=== PATIENT | female | born 1975 | race Caucasian/White ===

== ENCOUNTER 2020-10-10 07:33 | Outpatient (REF) | payer MEDICARE, MEDICAID, SELFPAY ==
[2020-10-10 08:27] LABS: MANUAL DIFF FLAG NO
[2020-10-10 08:40] LABS: Basophils Percent Auto 0.6 % (0-2); Eosinophils Absolute Auto 0.2 X10*3/uL (0.0-0.4); Eosinophils Percent Auto 2.3 % (0-4); Hematocrit 28.5 % (37-47); Hemoglobin 8.5 g/dl (12.0-16.0); Imm Gran Abs Auto 0.01 X10*3/uL (0.00-0.03); Imm Gran Pct Auto 0.2 % (0.0-0.4); Lymphocytes Absolute Auto 2.7 X10*3/uL (1.2-4.9); Lymphocytes Percent Auto 41.8 % (20-40); Mean Corpuscular HGB Conc 29.8 g/dl (31.0-35.0); Mean Corpuscular Volume 70.4 fL (80-98); Mean Platelet Volume 9.9 fL (9.4-12.3); Monocytes Absolute Auto 0.5 X10*3/uL (0.1-1.2); Monocytes Percent Auto 8.1 % (2-11); Neutrophils Absolute Auto 3.1 X10*3/uL (2.0-8.3); Platelet Count 294 X10*3/uL (160-400); Red Blood Count 4.05 X10*6/uL (4.20-5.50); Red Cell Distribution Width 14.8 % (11.0-16.0); White Blood Count 6.5 X10*3/uL (4.8-10.8)
[2020-10-10 08:46] LABS: Estimated Average Glucose 123 mg/dL; Hemoglobin A1c % 5.9 %
[2020-10-10 08:58] LABS: Carbon Dioxide 25 mmol/L (22-29)
[2020-10-10 08:59] LABS: Alanine Aminotransferase 13 U/L (0-31); Albumin Level 4.2 g/dL (3.5-5.0); Alkaline Phosphatase 156 U/L (39-117); Anion Gap 13 (12-20); Aspartate Amino Transferase 21 U/L (5-31); Bilirubin Total 0.2 mg/dL (0.0-1.0); Blood Urea Nitrogen 13 mg/dL (9-16); Chloride 103 mmol/L (96-108); Cholesterol 178 mg/dL; Estimated Glomerular Filt Rate > 60; Glucose Random 100 mg/dL (60-115); HDL Cholesterol 45 mg/dL; LDL Cholesterol Calculated 106 mg/dl; Sodium 137 mmol/L (135-145); Total Protein 8.3 g/dL (6.5-8.0); Triglycerides 139 mg/dL
[2020-10-10 09:10] LABS: Ferritin 24 ng/mL (10-250); TSH reflex Free T4 1.18 uIU/mL (0.32-4.0); Vitamin D 25-OH Total 12.4 ng/mL (>30)
[2020-10-11 07:54] LABS: ~HepC Num1 14.35 S/CO (0.00-0.79); ~Hepatitis C Antibody Reactive (Nonreactive)
[2020-10-11 07:58] LABS: HBS Num1 > 1000.00 mIU/mL (0-7.99); HBsAGNum1 0.29 S/CO (0.00-0.99); Hepatitis B Surface Antigen Negative (Negative); ~Hepatitis B Surface Antibody REACTIVE (Nonreactive)
[2020-10-16 15:31] LABS: HCV Log PCR <1.18 NOT DETECTED Log IU/mL (NOT DETECTED); HepC Viral Load <15 NOT DETECTED IU/mL (NOT DETECTED)
== END 2020-10-10 07:34 | disposition home or self-care (01) ==
LOC: HO.LAB 07:33
PROVIDERS: PCP Internal Medicine; Visit Provider Internal Medicine
DX: D50.9 Iron deficiency anemia, unspecified (principal); E55.9 Vitamin D deficiency, unspecified; F41.8 Other specified anxiety disorders
CPT/HCPCS: 36415; 80053; 80061; 82306; 82728; 83036; 84443; 85025; 86706; 86803; 87340; 87522

== ENCOUNTER 2020-10-18 11:51 | Outpatient (REF) | payer MEDICARE, MEDICAID, SELFPAY ==
--- NOTE | ~2020-10-18 | US_ITS ---
EXAMINATION: US ABDOMEN COMPLETE CLINICAL INFORMATION: Right upper quadrant pain. Question gallstones.. COMPARISON: Previous abdominal ultrasound January [address] of the abdomen and pelvis most recent September 2011 TECHNIQUE: Real-time imaging of the abdominal viscera. FINDINGS: PANCREAS: Normal. ABDOMINAL AORTA: The proximal, mid, and distal segments are normal in caliber. INFERIOR VENA CAVA: Visualized portions are normal. LIVER: Liver echotexture is increased suggestive of fatty infiltration. The liver is normal in size. The liver contour is normal. No focal hepatic lesion. There is no intrahepatic biliary duct dilatation seen. GALLBLADDER: Normal. The gallbladder is physiologically distended without evidence of stones, sludge, polyps, wall thickening or pericholecystic fluid. COMMON BILE DUCT: Normal in caliber measuring 0.3 cm in diameter. RIGHT KIDNEY: Normal. No hydronephrosis. No renal calculi or focal parenchymal lesions. The kidney measures 10.1 cm in maximum dimension. LEFT KIDNEY: Normal. No hydronephrosis. No renal calculi or focal parenchymal lesions. The kidney measures 11.5 cm in maximum dimension. SPLEEN: Normal. The spleen measures 12.2 cm in maximum dimension. FREE FLUID: None. US/US abdomen complete IMPRESSION: Echogenic liver suggestive of fatty infiltration. Otherwise unremarkable exam.
== END 2020-10-18 11:52 | disposition home or self-care (01) ==
LOC: HO.HMGCX 11:51
PROVIDERS: Visit Provider Advanced Practice Midwife
DX: R10.11 Right upper quadrant pain (principal); R74.8 Abnormal levels of other serum enzymes
CPT/HCPCS: 76700

== ENCOUNTER 2020-10-26 15:49 | Emergency (ER) | payer MEDICARE, MEDICAID, SELFPAY ==
--- NOTE | 2020-10-26 | ECG_ITS ---
Test Reason : CHEST PAIN Blood Pressure : / mmHG Vent. Rate : 075 BPM Atrial Rate : 075 BPM P-R Int : 124 ms QRS Dur : 078 ms QT Int : 372 ms P-R-T Axes : 033 015 014 degrees QTc Int : 415 ms Normal sinus rhythm Nonspecific T wave abnormality Abnormal ECG When compared with ECG of 03-MAR-2019 03:29, Nonspecific T wave abnormality now evident in Lateral leads Referred By: Al Humphrey Electronically Signed By:MORIAH CRUZ
[2020-10-26 15:52] VITALS: BP 144/75; PULSE 83; RESP 22; TEMP 36.7; O2SAT 99; BMI 31.8
== END 2020-10-26 20:25 | disposition left against medical advice (07) ==
LOC: HO.ED 20:21
PROVIDERS: Emergency Provider Emergency Medicine; PCP Internal Medicine
DX: R10.9 Unspecified abdominal pain (principal)
CPT/HCPCS: 93005; 99282

== ENCOUNTER 2020-10-31 16:04 | Outpatient (REF) | payer MEDICARE, MEDICAID, SELFPAY ==
--- NOTE | ~2020-10-31 | US_ITS ---
EXAMINATION: ULTRASOUND PELVIS AND TRANSVAGINAL CLINICAL INFORMATION: Abnormal vaginal bleeding COMPARISON: Ultrasound pelvis 07/02/2018 TECHNIQUE: Transabdominal and transvaginal imaging of pelvis was performed. FINDINGS: There is anteverted and anteflexed uterus measuring 9.8 x 5.9 x 6.4 cm. The myometrium is slightly heterogenous with echogenic calcifications in the anterior fundal region. Endometrial thickness is 0.45 cm. A hypoechoic lesion in the anterior body of uterus measuring 2.3 x 1.9 x 2.5 cm. Previously it measured 1.2 x 1.1 x 1.19 cm. No additional lesions seen. There are small nabothian cysts seen in the cervix. Right ovary measures 2.3 x 1.5 x 2.7 cm and volume 5.0 mL. It appears unremarkable. Previously it measured 2.7 x 2.6 x 3.0 cm and volume 11.1 mL. The left ovary measures 3.0 x 1.7 x 1.8 cm and volume 5.0 mL. There is anechoic cyst measuring 1.4 x 0.7 x 1.0 cm. Previously left ovary measures 1.8 x 2.5 x 1.9 cm and 4.5 mL in volume. There is no free fluid in the cul-de-sac. US/US pelvic and transvaginal IMPRESSION: Slightly heterogenous uterus with a solitary fibroid in the anterior upper body of uterus. Small anechoic cyst left ovary measuring 1.4 cm. Right ovary measures 2.7 cm. There are small nabothian cysts in the cervix. There is no free fluid in the cul-de-sac.
== END 2020-10-31 16:05 | disposition home or self-care (01) ==
LOC: HO.US 16:04
PROVIDERS: Visit Provider Advanced Practice Midwife
DX: D25.9 Leiomyoma of uterus, unspecified (principal); N93.9 Abnormal uterine and vaginal bleeding, unspecified
CPT/HCPCS: 76830; 76856

== ENCOUNTER 2020-12-18 15:39 | Outpatient (REF) | payer MEDICARE, MEDICAID, SELFPAY ==
[2020-12-18 18:18] LABS: Hematocrit 24.4 % (37-47); Mean Corpuscular HGB Conc 28.3 g/dl (31.0-35.0); Mean Corpuscular Hemoglobin 19.1 pg (27.0-33.0); Mean Corpuscular Volume 67.4 fL (80-98); Mean Platelet Volume 9.8 fL (9.4-12.3); Platelet Count 256 X10*3/uL (160-400); Red Blood Count 3.62 X10*6/uL (4.20-5.50); Red Cell Distribution Width 17.2 % (11.0-16.0); White Blood Count 8.4 X10*3/uL (4.8-10.8)
[2020-12-18 18:30] LABS: Hemoglobin 6.9 g/dl (12.0-16.0)
[2020-12-18 18:53] LABS: HCG Quantitative < 2 mIU/mL; TSH reflex Free T4 2.25 uIU/mL (0.32-4.0)
[2020-12-19 03:23] LABS: CT PCR NOT DETECTED (Not Detect.); NG PCR NOT DETECTED (Not Detect.)
[2020-12-20 21:17] LABS: HPV mRNA E6/E7 rflx Not Detected (Not Detected)
== END 2020-12-18 15:40 | disposition home or self-care (01) ==
LOC: HO.LAB 15:39
PROVIDERS: PCP Internal Medicine; Visit Provider Obstetrics & Gynecology
DX: Z01.411 Encounter for gynecological examination (general) (routine) with abnormal findings (principal); Z11.3 Encounter for screening for infections with a predominantly sexual mode of transmission; Z11.51 Encounter for screening for human papillomavirus (HPV); N92.1 Excessive and frequent menstruation with irregular cycle; N93.9 Abnormal uterine and vaginal bleeding, unspecified; D50.0 Iron deficiency anemia secondary to blood loss (chronic)
CPT/HCPCS: 36415; 58100; 84443; 84702; 85027; 87491; 87591; 87624; 88142; 88305

== ENCOUNTER 2020-12-19 18:52 | Emergency (ER) | payer MEDICARE, MEDICAID, SELFPAY ==
--- NOTE | ~2020-12-19 | XR_ITS ---
EXAMINATION: XR CHEST CLINICAL INFORMATION: Shortness of breath COMPARISON: None TECHNIQUE: Frontal portable view of the chest was obtained. 9:09 PM FINDINGS: No significant abnormality is noted involving the heart, lungs, mediastinum, bony thorax or soft tissues. XR/XR chest 1V IMPRESSION: Unremarkable examination.
[2020-12-19 19:56] VITALS: BP 121/62; PULSE 75; RESP 18; TEMP 36.7; BMI 33.6
--- NOTE | 2020-12-19 20:39 | ED_ITS ---
HPI - Recheck/Abnormal Lab/Rx General Chief Complaint: Recheck/Abnormal Lab/Rx Stated Complaint: blood transfusion Time Seen by Provider: 12/19/20 20:38 Source: patient Mode of arrival: ambulatory Limitations: no limitations History of Present Illness HPI narrative: 45 y/o female with history of menorrhagia who was sent to the ER for blood transfusion by her [employer] Dr. Grimes. Her outpatient blood work showed a hemoglobin of 6.8. She is planned for a uterine ablation on Friday with Dr. Grimes. She admits to feeling fatigued and weak. She is very SOB with exertion. She is not currently bleeding and her LMP was November 30 and lasted 9 days. She was bleeding heavily for a full 9 days, passing clot as large as her fist. She has been suffering from heavy menstrual periods for as long as she can remember. She has never required blood transfusion before. Her mother who is with her today reports history of the same and she required multiple blood transfusions and a partial hysterectomy. No known bleeding disorders. MD complaint: abnormal lab Initial visit (ago): day(s) Returns today for: called because of abnormal lab/test Description of abnormal result: hemoglobin of 6.8 Context: called for abnormal lab result Associated symptoms: chest pain, shortness of breath and malaise Related Data Home Medications Medication Instructions Recorded Confirmed atorvastatin 1 tab PO DAILY 12/13/20 12/13/20 buspirone 1 tab PO DAILY 12/13/20 12/13/20 cetirizine 1 tab PO DAILY 12/13/20 12/13/20 clonidine HCl 1 tab PO DAILY 12/13/20 12/13/20 cyclobenzaprine 1 tab PO TID PRN 12/13/20 12/13/20 gabapentin 1 cap PO TID 12/13/20 12/13/20 omeprazole 1 cap PO DAILY 12/13/20 12/13/20 prazosin 1 cap PO BEDTIME 12/13/20 12/13/20 sertraline 1 tab PO DAILY 12/13/20 12/13/20 Allergies Allergy/AdvReac Type Severity Reaction Status Date / Time latex [LATEX] Allergy Unknown rash Verified 12/19/20 19:56 Review of Systems Review of Systems: Constitutional: No Fever, No Chills Cardiovascular: No Chest Pain, + SOB, No Orthopnea, No Edema Respiratory: No Cough, No Sputum, No Wheezing, + dyspnea Gastrointestinal: No Nausea, No Vomiting, No Diarrhea, No abdominal Pain, No Hematochezia, No Melena Genitourinary: No Dysuria, No Urinary Frequency, No Hematuria, No current vaginal bleeding Musculoskeletal: No joint pain, No Myalgias Skin: No Skin Lesions, No rash Neuro: + Weakness, No Numbness, No Dizziness, No Headache Psych: No Anxiety/Panic, No Depression Heme/Lymph: No Bruising, No Lymphadenopathy Endocrine: No Polyuria, No Polydipsia [facility] Past Medical History Attestation statement: The following information was validated with the patient. Medical History Arthritis Asthma GERD (gastroesophageal reflux disease) HLD (hyperlipidemia) HTN (hypertension) Migraines Surgical History Tubal ligation status Date of Last Menstrual Period: 11/30/20 Family History Family History Mother Colon cancer Family/Other Uterine cancer Maternal Aunt Breast cancer Spinal cord cancer Maternal Grandmother Dementia Social History Social History Alcohol intake: never Patient Tobacco Use Status: Current everyday Tobacco user Cigarette Packs Per Day: 1 Use of substances other than those prescribed or required for medical reasons: Yes Substance Use Type: Crack/Cocaine and Heroin Advance Directives: No Physical Exam Vital Signs: Vital Signs: Last Vital Signs Temp 98.2 F 12/20/20 00:40 Pulse 88 12/20/20 00:40 Resp 18 12/20/20 00:40 BP 119/75 12/20/20 00:40 Pulse Ox 98 12/19/20 22:49 Body Mass Index 33.6 Appearance: Alert. Oriented X3. Moderate pallor Eyes: Pupils equal, round and reactive to light. Conjunctival pallor ENT: Pharynx normal. Neck: Normal inspection. Neck supple. CVS: Normal heart rate and rhythm. Pulses normal. Respiratory: No respiratory distress. Breath sounds normal. Abdomen: Soft and nontender. +BS x4. Pelvic exam deferred Skin: Skin warm and dry. Normal skin color. Normal skin turgor. No rashes. Extremities: No lower extremity edema. Neuro: Oriented X 3. No motor deficit. No sensory deficit. Course Course Course Narrative: 45 y/o female presenting to the ER with symptomatic anemia, hemoglobin of 6.8 in the setting of chronic menorrhagia. Sent in by Dr. Grimes with plan for intervention on Friday. Not currently bleeding. Not on a nticoagulation or aspirin. Her symptoms of VERNON/SOB, chest pain and fatigue are all from her anemia. Will plan to transfuse 2 units of PRBC per Dr. Grimes's request. Will check retic count and iron studies as well. Patient consented for blood. Anticipate d/c home after blood transfused given she is not actively bleeding. Reevaluation(s) Reevaluation #1: Hemoglobin slightly improved, however given her symptoms will proceed with original plan to give 2 units. Delay in transfusion due to difficult stick and need for additional antibody testing from the lab. Dr. Key obtained needed sample. Awaiting transfusion. Reevaluation #2: Made aware of soft BP with MAP 64. Doubt this is from sepsis, most likely from hypovolemia and anemia. She is AAOx3. Afebrile without leukocyt osis. Will give 1L IVF while awaiting blood. Reevaluation #3: Patient blood transfusion started. She is tolerating it well. Physician observation started at 12:54am. Patient placed in physician observation because patient is getting 2 units of blood. Will take several hours. Plan for discharge home after transfusion with outpatient repeat H/H and outpatient f/u with Dr. Grimes.. At the time observation was started patient's vital signs were stable. Patient is alert and oriented. Neuro exam is non-focal. CV: RRR and lungs are clear. Will continue to monitor. MDM - Recheck/Abnormal Lab/Rx Lab Data Result diagrams: 12/19/20 20:56 12/19/20 20:56 Labs: Lab Results 12/19/20 12/19/20 12/19/20 Range/Units 20:56 20:56 20:56 WBC 7.9 (4.8-10.8) X10*3/uL RBC 3.81 L (4.20-5.50) X10*6/uL Hgb 7.3 L (12.0-16.0) g/dl Hct 25.4 L (37-47) % MCV 66.7 L (80-98) fL MCH 19.2 L (27.0-33.0) pg MCHC 28.7 L (31.0-35.0) g/dl RDW 17.4 H (11.0-16.0) % Plt Count 241 (160-400) X10*3/uL MPV 9.4 (9.4-12.3) fL Immature Gran % (Auto) 0.1 (0.0-0.4) % Neut % (Auto) 56.6 (45-73) % Lymph % (Auto) 33.3 (20-40) % [place] % (Auto) 7.9 (2-11) % Eos % (Auto) 1.7 (0-4) % Baso % (Auto) 0.4 (0-2) % Lymph # (Auto) 2.6 (1.2-4.9) X10*3/uL [place] # (Auto) 0.6 (0.1-1.2) X10*3/uL Eos # (Auto) 0.1 (0.0-0.4) X10*3/uL Baso # (Auto) 0.0 (0.0-0.2) X10*3/uL Abs Immat Gran (auto) 0.01 (0.00-0.03) X10*3/uL Absolute Neuts (auto) 4.5 (2.0-8.3) X10*3/uL Absolute Nucleated RBC 0.000 (0.0-0.012) X10*3/uL Nucleated RBC % (auto) 0.0 (0.0-0.2) /100WBC Absolute Retic 0.066 (0.026-0.095) X10*6/uL Percent Retic 1.7 (0.5-1.8) % Immature Retic Fraction 23.9 H (3.0-15.9) % Retic Hgb Equivalent 18.2 L (30.0-35.0) pg PT (9.9-13.0) SEC INR (0.9-1.1) APTT (24.1-38.0) SEC Sodium 139 (135-145) mmol/L Potassium 4.0 (3.3-5.1) mmol/L Chloride 106 (96-108) mmol/L Carbon Dioxide 26 (22-29) mmol/L Anion Gap 11 L (12-20) BUN 10 (9-16) mg/dL Creatinine 0.93 (0.5-1.4) mg/dL Estim Creat Clear Calc 81.1 Estimated GFR > 60 Random Glucose 108 (60-115) mg/dL Calcium 8.8 (8.4-10.2) mg/dL Magnesium 2.3 (1.6-2.6) mg/dL Iron 20 L (30-160) mcg/dL TIBC 463 H (228-428) mcg/dL % Saturation 4 L (15-50) % Unsat Iron Binding 443 ug/dL Total Bilirubin 0.2 (0.0-1.0) mg/dL Direct Bilirubin < 0.2 (0.0-0.5) mg/dL AST 21 (5-31) U/L ALT 12 (0-31) U/L Alkaline Phosphatase 154 H (39-117) U/L Troponin I High Sens (<3.5-17.0) ng/L Total Protein 8.2 H (6.5-8.0) g/dL Albumin 4.1 (3.5-5.0) g/dL Blood Type A Positive Antibody Screen NEGATIVE Crossmatch See Detail 12/19/20 12/19/20 Range/Units 20:56 20:56 WBC (4.8-10.8) X10*3/uL RBC (4.20-5.50) X10*6/uL Hgb (12.0-16.0) g/dl Hct (37-47) % MCV (80-98) fL MCH (27.0-33.0) pg MCHC (31.0-35.0) g/dl RDW (11.0-16.0) % Plt Count (160-400) X10*3/uL MPV (9.4-12.3) fL Immature Gran % (Auto) (0.0-0.4) % Neut % (Auto) (45-73) % Lymph % (Auto) (20-40) % [place] % (Auto) (2-11) % Eos % (Auto) (0-4) % Baso % (Auto) (0-2) % Lymph # (Auto) (1.2-4.9) X10*3/uL [place] # (Auto) (0.1-1.2) X10*3/uL Eos # (Auto) (0.0-0.4) X10*3/uL Baso # (Auto) (0.0-0.2) X10*3/uL Abs Immat Gran (auto) (0.00-0.03) X10*3/uL Absolute Neuts (auto) (2.0-8.3) X10*3/uL Absolute Nucleated RBC (0.0-0.012) X10*3/uL Nucleated RBC % (auto) (0.0-0.2) /100WBC Absolute Retic (0.026-0.095) X10*6/uL Percent Retic (0.5-1.8) % Immature Retic Fraction (3.0-15.9) % Retic Hgb Equivalent (30.0-35.0) pg PT 10.9 (9.9-13.0) SEC INR 1.0 (0.9-1.1) APTT 35.2 (24.1-38.0) SEC Sodium (135-145) mmol/L Potassium (3.3-5.1) mmol/L Chloride (96-108) mmol/L Carbon Dioxide (22-29) mmol/L Anion Gap (12-20) BUN (9-16) mg/dL Creatinine (0.5-1.4) mg/dL Estim Creat Clear Calc Estimated GFR Random Glucose (60-115) mg/dL Calcium (8.4-10.2) mg/dL Magnesium (1.6-2.6) mg/dL Iron (30-160) mcg/dL TIBC (228-428) mcg/dL % Saturation (15-50) % Unsat Iron Binding ug/dL Total Bilirubin (0.0-1.0) mg/dL Direct Bilirubin (0.0-0.5) mg/dL AST (5-31) U/L ALT (0-31) U/L Alkaline Phosphatase (39-117) U/L Troponin I High Sens < 3.5 (<3.5-17.0) ng/L Total Protein (6.5-8.0) g/dL Albumin (3.5-5.0) g/dL Blood Type Antibody Screen Crossmatch Critical Care Time Critical Care Time Critical Care Time: Yes Total Critical Care Time: 38 Attestation: I have personally provided critical care time exclusive of time spent on separately billable procedures. Time includes review of lab data, radiology results, discussion with consultants, and monitoring for potential decompensation. Intervention performed as documented. Discharge Plan Discharge Clinical Impression: Symptomatic anemia Menorrhagia Qualifiers: Menorrhagia type: with regular cycle Qualified Code(s): N92.0 - Excessive and frequent menstruation with regular cycle Patient Disposition: Home, Self-Care Instructions: Menorrhagia (ED), Anemia (ED), Hydrothermal Endometrial Ablation (DC) Additional Instructions: You were given 2 units of red blood cells today in the ER. Your blood workup showed significant iron deficiency. Recommend starting iron supplementation & following up with a [employer] for evaluation of possible IV iron. Follow up with Dr. Grimes on Friday for your planned procedure. If you develop significant bleeding associated with dizziness, chest pain, shortnes of breath or any other concerning symptoms come back to the ER for further evaluation. Prescriptions: No Action clonidine HCl 0.1 mg tablet 1 tab PO DAILY RF: 0 atorvastatin 20 mg tablet 1 tab PO DAILY RF: 0 cetirizine 10 mg tablet 1 tab PO DAILY RF: 0 sertraline 100 mg tablet 1 tab PO DAILY RF: 0 omeprazole 40 mg capsule,delayed release(DR/EC) 1 cap PO DAILY RF: 0 gabapentin 300 mg capsule 1 cap PO TID RF: 0 buspirone 7.5 mg tablet 1 tab PO DAILY RF: 0 prazosin 2 mg capsule 1 cap PO BEDTIME RF: 0 cyclobenzaprine 5 mg tablet 1 tab PO TID PRN (Reason: Pain) RF: 0 Referrals: Michelle Anne MD [Physician] - 2 days (severe iron deficiency anemia) Adalid Grimes MD [Physician] - 2 days (menorrhagia s/p 2 units PRBC)
[2020-12-19 21:04] LABS: Basophils Percent Auto 0.4 % (0-2); Eosinophils Absolute Auto 0.1 X10*3/uL (0.0-0.4); Eosinophils Percent Auto 1.7 % (0-4); Hematocrit 25.4 % (37-47); Hemoglobin 7.3 g/dl (12.0-16.0); Imm Gran Abs Auto 0.01 X10*3/uL (0.00-0.03); Imm Gran Pct Auto 0.1 % (0.0-0.4); Lymphocytes Absolute Auto 2.6 X10*3/uL (1.2-4.9); Lymphocytes Percent Auto 33.3 % (20-40); MANUAL DIFF FLAG NO; Mean Corpuscular HGB Conc 28.7 g/dl (31.0-35.0); Mean Corpuscular Hemoglobin 19.2 pg (27.0-33.0); Mean Corpuscular Volume 66.7 fL (80-98); Mean Platelet Volume 9.4 fL (9.4-12.3); Monocytes Absolute Auto 0.6 X10*3/uL (0.1-1.2); Monocytes Percent Auto 7.9 % (2-11); Neutrophils Absolute Auto 4.5 X10*3/uL (2.0-8.3); Neutrophils Percent Auto 56.6 % (45-73); Platelet Count 241 X10*3/uL (160-400); Red Blood Count 3.81 X10*6/uL (4.20-5.50); Red Cell Distribution Width 17.4 % (11.0-16.0); White Blood Count 7.9 X10*3/uL (4.8-10.8)
[2020-12-19 21:10] LABS: Prothrombin Time 10.9 SEC (9.9-13.0)
[2020-12-19 21:13] LABS: Partial Thromboplastin Time 35.2 SEC (24.1-38.0)
[2020-12-19 21:26] LABS: Immature Retic Fraction 23.9 % (3.0-15.9); Retic HGB Equivalent 18.2 pg (30.0-35.0); Reticulocyte Percent 1.7 % (0.5-1.8); Reticulocytes Absolute 0.066 X10*6/uL (0.026-0.095); SCAN SMEAR FLAG 1
[2020-12-19 21:33] LABS: Alanine Aminotransferase 12 U/L (0-31); Albumin Level 4.1 g/dL (3.5-5.0); Alkaline Phosphatase 154 U/L (39-117); Anion Gap 11 (12-20); Aspartate Amino Transferase 21 U/L (5-31); Bilirubin Direct < 0.2 mg/dL (0.0-0.5); Bilirubin Total 0.2 mg/dL (0.0-1.0); Blood Urea Nitrogen 10 mg/dL (9-16); Calcium 8.8 mg/dL (8.4-10.2); Carbon Dioxide 26 mmol/L (22-29); Chloride 106 mmol/L (96-108); Creatinine Clr Calc Pharmacy 81.1; Estimated Glomerular Filt Rate > 60; Glucose Random 108 mg/dL (60-115); Iron 20 mcg/dL (30-160); Magnesium 2.3 mg/dL (1.6-2.6); Percent Iron Saturation 4 % (15-50); Sodium 139 mmol/L (135-145); Total Iron Binding Capacity 463 mcg/dL (228-428); Total Protein 8.2 g/dL (6.5-8.0); Unsaturated Iron Binding 443 ug/dL
[2020-12-19 21:36] VITALS: BP 94/49; PULSE 65; RESP 18; O2SAT 97
--- NOTE | 2020-12-19 21:37 | PC.NURSE ---
Pt has been a very difficult stick d/t scarring. palor lower conjunctiva. reports no vag bleeding at this time but has heavy menstruations. is axox3. plan for ablasion on friday. this rn to approach provider for EJ.
[2020-12-19] MEDS: 0.9 % Sodium Chloride 1,000 ML 999 ML IVCONT (22:00)
[2020-12-19 22:04] LABS: Troponin-I High Sensitivity < 3.5 ng/L (<3.5-17.0)
[2020-12-19 22:49] VITALS: BP 103/61; PULSE 69; RESP 18; TEMP 36.9; O2SAT 98
[2020-12-20 00:40] VITALS: BP 119/75; PULSE 88; RESP 18; TEMP 36.8
[2020-12-20 00:55] VITALS: BP 125/76; PULSE 85; RESP 18; TEMP 36.9
[2020-12-20 03:00] VITALS: BP 135/57; PULSE 72; RESP 18; TEMP 36.8
[2020-12-20 03:13] VITALS: BP 135/57; PULSE 75; RESP 18; TEMP 36.8
[2020-12-20 03:29] VITALS: BP 128/72; PULSE 83; RESP 18; TEMP 36.8
[2020-12-20 05:42] VITALS: BP 136/87; PULSE 80; RESP 18; TEMP 36.8
== END 2020-12-20 05:52 | disposition home or self-care (01) ==
PROVIDERS: Physician Assistant; Emergency Provider Internal Medicine
DX: D64.9 Anemia, unspecified (principal); N92.0 Excessive and frequent menstruation with regular cycle; I10 Essential (primary) hypertension; Z79.899 Other long term (current) drug therapy
CPT/HCPCS: 36415; 36430; 71045; 80048; 80076; 83540; 83735; 84484; 85025; 85045; 85610; 85730; 86850; 86900; 86901; 86923; 96360; 99284; 99291; P9016

== ENCOUNTER → 2020-12-21 13:28 | Outpatient (BNVA) | payer MEDICARE, MEDICAID, SELFPAY | PROVIDERS: PCP Internal Medicine; Visit Provider Obstetrics & Gynecology | DX: N76.0 Acute vaginitis (principal); N92.1 Excessive and frequent menstruation with irregular cycle; D64.9 Anemia, unspecified; B96.89 Other specified bacterial agents as the cause of diseases classified elsewhere | CPT/HCPCS: 99212 ==

== ENCOUNTER 2020-12-25 15:42 | Outpatient (REF) | payer MEDICARE, MEDICAID, SELFPAY ==
[2020-12-25 16:22] LABS: Hemoglobin 9.4 g/dl (12.0-16.0); Mean Corpuscular HGB Conc 30.3 g/dl (31.0-35.0); Mean Corpuscular Hemoglobin 21.5 pg (27.0-33.0); Mean Corpuscular Volume 70.8 fL (80-98); Mean Platelet Volume 10.1 fL (9.4-12.3); Platelet Count 236 X10*3/uL (160-400); Red Blood Count 4.38 X10*6/uL (4.20-5.50); Red Cell Distribution Width 21.5 % (11.0-16.0); White Blood Count 6.9 X10*3/uL (4.8-10.8)
== END 2020-12-25 15:43 | disposition home or self-care (01) ==
LOC: HO.LAB 15:42
PROVIDERS: PCP Internal Medicine; Visit Provider Obstetrics & Gynecology
DX: N92.1 Excessive and frequent menstruation with irregular cycle (principal); D64.9 Anemia, unspecified
CPT/HCPCS: 36415; 85027

== ENCOUNTER 2020-12-29 09:07 | Day surgery (SDC) | payer MEDICARE, MEDICAID, SELFPAY ==
--- NOTE | 2020-12-21 08:40 | HO.ANESPROP2 ---
Documented by User: Alexandra Oneill 12/21/20 08:42 HPI - Anesthesia Eval Consult details Narrative: 45yo F for Uterine Ablation w/Novasure Social hx lists polysub abuse, ? current. Tox screen DOS PMFSH Active Problems Active Problems: All Active Problems (Updated 12/21/20 @ 00:00 by Background Daemon) Well woman exam (Acute) Menometrorrhagia (Acute) Iron deficiency anemia (Acute) Past Medical History Medical History Arthritis Asthma GERD (gastroesophageal reflux disease) HLD (hyperlipidemia) HTN (hypertension) Migraines Family History Family History Mother Colon cancer Family/Other Uterine cancer Maternal Aunt Breast cancer Spinal cord cancer Maternal Grandmother Dementia Surgical History Surgical History Tubal ligation status Social History Social History Alcohol intake: never Patient Tobacco Use Status: Current everyday Tobacco user Cigarette Packs Per Day: 1 Cigarettes Per Day: 20.0 Second Hand Smoke Exposure: No Use of substances other than those prescribed or required for medical reasons: Yes Substance Use Type: Crack/Cocaine and Heroin Substance Use Frequency: Daily Are you DNR?: No Advance Directives: No Advance Directives Information Provided: Yes Advance Directives on File: No Meds Allergies Allergy/AdvReac Type Severity Reaction Status Date / Time latex [LATEX] Allergy Unknown rash Verified 12/19/20 19:56 Home Medications Medication Instructions Recorded Confirmed Last Taken Type atorvastatin 20 mg tablet 1 tab PO DAILY 12/13/20 12/13/20 Unknown History buspirone 7.5 mg tablet 1 tab PO DAILY 12/13/20 12/13/20 Unknown History cetirizine 10 mg tablet 1 tab PO DAILY 12/13/20 12/13/20 Unknown History clonidine HCl 0.1 mg tablet 1 tab PO DAILY 12/13/20 12/13/20 Unknown History cyclobenzaprine 5 mg tablet 1 tab PO TID PRN 12/13/20 12/13/20 Unknown History gabapentin 300 mg capsule 1 cap PO TID 12/13/20 12/13/20 Unknown History omeprazole 40 mg capsule,delayed 1 cap PO DAILY 12/13/20 12/13/20 Unknown History release prazosin 2 mg capsule 1 cap PO BEDTIME 12/13/20 12/13/20 Unknown History sertraline 100 mg tablet 1 tab PO DAILY 12/13/20 12/13/20 Unknown History Exam Exam Date and Time: December 21, 2020 0840 Pertinent Lab Results Pertinent Lab Results: Laboratory Tests 12/19/20 12/19/20 20:56 20:56 WBC 7.9 Hgb 7.3 L Hct 25.4 L Plt Count 241 Sodium 139 Potassium 4.0 Chloride 106 Carbon Dioxide 26 BUN 10 Creatinine 0.93 Narrative Narrative: EKG 09/2020 Vent. Rate : 075 BPM Atrial Rate : 075 BPM P-R Int : 124 ms QRS Dur : 078 ms QT Int : 372 ms P-R-T Axes : 033 015 014 degrees QTc Int : 415 ms Normal sinus rhythm Nonspecific T wave abnormality Abnormal ECG When compared with ECG of 03-MAR-2019 03:29, Nonspecific T wave abnormality now evident in Lateral leads Assessment and Plan Assessment Anesthesia Assessment: Chart Reviewed Documented by User: Suha Beckwith 12/29/20 14:12 PMFSH Past Medical History Medical History Arthritis Asthma GERD (gastroesophageal reflux disease) HLD (hyperlipidemia) HTN (hypertension) Migraines Family History Family History Mother Colon cancer Family/Other Uterine cancer Maternal Aunt Breast cancer Spinal cord cancer Maternal Grandmother Dementia Surgical History Surgical History Tubal ligation status Social History Social History Alcohol intake: never Patient Tobacco Use Status: Current everyday Tobacco user Cigarette Packs Per Day: 1 Cigarettes Per Day: 20.0 Second Hand Smoke Exposure: No Use of substances other than those prescribed or required for medical reasons: Yes Substance Use Type: Crack/Cocaine and Heroin Substance Use Frequency: Daily Are you DNR?: No Advance Directives: No Advance Directives Information Provided: Yes Advance Directives on File: No Meds Allergies Allergy/AdvReac Type Severity Reaction Status Date / Time latex [LATEX] Allergy Unknown rash Verified 12/19/20 19:56 Home Medications Medication Instructions Recorded Confirmed Last Taken Type atorvastatin 20 mg tablet 1 tab PO DAILY 12/13/20 12/13/20 Unknown History buspirone 7.5 mg tablet 1 tab PO DAILY 12/13/20 12/13/20 Unknown History cetirizine 10 mg tablet 1 tab PO DAILY 12/13/20 12/13/20 Unknown History clonidine HCl 0.1 mg tablet 1 tab PO DAILY 12/13/20 12/13/20 Unknown History cyclobenzaprine 5 mg tablet 1 tab PO TID PRN 12/13/20 12/13/20 Unknown History gabapentin 300 mg capsule 1 cap PO TID 12/13/20 12/13/20 Unknown History omeprazole 40 mg capsule,delayed 1 cap PO DAILY 12/13/20 12/13/20 Unknown History release prazosin 2 mg capsule 1 cap PO BEDTIME 12/13/20 12/13/20 Unknown History sertraline 100 mg tablet 1 tab PO DAILY 12/13/20 12/13/20 Unknown History Exam Airway Mallampati Class: II TM Dist: >3cm Neck ROM: Full Partial: Upper Heart: rrr Lungs: cta Assessment and Plan Assessment Anesthesia Assessment: Anesthesia Plan Discussed and Chart Reviewed Final Anesthetic Review NPO: Yes ASA Class: III and Emergency Final Preanesthetic Review: No Changes in Pt Med Stat, Meds/Allgs Chart Reviewed and Consent Obtained/Reviewed Patient Risk: Intermediate Procedure Risk: Intermediate Anesthetic Plan Anesthetic Plan: GA Disposition: Standard PACU
[2020-12-29] VITALS (9 sets, daily range): BP systolic 112–156; BP diastolic 67–85; PULSE 59–77; RESP 14–20; TEMP 36.1–36.3; O2SAT 94–100; BMI 33.8
[2020-12-29 09:34] LABS: UPreg QC Valid YES; Urine Pregnancy NEGATIVE (NEGATIVE)
[2020-12-29 09:54] LABS: Amphetamine Screen Urine Not Detected (Not Detect); Barbiturates, Urine Not Detected (Not Detect); Benzodiazepines Screen Urine Not Detected (Not Detect); Cannabinoid Screen Urine Not Detected (Not Detect); Cocaine Screen Urine POSITIVE (Not Detect); Opiate Screen Urine POSITIVE (Not Detect); Phencyclidine Screen Urine Not Detected (Not Detect)
[2020-12-29 10:01] LABS: Hematocrit 30.3 % (37-47)
--- NOTE | 2020-12-29 10:23 | MHC.SHP ---
Pre-Procedural Eval Section A Date of Service: 12/29/20 Section B Chief Complaint: excessive menstruation Allergies: Allergies Allergy/AdvReac Type Severity Reaction Status Date / Time latex [LATEX] Allergy Unknown rash Verified 12/19/20 19:56 Plan I have reviewed the history and physical and performed a pertinent physical examination on my patient. No changes have occurred unless specified.
[2020-12-29] MEDS: Lactated Ringers 1,000 ML 999 ML IV (10:25)
--- NOTE | 2020-12-29 10:54 | PC.NURSE ---
Upon patient arrival she c/o dizziness, lightheaded and feeling of faint. Pt VSS. PT admitted to using IV heroin/cocaine at 0200. PT Alert and oriented but very sleepy/drowsy. Dr. Sandoval, Dr. Matthews and Dr. Grimes aware. Orders were obtained for stat H&H, T&S and 1000ml LR bolus from Dr. Matthews. H&H drawn, recalled for T&S. Pt hard IV started. 7 attempts made and 22g obtained to left hand. IVF running. Dr aSndoval at bedside to assess patient. Pt stated eating a sleeve of crackers and coffee at 0600. Surgery delayed until 1400 per anesthesia.
--- NOTE | 2020-12-29 14:46 | PM.OP ---
Brief Operative Note Date of Service: 12/29/20 Pre-op diagnosis: Menometrorrhagia with anemia Post-op diagnosis: same Procedure: NovaSure endometrial ablation Under MAC, in a dorsal lithotomy position, the patient was prepped and draped in the usual sterile manner. Bimanual exam prior to prepping revealed a mobile, anteverted uterus. A speculum was placed in the vagina and the anterior lip of the cervix was grasped with a single toothed tenaculum and brought forward. Taking care not to enter deep into the uterus, a sound was passed inside to measure the length of the uterus and cervix. This length was found to be 8 cm. Next, Hegar dilator was inserted into the cervical os to measure the cervical length which was 3 cm. This yielded an endometrial cavity length of 5 cm. A series of Hegar dilators were then inserted sequentially into the cervical os up to a size of 5 mm. The Novasure device was then opened and tested; the fan deployed easily. The instrument was set to the correct cavity length and introduced into the uterine cavity. The fan was slowly deployed with gentle movements to ensure a snug fit within the cavity. The cavity width read 4.5 cm. The measurements were imported and a cavity check was done. The trumpet was then slid down to the cervix and the device was activated. The total burn time was 90 seconds. The fan was retracted and device removed. The fan was examined and revealed charred tissue. The tenaculum was removed and the cervix examined for hemostasis which was achieved using pressure. Finally the speculum was removed. The patient tolerated the procedure well and was brought to the recovery room in a stable condition. At the end of the procedure all sponges and instruments were counted and correct. The blood loss was minimal and there were no complications. Surgeon: Adalid Grimes MD Anesthesia: MAC Was an Engineering Aide used for this Procedure?: No Estimated blood loss (mL): 0 Pathology: none sent Condition: stable Disposition: PACU
[2020-12-29] MEDS: Morphine Sulfate 2 MG/ML CARTRIDGE IVPUSH (15:55)
== END 2020-12-29 16:30 | disposition home or self-care (01) ==
PROVIDERS: Anesthesiology; Nurse Practitioner; Visit Provider Obstetrics & Gynecology
PROC: (CPT 58353; principal; 2020-12-29 10:30)
DX: N92.1 Excessive and frequent menstruation with irregular cycle (principal); D50.0 Iron deficiency anemia secondary to blood loss (chronic); N76.0 Acute vaginitis; B96.89 Other specified bacterial agents as the cause of diseases classified elsewhere; I10 Essential (primary) hypertension; J45.909 Unspecified asthma, uncomplicated; Z98.51 Tubal ligation status; F17.210 Nicotine dependence, cigarettes, uncomplicated; F14.90 Cocaine use, unspecified, uncomplicated; F11.90 Opioid use, unspecified, uncomplicated; Z91.040 Latex allergy status
CPT/HCPCS: 58353; 36415; 80307; 81025; 85014; 85018; 86850; 86900; 86901; J1100; J2250; J2270; J2405; J3010

== ENCOUNTER → 2021-02-14 14:51 | Outpatient (BNVA) | payer MEDICARE, MEDICAID, SELFPAY | PROVIDERS: Visit Provider Orthopaedic Surgery | DX: M65.331 Trigger finger, right middle finger (principal); G56.01 Carpal tunnel syndrome, right upper limb; I10 Essential (primary) hypertension; E78.5 Hyperlipidemia, unspecified; F17.200 Nicotine dependence, unspecified, uncomplicated; F14.10 Cocaine abuse, uncomplicated; F11.10 Opioid abuse, uncomplicated; Z91.040 Latex allergy status | CPT/HCPCS: 99202 ==

== ENCOUNTER 2021-03-28 12:22 | Outpatient (REF) | payer MEDICARE, MEDICAID, SELFPAY ==
--- NOTE | ~2021-03-28 | MM_ITS ---
EXAMINATION: MM SCREENING DIGITAL BREAST TOMOSYNTHESIS, BILATERAL CLINICAL INFORMATION: Screening. Asymptomatic. No prior breast imaging. Age 45. Family history breast cancer, maternal aunt. The lifetime risk of breast cancer based on the Tyrer-Cuzick Model is 13%. COMPARISON: None (current study represents initial baseline exam). TECHNIQUE: Digital breast tomosynthesis is performed in both the craniocaudal and mediolateral oblique views along with computer-aided detection (CAD). Synthesized 2D images are generated from the tomosynthesis. FINDINGS: There are scattered areas of fibroglandular density (ACR BI-RADS breast composition Category b). There are no significant masses, abnormal calcifications, or other abnormalities. There is no architectural abnormality. The skin contours are smooth. MM/MM tomosynthesis screening BI IMPRESSION: No mammographic evidence of malignancy. ASSESSMENT: BI-RADS 1: Negative RECOMMENDATION: Routine annual mammography screening. This patient's information was entered into a reminder system with a target due date for their next mammogram.
== END 2021-03-28 12:23 | disposition home or self-care (01) ==
LOC: HO.MAMMO 12:22
PROVIDERS: PCP Internal Medicine; Visit Provider Internal Medicine
DX: Z12.31 Encounter for screening mammogram for malignant neoplasm of breast (principal)
CPT/HCPCS: 77063; 77067

== ENCOUNTER 2023-01-03 11:32 | Outpatient (REF) | payer MEDICARE, MEDICAID, SELFPAY ==
[2023-01-03 13:11] LABS: MANUAL DIFF FLAG NO
[2023-01-03 13:32] LABS: Basophils Percent Auto 0.6 % (0-2); Eosinophils Absolute Auto 0.1 X10*3/uL (0.0-0.4); Eosinophils Percent Auto 1.3 % (0-4); Hematocrit 35.8 % (37.0-47.0); Hemoglobin 11.5 g/dl (12.0-16.0); Imm Gran Abs Auto 0.01 X10*3/uL (0.00-0.03); Imm Gran Pct Auto 0.2 % (0.0-0.4); Lymphocytes Absolute Auto 2.1 X10*3/uL (1.2-4.9); Lymphocytes Percent Auto 37.9 % (20-40); Mean Corpuscular HGB Conc 32.1 g/dl (31.0-35.0); Mean Corpuscular Hemoglobin 27.1 pg (27.0-33.0); Mean Corpuscular Volume 84.2 fL (80.0-98.0); Monocytes Absolute Auto 0.4 X10*3/uL (0.1-1.2); Monocytes Percent Auto 7.4 % (2-11); Neutrophils Absolute Auto 2.9 x10*3/uL (2.0-8.3); Neutrophils Percent Auto 52.6 % (45-73); Platelet Count 204 X10*3/uL (160-400); Red Blood Count 4.25 X10*6/uL (4.20-5.50); Red Cell Distribution Width 13.5 % (11.0-16.0); White Blood Count 5.4 X10*3/uL (4.8-10.8)
[2023-01-03 15:08] LABS: Alanine Aminotransferase 14 U/L (0-31); Albumin Level 4.2 g/dL (3.5-5.0); Alkaline Phosphatase 98 U/L (39-117); Anion Gap 16 (12-20); Aspartate Amino Transferase 16 U/L (5-31); Bilirubin Total 0.3 mg/dL (0.0-1.0); Blood Urea Nitrogen 16 mg/dL (9-16); Calcium 9.6 mg/dL (8.4-10.2); Carbon Dioxide 22 mmol/L (22-29); Chloride 104 mmol/L (96-108); Cholesterol 209 mg/dL; Estimated Glomerular Filt Rate > 60; Glucose Random 118 mg/dL (60-115); HDL Cholesterol 44 mg/dL; LDL Cholesterol Calculated 132 mg/dl; Sodium 138 mmol/L (135-145); Total Protein 8.3 g/dL (6.5-8.0); Triglycerides 168 mg/dL
[2023-01-03 15:30] LABS: TSH reflex Free T4 0.92 uIU/mL (0.32-4.0)
[2023-01-04 04:31] LABS: HBc Num1 0.17 S/CO (0.00-0.79); Hepatitis B Core Antibody Nonreactive (Nonreactive)
[2023-01-07 15:52] LABS: HIV RNA PCR Qn Copies Not Detected Copies/mL; HIV RNA PCR Qn Log Copies Not Detected Log cps/mL
== END 2023-01-03 11:33 | disposition home or self-care (01) ==
LOC: HO.HHCL 11:32
PROVIDERS: Visit Provider Nurse Practitioner Family
DX: Z00.00 Encounter for general adult medical examination without abnormal findings (principal); E66.9 Obesity, unspecified; I10 Essential (primary) hypertension; D64.9 Anemia, unspecified
CPT/HCPCS: 36415; 80053; 80061; 84443; 85025; 86704; 87536; 87900

== ENCOUNTER 2023-03-17 18:52 | Outpatient (REF) | payer MEDICARE, MEDICAID, SELFPAY ==
[2023-03-18 12:40] LABS: BV Int Neg Control Negative (Negative); BV Int Pos Control Positive (Positive)
== END 2023-03-17 18:53 | disposition home or self-care (01) ==
LOC: HO.HHCLNP 18:52
PROVIDERS: Visit Provider Nurse Practitioner Family
DX: N89.8 Other specified noninflammatory disorders of vagina (principal)
CPT/HCPCS: 87480; 87510; 87660

== ENCOUNTER 2023-06-04 00:48 | Emergency (ER) | payer MEDICARE, MEDICAID, SELFPAY ==
--- NOTE | ~2023-06-04 | XR_ITS ---
EXAMINATION: XR CHEST CLINICAL INFORMATION: Shortness of breath. COMPARISON: 06/21/2020. TECHNIQUE: 2 views of the chest were obtained. FINDINGS: The cardiomediastinal silhouette is stable. There is diffuse increased markings. There is patchy bilateral mid to lower lung field reticular nodular densities. There the lungs are otherwise clear. There are no significant pleural effusions. XR/XR chest 2V IMPRESSION: Diffuse increased lung markings and patchy bilateral mid to lower lung field reticular nodular densities. Differential diagnosis includes viral or atypical pneumonia.
[2023-06-04 01:25] VITALS: BP 118/69; BP 122/71; PULSE 108; RESP 22; TEMP 37.7; O2SAT 95; BMI 31.0
== END 2023-06-04 02:27 | disposition left against medical advice (07) ==
PROVIDERS: Emergency Provider Emergency Medicine
DX: R06.02 Shortness of breath (principal)
CPT/HCPCS: 71046; 99281; 99283

== ENCOUNTER 2023-06-06 19:08 | Outpatient (REF) | payer MEDICARE, MEDICAID, SELFPAY | END 2023-06-06 19:09 | disposition home or self-care (01) | LOC: HO.HHCLNP 19:08 | PROVIDERS: Visit Provider Emergency Medicine | DX: J06.9 Acute upper respiratory infection, unspecified (principal); Z11.52 Encounter for screening for COVID-19; Z20.828 Contact with and (suspected) exposure to other viral communicable diseases | CPT/HCPCS: 0241U ==

== ENCOUNTER 2023-08-26 14:49 | Outpatient (AMB) | payer MEDICARE, MEDICAID, SELFPAY ==
--- NOTE | 2023-08-26 14:53 | A.OFFVIS_ITS ---
Intake Vital Signs 08/26/23 15:15 Height 5 ft 3 in BP 114/73 Blood Pressure Location Lt brachial Position Sitting Pulse 87 Intake Visit Reasons: [place] screening Allergies latex [LATEX] Allergy (Unknown, Verified 08/26/23 15:12) rash Medication List - Last Reviewed 08/26/23 by CLARENCE Brady bisacodyl (Dulcolax (bisacodyl)) 20 mg (4 x 5 mg) PO ONCE PRN 1 day buspirone 1 tab PO DAILY cetirizine 1 tab PO DAILY citalopram 10 mg PO DAILY clonidine HCl 1 tab PO DAILY cyclobenzaprine 1 tab PO TID PRN docusate sodium (Colace) 200 mg (2 x 100 mg) PO BEDTIME 30 days gabapentin 1 cap PO TID lisinopril 2.5 mg PO DAILY methadone 78 mg PO QDAY omeprazole 1 cap PO DAILY polyethylene glycol 3350 (Miralax) 238 grams PO ONCE PRN 1 day polyethylene glycol 3350 (Miralax) 17 grams PO DAILY 30 days sennosides (senna) 8.6 mg PO DAILY PRN 30 days sertraline 1 tab PO DAILY HPI HPI Comments History of Present Illness Details Arrived 19 minutes A 46 y/o mother colon cancer- in her 40s She has constipation-she used otc - nothing works-has a BM every few days Appetite ok- MJ- for pain Not working Methadone maintenance at 78 mg current Being followed for anemia/ menorhhagia- pcp/ BIOCHEMICAL ENGINEER- appt f/u No nausea, vomiting hematemesis, hematochezia fever or PFSH Medical History (Updated 08/28/23 @ 10:38 by Chela Walter PA-C) Arthritis Migraines GERD (gastroesophageal reflux disease) HTN (hypertension) HLD (hyperlipidemia) Asthma Surgical History Tubal ligation status Family History Mother Colon cancer Family/Other Uterine cancer Maternal Aunt Breast cancer Spinal cord cancer Maternal Grandmother Dementia Social History (Updated 08/28/23 @ 10:35 by Chela Walter PA-C) Alcohol intake: never Patient Tobacco Use Status: Current everyday Tobacco user Cigarette Packs Per Day: 1 Cigarettes Per Day: 20.0 Second Hand Smoke Exposure: No Substance Use Type: Crack/Cocaine and Heroin Female Reproductive History Menstrual Age of Menarche: 14 Review of Systems Const All systems reviewed & are unremarkable except as noted in HPI and below GI Reports constipation and Reports heartburn Musc Reports back pain and Reports arthralgias Psych Reports anxiety, Reports depression, Denies homicidal ideation and Denies suicidal ideation Physical Exam Vital Signs: Last Vital Signs Pulse 87 08/26/23 15:15 BP 114/73 08/26/23 15:15 Const General: cooperative, comfortable and no acute distress Orientation/consciousness: patient oriented x3 Limitations: no limitations Eyes Sclerae: sclerae normal Resp Effort & Inspection: normal respiratory effort and able to speak in complete sentences Auscultation: clear to auscultation bilaterally Cardio Rate: regular rate Rhythm: regular rhythm Heart sounds: S1 normal heart sound present and S2 normal heart sound present GI Inspection: Yes obesity Palpation (GI): Soft to palpation and nontender Auscultation: normal bowel sounds Neuro General: patient oriented x3 Psych Speech and movement: Pressured speech present Affect: Animated affect present Attitude: cooperative Thought process: Normal thought process present Thought content: Normal thought content present Assessment & Plan Assessment & Plan (1) Family history of colon cancer in mother: Comment: mother in her 40s- alive Code(s): Z80.0 - Family history of malignant neoplasm of digestive organs (2) Chronic constipation: Comment: methadone 78 mg QD Code(s): K59.09 - Other constipation Plan: Consistent bowel regimen (3) Menometrorrhagia: Comment: Continue follow-up with heme and shelter director Code(s): N92.1 - Excessive and frequent menstruation with irregular cycle Plan: see BIOCHEMICAL ENGINEER (4) GERD (gastroesophageal reflux disease): Code(s): K21.9 - Gastro-esophageal reflux disease without esophagitis Plan: reflux precautions ppi EGD Plan EGD/ colon MG Miralax bid 7 days prior to prep day- Orders: Orders Colonoscopy - GI Use Only 08/26/23 K59.09 - Other constipation, Z80.0 - Family history of malignant neoplasm of digestive organs EGD/[place] Combo - GI Use Only 08/26/23 K21.9 - Gastro-esophageal reflux disease without esophagitis, K59.09 - Other constipation, Z80.0 - Family history of malignant neoplasm of digestive organs Medications: New bisacodyl (Dulcolax (bisacodyl)) Day before procedure @ 12 noon Take 4 tablets by mouth followed by large glass of water 20 mg (4 x 5 mg) PO ONCE 1 day PRN 4 tabs 0RF colonoscopy prep Z12.11 - Encounter for screening for malignant neoplasm of colon polyethylene glycol 3350 (Miralax) Take as directed by mouth the day before your procedure. 238 grams PO ONCE 1 day PRN 238 grams 0RF laxative effect sennosides (senna) 8.6 mg PO DAILY 30 days PRN 30 caps 1RF constipation docusate sodium (Colace) 200 mg (2 x 100 mg) PO BEDTIME 30 days 60 caps 5RF polyethylene glycol 3350 (Miralax) 17 grams PO DAILY 30 days 510 grams 6RF Patient Instructions: 48-year-old female family history of colon cancer, chronic constipation likely medication induced methadone daily Encouraged consistent bowel regimen-reviewed with patient High-fiber diet Literature give Reflux precautions Continue PPI Omit known culprits EGD and colonoscopy Discussed procedures, rare risks need for escort MiraLax Gatorade prep reviewed instructions She is also instructed to use MiraLax 1-2 times daily for 1 week prior to procedure to ensure a good prep Encouraged to call with any questions or concerns Coding Level of Care Code New Pt Level 3 (48291) Diagnoses Family history of colon cancer in mother Z80.0 Chronic constipation K59.09 Menometrorrhagia N92.1 GERD (gastroesophageal reflux disease) K21.9 Time Spent (min) 30
[2023-08-26 15:15] VITALS: BP 114/73; PULSE 87
== END 2023-08-26 15:17 | disposition home or self-care (01) ==
PROVIDERS: PCP Nurse Practitioner Family; Visit Provider Physician Assistant
DX: Z80.0 Family history of malignant neoplasm of digestive organs (principal); K59.09 Other constipation; N92.1 Excessive and frequent menstruation with irregular cycle; K21.9 Gastro-esophageal reflux disease without esophagitis
CPT/HCPCS: 99203

== ENCOUNTER → 2023-08-26 14:49 | Outpatient (BNVA) | payer MEDICARE, MEDICAID, SELFPAY | PROVIDERS: PCP Nurse Practitioner Family; Visit Provider Physician Assistant | DX: K59.09 Other constipation (principal); K21.9 Gastro-esophageal reflux disease without esophagitis; N92.1 Excessive and frequent menstruation with irregular cycle; Z80.0 Family history of malignant neoplasm of digestive organs | CPT/HCPCS: 99202 ==

== ENCOUNTER → 2023-09-10 13:00 | Outpatient (BNV) | payer MEDICARE, MEDICAID, SELFPAY | PROVIDERS: PCP Nurse Practitioner Family; Visit Provider Radiology Diagnostic Radiology | DX: Z12.31 Encounter for screening mammogram for malignant neoplasm of breast (principal) | CPT/HCPCS: 77063; 77067 ==

== ENCOUNTER 2023-09-10 13:02 | Outpatient (REF) | payer MEDICARE, MEDICAID, SELFPAY ==
--- NOTE | ~2023-09-10 | MM_ITS ---
EXAMINATION: MM SCREENING DIGITAL BREAST TOMOSYNTHESIS, BILATERAL CLINICAL INFORMATION: Screening. Asymptomatic. Please note the patient indicates she has had approximately 2 years of nipple discharge. The side and type of discharge is not otherwise specified by the patient. It is also not known if this is spontaneous or induced. COMPARISON: Mammography: This study is compared with prior exams dating back to 2020. TECHNIQUE: Digital breast tomosynthesis is performed in both the craniocaudal and mediolateral oblique views along with computer-aided detection (CAD). Synthesized 2D images are generated from the tomosynthesis. FINDINGS: The breasts are heterogeneously dense, which may obscure small masses (ACR BI-RADS breast composition Category c). There is an asymmetry in the upper outer quadrant of the right breast. Additional mammographic and targeted sonographic imaging of this finding is advised. In the left breast, no are no significant masses, abnormal calcifications, or other abnormalities. MM/MM tomosynthesis screening BI IMPRESSION: Asymmetry of the right breast warrants additional mammographic and targeted sonographic evaluation. No mammographic signs of malignancy left breast. At the time of the diagnostic mammogram recommended for the right breast, the patient should have diagnostic mammography and sonography on the side both sides of the discharge. Information should also be obtained regarding the discharge is bloody or nonbloody and if it is spontaneous or induced. ASSESSMENT: BI-RADS BI-RADS 0 - Incomplete: Needs additional Imaging. RECOMMENDATION: 1. Additional views of the right breast. Please see information above in the last region of the impression section of this report. 2. Targeted ultrasound if warranted after review of the additional views. 3. Radiology department staff will contact the patient for additional imaging. Additional Imaging required This examination should not preclude the clinical evaluation of a suspicious palpable abnormality. This patient's information was entered into a reminder system with a target due date for their next mammogram.
== END 2023-09-10 13:03 | disposition home or self-care (01) ==
LOC: HO.MAMMO 13:02
PROVIDERS: PCP Nurse Practitioner Family; Visit Provider Nurse Practitioner Family
DX: Z12.31 Encounter for screening mammogram for malignant neoplasm of breast (principal)
CPT/HCPCS: 77063; 77067

== ENCOUNTER → 2023-09-29 08:30 | Outpatient (BNV) | payer MEDICARE, MEDICAID, SELFPAY | PROVIDERS: PCP Nurse Practitioner Family; Visit Provider Radiology Diagnostic Radiology | DX: R92.321 Mammographic fibroglandular density, right breast (principal); R92.2 Inconclusive mammogram | CPT/HCPCS: 76642; 77065; G0279 ==

== ENCOUNTER 2023-09-29 09:04 | Outpatient (REF) | payer MEDICARE, MEDICAID, SELFPAY ==
--- NOTE | ~2023-09-29 | MM_ITS ---
EXAMINATION: MM DIAGNOSTIC DIGITAL BREAST TOMOSYNTHESIS, RIGHT US BREAST LIMITED, RIGHT MAMMOGRAPHY: CLINICAL INFORMATION: The patient is seen for further evaluation asymmetry in the upper outer quadrant of the right breast is noted on screening mammography from 09/10/2023. COMPARISON: Mammography: This study is compared with prior mammograms dating back to 2020. TECHNIQUE: Digital breast tomosynthesis is performed in both the craniocaudal and mediolateral oblique views along with computer-aided detection (CAD). Synthesized 2D images are generated from the tomosynthesis. MLO spot compression in the lateral view of the right breast is performed. FINDINGS: There are scattered areas of fibroglandular density (ACR BI-RADS breast composition Category b). There are no significant masses, abnormal calcifications, or other abnormalities. Additional mammographic imaging reveals no underlying abnormality. ULTRASOUND: CLINICAL INFORMATION: In the upper outer quadrant of the right breast on recent screening mammography. COMPARISON: None TECHNIQUE: Targeted sonographic evaluation was performed using a high frequency linear transducer. Selected archived documentation. FINDINGS: RIGHT BREAST: The upper-outer quadrant of the right breast reveals no discrete abnormality. Dense glandular tissue is present in this location MM/MM tomosynthesis added views R IMPRESSION: No mammographic signs of malignancy. Annual screening mammography advised. OVERALL ASSESSMENT: Mammography: BI-RADS 1 - Negative Ultrasound: BI-RADS 1 - Negative RECOMMENDATION: 1 year F/U Results were provided to the patient at time of visit by the technologist. This patient's information was entered into a reminder system with a target due date for their next mammogram.
== END 2023-09-29 09:05 | disposition home or self-care (01) ==
LOC: HO.MAMMO 09:04
PROVIDERS: PCP Nurse Practitioner Family; Visit Provider Nurse Practitioner Family
DX: N64.89 Other specified disorders of breast (principal)
CPT/HCPCS: 76642; 77061; 77065

== ENCOUNTER → 2023-12-24 07:59 | Day surgery (SDC) | payer MEDICARE, MEDICAID, SELFPAY ==
--- NOTE | 2023-12-22 14:18 | HO.ANESPROP2 ---
HPI - Anesthesia Eval Consult details Narrative: 48yo F for Upper Endoscopy and Colonoscopy [facility] Active Problems Active Problems: All Active Problems GERD (gastroesophageal reflux disease) (Acute) Chronic constipation (Acute) Family history of colon cancer in mother (Acute) Carpal tunnel syndrome on right (Acute) Trigger finger, right middle finger (Acute) Anemia (Acute) Bacterial vaginosis (Acute) Well woman exam (Acute) Menometrorrhagia (Acute) Iron deficiency anemia (Acute) Past Medical History Medical History (Updated 08/28/23 @ 10:38 by Chela Walter PA-C) Arthritis Migraines GERD (gastroesophageal reflux disease) HTN (hypertension) HLD (hyperlipidemia) Asthma Family History Family History Mother Colon cancer Family/Other Uterine cancer Maternal Aunt Breast cancer Spinal cord cancer Maternal Grandmother Dementia Surgical History Surgical History Tubal ligation status Social History Social History (Updated 08/28/23 @ 10:35 by Chela Walter PA-C) Alcohol intake: never Patient Tobacco Use Status: Current everyday Tobacco user Cigarette Packs Per Day: 1 Cigarettes Per Day: 20.0 Second Hand Smoke Exposure: No Substance Use Type: Crack/Cocaine and Heroin Meds Allergies Allergy/AdvReac Type Severity Reaction Status Date / Time latex [LATEX] Allergy Unknown rash Verified 08/26/23 15:12 Home Medications ?Medication ?Instructions ?Recorded ?Confirmed ?Last Taken ?Type buspirone 7.5 mg tablet 1 tab PO DAILY 12/13/20 12/13/20 Unknown History cetirizine 10 mg tablet 1 tab PO DAILY 12/13/20 12/13/20 Unknown History clonidine HCl 0.1 mg tablet 1 tab PO DAILY 12/13/20 12/13/20 Unknown History cyclobenzaprine 5 mg tablet 1 tab PO TID PRN Pain 12/13/20 12/13/20 Unknown History gabapentin 300 mg capsule 1 cap PO TID 12/13/20 12/13/20 Unknown History omeprazole 40 mg capsule,delayed 1 cap PO DAILY 12/13/20 12/13/20 Unknown History release sertraline 100 mg tablet 1 tab PO DAILY 12/13/20 12/13/20 Unknown History citalopram 10 mg tablet 10 mg PO DAILY 08/26/23 Unknown History lisinopril 2.5 mg tablet 2.5 mg PO DAILY 08/26/23 Unknown History methadone 10 mg/mL oral concentrate 78 mg PO QDAY 08/26/23 Unknown History Assessment and Plan Assessment Anesthesia Assessment: Chart Reviewed
--- NOTE | 2023-12-24 08:49 | PC.NURSE ---
No BM x 4 days, ate small amt potatoes yesterday, no results from prep, returns are formed stool. Procedure cancelled by Dr Morgan. Pt to reschedule with office ( 2 day prep)
== END ==
LOC: HO.SSS 08:00
PROVIDERS: PCP Nurse Practitioner Family; Visit Provider Internal Medicine Gastroenterology
DX: K59.09 Other constipation (principal); Z53.9 Procedure and treatment not carried out, unspecified reason; Z80.0 Family history of malignant neoplasm of digestive organs; K21.9 Gastro-esophageal reflux disease without esophagitis

== ENCOUNTER 2024-01-07 | Outpatient (REF) | payer MEDICARE, MEDICAID, SELFPAY ==
[2024-01-09 02:28] LABS: CT PCR NOT DETECTED (Not Detect.); NG PCR NOT DETECTED (Not Detect.)
[2024-01-09 11:04] LABS: Bacterial Vaginosis PCR POSITIVE (Negative); Candida Group PCR NOT DETECTED (Not Detect); Candida glab krusei PCR NOT DETECTED (Not Detect); Trichomonas vaginalis PCR NOT DETECTED (Not Detect)
== END 2024-01-07 00:01 | disposition home or self-care (01) ==
LOC: HO.HHCLNP
PROVIDERS: Visit Provider Internal Medicine
DX: N76.0 Acute vaginitis (principal); L66.2 Folliculitis decalvans; Z20.2 Contact with and (suspected) exposure to infections with a predominantly sexual mode of transmission
CPT/HCPCS: 0352U; 87070; 87205; 87491; 87591

== ENCOUNTER → 2024-02-05 15:00 | Outpatient (RCR) | payer MEDICARE, MEDICAID, SELFPAY ==
[2020-12-13 14:02] VITALS: BP 105/55; PULSE 85; RESP 14; TEMP 36.3; O2SAT 99; BMI 34.0
--- NOTE | 2020-12-13 14:35 | P.CNHO_ITS ---
Subjective - Subjective Chief complaint: Weakness Patient: new to practice Consult date: 12/13/20 Primary Care Provider: Lawanda Ramirez MD Medical Summary: Diagnosis: Iron deficiency anemia Hemoglobin 8.5 gram/dL, MCV 70.4, transferrin saturation 5%, folate 15.2, vitamin B12 665 in September 2020. Normal WBC and platelet counts. HPI - Consult Narrative Reason for consult: Iron deficiency anemia Narrative: Nelsy Singh is a 45 year old female referred for management of iron deficiency anemia. She has heavy menstrual blood losses because of fibroid uterus. She is intolerant of oral iron as it constipates her. She has never received a blood transfusion or iron infusion. She is interested in receiving parenteral iron therapy. She reports being extremely tired, experiences exertional dizziness and palpitations. She has no fever or chills. No complaints of hematochezia or melena. She has 2 children and she was told of iron deficiency during her . Her mother has also iron deficiency anemia. Review of Systems - Constitutional Reports as per HPI, Reports no additional constitutional complaints - Cardiovascular Reports no additional cardiovascular complaints - Respiratory Reports no additional respiratory complaints - Gastrointestinal Reports no additional gastrointestinal complaints Oncology Screenings - ECOG Performance Status ECOG Performance Status: 1 [facility] Medical History: Medical History (Last Updated 10/26/20 @ 15:56 by Simi Hinson) Arthritis Asthma GERD (gastroesophageal reflux disease) HLD (hyperlipidemia) HTN (hypertension) Migraines Family History: Family History (Last Updated 12/13/20 @ 14:09 by Suha Haas) Mother Colon cancer Family/Other Uterine cancer Maternal Aunt Breast cancer Spinal cord cancer Maternal Grandmother Dementia Surgical History: Surgical History (Last Updated 10/26/20 @ 15:56 by Simi Hinson) Tubal ligation status Social History: Social History (Last Updated 12/13/20 @ 14:09 by Suha Haas) Alcohol History: Alcohol intake: former Alcohol History Details: Alcohol intake frequency: does not drink Tobacco History: Patient Tobacco Use Status: Current everyday Tobacco Cigarette Packs Per Day: 1 Cigarettes Per Day: 20.0 Substance Use History: Use of substances other than those prescribed or required for medical reasons : Yes Substance Use Type: Crack/Cocaine Substance Use Type: Heroin Home Medications and Allergies Home Medications Medication Instructions Recorded Confirmed Type atorvastatin 1 tab PO DAILY 12/13/20 12/13/20 History buspirone 1 tab PO DAILY 12/13/20 12/13/20 History cetirizine 1 tab PO DAILY 12/13/20 12/13/20 History clonidine HCl 1 tab PO DAILY 12/13/20 12/13/20 History cyclobenzaprine 1 tab PO TID PRN 12/13/20 12/13/20 History gabapentin 1 cap PO TID 12/13/20 12/13/20 History omeprazole 1 cap PO DAILY 12/13/20 12/13/20 History prazosin 1 cap PO BEDTIME 12/13/20 12/13/20 History sertraline 1 tab PO DAILY 12/13/20 12/13/20 History Allergies Allergy/AdvReac Type Severity Reaction Status Date / Time latex [LATEX] Allergy Unknown rash Verified 10/26/20 15:57 Physical Exam Vital signs: Vital Signs Temp 97.3 F 12/13/20 14:02 Pulse 85 12/13/20 14:02 Resp 14 12/13/20 14:02 BP 105/55 L 12/13/20 14:02 Pulse Ox 99 12/13/20 14:02 Intake & Output 12/12/20 12/13/20 12/13/20 18:59 06:59 18:59 Other: Weight 87.3 kg [place] Weight in Grams [id number] Weight 87.3 kg - Constitutional Present: no acute distress - Routine HEENT Exam Head: Present: normal inspection Eye: Present: EOMI - Routine Neck Exam Present: supple. Absent: lymphadenopathy - Routine Respiratory Exam Present: CTAB - Routine Cardiovascular Exam Cardiovascular: Present: RRR, S1, S2 - Routine Skin Exam Present: intact. Absent: cyanosis, erythema Hem/Onc Consult Result - Labs Labs: Laboratory Tests 06/24/18 10/10/20 10/10/20 17:00 08:00 08:00 WBC 6.5 RBC 4.05 L Hgb 8.5 L Hct 28.5 L MCV 70.4 L MCH 21.0 L MCHC 29.8 L Plt Count 294 Haptoglobin 109 BUN 13 Creatinine 0.88 Assessment and Plan (1) Iron deficiency anemia Status: Acute Qualifiers: Iron deficiency anemia type: chronic blood loss Qualified Code(s): D50.0 - Iron deficiency anemia secondary to blood loss (chronic) 1. This is a 45-year-old woman with iron deficiency anemia related to menorrhagia, chronic blood loss. She has a history of fibroid uterus and longstanding history of iron deficiency. She has been unable to tolerate oral iron because of nausea as well as constipation. She has never received parenteral iron therapy and is interested in this. She denies any hematochezia, melena or history of gastrointestinal blood losses. She states that her menstrual cycles are now slowing down and not as heavy as before. Today we discussed parenteral iron therapy and possible adverse effects such as infusion and allergic reactions. She is willing to proceed with this. Patient deferred blood work today her labs from September show iron deficiency anemia. I thank you for this consultation. Follow-up in 2 months.
--- NOTE | 2020-12-13 15:20 | MHC.HEMONCMA ---
Patient came in for a consult for anemia, states she is does have a history of drug abuse- heroin. States that she relapsed 5 months ago but has been clean since and plans on going to rehab soon. Clinical summary was reviewed and updated, patient did not have labs and will return in 3 months for a follow up. IV Dextran was ordered, order was faxed to [facility] for date/time.
--- NOTE | 2020-12-13 16:11 | MHC.HEMONCMA ---
IV Dextran order faxed to [facility] for date/time. I will call the patient with the information once I get it.
--- NOTE | 2020-12-18 15:21 | MHC.HEMONCMA ---
Patient scheduled for her Dextran infusion for 12/27/2020 at 8am, she is aware and all questions were answered.
== END | disposition home or self-care (01) ==
LOC: HO.ONC 12-13 13:39
PROVIDERS: PCP Internal Medicine; Referring Provider Internal Medicine; Visit Provider Internal Medicine
DX: D50.0 Iron deficiency anemia secondary to blood loss (chronic) (principal); N92.0 Excessive and frequent menstruation with regular cycle
CPT/HCPCS: 99202

== ENCOUNTER 2024-02-13 20:53 | Inpatient (IN) | payer MEDICARE, MEDICAID, SELFPAY ==
--- NOTE | 2024-02-13 | ECG_ITS ---
Test Reason : CHEST PAIN Blood Pressure : / mmHG Vent. Rate : 097 BPM Atrial Rate : 097 BPM P-R Int : 120 ms QRS Dur : 070 ms QT Int : 314 ms P-R-T Axes : 052 008 041 degrees QTc Int : 398 ms Normal sinus rhythm Normal ECG When compared with ECG of 26-OCT-2020 16:12, Non-specific change in ST segment in Lateral leads Nonspecific T wave abnormality no longer evident in Lateral leads Referred By: Generic ED Physician Electronically Signed By:BENITA DUARTE
--- NOTE | ~2024-02-13 | XR_ITS ---
EXAMINATION: XR CHEST CLINICAL INFORMATION: Status post right thoracentesis. COMPARISON: None available. TECHNIQUE: Frontal view of the chest was obtained. FINDINGS: The lungs are fairly well-expanded with right basilar atelectasis. There is a left chest tube catheter with haziness in left lung base from effusion. Heart size and pulmonary vascularity is normal. No gross bony abnormality seen. XR/XR chest 1V IMPRESSION: Left pleural catheter with the residual left pleural effusion and underlying atelectasis. There is right bibasilar atelectasis. Electronically signed by: Sean Morin MD 02/19/2024 09:18 PM EDT
--- NOTE | ~2024-02-13 | US_ITS ---
EXAMINATION: US TRIPLEX LOWER EXTREMITY, BILATERAL CLINICAL INFORMATION: Bilateral lower extremity swelling COMPARISON: None available. TECHNIQUE: Color-flow triplex imaging with spectral analysis and compression Doppler were performed on the bilateral lower extremities. FINDINGS: Respiratory variation, normal compression and augmented flow are noted throughout the bilateral lower extremities. The visualized common femoral vein, superficial femoral vein, profunda femoral vein, popliteal vein and midcalf peroneal and posterior tibial venous segments show no evidence of deep venous thrombosis bilaterally. There is no Cochran's cyst. US/US venous duplex LE BI IMPRESSION: No evidence of deep venous thrombosis involving the bilateral lower extremities. Electronically signed by: Arnoldo Hsieh MD 02/14/2024 03:11 AM EDT RP
--- NOTE | ~2024-02-13 | CT_ITS ---
EXAMINATION: CT ANGIOGRAM CHEST CLINICAL INFORMATION: Reading chest pain, rule out PE COMPARISON: None available. TECHNIQUE: Multiple axial images were obtained through the chest after the administration of 65 mL of Omnipaque 350 intravenous contrast. Extensive vascular post-processing including two-dimensional and three-dimensional reformatted images were created and reviewed on an independent workstation. This CT examination was performed using dose optimization techniques as appropriate, variously including the following: *Automated exposure control *Adjustment of mA and/or kV according to patient size (this includes techniques or standardized protocols for targeted exams where dose is matched to indication/reason for exam; i.e. extremities or head) *Use of iterative reconstruction technique DLP: 304 mGy-cm FINDINGS: No filling defects are seen in the main, lobar, or segmental pulmonary arteries to suggest the presence of pulmonary emboli. The aorta is unremarkable. There is a focal region of mixed consolidation and groundglass opacity in the left upper lobe laterally. Relatively nodular 1 cm focus of consolidation is present at the right apex. Small focal peripheral consolidation anteriorly in the right upper lobe. There is a larger region of dense consolidation in the lateral right upper lobe near the confluence of the major and minor fissures. Appearance is suspicious for multifocal infectious/inflammatory etiology. Regions of posterior subpleural opacity in the bilateral lower lobes, right greater than left are overall suggestive of atelectasis. No pneumothorax or pleural effusion. The visualized thyroid gland is unremarkable. No significant lymphadenopathy is seen. Cardiac size appears within normal limits. Trace pericardial effusion. No axillary lymphadenopathy is present. Visualized portions of the upper abdomen are within normal limits. No acute osseous findings are seen. Mild endplate osteophytes in the spine. CT/CT angio chest PE protocol IMPRESSION: 1. No pulmonary embolus identified. 2. Scattered regions of consolidation bilaterally as detailed above, greatest in the right upper lobe, suspicious for an infectious or other inflammatory etiology. Follow-up CT in 3 months is recommended to assess for resolution. 3. Trace pericardial effusion. VTE: negative Electronically signed by: Arnoldo Hsieh MD 02/14/2024 01:26 AM EDT
--- NOTE | ~2024-02-13 | US_ITS ---
EXAMINATION: US TRIPLEX UPPER EXTREMITY, RIGHT CLINICAL INFORMATION: Right upper extremity swelling and pain COMPARISON: None available. TECHNIQUE: Color-flow triplex imaging with spectral analysis and compression Doppler was performed on the right upper extremity. FINDINGS: The right internal jugular, subclavian, and axillary veins are patent and free of thrombus. The imaged segment of the right brachial and basilic vein, radial and ulnar veins are patent. Spectral doppler waveforms are normal. There is noncompressibility within the right cephalic vein with underlying intravenous catheter. There is a complex fluid collection within the region of the right triceps measuring approximately 2.2 x 0.6 cm. US/US venous duplex UE RT IMPRESSION: 1. No evidence of deep venous thrombosis involving the right upper extremity. 2. Noncompressibility within the right cephalic vein with underlying intravenous catheter. 3. Complex fluid collection within the region of the right triceps. Electronically signed by: Rafael Camarena MD 02/19/2024 10:09 AM EDT
--- NOTE | ~2024-02-13 | CT_ITS ---
EXAMINATION: CT CHEST WITHOUT CONTRAST CLINICAL INFORMATION: Evaluate for pericardial effusion COMPARISON: CT angiogram February 13, 2024 TECHNIQUE: Multidetector volumetric CT imaging of the chest was done. Axial MIP volume rendering provided. Sagittal and coronal reformatted images were obtained. This CT examination was performed using dose optimization techniques as appropriate, variously including the following: *Automated exposure control *Adjustment of mA and/or kV according to patient size (this includes techniques or standardized protocols for targeted exams where dose is matched to indication/reason for exam; i.e. extremities or head) *Use of iterative reconstruction technique DLP: 307 mGy-cm FINDINGS: HEAVY TRUCK TECHNICIAN: There is bilateral pleural effusion. LUNGS: There is stable mediastinal mass in the left upper lobe subpleural with central lucency and irregular margins, measuring up to approximately 2.5 x 2.2 cm. The lesion surrounded by groundglass opacity. There is a triangular-shaped subpleural opacity seen in the right upper lobe adjacent to confluence of minor and major fissures with some bulging, measured approximately 3.7 x 2.3 x 2.2 cm.. Centimeters the multiple lung nodules redemonstrated. There are no new nodules. Bibasilar compressive atelectasis present. MEDIASTINUM: There is mediastinal lymphadenopathy and pericardial effusion. Pericardial effusion is growing since prior study. There is no hilar lymphadenopathy. CORONARY ARTERY CALCIFICATION: None visualized on this study. PLEURA: There is large to moderate, new since previous study bilateral pleural effusion. AXILLA: There is small bilateral axillary lymphadenopathy. UPPER ABDOMEN: Visualized left adrenal gland is prominent. OSSEOUS STRUCTURES: Unremarkable. CT/CT chest wo IV con IMPRESSION: 1. Large pericardial effusion, new since previous study. 2. New large to moderate bilateral pleural effusion and compressive atelectasis. 3. Stable lung nodules. 4. Mediastinal lymphadenopathy. 5. Prominent left adrenal gland. Fleischner guidelines were followed. Electronically signed by: Jaiden Navas MD 02/18/2024 09:53 AM EDT
--- NOTE | ~2024-02-13 | US_ITS ---
PROCEDURE: Ultrasound-guided right thoracentesis History: Right pleural effusion Specimen: A sample of pleural fluid was sent for analysis Access: 5 Slovak Yueh catheter Medications: 10 mL 1% lidocaine TECHNIQUE/FINDINGS Appropriate preprocedural clinical history and imaging studies were reviewed. The patient was brought to the department and placed in the seated position. Ultrasound images of the right thorax were obtained to localize a large pleural effusion. Permanent ultrasound images were saved. Risks and benefits and possible complications were discussed with the patient and consent form was signed. An area of the patient's right back was prepped and draped in usual sterile fashion. 10 mL of 1% lidocaine was used to obtain local anesthesia of the skin and deeper tissues. A standard small bore needle was introduced to sample pleural fluid and demonstrate a safe access route. A 5 Slovak Yueh catheter was then used to access the pleural cavity. 1200 ml of yellow fluid was removed passively. The catheter was then removed. A dressing was applied. A postprocedure chest x-ray will be performed and will be dictated separately. There were no immediate complications. The procedure was performed by Martin Salinas PA-C and supervised by Dr. Tovar US/US thoracentesis Impression: Ultrasound-guided right thoracentesis Electronically signed by: Micah Tovar MD 02/26/2024 03:19 PM EDT
--- NOTE | ~2024-02-13 | CT_ITS ---
History: 48-year-old female with pericardial effusion. Procedure performed: 1. CT-guided placement of a pericardial drain. Physician: Yolanda Calloway MD Anesthesia: Local anesthesia with 8 mL lidocaine was administered; General anesthesia provided sedation. See anesthesia note for further detail. Specimen: 200 mL of serous fluid Drain: 8 Luxembourgish locking pigtail catheter Estimated blood loss: Minimal Consultations: None Procedure in detail: Informed and written consent was obtained. Patient was positioned supine on the CT examination table. Preliminary CT scan showed a small to moderate pericardial effusion. A parasternal site for access was identified and marked on the skin. This area was prepped and draped. 1% lidocaine was injected subcutaneously at the planned drain site. A small incision was made in the skin with a #11 blade. Through the incision and under ultrasound guidance with permanent recordings and direct visualization of needle entry into the pericardium, a Yueh needle catheter was used to catheterize the pericardium. A Sanchez wire was threaded through the Yueh catheter over which an 8 Luxembourgish locking pigtail drain was placed. We removed 200 mL of serous fluid. The catheter was secured to the skin with a suture and overlying sterile dressing. It was connected to SONIA suction. Summary: Successful CT-guided placement of a pericardial drain as described. Electronically signed by: Melecio Calloway MD 02/25/2024 02:44 PM EDT
[2024-02-13 20:59] VITALS: BP 111/58; BP 118/92; PULSE 100; RESP 18; TEMP 37.2; O2SAT 95; BMI 31.2
--- NOTE | 2024-02-13 21:20 | PC.NURSE ---
pt biba from home, a&ox4, respirations even and unlabored. pt reports onset of chest pain starting prior to arrival. pt reports redness to the right ankle and right arm swelling. pt reports she is an IV drug user and last used crack yesterday. pt also reports recently tried to administer IV drugs into her neck and she missed. pt noted to be meeting some sepsis criteria. aware. this RN attempted IV access and did not obtain, Irem RN at bedside to attempt access. pt normal sinus on tele 99-100bpm.
[2024-02-13 21:36] LABS: MANUAL DIFF FLAG NO
[2024-02-13 21:40] LABS: Basophils Percent Auto 0.3 % (0-2); Eosinophils Percent Auto 0.2 % (0-4); Hematocrit 31.2 % (37.0-47.0); Hemoglobin 10.6 g/dl (12.0-16.0); Imm Gran Abs Auto 0.07 X10*3/uL (0.00-0.03); Imm Gran Pct Auto 0.5 % (0.0-0.4); Lymphocytes Absolute Auto 0.8 X10*3/uL (1.2-4.9); Lymphocytes Percent Auto 6.4 % (20-40); Mean Corpuscular Volume 79.6 fL (80.0-98.0); Mean Platelet Volume 10.3 fL (9.4-12.3); Monocytes Percent Auto 7.9 % (2-11); Neutrophils Percent Auto 84.7 % (45-73); Platelet Count 160 X10*3/uL (160-400); Red Blood Count 3.92 X10*6/uL (4.20-5.50); Red Cell Distribution Width 13.8 % (11.0-16.0)
--- NOTE | 2024-02-13 21:41 | PC.NURSE ---
20G obtained and placed in right forearm, labs sent.
[2024-02-13 21:43] VITALS: BP 114/70; PULSE 100; RESP 16; TEMP 36.6; O2SAT 97
--- NOTE | 2024-02-13 21:45 | MHC.EDTECH ---
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
[2024-02-13 21:54] LABS: Alanine Aminotransferase 18 U/L (0-31); Albumin Level 3.5 g/dL (3.5-5.0); Alkaline Phosphatase 126 U/L (39-117); Anion Gap 13 (12-20); Aspartate Amino Transferase 26 U/L (5-31); Bilirubin Total 0.5 mg/dL (0.0-1.0); Blood Urea Nitrogen 18 mg/dL (9-16); Calcium 9.2 mg/dL (8.4-10.2); Carbon Dioxide 23 mmol/L (22-29); Chloride 104 mmol/L (96-108); Creatinine Clr Calc Pharmacy 90.2; Estimated Glomerular Filt Rate > 60; Glucose Random 168 mg/dL (60-115); Potassium 3.8 mmol/L (3.3-5.1); Sodium 136 mmol/L (135-145); Total Protein 7.2 g/dL (6.5-8.0)
[2024-02-13 22:13] LABS: Troponin-I High Sensitivity 842.1 ng/L (<3.5-17.0)
--- NOTE | 2024-02-13 22:14 | ED.CHESTPAIN ---
HPI - Chest Pain General Chief Complaint: Chest Pain Stated Complaint: Chest pains Time Seen by Provider: 02/13/24 22:13 Source: patient Mode of arrival: ambulatory Limitations: no limitations History of Present Illness ED Provider: Dr. Sunny Orlando HPI narrative: [id number] female with a history of hypertension, GERD, asthma, anemia, injection cocaine and heroin use disorder who presents emergency department for evaluation of chest pain, right ankle redness, swelling of lower extremities. Patient states that she has been injecting heroin 2-4 bags of heroin and 2 nickel bags of cocaine daily. She states that 2 days prior she noted swelling in both lower extremities and pain and swelling in her right foot. She states that her lower extremities are swollen the left being greater than the right and she was having left thigh pain. She states that yesterday she had sudden onset of left-sided crushing chest pain which is worse with breathing and with movement. The pain does radiate to her back, neck and arms left greater than right. The pain is been constant. She states she has had fever, chills, nonproductive cough, nausea and vomiting with no diarrhea. She denied frequency, urgency or dysuria. She states she has had a swollen area in the back of her head and in her right groin area. She states that she recently shot up into the right side of her neck and believes that she missed the vein. Related Data Home Medications ?Medication ?Instructions ?Recorded ?Confirmed buspirone 7.5 mg tablet 1 tab PO DAILY 12/13/20 12/13/20 cetirizine 10 mg tablet 1 tab PO DAILY 12/13/20 12/13/20 clonidine HCl 0.1 mg tablet 1 tab PO DAILY 12/13/20 12/13/20 cyclobenzaprine 5 mg tablet 1 tab PO TID PRN Pain 12/13/20 12/13/20 gabapentin 300 mg capsule 1 cap PO TID 12/13/20 12/13/20 omeprazole 40 mg capsule,delayed 1 cap PO DAILY 12/13/20 12/13/20 release sertraline 100 mg tablet 1 tab PO DAILY 12/13/20 12/13/20 citalopram 10 mg tablet 10 mg PO DAILY 08/26/23 lisinopril 2.5 mg tablet 2.5 mg PO DAILY 08/26/23 methadone 10 mg/mL oral concentrate 78 mg PO QDAY 08/26/23 Previous Rx's ?Medication ?Instructions ?Recorded bisacodyl 5 mg tablet,delayed 20 mg (4 x 5 mg) PO ONCE PRN 08/26/23 release (Dulcolax (bisacodyl)) colonoscopy prep 1 day #4 tabs docusate sodium 100 mg capsule 200 mg (2 x 100 mg) PO BEDTIME 30 08/26/23 (Colace) days #60 caps polyethylene glycol 3350 17 238 g PO ONCE PRN laxative effect 08/26/23 gram/dose oral powder (Miralax) 1 day #238 grams sennosides 8.6 mg tablet (senna) 8.6 mg PO DAILY PRN for 10/20/23 constipation #30 tabs bisacodyl 5 mg tablet,delayed 20 mg (4 x 5 mg) PO ONCE 1 day #4 12/19/23 release (Dulcolax (bisacodyl)) tabs polyethylene glycol 3350 17 17 g PO DAILY 30 days #510 grams 12/19/23 gram/dose oral powder (Miralax) polyethylene glycol 3350 17 238 g PO ONCE 1 day #238 grams 12/19/23 gram/dose oral powder (Miralax) Allergies Allergy/AdvReac Type Severity Reaction Status Date / Time latex [LATEX] Allergy Unknown rash Verified 02/13/24 21:02 Review of Systems Review of Systems: Yes all other systems are reviewed and are negative FOR[facility]LY [facility], [facility] Past Medical History FOR[facility], [facility] Narrative: Social history: She does smoke cigarettes. She denies alcohol use. She states she was on methadone but then stopped several months ago and going to the program and started using heroin and cocaine Medical History (Updated 02/14/24 @ 02:44 by Sunny Orlando MD) Arthritis Migraines GERD (gastroesophageal reflux disease) HTN (hypertension) HLD (hyperlipidemia) Asthma Surgical History Tubal ligation status Family History Family History Mother Colon cancer Family/Other Uterine cancer Maternal Aunt Breast cancer Spinal cord cancer Maternal Grandmother Dementia Social History Social History (Updated 08/28/23 @ 10:35 by Chela Walter PA-C) Alcohol intake: never Patient Tobacco Use Status: Current everyday Tobacco user Cigarette Packs Per Day: 1 Cigarettes Per Day: 20.0 Second Hand Smoke Exposure: No Substance Use Type: Crack/Cocaine and Heroin Advance Directives: No Advance Directives Information Provided: No Do you have a plan to hurt others: No Plan Physical Exam Vital Signs: Vital Signs: Last Vital Signs Temp 101.1 F H 02/14/24 03:00 Pulse 100 02/14/24 03:00 Resp 20 02/14/24 03:00 BP 100/63 02/14/24 03:00 Pulse Ox 97 02/14/24 03:00 O2 Del Method Room Air 02/14/24 03:00 BMI result Body Mass Index 31.2 Exam: General: Awake, appears to be in distress secondary to chest pain Head: Normocephalic, atraumatic EENT: PERRL, Lids normal, sclera normal, conjunctiva normal, nose normal , ears normal, throat without erythema or exudates Neck: Supple, no adenopathy Lung: breath sounds symmetric, no wheezing, rales or rhonchi Chest: symmetric movement, moderate to severe left chest wall tenderness Heart: regular rate and rhythm, normal S1, S2 no murmurs or rubs Abdomen: soft, non-tender, nondistended, normal bowel sounds Back: no vertebral tenderness, no CVAT Extremities: Patient has erythema and increased warmth to her right foot, both lower extremities appear to be swollen. Neuro: Awake, alert, oriented, normal speech, cranial nerves intact, moves all extremities symmetrically Psych: Pleasant, cooperative Medications Administered Generic Name Dose Route Start Last Admin Trade Name Freq PRN Reason Stop Dose Admin Vancomycin HCl 2,000 mg in 500 mls @ 250 mls/hr 02/14/24 01:40 02/14/24 03:02 Vancomycin/Ns IV 02/14/24 03:39 250 mls/hr ONCE ONE Administration Lactated Ringer's 1,000 mls @ 999 mls/hr 02/14/24 02:46 02/14/24 03:01 Lr IV 02/14/24 03:46 999 mls/hr .[id number] STA Administration Discontinued Medications Generic Name Dose Route Start Last Admin Trade Name Freq PRN Reason Stop Dose Admin Acetaminophen 975 mg 02/14/24 01:40 02/14/24 01:49 Acetaminophen 325 Mg Tablet PO 02/14/24 01:41 975 mg ONCE STA Administration Diphenhydramine HCl 25 mg 02/13/24 22:24 02/13/24 22:38 Diphenhydramine Hcl 50 Mg/Ml Vial IVPUSH 02/13/24 22:25 25 mg ONCE ONE Administration Hydromorphone HCl 2 mg 02/13/24 22:24 02/13/24 22:38 Hydromorphone Hcl 2 Mg/Ml Vial IVPUSH 02/13/24 22:25 2 mg ONCE ONE Administration Protocol Hydromorphone HCl 2 mg 02/14/24 01:40 02/14/24 01:49 Hydromorphone Hcl 2 Mg/Ml Vial IVPUSH 02/14/24 01:41 2 mg ONCE ONE Administration Protocol Piperacillin Sod/Tazobactam 100 mls @ 200 mls/hr 02/14/24 01:40 02/14/24 02:40 Sod 4.5 gm/ Sodium Chloride IV 02/14/24 02:09 Infused ONCE ONE Infusion Iohexol 65 ml 02/13/24 23:46 02/13/24 23:47 Iohexol 350 Mg/Ml 100 Ml Infus..Btl IV 02/13/24 23:47 65 ml ONCE ONE Administration Procedures Procedure Narrative Procedure Narrative: February 13, 2024, 11:20 p.m. Ultrasound-guided peripheral IV placement Indication: Difficult IV access, RN unable to obtain, labs, CTA Site confirmation performed. 18. Gauge 1-3/4 inch catheter placed in the left basilic. Flushed without difficulty, secured. Medical Decision Making Medical Decision Making MDM Narrative: 48-year-old female with a history of hypertension, GERD, asthma, anemia, injection cocaine and heroin use disorder who presents emergency department for evaluation of chest pain, right ankle redness, swelling of lower extremities. Patient states that she has been injecting heroin 2-4 bags of heroin and 2 nickel bags of cocaine daily. She states that 2 days prior she noted swelling in both lower extremities and pain and swelling in her right foot. She states that her lower extremities are swollen the left being greater than the right and she was having left thigh pain. She states that yesterday she had sudden onset of left-sided crushing chest pain which is worse with breathing and with movement. The pain does radiate to her back, neck and arms left greater than right. The pain is been constant. She states she has had fever, chills, nonproductive cough, nausea and vomiting with no diarrhea. She denied frequency, urgency or dysuria. 01:46 Differential diagnosis: ?Includes but is not limited to right foot cellulitis, pulmonary embolism, myocardial infarction, myocardial ischemia pericarditis, endocarditis, anemia, electrolyte abnormalities, lower extremity DVT Following evaluation was ordered: CBC, CMP, D-dimer, PT/INR, PTT, lactic acid, blood cultures x2 CT pulmonary angiogram PE protocol, bilateral lower extremity duplex ultrasound, EKG Course: 01:53 My interpretation patient's laboratory evaluation is as follows: Elevated white blood count 97010 with 84 neutrophils and no bands.. Microcytic anemia with an H&H of 10 and 31.2 with an MCV of 79.6. Elevated glucose of 268. First troponin was elevated at 842, 3 hour troponin was unchanged at 845. INR normal 1.1. PTT normal 29.6. D-dimer elevated 680. Lactic acid was normal at 1.6 The patient also developed a low-grade fever of 100.5 degrees F. I ordered blood cultures x2, lactic acid, vancomycin 2 g IV and Zosyn 4.5 g IV. I also ordered bilateral lower extremity duplex ultrasounds to rule out DVT. I ordered blood cultures x2, lactic acid, vancomycin 2 g IV and Zosyn 4.5 g IV. I also ordered bilateral lower extremity duplex ultrasounds to rule out DVT. Given her elevated troponins I did discuss the patient's presentation over tiger text with the covering oyster unloader, Zia 03:05 I did discuss over tiger text the patient's elevated troponins with the covering oyster unloader, Dr. Hitchcock. He felt that the patient's elevated troponin was most likely secondary to the patient's cocaine use. The the patient's CT pulmonary angiogram PE protocol did not reveal any PEs but the patient does have bilateral infiltrates which could be caused by pneumonia/atypical or another infectious process such as septic emboli. The patient did have a small pericardial effusion as well. Patient did require 3 doses of Dilaudid 2 mg IV to control her pain. She continues to have fever therefore I did order Toradol 15 mg IV for her pain and feet I also discuss the patient's presentation over tiger text with the covering hospitalist, Dr. Osman Giang and the patient will be admitted for further treatment. Admission/Observation Consideration of admission/observation: Escalation of care including admission/observation considered (yes) Consult Healthcare Provider Management of the patient was discussed with: Hospitalist and Case Management Coordinator (Cardiology) Lab Data 02/13/24 21:33 02/13/24 21:33 Labs: Lab Results 02/13/24 02/13/24 02/13/24 Range/Units 21:33 22:37 23:18 WBC 13.0 H (4.8-10.8) X10*3/uL RBC 3.92 L (4.20-5.50) X10*6/uL Hgb 10.6 L (12.0-16.0) g/dl Hct 31.2 L (37.0-47.0) % MCV 79.6 L (80.0-98.0) fL MCH 27.0 (27.0-33.0) pg MCHC 34.0 (31.0-35.0) g/dl RDW 13.8 (11.0-16.0) % Plt Count 160 (160-400) X10*3/uL MPV 10.3 (9.4-12.3) fL Immature Gran % (Auto) 0.5 H (0.0-0.4) % Neut % (Auto) 84.7 H (45-73) % Lymph % (Auto) 6.4 L (20-40) % [place] % (Auto) 7.9 (2-11) % Eos % (Auto) 0.2 (0-4) % Baso % (Auto) 0.3 (0-2) % Lymph # (Auto) 0.8 L (1.2-4.9) X10*3/uL [place] # (Auto) 1.0 (0.1-1.2) X10*3/uL Eos # (Auto) 0.0 (0.0-0.4) X10*3/uL Baso # (Auto) 0.0 (0.0-0.2) X10*3/uL Abs Immat Gran (auto) 0.07 H (0.00-0.03) X10*3/uL Absolute Neuts (auto) 11.0 H (2.0-8.3) x10*3/uL Absolute Nucleated RBC 0.000 (0.0-0.012) X10*3/uL Nucleated RBC % (auto) 0.0 (0.0-0.2) /100WBC PT 13.9 H (11.1-13.3) SEC INR 1.1 (0.9-1.1) APTT 29.6 (26.0-36.8) SEC D-Dimer High Sensitivty 680 NG/ML Sodium 136 (135-145) mmol/L Potassium 3.8 (3.3-5.1) mmol/L Chloride 104 (96-108) mmol/L Carbon Dioxide 23 (22-29) mmol/L Anion Gap 13 (12-20) BUN 18 H (9-16) mg/dL Creatinine 0.78 (0.5-1.4) mg/dL Estim Creat Clear Calc 90.2 Estimated GFR > 60 Random Glucose 168 H (60-115) mg/dL Lactic Acid (0.5-2.0) mmol/L Calcium 9.2 (8.4-10.2) mg/dL Total Bilirubin 0.5 (0.0-1.0) mg/dL AST 26 (5-31) U/L ALT 18 (0-31) U/L Alkaline Phosphatase 126 H (39-117) U/L Total Creatine Kinase 402 H (26-140) U/L Troponin I High Sens 842.1 H* 845.3 H* (<3.5-17.0) ng/L Total Protein 7.2 (6.5-8.0) g/dL Albumin 3.5 (3.5-5.0) g/dL Urine Color Urine Appearance Urine pH (5.0-9.0) Ur Specific Mouthcard (1.005-1.025) Urine Protein (Neg-Trace) mg/dL Urine Glucose (UA) (Negative) mg/dL Urine Ketones (Negative) mg/dL Urine Blood (Negative) Urine Nitrite (Negative) Ur Leukocyte Esterase (Negative) Urine RBC (0-2) /HPF Urine WBC (0-5) /HPF Ur Squamous Epith Cells (0-2) /HPF Urine Bacteria (None Seen) Hyaline Casts (0-2) /LPF Urine Opiates Screen (Not Detect) Ur Buprenorphine Scrn (Not Detect) ng/mL Ur Oxycodone Screen (Not Detect) ng/mL Urine Methadone Screen (Not Detect) ng/mL Urine Fentanyl Screen (Not Detect) Ur Barbiturates Screen (Not Detect) Ur Phencyclidine Scrn (Not Detect) Ur Amphetamines Screen (Not Detect) U Benzodiazepines Scrn (Not Detect) Urine Cocaine Screen (Not Detect) U Marijuana (THC) Screen (Not Detect) Influenza Type A (PCR) (Negative) Influenza Type B (PCR) (Negative) RSV RNA Qual (PCR) (Negative) SARS-CoV-2 RNA (RT-PCR) (Negative) 02/14/24 02/14/24 Range/Units 02:00 02:05 WBC (4.8-10.8) X10*3/uL RBC (4.20-5.50) X10*6/uL Hgb (12.0-16.0) g/dl Hct (37.0-47.0) % MCV (80.0-98.0) fL MCH (27.0-33.0) pg MCHC (31.0-35.0) g/dl RDW (11.0-16.0) % Plt Count (160-400) X10*3/uL MPV (9.4-12.3) fL Immature Gran % (Auto) (0.0-0.4) % Neut % (Auto) (45-73) % Lymph % (Auto) (20-40) % [place] % (Auto) (2-11) % Eos % (Auto) (0-4) % Baso % (Auto) (0-2) % Lymph # (Auto) (1.2-4.9) X10*3/uL [place] # (Auto) (0.1-1.2) X10*3/uL Eos # (Auto) (0.0-0.4) X10*3/uL Baso # (Auto) (0.0-0.2) X10*3/uL Abs Immat Gran (auto) (0.00-0.03) X10*3/uL Absolute Neuts (auto) (2.0-8.3) x10*3/uL Absolute Nucleated RBC (0.0-0.012) X10*3/uL Nucleated RBC % (auto) (0.0-0.2) /100WBC PT (11.1-13.3) SEC INR (0.9-1.1) APTT (26.0-36.8) SEC D-Dimer High Sensitivty NG/ML Sodium (135-145) mmol/L Potassium (3.3-5.1) mmol/L Chloride (96-108) mmol/L Carbon Dioxide (22-29) mmol/L Anion Gap (12-20) BUN (9-16) mg/dL Creatinine (0.5-1.4) mg/dL Estim Creat Clear Calc Estimated GFR Random Glucose (60-115) mg/dL Lactic Acid 1.6 (0.5-2.0) mmol/L Calcium (8.4-10.2) mg/dL Total Bilirubin (0.0-1.0) mg/dL AST (5-31) U/L ALT (0-31) U/L Alkaline Phosphatase (39-117) U/L Total Creatine Kinase (26-140) U/L Troponin I High Sens (<3.5-17.0) ng/L Total Protein (6.5-8.0) g/dL Albumin (3.5-5.0) g/dL Urine Color Yellow Urine Appearance Clear Urine pH 6.0 (5.0-9.0) Ur Specific Mouthcard >= 1.030 H (1.005-1.025) Urine Protein 100 (2+) H (Neg-Trace) mg/dL Urine Glucose (UA) Negative (Negative) mg/dL Urine Ketones Negative (Negative) mg/dL Urine Blood Trace H (Negative) Urine Nitrite Negative (Negative) Ur Leukocyte Esterase Negative (Negative) Urine RBC 6-10 H (0-2) /HPF Urine WBC 0-5 (0-5) /HPF Ur Squamous Epith Cells 11-20 (0-2) /HPF Urine Bacteria 3+ (None Seen) Hyaline Casts 0-2 (0-2) /LPF Urine Opiates Screen POSITIVE H (Not Detect) Ur Buprenorphine Scrn Not Detected (Not Detect) ng/mL Ur Oxycodone Screen Positive H (Not Detect) ng/mL Urine Methadone Screen Not Detected (Not Detect) ng/mL Urine Fentanyl Screen POSITIVE H (Not Detect) Ur Barbiturates Screen Not Detected (Not Detect) Ur Phencyclidine Scrn Not Detected (Not Detect) Ur Amphetamines Screen Not Detected (Not Detect) U Benzodiazepines Scrn Not Detected (Not Detect) Urine Cocaine Screen POSITIVE H (Not Detect) U Marijuana (THC) Screen Not Detected (Not Detect) Influenza Type A (PCR) NEGATIVE (Negative) Influenza Type B (PCR) NEGATIVE (Negative) RSV RNA Qual (PCR) NEGATIVE (Negative) SARS-CoV-2 RNA (RT-PCR) NEGATIVE (Negative) Independent Interpretation I performed an independent interpretation of an: EKG Interpretation: My independent interpretation of the patient's 12 EKG done at 20:56 hours is as follows: Normal sinus rhythm rate of 97, normal NM interval, QRS duration QTC interval, no ST segment elevation, no ST segment depression, no significant T-wave abnormalities, no PACs, no PVCs. My independent interpretation of the patient's 12 EKG done at 02:06 hours is as follows: Sinus tachycardia with a rate of 107, normal NM interval, QRS duration QTC interval, no ST segment elevation, no ST segment depression, no significant T-wave abnormalities, no PACs, no PVCs-unchanged from the patient's 1st EKG. Radiology Impression Discussion of test interpretation with radiology: I have reviewed the radiologist's reading. Radiologist Impression: CT angio chest PE protocol FINDINGS: No filling defects are seen in the main, lobar, or segmental pulmonary arteries to suggest the presence of pulmonary emboli. The aorta is unremarkable. There is a focal region of mixed consolidation and groundglass opacity in the left upper lobe laterally. Relatively nodular 1 cm focus of consolidation is present at the right apex. Small focal peripheral consolidation anteriorly in the right upper lobe. There is a larger region of dense consolidation in the lateral right upper lobe near the confluence of the major and minor fissures. Appearance is suspicious for multifocal infectious/inflammatory etiology. Regions of posterior subpleural opacity in the bilateral lower lobes, right greater than left are overall suggestive of atelectasis. No pneumothorax or pleural effusion. The visualized thyroid gland is unremarkable. No significant lymphadenopathy is seen. Cardiac size appears within normal limits. Trace pericardial effusion. No axillary lymphadenopathy is present. Visualized portions of the upper abdomen are within normal limits. No acute osseous findings are seen. Mild endplate osteophytes in the spine. IMPRESSION: 1. No pulmonary embolus identified. 2. Scattered regions of consolidation bilaterally as detailed above, greatest in the right upper lobe, suspicious for an infectious or other inflammatory etiology. Follow-up CT in 3 months is recommended to assess for resolution. 3. Trace pericardial effusion. VTE: negative Electronically signed by: Arnoldo Hsieh MD 02/14/2024 01:26 AM EDT RP Dictated By: Arnoldo Hsieh MD Critical Care Time Critical Care Time Critical Care Time: Yes Total Critical Care Time: 90 Attestation: Critical Care: The patient was critically ill with a high probability of imminent or life threatening deterioration. I spent greater than 30 minutes of discontinuous time evaluating the patient,delivering critical care at the bedside, discussing and evaluating pertinent data with consultants. Critical care time does not include time spent performing separately billable procedures or teaching. Total time spent performing critical care was 90 minutes. Discharge Plan Discharge Clinical Impression: Multilobar lung infiltrate, Chest pain, Cellulitis of foot, right, Elevated troponin I level, Cocaine use, Heroin use Patient Disposition: Admitted As Inpatient Print Language: Macedonian
--- NOTE | 2024-02-13 22:15 | PC.NURSE ---
critical lab received at this time, tropoinin of 842.1. aware at this time.
[2024-02-13 22:33] VITALS: BP 91/54; PULSE 95; RESP 19; TEMP 37.2; O2SAT 97
[2024-02-13 22:38] VITALS: RESP 18
[2024-02-13] MEDS: diphenhydrAMINE HCL 50 MG/ML VIAL 25 MG IVPUSH (22:38)
[2024-02-13] MEDS: HYDROmorphone HCl 2 MG/ML VIAL IVPUSH (22:38)
--- NOTE | 2024-02-13 22:40 | PC.NURSE ---
pt medicated per jul for 10/10 chest pain. and this rn at bedside doing groin exam.
[2024-02-13 22:47] LABS: INTERNATIONAL NORM RATIO 1.1 (0.9-1.1); Prothrombin Time 13.9 SEC (11.1-13.3)
[2024-02-13 22:49] LABS: D Dimer High Sensitivity 680 NG/ML
[2024-02-13 22:50] LABS: Partial Thromboplastin Time 29.6 SEC (26.0-36.8)
--- NOTE | 2024-02-13 23:37 | PC.NURSE ---
Juan Francisco OSUNA at bedside, 18G ultrasound guided IV laced in left ac.
[2024-02-13 23:46] LABS: Troponin-I High Sensitivity 845.3 ng/L (<3.5-17.0)
[2024-02-13] MEDS: iohexoL 350 MG/ML 100 ML INFUS..BTL 65 ML IV (23:47)
[2024-02-14] VITALS (13 sets, daily range): BP systolic 93–133; BP diastolic 58–94; PULSE 100–113; RESP 18–29; TEMP 36.4–38.4; O2SAT 95–98
--- NOTE | 2024-02-14 01:36 | MHC.EDTECH ---
0000 rounding done ,vitals taken ,Patient awake had a few ice chips ,call colón within Pt reach .
--- NOTE | 2024-02-14 01:40 | PC.NURSE ---
provider aware of pt temperature, plan for cultures and antibiotics.
[2024-02-14] MEDS: Acetaminophen 325 MG TABLET 975 MG PO ×2 (01:49→17:44)
[2024-02-14] MEDS: HYDROmorphone HCl 2 MG/ML VIAL IVPUSH ×2 (01:49→03:12)
--- NOTE | 2024-02-14 02:01 | ECG_ITS ---
Test Reason : ELEVATED TROP Blood Pressure : / mmHG Vent. Rate : 107 BPM Atrial Rate : 107 BPM P-R Int : 120 ms QRS Dur : 068 ms QT Int : 316 ms P-R-T Axes : 059 011 032 degrees QTc Int : 421 ms Sinus tachycardia Low voltage QRS Borderline ECG When compared with ECG of 13-FEB-2024 20:56, Heart rate has increased Referred By: Sunny Orlando Electronically Signed By:BENITA DUARTE
[2024-02-14] MEDS: Piperacillin Sodium/Tazobactam 4.5 GM in 0.9 % Sodium Chloride 100 ML IV (02:03)
--- NOTE | 2024-02-14 02:03 | PC.NURSE ---
pt medicated per mar, tolerated well with water.
[2024-02-14 02:09] LABS: Appearance Urine Clear; Color Urine Yellow; Glucose Urine UA Negative (Negative); Leukocyte Esterase Urine Negative (Negative); Nitrite Urine Negative (Negative); Specific Gravity - Urine >= 1.030 (1.005-1.025); UMIC TRIGGER UACC YES; Urine Blood Trace (Negative); Urine Ketones Negative (Negative); Urine Protein 100 (2+) mg/dL (Neg-Trace)
--- NOTE | 2024-02-14 02:16 | MHC.EDTECH ---
lactic acid ,and blood culture drawn ,rsv.covid swab collected ,all sent to lab ,Repeated ekg taken and was read by Provider ,Patient continue to be hooked up to environmental monitoring technician ,Patient was assisted unto bed mello ,void ,urine sample collected and sent to lab .
[2024-02-14 02:20] LABS: Lactic Acid 1.6 mmol/L (0.5-2.0)
[2024-02-14 02:21] LABS: Amphetamine Screen Urine Not Detected (Not Detect); Barbiturates, Urine Not Detected (Not Detect); Benzodiazepines Screen Urine Not Detected (Not Detect); Buprenorphine Scr Not Detected (Not Detect); Cannabinoid Screen Urine Not Detected (Not Detect); Cocaine Screen Urine POSITIVE (Not Detect); Fentanyl, urine POSITIVE (Not Detect); Methadone Screen, Urine Not Detected (Not Detect); Opiate Screen Urine POSITIVE (Not Detect); Oxycodone Screen Urine Positive (Not Detect); Phencyclidine Screen Urine Not Detected (Not Detect)
[2024-02-14 02:22] LABS: Bacteria Urine 3+ (None Seen); Hyaline Casts Urine 0-2 /LPF (0-2); WBC Urine 0-5 /HPF (0-5)
[2024-02-14 02:45] LABS: Influenza A PCR NEGATIVE (Negative); Influenza B PCR NEGATIVE (Negative); Resp Syncy Virus RNA Qual PCR NEGATIVE (Negative); SARS COV2 PCR INHOUSE NEGATIVE (Negative)
[2024-02-14] MEDS: Lactated Ringers 1,000 ML 999 ML IV ×2 (03:01→04:29)
[2024-02-14] MEDS: vancomycin/NS 2,000 MG/500 ML PLAST..BAG 250 MG IV (03:02)
[2024-02-14] MEDS: Ketorolac Tromethamine 15 MG/ML VIAL IVPUSH (03:12)
--- NOTE | 2024-02-14 04:20 | PM.IMHP ---
History of Present Illness Date of Service: 02/14/24 Attending physician on admission: Hamilton Giang Chief Complaint: Chest pain Nelsy Singh is a 48 years old woman with past medical history significant for IVDU (cocaine and heroin) presents to the emergency department complaining of severe (10/10) retrosternal chest pain that started yesterday associated with shortness on breath and fever. Denied cough, palpitations, headaches or sore throat. She also reports nausea but denied vomiting, abdominal pain or diarrhea. She was complaining of feeling very anxious. She also has been taking methadone. Denies marijuana use or alcohol abuse. Denies history of coronary artery disease. Takes lisinopril for hypertension and omeprazole for GERD. She was brought to the emergency department by EMS which gives her aspirin 325 mg p.o.. In the ED, she was found to have fever of 101.1 and tachycardia. Blood pressure has been in the low side, lowest 91/54. Last BP is 93/60. Blood workup was remarkable for leukocytosis of 13.0. Hemoglobin is 10.6 and platelets are normal. There is no lactic acidosis. There are no significant electrolyte imbalances. Initial troponin was 842.1 --> 145.3. Total CK is 402 and alk phos is 126. Bilirubin and transaminases are normal. Chest CTA showed no acute pulmonary embolism, however, showed scattered region of consolidation bilaterally (> right upper lobe) and trace pericardial effusion. Bilateral venous ultrasound showed no DVT. ECG shows sinus tachycardia, heart rate 107 beats per minutes without ischemic changes. ED tx: Ringer lactate 1 L bolus, Toradol 50 mg IV, Dilaudid 2 mg IV Review of Systems Review of Systems: All 12 systems were reviewed and normal except as noted in HPI. [facility] Medical History (Updated 02/14/24 @ 05:02 by Hamilton Giang MD) Arthritis Migraines GERD (gastroesophageal reflux disease) HTN (hypertension) HLD (hyperlipidemia) Asthma Family History Mother Colon cancer Family/Other Uterine cancer Maternal Aunt Breast cancer Spinal cord cancer Maternal Grandmother Dementia Surgical History Tubal ligation status Social History (Updated 08/28/23 @ 10:35 by Chela Walter PA-C) Alcohol intake: never Patient Tobacco Use Status: Current everyday Tobacco user Cigarette Packs Per Day: 1 Cigarettes Per Day: 20.0 Smoked in Last 30 Days: No Second Hand Smoke Exposure: No Use of substances other than those prescribed or required for medical reasons: Yes Substance Use Type: Crack/Cocaine Advance Directives: No Advance Directives Information Provided: No Do you have a plan to hurt others: No Plan Patient : No Meds Allergies Allergy/AdvReac Type Severity Reaction Status Date / Time latex [LATEX] Allergy Unknown rash Verified 02/13/24 21:02 Active Medications: Current Medications Acetaminophen (Acetaminophen 325 Mg Tablet) 975 mg PO Q6H PRN PRN Reason: Pain, Mild (Pain Scale 1-3), fever or headache Aspirin (Aspirin Enteric Coated 81 Mg Tablet.Dr) 81 mg PO BEDTIME [facility] Heparin Sodium (Porcine) (Heparin Sodium,Porcine 5,000 Unit/Ml Vial) 5,000 unit SUBCUT Q8H [facility] Hydromorphone HCl (Hydromorphone Hcl 1 Mg/Ml Syringe) 1 mg IVPUSH Q4H PRN; Protocol PRN Reason: Pain, Moderate(Pain Scale 4-6) Lactated Ringer's (Lr) 1,000 mls @ 999 mls/hr IV .Q1H1M STA Stop: 02/14/24 04:57 Piperacillin Sod/Tazobactam (Sod 3.375 gm/ Sodium Chloride) 50 mls @ 100 mls/hr IV 0000,0600,1200,1800 [facility] Pharmacy Consult (Consult Rx Vancomycin Dosing) 1 each MISCELLANE DAILY PRN PRN Reason: Consult order Sodium Chloride (0.9 % Sodium Chloride Flush 3 Ml Syringe) 3 ml IVFLUSH QSHIFT [facility] Home Medications ?Medication ?Instructions ?Recorded ?Confirmed ?Last Taken ?Type buspirone 7.5 mg tablet 1 tab PO DAILY 12/13/20 12/13/20 Unknown History cetirizine 10 mg tablet 1 tab PO DAILY 12/13/20 12/13/20 Unknown History clonidine HCl 0.1 mg tablet 1 tab PO DAILY 12/13/20 12/13/20 Unknown History cyclobenzaprine 5 mg tablet 1 tab PO TID PRN Pain 12/13/20 12/13/20 Unknown History gabapentin 300 mg capsule 1 cap PO TID 12/13/20 12/13/20 Unknown History omeprazole 40 mg capsule,delayed 1 cap PO DAILY 12/13/20 12/13/20 Unknown History release sertraline 100 mg tablet 1 tab PO DAILY 12/13/20 12/13/20 Unknown History citalopram 10 mg tablet 10 mg PO DAILY 08/26/23 Unknown History lisinopril 2.5 mg tablet 2.5 mg PO DAILY 08/26/23 Unknown History methadone 10 mg/mL oral concentrate 78 mg PO QDAY 08/26/23 Unknown History Physical Exam Vital Signs and Narrative: Vital Signs: Last Vital Signs Temp 99.1 F 02/14/24 04:04 Pulse 100 02/14/24 04:04 Resp 20 02/14/24 04:04 BP 93/60 02/14/24 04:04 Pulse Ox 98 02/14/24 04:04 O2 Del Method Room Air 02/14/24 03:00 BMI result Body Mass Index 31.2 Constitutional - Awake and Alert. Looking in mild distress due to pain. Febrile. Cooperative. HEENT - PERRL, EOMI. Dry oral mucosa. Heart - Tachycardic. Faint murmur. Lungs - Normal lung expansion, Normal respiratory effort, No respiratory distress, CTA bilaterally Abdomen - NT / ND; +BS; No rebound or guarding Extremities - no calf tenderness bilaterally, no swelling. Right ankle: Anterior aspect: Minimal erythema, non tenderness. Musculoskeletal - Normal inspection, normal ROM Skin - Warm/Dry Neurological - Alert & oriented x3. No focal weakness grossly noted. Normal speech. Psychological - Depressed affect Results Labs 02/13/24 21:33 02/13/24 21:33 Labs: Laboratory Results - last 24 hr 02/13/24 02/13/24 02/13/24 21:33 22:37 23:18 MCV 79.6 L MCH 27.0 MCHC 34.0 RDW 13.8 Plt Count 160 MPV 10.3 Immature Gran % (Auto) 0.5 H Neut % (Auto) 84.7 H Lymph % (Auto) 6.4 L Nash % (Auto) 7.9 Eos % (Auto) 0.2 Baso % (Auto) 0.3 Lymph # (Auto) 0.8 L Nash # (Auto) 1.0 Eos # (Auto) 0.0 Baso # (Auto) 0.0 Abs Immat Gran (auto) 0.07 H Absolute Neuts (auto) 11.0 H Absolute Nucleated RBC 0.000 Nucleated RBC % (auto) 0.0 PT 13.9 H INR 1.1 APTT 29.6 D-Dimer High Sensitivty 680 Anion Gap 13 Estim Creat Clear Calc 90.2 Estimated GFR > 60 Random Glucose 168 H Lactic Acid Calcium 9.2 Total Bilirubin 0.5 AST 26 ALT 18 Alkaline Phosphatase 126 H Total Creatine Kinase 402 H Troponin I High Sens 842.1 H* 845.3 H* Total Protein 7.2 Albumin 3.5 Urine Color Urine Appearance Urine pH Ur Specific [place] Urine Protein Urine Glucose (UA) Urine Ketones Urine Blood Urine Nitrite Ur Leukocyte Esterase Urine RBC Urine WBC Ur Squamous Epith Cells Urine Bacteria Hyaline Casts Urine Opiates Screen Ur Buprenorphine Scrn Ur Oxycodone Screen Urine Methadone Screen Urine Fentanyl Screen Ur Barbiturates Screen Ur Phencyclidine Scrn Ur Amphetamines Screen U Benzodiazepines Scrn Urine Cocaine Screen U Marijuana (THC) Screen Influenza Type A (PCR) Influenza Type B (PCR) RSV RNA Qual (PCR) SARS-CoV-2 RNA (RT-PCR) 02/14/24 02/14/24 02:00 02:05 MCV MCH MCHC RDW Plt Count MPV Immature Gran % (Auto) Neut % (Auto) Lymph % (Auto) Nash % (Auto) Eos % (Auto) Baso % (Auto) Lymph # (Auto) Nash # (Auto) Eos # (Auto) Baso # (Auto) Abs Immat Gran (auto) Absolute Neuts (auto) Absolute Nucleated RBC Nucleated RBC % (auto) PT INR APTT D-Dimer High Sensitivty Anion Gap Estim Creat Clear Calc Estimated GFR Random Glucose Lactic Acid 1.6 Calcium Total Bilirubin AST ALT Alkaline Phosphatase Total Creatine Kinase Troponin I High Sens Total Protein Albumin Urine Color Yellow Urine Appearance Clear Urine pH 6.0 Ur Specific [place] >= 1.030 H Urine Protein 100 (2+) H Urine Glucose (UA) Negative Urine Ketones Negative Urine Blood Trace H Urine Nitrite Negative Ur Leukocyte Esterase Negative Urine RBC 6-10 H Urine WBC 0-5 Ur Squamous Epith Cells 11-20 Urine Bacteria 3+ Hyaline Casts 0-2 Urine Opiates Screen POSITIVE H Ur Buprenorphine Scrn Not Detected Ur Oxycodone Screen Positive H Urine Methadone Screen Not Detected Urine Fentanyl Screen POSITIVE H Ur Barbiturates Screen Not Detected Ur Phencyclidine Scrn Not Detected Ur Amphetamines Screen Not Detected U Benzodiazepines Scrn Not Detected Urine Cocaine Screen POSITIVE H U Marijuana (THC) Screen Not Detected Influenza Type A (PCR) NEGATIVE Influenza Type B (PCR) NEGATIVE RSV RNA Qual (PCR) NEGATIVE SARS-CoV-2 RNA (RT-PCR) NEGATIVE Imaging Radiologist's Impressions: Impressions Chest CTA 02/13/24 23:47 IMPRESSION: 1. No pulmonary embolus identified. 2. Scattered regions of consolidation bilaterally as detailed above, greatest in the right upper lobe, suspicious for an infectious or other inflammatory etiology. Follow-up CT in 3 months is recommended to assess for resolution. 3. Trace pericardial effusion. VTE: negative Electronically signed by: Arnoldo Hsieh MD 02/14/2024 01:26 AM EDT RP Venous Duplex 02/14/24 02:30 IMPRESSION: No evidence of deep venous thrombosis involving the bilateral lower extremities. Electronically signed by: Arnoldo Hsieh MD 02/14/2024 03:11 AM EDT RP Assessment and Plan (1) Chest pain: Qualifiers: Chest pain type: unspecified Qualified Code(s): R07.9 - Chest pain, unspecified Status: Acute (2) NSTEMI (non-ST elevated myocardial infarction): Status: Acute (3) Heroin use: Status: Acute (4) Cocaine use: Status: Acute (5) Suspected endocarditis: Status: Acute Plan Nelsy Singh is a 48 y/o woman admitted with: Chest pain, markedly elevated troponin in the setting of cocaine abuse; suspected myocardial infarction and/or coronary vasospasm. Admit to hospitalist service. Telemetry. Start treatment with Lovenox SQ (full anticoagulation), Ativan and low-dose amlodipine and/or nitroglycerin SL as needed chest pain q5 min X3 if BP allows. Continue treatment with aspirin 81 mg p.o. daily (received aspirin by EMS). Avoid beta blockers for now. Cardiology consult. Trend troponin. Check echocardiogram. Leukocytosis, tachycardia, fever + right upper lobe consolidations possibly due to endocarditis with septic emboli. Normal lactic acid. Check TTE. Continue empiric IV antibiotic therapy with vancomycin and Zosyn. Continue to monitor vital signs and WBC count. IVDU: Cocaine and heroin. Urine drug screen positive for opiates, oxycodone, fentanyl, cocaine. Continue methadone if recommended by addiction medicine. Addiction medicine consult. Right ankle cellulitis. Continue empiric IV antibiotic therapy with vancomycin and Zosyn. DVT prophylaxis: Lovenox Code status: Full Patient will need hospitalization for at least 2 midnights for suspected CAD due to cocaine abuse treatment with Lovenox, aspirin and calcium channel tyrone. Patient will also need evaluation by subspecialty and IV antibiotic therapy for suspected endocarditis. Quality Stroke Does the patient have a stroke diagnosis?: No VTE Prior VTE?: No VTE Risk Level:: Medical - moderate - high VTE Device Contraindication: Treatment Not Indicated VTE Drug Contraindication: N/A - Med Ordered
[2024-02-14] MEDS: LORazepam 2 MG/ML VIAL 1 MG IVPUSH (04:26)
[2024-02-14] MEDS: Enoxaparin Sodium 80 MG/0.8 ML SYRINGE SUBCUT (05:14)
[2024-02-14 05:19] LABS: Basophils Percent Auto 0.3 % (0-2); Eosinophils Percent Auto 0.2 % (0-4); Hematocrit 28.9 % (37.0-47.0); Hemoglobin 9.7 g/dl (12.0-16.0); Imm Gran Pct Auto 0.7 % (0.0-0.4); Lymphocytes Absolute Auto 1.3 X10*3/uL (1.2-4.9); Lymphocytes Percent Auto 8.3 % (20-40); MANUAL DIFF FLAG SCAN; Mean Corpuscular HGB Conc 33.6 g/dl (31.0-35.0); Mean Corpuscular Hemoglobin 26.9 pg (27.0-33.0); Mean Corpuscular Volume 80.3 fL (80.0-98.0); Monocytes Absolute Auto 1.6 X10*3/uL (0.1-1.2); Monocytes Percent Auto 10.2 % (2-11); Neutrophils Absolute Auto 12.4 x10*3/uL (2.0-8.3); Neutrophils Percent Auto 80.3 % (45-73); Platelet Count 135 X10*3/uL (160-400); Red Cell Distribution Width 13.8 % (11.0-16.0); SCAN SMEAR FLAG 1; White Blood Count 15.4 X10*3/uL (4.8-10.8)
[2024-02-14 05:29] LABS: Alanine Aminotransferase 19 U/L (0-31); Alkaline Phosphatase 138 U/L (39-117); Anion Gap 13 (12-20); Aspartate Amino Transferase 33 U/L (5-31); Bilirubin Total 0.7 mg/dL (0.0-1.0); Blood Urea Nitrogen 17 mg/dL (9-16); Calcium 8.5 mg/dL (8.4-10.2); Carbon Dioxide 21 mmol/L (22-29); Chloride 104 mmol/L (96-108); Creatinine Clr Calc Pharmacy 90.2; Estimated Glomerular Filt Rate > 60; Glucose Random 153 mg/dL (60-115); Potassium 4.4 mmol/L (3.3-5.1); Sodium 134 mmol/L (135-145); Total Protein 6.7 g/dL (6.5-8.0)
[2024-02-14 05:37] LABS: Troponin-I High Sensitivity 463.3 ng/L (<3.5-17.0)
[2024-02-14 06:25] LABS: SLIDE REVIEW VERIFIED
--- NOTE | 2024-02-14 07:00 | CA_ITS ---
Transthoracic Echocardiogram Patient (Last, First, Middle): Nelsy Singh, Gender: Female Date of : 1975 Age: 48 Procedure Date: 02/14/2024 Procedure Type: Transthoracic Echocardiogram Location: [facility] Height: 160.02 cm Weight: 79.83 kg BSA: 1.83 m2 Heart Rate: bpm BP: 99 / 63 mmHg Housing Inspectors: Referring MD: Hamilton Giang MD Symptoms: IV drug use, fever, tachycardia, endocarditis? Study Quality: Adequate ECG Rhythm: Sinus Conclusions: - Normal left ventricular size and systolic function. There is mildly increased left ventricular wall thickness. The visually estimated ejection fraction is between 60-65%. - Normal right ventricular cavity size and systolic function. - At least moderate pericardial effusion with some features suggestive of early tamponade. Findings Left Ventricle Normal left ventricular size and systolic function. There is mildly increased left ventricular wall thickness. The visually estimated ejection fraction is between 60-65%. There is no evidence of regional wall motion abnormalities. Diastolic function is normal for age. Right Ventricle Normal right ventricular cavity size and systolic function. Atria The left atrium is normal in size. Aortic Valve The aortic valve structure and function is likely normal. There is no aortic valve stenosis. There is no aortic valve regurgitation. Mitral Valve The mitral valve appears normal. There is no mitral valve regurgitation. There is no mitral valve stenosis. Pulmonic Valve The pulmonic valve was not well visualized. Tricuspid Valve Likely normal tricuspid valve structure and function. Normal right atrial pressure. There is no evidence of pulmonary hypertension. Great Vessels All visible segments of the aorta are normal in size. Venous The inferior vena cava is dilated and collapses less than 50% with inspiration. Pericardium/Pleural There is a moderate pericardial effusion. Prior Study Comparison No prior study available for comparison. Measurements 2D Linear Measurements IVSd: 1.12 0.6-0.9/0.6-1.0 cm LVIDd: 3.70 3.9-5.3/4.2-5.9 cm LVIDd Index: 2.02 2.4-3.2/2.2-3.1 cm/m2 LVIDs: 2.95 2.0-3.6 cm LVPWd: 1.14 0.7-1.1 cm Ao Root: 2.80 2.1-3.5 cm LA Diam: 2.80 2.7-3.8/3.0-4.0 cm LAIDs Index: 1.53 1.5-2.3 cm/m2 LV Mass: 167.50 67-162/88-224 g LV Mass Index: 91.53 43-95/49-115 g/m2 LVOT Diam: 1.90 3.0+(-)1.3 cm Mitral Valve MV Pk E: 0.53 MV PK A: 0.62 MV Decel Time: 113.00 E/A: 0.90 E'Lateral: 5.87 E'Medial: 7.94 E/E' Med: 6.70 E/E' Lat: 9.00 PHT: 33.00 MVA PHT: 6.67 Decel Knott: 4.71 Aortic Valve AoV Pk Nick: 1.04 AoV Mn Nick: 0.70 AoV VTI: 0.16 AoV Pk Grad: 4.00 Aov Mn Grad: 2.00 SINGH Cont.VTI: 2.35 LVOT LVOT Pk Nick: 0.89 LVOT Mn Nick: 0.58 LVOT VTI: 0.14 LVOT Pk Grad: 3.00 LVOT Mn Grad: 2.00 LVOT Diam: 1.90 LVOT Area: 2.84 Diastolic Function MV Pk E: 0.53 MV Pk A: 0.62 E/A: 0.90 E'Medial: 7.94 E/E' Med: 6.70 E' Laterial: 5.87 E/E' Lat: 9.00 Tricuspid Valve TR Pk Nick: 2.00 TR Pk Grad: 16.00 RA Press: 3.00 RVSP: 19.00 Great Vessels Aorta Ao Root-2D: 2.80 2.0-3.7 cm Ao Asc: 2.80 2.1-3.4 cm Pulmonary Valve PV Pk Nick: 1.11 Peak PV Grad: 5.00 Updated in Other Vendor System with Status of Final Chino Hitchcock MD electronically signed on 02/14/2024 9:25:02 PM with status of Final
[2024-02-14] MEDS: 0.9 % Sodium Chloride Flush 3 ML SYRINGE IVFLUSH (08:26)
[2024-02-14] MEDS: Piperacillin Sodium/Tazobactam 3.375 GM in 0.9 % Sodium Chloride 50 ML IV ×3 (08:26→17:45)
--- NOTE | 2024-02-14 08:29 | PHA.PROG ---
Admission Date/Time: February 14, 2024 04:00 Indication: Endocarditis Weight in k kg Adjusted body weight in K kg Serum Creatinine - Last 168 Hours 02/13/24 02/14/24 21:33 04:36 Creatinine 0.78 0.78 Estimated CrCl and GFR - Last 168 Hours 02/13/24 02/14/24 21:33 04:36 Estim Creat Clear Calc 90.2 90.2 Estimated GFR > 60 > 60 Vancomycin Loading Dose: 2,000 MG Current Vancomycin Dosing Regimen: 750 mg q8h Vancomycin Monitoring using AUC goal of 400 - 600 range with trough as surrogate marker: 519, predicted trough 17.6 Date and Time for next Vancomycin Level to be drawn: 02/14 @ 0900 Pharmacist Comments on Vancomycin Plan: Vancomycin dosing will take advantage of [employer] as a clinical decision support tool that uses Bayesian modeling to calculate individual patient's pharmacokinetic parameters and forecast the patient's drug concentration time course with the target goal AUC 24 range of 400 - 600 mg/L/hr.
[2024-02-14] MEDS: HYDROmorphone HCl 1 MG/ML SYRINGE IVPUSH ×2 (08:33→16:52)
--- NOTE | 2024-02-14 08:37 | PC.NURSE ---
continues to endorse chest pain, patient also reporting she feels she is going into withdrawal from heroin. has previously been on methadone. medicated per the MAR w/ prn pain medications, moaning in room. responding to questions appropriately.
--- NOTE | 2024-02-14 08:55 | P.PNIM_ITS ---
Subjective Subjective Date of Service: 02/14/24 Interval History: ongiong chest discomfort, opiate withdrawal symptoms Physical Exam 2 Vital Signs: Vital Signs: Last Vital Signs Temp 98.8 F 02/14/24 06:18 Pulse 108 H 02/14/24 06:18 Resp 22 H 02/14/24 06:18 BP 95/66 02/14/24 06:18 Pulse Ox 96 02/14/24 06:18 O2 Del Method Room Air 02/14/24 06:18 BMI result Body Mass Index 31.2 General: lethargic, oriented times 3, ill appearing Resp: CTA bilateral, no accessory muscles used CVS: S1,S2,RRR GI: soft, non tender, non distended Neuro: motor grossly intact Psych: appropriate affect, appropriate insight Objective Data Active Medications Acetaminophen (Acetaminophen 325 Mg Tablet) 975 mg PO Q6H PRN PRN Reason: Pain, Mild (Pain Scale 1-3), fever or headache Aspirin (Aspirin Enteric Coated 81 Mg Tablet.Dr) 81 mg PO DAILY [facility] Last Admin: 02/14/24 08:35 Dose: Not Given Documented By: MEGAN Non-Admin Reason: Patient Refused Enoxaparin Sodium (Enoxaparin Sodium 40 Mg/0.4 Ml Syringe) 40 mg SUBCUT Q24H JOHN Hydromorphone HCl (Hydromorphone Hcl 1 Mg/Ml Syringe) 1 mg IVPUSH Q4H PRN; Protocol PRN Reason: Pain, Moderate(Pain Scale 4-6) Last Admin: 02/14/24 08:33 Dose: 1 mg Documented By: MEGAN Piperacillin Sod/Tazobactam (Sod 3.375 gm/ Sodium Chloride) 50 mls @ 100 mls/hr IV 0000,0600,1200,1800 [facility] Last Admin: 02/14/24 08:26 Dose: 100 mls/hr Documented By: MEGAN Vancomycin HCl 750 mg/ Sodium (Chloride) 265 mls @ 265 mls/hr IV Q8H [facility] Nitroglycerin (Nitroglycerin 0.4 Mg Tab.Subl) 0.4 mg SUBLINGUAL Q5MX3 PRN PRN Reason: Chest Pain Pharmacy Consult (Consult Rx Vancomycin Dosing) 1 each MISCELLANE DAILY PRN PRN Reason: Consult order Sodium Chloride (0.9 % Sodium Chloride Flush 3 Ml Syringe) 3 ml IVFLUSH QSHIFT [facility] Last Admin: 02/14/24 08:26 Dose: 3 ml Documented By: MEGAN Labs 02/14/24 04:36 02/14/24 04:36 Labs: Laboratory Results - last 24 hr 02/13/24 02/13/24 02/13/24 21:33 22:37 23:18 MCV 79.6 L MCH 27.0 MCHC 34.0 RDW 13.8 Plt Count 160 MPV 10.3 Immature Gran % (Auto) 0.5 H Neut % (Auto) 84.7 H Lymph % (Auto) 6.4 L [place] % (Auto) 7.9 Eos % (Auto) 0.2 Baso % (Auto) 0.3 Lymph # (Auto) 0.8 L [place] # (Auto) 1.0 Eos # (Auto) 0.0 Baso # (Auto) 0.0 Abs Immat Gran (auto) 0.07 H Absolute Neuts (auto) 11.0 H Absolute Nucleated RBC 0.000 Nucleated RBC % (auto) 0.0 Smear Tech's Comments PT 13.9 H INR 1.1 APTT 29.6 D-Dimer High Sensitivty 680 Anion Gap 13 Estim Creat Clear Calc 90.2 Estimated GFR > 60 Random Glucose 168 H Lactic Acid Calcium 9.2 Total Bilirubin 0.5 AST 26 ALT 18 Alkaline Phosphatase 126 H Total Creatine Kinase 402 H Troponin I High Sens 842.1 H* 845.3 H* Total Protein 7.2 Albumin 3.5 Urine Color Urine Appearance Urine pH Ur Specific [place] Urine Protein Urine Glucose (UA) Urine Ketones Urine Blood Urine Nitrite Ur Leukocyte Esterase Urine RBC Urine WBC Ur Squamous Epith Cells Urine Bacteria Hyaline Casts Urine Opiates Screen Ur Buprenorphine Scrn Ur Oxycodone Screen Urine Methadone Screen Urine Fentanyl Screen Ur Barbiturates Screen Ur Phencyclidine Scrn Ur Amphetamines Screen U Benzodiazepines Scrn Urine Cocaine Screen U Marijuana (THC) Screen Influenza Type A (PCR) Influenza Type B (PCR) RSV RNA Qual (PCR) SARS-CoV-2 RNA (RT-PCR) 02/14/24 02/14/24 02/14/24 02:00 02:05 04:36 MCV 80.3 MCH 26.9 L MCHC 33.6 RDW 13.8 Plt Count 135 L MPV 11.0 Immature Gran % (Auto) 0.7 H Neut % (Auto) 80.3 H Lymph % (Auto) 8.3 L [place] % (Auto) 10.2 Eos % (Auto) 0.2 Baso % (Auto) 0.3 Lymph # (Auto) 1.3 [place] # (Auto) 1.6 H Eos # (Auto) 0.0 Baso # (Auto) 0.0 Abs Immat Gran (auto) 0.10 H Absolute Neuts (auto) 12.4 H Absolute Nucleated RBC 0.000 Nucleated RBC % (auto) 0.0 Smear Tech's Comments VERIFIED PT INR APTT D-Dimer High Sensitivty Anion Gap 13 Estim Creat Clear Calc 90.2 Estimated GFR > 60 Random Glucose 153 H Lactic Acid 1.6 Calcium 8.5 D Total Bilirubin 0.7 AST 33 H ALT 19 Alkaline Phosphatase 138 H Total Creatine Kinase Troponin I High Sens 463.3 H* Total Protein 6.7 Albumin 3.0 L Urine Color Yellow Urine Appearance Clear Urine pH 6.0 Ur Specific [place] >= 1.030 H Urine Protein 100 (2+) H Urine Glucose (UA) Negative Urine Ketones Negative Urine Blood Trace H Urine Nitrite Negative Ur Leukocyte Esterase Negative Urine RBC 6-10 H Urine WBC 0-5 Ur Squamous Epith Cells 11-20 Urine Bacteria 3+ Hyaline Casts 0-2 Urine Opiates Screen POSITIVE H Ur Buprenorphine Scrn Not Detected Ur Oxycodone Screen Positive H Urine Methadone Screen Not Detected Urine Fentanyl Screen POSITIVE H Ur Barbiturates Screen Not Detected Ur Phencyclidine Scrn Not Detected Ur Amphetamines Screen Not Detected U Benzodiazepines Scrn Not Detected Urine Cocaine Screen POSITIVE H U Marijuana (THC) Screen Not Detected Influenza Type A (PCR) NEGATIVE Influenza Type B (PCR) NEGATIVE RSV RNA Qual (PCR) NEGATIVE SARS-CoV-2 RNA (RT-PCR) NEGATIVE Assessment and Plan (1) Suspected endocarditis: Status: Acute Plan 48F PMH polysubstance dependence including IV opiates and cocaine, mood disorder, presented with chest pain, fevers sepsis due to pneumonia, uti, concern for bacteremia in IVDA vanc, zosyn, echo, follow up cultures chest pain with elevated troponins ?cocaine induced [place] follow up echo, cardiology, continue asa polysubstance dependence with withdrawal addiction eval dvt prophylaxis - lovenox full code reason for continued hospitalization:still with fevers, chest pain Quality Stroke Does the patient have a stroke diagnosis?: No VTE Prior VTE?: No VTE Risk Level:: Medical - moderate - high VTE Device Contraindication: Treatment Not Indicated VTE Drug Contraindication: N/A - Med Ordered
--- NOTE | 2024-02-14 09:48 | PC.NURSE ---
states that she has previously been to [facility] for methadone however states that it has been a few months since she has been. clinic unable to verify patient information d/t this.
[2024-02-14] MEDS: methADONE HCl 20 MG/2 ML ORAL.CONC 30 MG PO (10:22)
--- NOTE | 2024-02-14 10:28 | PC.NURSE ---
medicated w/ 30mg methadone. states that she is unsure of when her last dose was however states that she was at 98mg.
--- NOTE | 2024-02-14 11:06 | PM.CNCAR ---
History of Present Illness History of Present Illness Date of Service: 02/14/24 Requesting physician: Fredrick Rosario Chief complaint: Chest pain, SIRS Narrative: 48 female with IV cocaine and heroin abuse presenting with chest pain. She has used cocaine Wes night. Yesterday she had chest pain and came to the emergency department. She was thought to have systemic inflammatory response syndrome and was admitted for further workup and rule out endocarditis. She has blood cultures drawn. She is complaining of pleuritic chest pain. She is quite agitated and probably withdrawing from drugs currently 2. We did echocardiography on her which shows at least moderate pericardial effusion. Clinically she has not acted like tamponade so far but there is some concern about that. EKG reviewed which is showing heart rate 97 beats per minute, MI depressions in lead 2 and elevation in AVR-concerning for pericarditis. [facility] Past Medical History Medical History (Updated 02/14/24 @ 12:38 by Chino Hitchcock MD) Arthritis Migraines GERD (gastroesophageal reflux disease) HTN (hypertension) HLD (hyperlipidemia) Asthma Family History Family History Mother Colon cancer Family/Other Uterine cancer Maternal Aunt Breast cancer Spinal cord cancer Maternal Grandmother Dementia Surgical History Surgical History Tubal ligation status Social History Social History (Updated 08/28/23 @ 10:35 by Chela Walter PA-C) Alcohol intake: never Patient Tobacco Use Status: Never used Tobacco Cigarette Packs Per Day: 1 Cigarettes Per Day: 20.0 Smoked in Last 30 Days: No Second Hand Smoke Exposure: No Use of substances other than those prescribed or required for medical reasons: Yes Substance Use Type: Crack/Cocaine Advance Directives: No Advance Directives Information Provided: No Do you have a plan to hurt others: No Plan Nutrition Risks: No Nutritional Risk Patient : No Meds Allergies Allergy/AdvReac Type Severity Reaction Status Date / Time latex [LATEX] Allergy Unknown rash Verified 02/13/24 21:02 Active Medications: Current Medications Acetaminophen (Acetaminophen 325 Mg Tablet) 975 mg PO Q6H PRN PRN Reason: Pain, Mild (Pain Scale 1-3), fever or headache Aspirin (Aspirin Enteric Coated 81 Mg Tablet.) 81 mg PO DAILY [facility] Last Admin: 02/14/24 08:35 Dose: Not Given Enoxaparin Sodium (Enoxaparin Sodium 40 Mg/0.4 Ml Syringe) 40 mg SUBCUT Q24H JOHN Hydromorphone HCl (Hydromorphone Hcl 1 Mg/Ml Syringe) 1 mg IVPUSH Q4H PRN; Protocol PRN Reason: Pain, Moderate(Pain Scale 4-6) Last Admin: 02/14/24 08:33 Dose: 1 mg Piperacillin Sod/Tazobactam (Sod 3.375 gm/ Sodium Chloride) 50 mls @ 100 mls/hr IV 0000,0600,1200,1800 JOHN Last Infusion: 02/14/24 09:22 Dose: Infused Vancomycin HCl 750 mg/ Sodium (Chloride) 265 mls @ 265 mls/hr IV Q8H [facility] Nitroglycerin (Nitroglycerin 0.4 Mg Tab.Subl) 0.4 mg SUBLINGUAL Q5MX3 PRN PRN Reason: Chest Pain Pharmacy Consult (Consult Rx Vancomycin Dosing) 1 each MISCELLANE DAILY PRN PRN Reason: Consult order Sodium Chloride (0.9 % Sodium Chloride Flush 3 Ml Syringe) 3 ml IVFLUSH QSHIFT [facility] Last Admin: 02/14/24 08:26 Dose: 3 ml Home Medications ?Medication ?Instructions ?Recorded ?Confirmed ?Last Taken ?Type buspirone 7.5 mg tablet 1 tab PO DAILY 12/13/20 12/13/20 Unknown History cetirizine 10 mg tablet 1 tab PO DAILY 12/13/20 12/13/20 Unknown History clonidine HCl 0.1 mg tablet 1 tab PO DAILY 12/13/20 12/13/20 Unknown History cyclobenzaprine 5 mg tablet 1 tab PO TID PRN Pain 12/13/20 12/13/20 Unknown History gabapentin 300 mg capsule 1 cap PO TID 12/13/20 12/13/20 Unknown History omeprazole 40 mg capsule,delayed 1 cap PO DAILY 12/13/20 12/13/20 Unknown History release sertraline 100 mg tablet 1 tab PO DAILY 12/13/20 12/13/20 Unknown History citalopram 10 mg tablet 10 mg PO DAILY 08/26/23 Unknown History lisinopril 2.5 mg tablet 2.5 mg PO DAILY 08/26/23 Unknown History methadone 10 mg/mL oral concentrate 78 mg PO QDAY 08/26/23 Unknown History Physical Exam Vital Signs: Vital Signs: Last Vital Signs Temp 97.5 F 02/14/24 10:26 Pulse 107 H 02/14/24 10:26 Resp 29 H 02/14/24 10:26 BP 99/63 02/14/24 10:26 Pulse Ox 96 02/14/24 10:26 O2 Del Method Room Air 02/14/24 10:26 BMI result Body Mass Index 31.2 GENERAL APPEARANCE: Agitated and distressed. Complaining of chest pain-pleuritic in nature. NECK: no carotid bruit, no jugular venous distention. SKIN: no suspicious lesions, warm and dry. HEART: no murmurs, regular rate and rhythm. No friction rub. LUNGS: clear to auscultation anteriorly. ABDOMEN: soft, nontender. EXTREMITIES: no edema. PERIPHERAL PULSES: equal. Objective Labs and Meds 02/14/24 04:36 02/14/24 04:36 Lab results: Laboratory Results - last 24 hr 02/13/24 02/13/24 02/13/24 21:33 22:37 23:18 WBC 13.0 H RBC 3.92 L Hgb 10.6 L Hct 31.2 L MCV 79.6 L MCH 27.0 MCHC 34.0 RDW 13.8 Plt Count 160 MPV 10.3 Immature Gran % (Auto) 0.5 H Neut % (Auto) 84.7 H Lymph % (Auto) 6.4 L [place] % (Auto) 7.9 Eos % (Auto) 0.2 Baso % (Auto) 0.3 Lymph # (Auto) 0.8 L [place] # (Auto) 1.0 Eos # (Auto) 0.0 Baso # (Auto) 0.0 Abs Immat Gran (auto) 0.07 H Absolute Neuts (auto) 11.0 H Absolute Nucleated RBC 0.000 Nucleated RBC % (auto) 0.0 Smear Tech's Comments PT 13.9 H INR 1.1 APTT 29.6 D-Dimer High Sensitivty 680 Sodium 136 Potassium 3.8 Chloride 104 Carbon Dioxide 23 Anion Gap 13 BUN 18 H Creatinine 0.78 Estim Creat Clear Calc 90.2 Estimated GFR > 60 Random Glucose 168 H Lactic Acid Calcium 9.2 Total Bilirubin 0.5 AST 26 ALT 18 Alkaline Phosphatase 126 H Total Creatine Kinase 402 H Troponin I High Sens 842.1 H* 845.3 H* Total Protein 7.2 Albumin 3.5 Urine Color Urine Appearance Urine pH Ur Specific [place] Urine Protein Urine Glucose (UA) Urine Ketones Urine Blood Urine Nitrite Ur Leukocyte Esterase Urine RBC Urine WBC Ur Squamous Epith Cells Urine Bacteria Hyaline Casts Urine Opiates Screen Ur Buprenorphine Scrn Ur Oxycodone Screen Urine Methadone Screen Urine Fentanyl Screen Ur Barbiturates Screen Ur Phencyclidine Scrn Ur Amphetamines Screen U Benzodiazepines Scrn Urine Cocaine Screen U Marijuana (THC) Screen Influenza Type A (PCR) Influenza Type B (PCR) RSV RNA Qual (PCR) SARS-CoV-2 RNA (RT-PCR) 02/14/24 02/14/24 02/14/24 02:00 02:05 04:36 WBC 15.4 H RBC 3.60 L Hgb 9.7 L Hct 28.9 L MCV 80.3 MCH 26.9 L MCHC 33.6 RDW 13.8 Plt Count 135 L MPV 11.0 Immature Gran % (Auto) 0.7 H Neut % (Auto) 80.3 H Lymph % (Auto) 8.3 L [place] % (Auto) 10.2 Eos % (Auto) 0.2 Baso % (Auto) 0.3 Lymph # (Auto) 1.3 [place] # (Auto) 1.6 H Eos # (Auto) 0.0 Baso # (Auto) 0.0 Abs Immat Gran (auto) 0.10 H Absolute Neuts (auto) 12.4 H Absolute Nucleated RBC 0.000 Nucleated RBC % (auto) 0.0 Smear Tech's Comments VERIFIED PT INR APTT D-Dimer High Sensitivty Sodium 134 L Potassium 4.4 Chloride 104 Carbon Dioxide 21 L Anion Gap 13 BUN 17 H Creatinine 0.78 Estim Creat Clear Calc 90.2 Estimated GFR > 60 Random Glucose 153 H Lactic Acid 1.6 Calcium 8.5 D Total Bilirubin 0.7 AST 33 H ALT 19 Alkaline Phosphatase 138 H Total Creatine Kinase Troponin I High Sens 463.3 H* Total Protein 6.7 Albumin 3.0 L Urine Color Yellow Urine Appearance Clear Urine pH 6.0 Ur Specific [place] >= 1.030 H Urine Protein 100 (2+) H Urine Glucose (UA) Negative Urine Ketones Negative Urine Blood Trace H Urine Nitrite Negative Ur Leukocyte Esterase Negative Urine RBC 6-10 H Urine WBC 0-5 Ur Squamous Epith Cells 11-20 Urine Bacteria 3+ Hyaline Casts 0-2 Urine Opiates Screen POSITIVE H Ur Buprenorphine Scrn Not Detected Ur Oxycodone Screen Positive H Urine Methadone Screen Not Detected Urine Fentanyl Screen POSITIVE H Ur Barbiturates Screen Not Detected Ur Phencyclidine Scrn Not Detected Ur Amphetamines Screen Not Detected U Benzodiazepines Scrn Not Detected Urine Cocaine Screen POSITIVE H U Marijuana (THC) Screen Not Detected Influenza Type A (PCR) NEGATIVE Influenza Type B (PCR) NEGATIVE RSV RNA Qual (PCR) NEGATIVE SARS-CoV-2 RNA (RT-PCR) NEGATIVE Imaging Radiologist's impression: Impressions Chest CTA 02/13/24 23:47 IMPRESSION: 1. No pulmonary embolus identified. 2. Scattered regions of consolidation bilaterally as detailed above, greatest in the right upper lobe, suspicious for an infectious or other inflammatory etiology. Follow-up CT in 3 months is recommended to assess for resolution. 3. Trace pericardial effusion. VTE: negative Electronically signed by: Arnoldo Hsieh MD 02/14/2024 01:26 AM EDT RP Venous Duplex 02/14/24 02:30 IMPRESSION: No evidence of deep venous thrombosis involving the bilateral lower extremities. Electronically signed by: Arnoldo Hsieh MD 02/14/2024 03:11 AM EDT RP Assessment and Plan (1) Cocaine use: Status: Acute (2) Heroin use: Status: Acute (3) Pleuritic chest pain: Status: Acute Plan 48 year female with active heroin and cocaine abuse. She has been injecting in her arms and neck. She is presenting with chest pain and elevated troponin level. EKGs showing subtle ST elevations with MI depressions concerning for pericarditis. ECHO is showing at least moderate pericardial effusion. She is quite agitated and is in withdrawal right now. CT scan also has raise concern for scattered regions of consolidation bilaterally and is possible that she may have aspirated. Other possibility was that does she have endocarditis with embolic phenomenon from tricuspid valve. Her 2D echocardiography currently does not show any obvious evidence of that. I think blood cultures and antibiotics should be pursued regardless. She was given some amlodipine overnight. I think we should avoid any antihypertensive medications currently. If she has any hypotension or clinical concern for tamponade then we may need to discuss drainage either through IR or surgery. I think it is difficult to say currently that she is truly symptomatic from pericardial effusion because there are other reasons for her symptoms present 2. Add colchicine for pericarditis. We will closely follow her and make decisions according to her clinical status. Thank you for allowing me to participate in the care of your patient. Please feel free to contact me if you have any questions. Procedures Date of Service Date of Service: 02/14/24
[2024-02-14] MEDS: vancomycin HCL 750 MG in 0.9 % Sodium Chloride 250 ML 265 MG IV ×2 (11:13→19:21)
--- NOTE | 2024-02-14 13:11 | PC.NURSE ---
Waiting for med from pharmacy.
[2024-02-14] MEDS: Colchicine 0.6 MG TABLET PO (13:28)
[2024-02-14] MEDS: Lactated Ringers 1,000 ML 80 ML IVCONT (13:52)
--- NOTE | 2024-02-14 17:51 | PC.NURSE ---
Pt noted to have fever, medicated per MAR with PRN Tylenol.
--- NOTE | 2024-02-14 17:59 | PHA.MEDREC ---
Addendum entered by Chelo Bolden RPh 02/14/24 18:09: MED REC REVIEWED BY TRSITON Original Note: Pharmacy Consult ? Medication Reconciliation Pharmacy has completed the medication reconciliation. Unable to speak with patient. Used claim history to confirm medications.
[2024-02-14] MEDS: Enoxaparin Sodium 40 MG/0.4 ML SYRINGE SUBCUT (19:27)
[2024-02-15] VITALS (9 sets, daily range): BP systolic 103–142; BP diastolic 68–100; PULSE 67–114; RESP 16–37; TEMP 36.4–38.3; O2SAT 92–97
[2024-02-15] MEDS: Piperacillin Sodium/Tazobactam 3.375 GM in 0.9 % Sodium Chloride 50 ML IV ×3 (00:59→12:34)
[2024-02-15] MEDS: HYDROmorphone HCl 1 MG/ML SYRINGE IVPUSH ×5 (01:28→18:14)
[2024-02-15] MEDS: Lactated Ringers 1,000 ML 80 ML IVCONT ×2 (02:38→14:41)
[2024-02-15] MEDS: vancomycin HCL 750 MG in 0.9 % Sodium Chloride 250 ML 265 MG IV (03:44)
[2024-02-15 05:16] LABS: Hematocrit 29.6 % (37.0-47.0); Hemoglobin 9.8 g/dl (12.0-16.0); Mean Corpuscular HGB Conc 33.1 g/dl (31.0-35.0); Mean Corpuscular Hemoglobin 26.7 pg (27.0-33.0); Mean Corpuscular Volume 80.7 fL (80.0-98.0); Mean Platelet Volume 11.3 fL (9.4-12.3); Platelet Count 186 X10*3/uL (160-400); Red Blood Count 3.67 X10*6/uL (4.20-5.50); Red Cell Distribution Width 14.2 % (11.0-16.0); White Blood Count 18.4 X10*3/uL (4.8-10.8)
[2024-02-15 05:34] LABS: Anion Gap 15 (12-20); Blood Urea Nitrogen 16 mg/dL (9-16); Calcium 8.7 mg/dL (8.4-10.2); Carbon Dioxide 22 mmol/L (22-29); Chloride 103 mmol/L (96-108); Creatinine Clr Calc Pharmacy 90.2; Estimated Glomerular Filt Rate > 60; Glucose Fasting 130 mg/dL (60-99); Potassium 3.6 mmol/L (3.3-5.1); Sodium 136 mmol/L (135-145)
--- NOTE | 2024-02-15 06:10 | PC.NURSE ---
pt c/o intermittent chest pain during the night, medicated per JUL. pt would rest comfortably after pain medication then wake up yelling she was in pain.
--- NOTE | 2024-02-15 08:30 | MHC.EDTECH ---
Vitals taken, Pt has a Temp of 100.9, HR was 114 and BP was high RN (Holly) was notified
--- NOTE | 2024-02-15 08:49 | MHC.EDTECH ---
Patient got help to the bath room ( bed mello was used). Pt got bed bath and resting comfortably now and call colón within Pt reach.
[2024-02-15] MEDS: Acetaminophen 325 MG TABLET 975 MG PO ×2 (08:54→17:44)
[2024-02-15] MEDS: methADONE HCl 20 MG/2 ML ORAL.CONC 40 MG PO (09:26)
[2024-02-15] MEDS: Escitalopram Oxalate 10 MG TABLET PO (09:27)
[2024-02-15] MEDS: Aspirin Enteric Coated 81 MG TABLET.DR PO (09:27)
--- NOTE | 2024-02-15 09:35 | P.PNIM_ITS ---
Subjective Subjective Date of Service: 02/15/24 Interval History: fever, aching Physical Exam 2 Vital Signs: Vital Signs: Last Vital Signs Temp 100.9 F H 02/15/24 08:15 Pulse 114 H 02/15/24 08:15 Resp 37 H 02/15/24 08:15 BP 142/96 H 02/15/24 08:15 Pulse Ox 96 02/15/24 08:15 O2 Del Method Room Air 02/15/24 08:15 BMI result Body Mass Index 31.2 GENERAL APPEARANCE: Agitated and distressed. Complaining of chest pain- pleuritic in nature. NECK: no carotid bruit, no jugular venous distention. SKIN: no suspicious lesions, warm and dry. HEART: no murmurs, regular rate and rhythm. No friction rub. LUNGS: clear to auscultation anteriorly. ABDOMEN: soft, nontender. EXTREMITIES: no edema. PERIPHERAL PULSES: equal. Objective Data Active Medications Acetaminophen (Acetaminophen 325 Mg Tablet) 975 mg PO Q6H PRN PRN Reason: Pain, Mild (Pain Scale 1-3), fever or headache Last Admin: 02/15/24 08:54 Dose: 975 mg Documented By: AUSTIN Aspirin (Aspirin Enteric Coated 81 Mg Tablet.Dr) 81 mg PO DAILY [facility] Last Admin: 02/15/24 09:27 Dose: 81 mg Documented By: HIRA Budesonide (Budesonide 180 Mcg Aer.Pow.Ba) 1 puff INHALE RBID [facility] Colchicine (Colchicine 0.6 Mg Tablet) 0.6 mg PO DAILY [facility] Last Admin: 02/14/24 13:28 Dose: 0.6 mg Documented By: AHMET Enoxaparin Sodium (Enoxaparin Sodium 40 Mg/0.4 Ml Syringe) 40 mg SUBCUT Q24H [facility] Last Admin: 02/14/24 19:27 Dose: 40 mg Documented By: DAKOTAH Escitalopram Oxalate (Escitalopram Oxalate 10 Mg Tablet) 10 mg PO DAILY [facility] Last Admin: 02/15/24 09:27 Dose: 10 mg Documented By: HIRA Hydromorphone HCl (Hydromorphone Hcl 1 Mg/Ml Syringe) 1 mg IVPUSH Q4H PRN; Protocol PRN Reason: Pain, Moderate(Pain Scale 4-6) Last Admin: 02/15/24 06:02 Dose: 1 mg Documented By: TULIO Piperacillin Sod/Tazobactam (Sod 3.375 gm/ Sodium Chloride) 50 mls @ 100 mls/hr IV 0000,0600,1200,1800 [facility] Last Infusion: 02/15/24 07:32 Dose: Infused Documented By: HIRA Vancomycin HCl 750 mg/ Sodium (Chloride) 265 mls @ 265 mls/hr IV Q8H [facility] Last Infusion: 02/15/24 05:01 Dose: Infused Documented By: TULIO Lactated Ringer's (Lr) 1,000 mls @ 80 mls/hr IVCONT .[id number] [facility] Last Admin: 02/15/24 02:38 Dose: 80 mls/hr Documented By: TULIO Methadone HCl (Methadone Hcl 20 Mg/2 Ml Oral.Conc) 10 mg PO DAILY PRN PRN Reason: Opiate Withdrawal Methadone HCl (Methadone Hcl 20 Mg/2 Ml Oral.Conc) 40 mg PO DAILY [facility] Last Admin: 02/15/24 09:26 Dose: 40 mg Documented By: HIRA Co-signed By: LEONORA Nitroglycerin (Nitroglycerin 0.4 Mg Tab.Subl) 0.4 mg SUBLINGUAL Q5MX3 PRN PRN Reason: Chest Pain Omeprazole (Omeprazole 40 Mg Capsule.Dr) 40 mg PO DAILY@0630 [facility] Pharmacy Consult (Consult Rx Vancomycin Dosing) 1 each MISCELLANE DAILY PRN PRN Reason: Consult order Sodium Chloride (0.9 % Sodium Chloride Flush 3 Ml Syringe) 3 ml IVFLUSH QSHIFT [facility] Last Admin: 02/15/24 07:32 Dose: Not Given Documented By: HIRA Non-Admin Reason: IV Running Labs 02/15/24 04:10 02/15/24 04:11 Labs: Laboratory Results - last 24 hr 02/15/24 02/15/24 04:10 04:11 MCV 80.7 MCH 26.7 L MCHC 33.1 RDW 14.2 Plt Count 186 D MPV 11.3 Absolute Nucleated RBC 0.000 Nucleated RBC % (auto) 0.0 Anion Gap 15 Estim Creat Clear Calc 90.2 Estimated GFR > 60 Fasting Glucose 130 H Calcium 8.7 Microbiology Microbiology Results: Microbiology 02/14/24 02:02 Blood Culture - Preliminary Blood - Venous Prelim: GPC Gram Stain only 02/14/24 02:00 Blood Culture - Preliminary Blood - Venous Staphylococcus aureus Assessment and Plan (1) Suspected endocarditis: Status: Acute Plan 48F PMH polysubstance dependence including IV opiates and cocaine, mood disorder, presented with chest pain, fevers sepsis due to gpc bacteremia in IVDA complicated by pneumonia, uti, and pericardial effusion with early tamponade vanc, zosyn follow up cultures thoracic to do pericardiocentesis chest pain with elevated troponins ?cocaine vs type II MA vs perimyocarditis continue asa, colchicine polysubstance dependence with withdrawal addiction following continue methaodne dvt prophylaxis - lovenox full code reason for continued hospitalization:still with fevers, chest pain Quality Stroke Does the patient have a stroke diagnosis?: No VTE Prior VTE?: No VTE Risk Level:: Medical - moderate - high VTE Device Contraindication: Treatment Not Indicated VTE Drug Contraindication: N/A - Med Ordered
[2024-02-15] MEDS: Colchicine 0.6 MG TABLET PO (10:03)
--- NOTE | 2024-02-15 11:25 | PC.NURSE ---
lab draw not initally completed by phlebotomy this AM, placed a call to phlebotomy to draw blood including vanco trough without answer. requested that [facility] collect the labs at this time
--- NOTE | 2024-02-15 11:38 | HO.ADDICT_ITS ---
History of Present Illness Date of Service: 02/15/2024 Chief Complaint: Chest pain, SIRS Reason for Consult: OUD Sources of Information: patient interviewed and chart reviewed HPI Narrative: Patient medically admitted with percardial effusion Reporting opiate use at time of admission Methadone 30mg administered 02/13 with positive effect Today (02/13) methadone 40mg adminsitered Patient seen in ED room 2 Awake, sitting up. Appearing weak and uncomfortable Reporting pain all over, but mainly in her chest and back Does not feel they are withdrawal She reports using approx 2 bundles of fentanyl IV daily as well as cocaine She is not currently engaged in treatment, however she reported previously being on methadone remainder of substance use history deferred Review of Systems Constitutional: Reports as per HPI Diagnostics Vital Signs (24Hr): Vital Signs - 24 hr 02/14/24 12:32 02/14/24 13:50 02/14/24 16:00 Temperature 98.9 F Pulse Rate 105 H 108 H 113 H Respiratory Rate 28 H 27 H 26 H Blood Pressure 98/66 113/80 133/94 H Pulse Oximetry 95 95 Oxygen Delivery Method Room Air Room Air 02/14/24 16:52 02/14/24 17:43 02/14/24 19:14 Temperature 100.2 F 98.9 F Pulse Rate 104 H Respiratory Rate 28 H 29 H Blood Pressure 106/84 Pulse Oximetry 96 Oxygen Delivery Method Room Air 02/15/24 00:30 02/15/24 04:27 02/15/24 06:35 Temperature 98.4 F 98.4 F 98.7 F Pulse Rate 107 H 114 H 110 H Respiratory Rate 22 H 36 H 34 H Blood Pressure 138/91 H 136/100 H 132/87 Pulse Oximetry 97 97 97 Oxygen Delivery Method Room Air Room Air Room Air 02/15/24 08:15 02/15/24 10:03 Temperature 100.9 F H 99.9 F Pulse Rate 114 H Respiratory Rate 37 H Blood Pressure 142/96 H Pulse Oximetry 96 Oxygen Delivery Method Room Air BMI result Body Mass Index 31.2 Labs 02/15/24 04:10 02/15/24 04:11 Labs: Laboratory Results - last 48 hr 02/13/24 02/13/24 02/13/24 21:33 22:37 23:18 WBC 13.0 H RBC 3.92 L Hgb 10.6 L Hct 31.2 L MCV 79.6 L MCH 27.0 MCHC 34.0 RDW 13.8 Plt Count 160 MPV 10.3 Immature Gran % (Auto) 0.5 H Neut % (Auto) 84.7 H Lymph % (Auto) 6.4 L [place] % (Auto) 7.9 Eos % (Auto) 0.2 Baso % (Auto) 0.3 Lymph # (Auto) 0.8 L [place] # (Auto) 1.0 Eos # (Auto) 0.0 Baso # (Auto) 0.0 Abs Immat Gran (auto) 0.07 H Absolute Neuts (auto) 11.0 H Absolute Nucleated RBC 0.000 Nucleated RBC % (auto) 0.0 Smear Tech's Comments PT 13.9 H INR 1.1 APTT 29.6 D-Dimer High Sensitivty 680 Sodium 136 Potassium 3.8 Chloride 104 Carbon Dioxide 23 Anion Gap 13 BUN 18 H Creatinine 0.78 Estim Creat Clear Calc 90.2 Estimated GFR > 60 Random Glucose 168 H Fasting Glucose Lactic Acid Calcium 9.2 Total Bilirubin 0.5 AST 26 ALT 18 Alkaline Phosphatase 126 H Total Creatine Kinase 402 H Troponin I High Sens 842.1 H* 845.3 H* Total Protein 7.2 Albumin 3.5 Urine Color Urine Appearance Urine pH Ur Specific [place] Urine Protein Urine Glucose (UA) Urine Ketones Urine Blood Urine Nitrite Ur Leukocyte Esterase Urine RBC Urine WBC Ur Squamous Epith Cells Urine Bacteria Hyaline Casts Urine Opiates Screen Ur Buprenorphine Scrn Ur Oxycodone Screen Urine Methadone Screen Urine Fentanyl Screen Ur Barbiturates Screen Ur Phencyclidine Scrn Ur Amphetamines Screen U Benzodiazepines Scrn Urine Cocaine Screen U Marijuana (THC) Screen Influenza Type A (PCR) Influenza Type B (PCR) RSV RNA Qual (PCR) SARS-CoV-2 RNA (RT-PCR) 02/14/24 02/14/24 02/14/24 02:00 02:05 04:36 WBC 15.4 H RBC 3.60 L Hgb 9.7 L Hct 28.9 L MCV 80.3 MCH 26.9 L MCHC 33.6 RDW 13.8 Plt Count 135 L MPV 11.0 Immature Gran % (Auto) 0.7 H Neut % (Auto) 80.3 H Lymph % (Auto) 8.3 L [place] % (Auto) 10.2 Eos % (Auto) 0.2 Baso % (Auto) 0.3 Lymph # (Auto) 1.3 [place] # (Auto) 1.6 H Eos # (Auto) 0.0 Baso # (Auto) 0.0 Abs Immat Gran (auto) 0.10 H Absolute Neuts (auto) 12.4 H Absolute Nucleated RBC 0.000 Nucleated RBC % (auto) 0.0 Smear Tech's Comments VERIFIED PT INR APTT D-Dimer High Sensitivty Sodium 134 L Potassium 4.4 Chloride 104 Carbon Dioxide 21 L Anion Gap 13 BUN 17 H Creatinine 0.78 Estim Creat Clear Calc 90.2 Estimated GFR > 60 Random Glucose 153 H Fasting Glucose Lactic Acid 1.6 Calcium 8.5 D Total Bilirubin 0.7 AST 33 H ALT 19 Alkaline Phosphatase 138 H Total Creatine Kinase Troponin I High Sens 463.3 H* Total Protein 6.7 Albumin 3.0 L Urine Color Yellow Urine Appearance Clear Urine pH 6.0 Ur Specific [place] >= 1.030 H Urine Protein 100 (2+) H Urine Glucose (UA) Negative Urine Ketones Negative Urine Blood Trace H Urine Nitrite Negative Ur Leukocyte Esterase Negative Urine RBC 6-10 H Urine WBC 0-5 Ur Squamous Epith Cells 11-20 Urine Bacteria 3+ Hyaline Casts 0-2 Urine Opiates Screen POSITIVE H Ur Buprenorphine Scrn Not Detected Ur Oxycodone Screen Positive H Urine Methadone Screen Not Detected Urine Fentanyl Screen POSITIVE H Ur Barbiturates Screen Not Detected Ur Phencyclidine Scrn Not Detected Ur Amphetamines Screen Not Detected U Benzodiazepines Scrn Not Detected Urine Cocaine Screen POSITIVE H U Marijuana (THC) Screen Not Detected Influenza Type A (PCR) NEGATIVE Influenza Type B (PCR) NEGATIVE RSV RNA Qual (PCR) NEGATIVE SARS-CoV-2 RNA (RT-PCR) NEGATIVE 02/15/24 02/15/24 04:10 04:11 WBC 18.4 H RBC 3.67 L Hgb 9.8 L Hct 29.6 L MCV 80.7 MCH 26.7 L MCHC 33.1 RDW 14.2 Plt Count 186 D MPV 11.3 Immature Gran % (Auto) Neut % (Auto) Lymph % (Auto) [place] % (Auto) Eos % (Auto) Baso % (Auto) Lymph # (Auto) [place] # (Auto) Eos # (Auto) Baso # (Auto) Abs Immat Gran (auto) Absolute Neuts (auto) Absolute Nucleated RBC 0.000 Nucleated RBC % (auto) 0.0 Smear Tech's Comments PT INR APTT D-Dimer High Sensitivty Sodium 136 Potassium 3.6 Chloride 103 Carbon Dioxide 22 Anion Gap 15 BUN 16 Creatinine 0.78 Estim Creat Clear Calc 90.2 Estimated GFR > 60 Random Glucose Fasting Glucose 130 H Lactic Acid Calcium 8.7 Total Bilirubin AST ALT Alkaline Phosphatase Total Creatine Kinase Troponin I High Sens Total Protein Albumin Urine Color Urine Appearance Urine pH Ur Specific [place] Urine Protein Urine Glucose (UA) Urine Ketones Urine Blood Urine Nitrite Ur Leukocyte Esterase Urine RBC Urine WBC Ur Squamous Epith Cells Urine Bacteria Hyaline Casts Urine Opiates Screen Ur Buprenorphine Scrn Ur Oxycodone Screen Urine Methadone Screen Urine Fentanyl Screen Ur Barbiturates Screen Ur Phencyclidine Scrn Ur Amphetamines Screen U Benzodiazepines Scrn Urine Cocaine Screen U Marijuana (THC) Screen Influenza Type A (PCR) Influenza Type B (PCR) RSV RNA Qual (PCR) SARS-CoV-2 RNA (RT-PCR) Imaging Radiology Impressions: ITS Impressions Chest CTA 02/13/24 23:47 IMPRESSION: 1. No pulmonary embolus identified. 2. Scattered regions of consolidation bilaterally as detailed above, greatest in the right upper lobe, suspicious for an infectious or other inflammatory etiology. Follow-up CT in 3 months is recommended to assess for resolution. 3. Trace pericardial effusion. VTE: negative Electronically signed by: Arnoldo Hsieh MD 02/14/2024 01:26 AM EDT Venous Duplex 02/14/24 02:30 IMPRESSION: No evidence of deep venous thrombosis involving the bilateral lower extremities. Electronically signed by: Arnoldo Hsieh MD 02/14/2024 03:11 AM EDT Mental Status Exam Mental Status Exam Level of Consciousness: Lethargic Medications Medications Current Medications Acetaminophen (Acetaminophen 325 Mg Tablet) 975 mg PO Q6H PRN PRN Reason: Pain, Mild (Pain Scale 1-3), fever or headache Last Admin: 02/15/24 08:54 Dose: 975 mg Aspirin (Aspirin Enteric Coated 81 Mg Tablet.) 81 mg PO DAILY [facility] Last Admin: 02/15/24 09:27 Dose: 81 mg Budesonide (Budesonide 180 Mcg Aer.Pow.Ba) 1 puff INHALE RBID [facility] Last Admin: 02/15/24 11:14 Dose: Not Given Colchicine (Colchicine 0.6 Mg Tablet) 0.6 mg PO DAILY [facility] Last Admin: 02/15/24 10:03 Dose: 0.6 mg Enoxaparin Sodium (Enoxaparin Sodium 40 Mg/0.4 Ml Syringe) 40 mg SUBCUT Q24H [facility] Last Admin: 02/14/24 19:27 Dose: 40 mg Escitalopram Oxalate (Escitalopram Oxalate 10 Mg Tablet) 10 mg PO DAILY [facility] Last Admin: 02/15/24 09:27 Dose: 10 mg Hydromorphone HCl (Hydromorphone Hcl 1 Mg/Ml Syringe) 1 mg IVPUSH Q4H PRN; Protocol PRN Reason: Pain, Moderate(Pain Scale 4-6) Last Admin: 02/15/24 10:02 Dose: 1 mg Piperacillin Sod/Tazobactam (Sod 3.375 gm/ Sodium Chloride) 50 mls @ 100 mls/hr IV 0000,0600,1200,1800 [facility] Last Infusion: 02/15/24 07:32 Dose: Infused Vancomycin HCl 750 mg/ Sodium (Chloride) 265 mls @ 265 mls/hr IV Q8H [facility] Last Infusion: 02/15/24 05:01 Dose: Infused Lactated Ringer's (Lr) 1,000 mls @ 80 mls/hr IVCONT .[id number] [facility] Last Admin: 02/15/24 02:38 Dose: 80 mls/hr Methadone HCl (Methadone Hcl 20 Mg/2 Ml Oral.Conc) 10 mg PO DAILY PRN PRN Reason: Opiate Withdrawal Methadone HCl (Methadone Hcl 20 Mg/2 Ml Oral.Conc) 40 mg PO DAILY [facility] Last Admin: 02/15/24 09:26 Dose: 40 mg Nitroglycerin (Nitroglycerin 0.4 Mg Tab.Subl) 0.4 mg SUBLINGUAL Q5MX3 PRN PRN Reason: Chest Pain Omeprazole (Omeprazole 40 Mg Capsule.Dr) 40 mg PO DAILY@0630 [facility] Pharmacy Consult (Consult Rx Vancomycin Dosing) 1 each MISCELLANE DAILY PRN PRN Reason: Consult order Sodium Chloride (0.9 % Sodium Chloride Flush 3 Ml Syringe) 3 ml IVFLUSH QSHIFT [facility] Last Admin: 02/15/24 07:32 Dose: Not Given Allergies Allergies Allergy/AdvReac Type Severity Reaction Status Date / Time latex [LATEX] Allergy Unknown rash Verified 02/13/24 21:02 Assessment & Plan Assessment & Plan (1) Opioid use disorder: Status: Acute Code(s): F11.90 - Opioid use, unspecified, uncomplicated Assessment and Plan: * methadone 40mg QD * continue PRN pain meds as needed Total time managing care of this patient today ____ minutes. PMFSH Past Medical History Medical History (Updated 02/15/24 @ 13:03 by Chino Hitchcock MD) Arthritis Migraines GERD (gastroesophageal reflux disease) HTN (hypertension) HLD (hyperlipidemia) Asthma Family History Family History Mother Colon cancer Family/Other Uterine cancer Maternal Aunt Breast cancer Spinal cord cancer Maternal Grandmother Dementia Surgical History Surgical History Tubal ligation status Social History Social History (Updated 08/28/23 @ 10:35 by Chela Walter PA-C) Household Members: None Housing: Apartment Do you presently have visiting nurse or other home services: No Alcohol intake: never Patient Tobacco Use Status: Current everyday Tobacco user Cigarette Packs Per Day: 1 Cigarettes Per Day: 20.0 Second Hand Smoke Exposure: No Substance Use Type: Crack/Cocaine service: No
[2024-02-15 12:21] LABS: Vancomycin Random 10.1 mcg/mL (15-20)
--- NOTE | 2024-02-15 12:32 | HE.PHANOTE ---
Re: Vanco Renal is stable, trough returned at 10.1. Current dose of 750mg q8h is predicted to be subtherapeutic (AUC 386, trough 11.4). Dose increased to 1000mg q8h with predicted AUC 513, and predicted trough 15.1. Next trough 02/15 @ 1000.
[2024-02-15] MEDS: vancomycin HCL 1,000 MG in 0.9 % Sodium Chloride 250 ML 270 MG IV ×2 (12:55→20:16)
--- NOTE | 2024-02-15 13:00 | PM.PNCARD ---
Subjective Subjective Date of Service: 02/15/24 Interval history: Seen examined at bedside. She is complaining of pain and aching all over the body. Her blood cultures are positive for staph aureus. Physical Exam Vital Signs: Last Vital Signs Temp 98.5 F 02/15/24 12:00 Pulse 92 02/15/24 12:00 Resp 16 02/15/24 12:00 BP 116/78 02/15/24 12:00 Pulse Ox 93 02/15/24 12:00 O2 Del Method Room Air 02/15/24 12:00 BMI result Body Mass Index 31.2 GENERAL APPEARANCE: More awake today. She is complaining of pleuritic chest discomfort worse with laying down. NECK: no carotid bruit, no jugular venous distention. SKIN: no suspicious lesions, warm and dry. HEART: no murmurs, regular rate and rhythm. No friction rub. LUNGS: clear to auscultation anteriorly. ABDOMEN: soft, nontender. EXTREMITIES: no edema. PERIPHERAL PULSES: equal. Objective Labs and Meds 02/15/24 04:10 02/15/24 04:11 Lab results: Laboratory Results - last 24 hr 02/15/24 02/15/24 02/15/24 04:10 04:11 12:01 WBC 18.4 H RBC 3.67 L Hgb 9.8 L Hct 29.6 L MCV 80.7 MCH 26.7 L MCHC 33.1 RDW 14.2 Plt Count 186 D MPV 11.3 Absolute Nucleated RBC 0.000 Nucleated RBC % (auto) 0.0 Sodium 136 Potassium 3.6 Chloride 103 Carbon Dioxide 22 Anion Gap 15 BUN 16 Creatinine 0.78 Estim Creat Clear Calc 90.2 Estimated GFR > 60 Fasting Glucose 130 H Calcium 8.7 Random Vancomycin 10.1 L Progress Note: A&P Assessment and plan (1) Bacteremia: Status: Acute (2) Pericarditis: Status: Acute (3) Pericardial effusion: Status: Acute Plan 48 year female presenting with chest pain and mildly elevated troponin levels. EKG raised concern for pericarditis. ECHO has shown at least moderate pericardial effusion with some features consistent with early tamponade. She also has positive blood cultures currently with staph aureus. Transthoracic echo did not show any obvious vegetation. If she has persistent bacteremia then maybe GARCIA should be pursued. She has back pain and aches and pains all over the body. I think we should look for diskitis as a potential source for her bacteremia. Thoracic surgery was consulted and will be following along. Currently a lot going on with her and she is clinically is not acting like tamponade. As she improves she should have drainage because this is a fairly sizable pericardial effusion and if it worsens further it can cause tamponade in the future. Continue colchicine for pericarditis. On antibiotics for bacteremia. Thank you for allowing me to participate in the care of your patient. Please feel free to contact me if you have any questions. Time Spent With Patient Time: Total time managing care of this patient today ____ minutes. Progress Note: Quality Stroke Does the patient have a stroke diagnosis?: No Procedures Date of Service Date of Service: 02/15/24
--- NOTE | 2024-02-15 14:11 | MHC.CM.PN ---
CM met with pt, she was very lethargic, able to answer a few questions. She lives alone, does not have home health services or DME. She does not have HCP, will discuss completing one when she is more alert. PCP is at [facility], changing, she does not know name of new to her provider. CM will follow to assist for DC needs.
--- NOTE | 2024-02-15 15:46 | P.CONGS_ITS ---
History of Present Illness Consult details Consult date: 02/15/24 Requesting physician: Fredrick Rosario Narrative: Thoracic surgery consulted for 48-year-old female with pericarditis hemodynamically stable being treated monitored in the emergency room. CT scan showing small amount of pericardial fluid. Nelsy Singh is a 48 years old woman with past medical history significant for IVDU (cocaine and heroin) presents to the emergency department complaining of severe (10/10) retrosternal chest pain that started yesterday associated with shortness on breath and fever. Denied cough, palpitations, headaches or sore throat. She also reports nausea but denied vomiting, abdominal pain or diarrhea. She was complaining of feeling very anxious. She also has been taking methadone. Denies marijuana use or alcohol abuse. Denies history of coronary artery disease. Takes lisinopril for hypertension and omeprazole for GERD. She was brought to the emergency department by EMS which gives her aspirin 325 mg p.o.. In the ED, she was found to have fever of 101.1 and tachycardia. Blood pressure has been in the low side, lowest 91/54. Last BP is 93/60. Blood workup was remarkable for leukocytosis of 13.0. Hemoglobin is 10.6 and platelets are normal. There is no lactic acidosis. There are no significant electrolyte imbalances. Initial troponin was 842.1 --> 145.3. Total CK is 402 and alk phos is 126. Bilirubin and transaminases are normal. Chest CTA showed no acute pulmonary embolism, however, showed scattered region of consolidation bilaterally (> right upper lobe) and trace pericardial effusion. Bilateral venous ultrasound showed no DVT. ECG shows sinus tachycardia, heart rate 107 beats per minutes without ischemic changes. She complains of chest pain especially with moving and pain radiating to her back. It is a little bit better but still bothersome. Heart rate is in the 100 and blood pressure has been stable in the systolics of 100 [facility] Past Medical History Medical History (Updated 02/15/24 @ 13:03 by Chino Hitchcock MD) Arthritis Migraines GERD (gastroesophageal reflux disease) HTN (hypertension) HLD (hyperlipidemia) Asthma Family History Family History Mother Colon cancer Family/Other Uterine cancer Maternal Aunt Breast cancer Spinal cord cancer Maternal Grandmother Dementia Surgical History Surgical History Tubal ligation status Social History Social History (Updated 08/28/23 @ 10:35 by Chela Walter PA-C) Alcohol intake: never Patient Tobacco Use Status: Never used Tobacco Cigarette Packs Per Day: 1 Cigarettes Per Day: 20.0 Smoked in Last 30 Days: No Second Hand Smoke Exposure: No Use of substances other than those prescribed or required for medical reasons: Yes Substance Use Type: Crack/Cocaine Advance Directives: No Advance Directives Information Provided: No Do you have a plan to hurt others: No Plan Nutrition Risks: No Nutritional Risk Patient : No service: No Meds Allergies Allergy/AdvReac Type Severity Reaction Status Date / Time latex [LATEX] Allergy Unknown rash Verified 02/13/24 21:02 Active Medications: Current Medications Acetaminophen (Acetaminophen 325 Mg Tablet) 975 mg PO Q6H PRN PRN Reason: Pain, Mild (Pain Scale 1-3), fever or headache Last Admin: 02/15/24 08:54 Dose: 975 mg Aspirin (Aspirin Enteric Coated 81 Mg Tablet.Dr) 81 mg PO DAILY [facility] Last Admin: 02/15/24 09:27 Dose: 81 mg Budesonide (Budesonide 180 Mcg Aer.Pow.Ba) 1 puff INHALE RBID [facility] Last Admin: 02/15/24 11:14 Dose: Not Given Colchicine (Colchicine 0.6 Mg Tablet) 0.6 mg PO DAILY [facility] Last Admin: 02/15/24 10:03 Dose: 0.6 mg Enoxaparin Sodium (Enoxaparin Sodium 40 Mg/0.4 Ml Syringe) 40 mg SUBCUT Q24H [facility] Last Admin: 02/14/24 19:27 Dose: 40 mg Escitalopram Oxalate (Escitalopram Oxalate 10 Mg Tablet) 10 mg PO DAILY [facility] Last Admin: 02/15/24 09:27 Dose: 10 mg Hydromorphone HCl (Hydromorphone Hcl 1 Mg/Ml Syringe) 1 mg IVPUSH Q4H PRN; Protocol PRN Reason: Pain, Moderate(Pain Scale 4-6) Last Admin: 02/15/24 10:02 Dose: 1 mg Lactated Ringer's (Lr) 1,000 mls @ 80 mls/hr IVCONT .[id number] [facility] Last Admin: 02/15/24 14:41 Dose: 80 mls/hr Vancomycin HCl 1,000 mg/ (Sodium Chloride) 270 mls @ 270 mls/hr IV Q8H [facility] Last Infusion: 02/15/24 14:47 Dose: Infused Piperacillin Sod/Tazobactam (Sod 4.5 gm/ Sodium Chloride) 100 mls @ 200 mls/hr IV Q6H [facility] Methadone HCl (Methadone Hcl 20 Mg/2 Ml Oral.Conc) 10 mg PO DAILY PRN PRN Reason: Opiate Withdrawal Methadone HCl (Methadone Hcl 20 Mg/2 Ml Oral.Conc) 40 mg PO DAILY [facility] Last Admin: 02/15/24 09:26 Dose: 40 mg Nitroglycerin (Nitroglycerin 0.4 Mg Tab.Subl) 0.4 mg SUBLINGUAL Q5MX3 PRN PRN Reason: Chest Pain Omeprazole (Omeprazole 40 Mg Capsule.Dr) 40 mg PO DAILY@0630 [facility] Pharmacy Consult (Consult Rx Vancomycin Dosing) 1 each MISCELLANE DAILY PRN PRN Reason: Consult order Sodium Chloride (0.9 % Sodium Chloride Flush 3 Ml Syringe) 3 ml IVFLUSH QSHIFT [facility] Last Admin: 02/15/24 07:32 Dose: Not Given Home Medications ?Medication ?Instructions ?Recorded ?Confirmed ?Last Taken ?Type clonidine HCl 0.1 mg tablet 1 tab PO TID PRN Anxiety 12/13/20 02/14/24 Unknown History omeprazole 40 mg capsule,delayed 1 cap PO DAILY 12/13/20 02/14/24 Unknown History release albuterol sulfate 90 mcg/actuation 2 puff inhalation Q4-6H PRN 02/14/24 02/14/24 Unknown History aerosol inhaler (Ventolin HFA) Shortness Of Breath Or Wheezing budesonide 180 mcg/actuation 1 inh inhalation BID 02/14/24 02/14/24 Unknown History breath activated powder inhaler (Pulmicort Flexhaler) escitalopram oxalate 10 mg tablet 10 mg PO QAM 02/14/24 02/14/24 Unknown History lisinopril 10 mg tablet 10 mg PO QAM 02/14/24 02/14/24 Unknown History Physical Exam 2 Vital Signs: Vital Signs: Last Vital Signs Temp 98.5 F 02/15/24 12:00 Pulse 92 02/15/24 12:00 Resp 16 02/15/24 12:00 BP 116/78 02/15/24 12:00 Pulse Ox 93 02/15/24 12:00 O2 Del Method Room Air 02/15/24 12:00 BMI result Body Mass Index 31.2 Const: General: cooperative and acute distress mild O rientation/consciousness: oriented to person, oriented to place and oriented to time Resp: Effort & Inspection: normal respiratory effort and able to speak in complete sentences Auscultation: clear to auscultation bilaterally Cardio: Rate: tachycardic Rhythm: regular rhythm GI: Other: Abdomen is benign Neuro: General: oriented to person, oriented to place and oriented to time Results Labs 02/15/24 04:10 02/15/24 04:11 Labs: Abnormal lab results 02/15/24 02/15/24 02/15/24 Range/Units 04:10 04:11 12:01 WBC 18.4 H (4.8-10.8) X10*3/uL RBC 3.67 L (4.20-5.50) X10*6/uL Hgb 9.8 L (12.0-16.0) g/dl Hct 29.6 L (37.0-47.0) % MCH 26.7 L (27.0-33.0) pg Fasting Glucose 130 H (60-99) mg/dL Random Vancomycin 10.1 L (15-20) mcg/mL Short CBC 02/15/24 Range/Units 04:10 WBC 18.4 H (4.8-10.8) X10*3/uL Hgb 9.8 L (12.0-16.0) g/dl Hct 29.6 L (37.0-47.0) % Plt Count 186 D (160-400) X10*3/uL BMP 02/15/24 04:11 Sodium 136 Potassium 3.6 Chloride 103 Carbon Dioxide 22 BUN 16 Creatinine 0.78 Calcium 8.7 Urine 02/14/24 Range/Units 02:00 Urine Color Yellow Urine Appearance Clear Urine pH 6.0 (5.0-9.0) Ur Specific [place] >= 1.030 H (1.005-1.025) Urine Protein 100 (2+) H (Neg-Trace) mg/dL Urine Glucose (UA) Negative (Negative) mg/dL All other labs normal. Imaging Additional studies: [facility] [address] [place] [address] CT Scan Report Signed Patient: Nelsy Singh MR#: [id number] : 1975 Acct:[id number] Age/Sex: 48 / F ADM Date: 02/13/24 Loc: HO.ED Attending Dr: Ordering Physician: Sunny Orlando MD Date of Service: 02/13/24 Procedure(s): CT angio chest PE protocol Accession Number(s): [id number] cc: [facility]; Sunny Orlando MD~ EXAMINATION: CT ANGIOGRAM CHEST CLINICAL INFORMATION: Reading chest pain, rule out PE COMPARISON: None available. TECHNIQUE: Multiple axial images were obtained through the chest after the administration of 65 mL of Omnipaque 350 intravenous contrast. Extensive vascular post-processing including two-dimensional and three-dimensional reformatted images were created and reviewed on an independent workstation. This CT examination was performed using dose optimization techniques as appropriate, variously including the following: *Automated exposure control *Adjustment of mA and/or kV according to patient size (this includes techniques or standardized protocols for targeted exams where dose is matched to indication/reason for exam; i.e. extremities or head) *Use of iterative reconstruction technique DLP: 304 mGy-cm FINDINGS: No filling defects are seen in the main, lobar, or segmental pulmonary arteries to suggest the presence of pulmonary emboli. The aorta is unremarkable. There is a focal region of mixed consolidation and groundglass opacity in the left upper lobe laterally. Relatively nodular 1 cm focus of consolidation is present at the right apex. Small focal peripheral consolidation anteriorly in the right upper lobe. There is a larger region of dense consolidation in the lateral right upper lobe near the confluence of the major and minor fissures. Appearance is suspicious for multifocal infectious/inflammatory etiology. Regions of posterior subpleural opacity in the bilateral lower lobes, right greater than left are overall suggestive of atelectasis. No pneumothorax or pleural effusion. The visualized thyroid gland is unremarkable. No significant lymphadenopathy is seen. Cardiac size appears within normal limits. Trace pericardial effusion. No axillary lymphadenopathy is present. Visualized portions of the upper abdomen are within normal limits. No acute osseous findings are seen. Mild endplate osteophytes in the spine. CT/CT angio chest PE protocol IMPRESSION: 1. No pulmonary embolus identified. 2. Scattered regions of consolidation bilaterally as detailed above, greatest in the right upper lobe, suspicious for an infectious or other inflammatory etiology. Follow-up CT in 3 months is recommended to assess for resolution. 3. Trace pericardial effusion. VTE: negative Electronically signed by: Arnoldo Hsieh MD 02/14/2024 01:26 AM EDT RP Dictated By: Arnoldo Hsieh MD Signed By: <Electronically signed by Arnoldo Hsieh MD in OV> 02/14/24 0126 DD/ 46 TD/TT: 02/13/242346 Modern Languages Professor: RENATA Assessment and Plan (1) Pericarditis: Status: Acute Plan 48-year-old female with pericarditis from IV drug abuse etc.. Plan to continue with medical management as per medical team and monitor on telemetry. Her vitals have been stable. CT shows just small amount of pericardial effusion. Dr. Moreno we will re-evaluate tomorrow and decide if a pericardial window needs to be carried out for pericardiocentesis. Right now she is relatively stable and continuing monitoring pain medication anti-inflammatory medication as per the medical team is being carried out. Procedures Date of Service Date of Service: 02/15/24
[2024-02-15] MEDS: 0.9 % Sodium Chloride Flush 3 ML SYRINGE IVFLUSH ×2 (16:17→20:18)
[2024-02-15] MEDS: Piperacillin Sodium/Tazobactam 4.5 GM in 0.9 % Sodium Chloride 100 ML IV (17:47)
[2024-02-15] MEDS: Enoxaparin Sodium 40 MG/0.4 ML SYRINGE SUBCUT (20:17)
[2024-02-15] MEDS: Ketorolac Tromethamine 30 MG/ML VIAL IVPUSH (21:09)
[2024-02-15] MEDS: HYDROmorphone HCl 0.5 MG/0.5 ML SYRINGE IVPUSH (21:10)
[2024-02-16] VITALS (8 sets, daily range): BP systolic 110–143; BP diastolic 79–96; PULSE 81–106; RESP 16–18; TEMP 36.2–36.8; O2SAT 92–98
[2024-02-16] MEDS: Piperacillin Sodium/Tazobactam 4.5 GM in 0.9 % Sodium Chloride 100 ML IV ×2 (00:21→05:57)
[2024-02-16] MEDS: HYDROmorphone HCl 1 MG/ML SYRINGE IVPUSH ×2 (02:09→06:00)
[2024-02-16] MEDS: Lactated Ringers 1,000 ML 80 ML IVCONT (03:30)
[2024-02-16] MEDS: vancomycin HCL 1,000 MG in 0.9 % Sodium Chloride 250 ML 270 MG IV ×3 (03:30→20:23)
[2024-02-16] MEDS: Ketorolac Tromethamine 30 MG/ML VIAL IVPUSH ×3 (05:56→17:14)
--- NOTE | 2024-02-16 06:48 | PM.PNTS ---
Subjective Subjective Date of Service: 02/16/24 Interval history: Patient has multiple complaints of pain all over including chest, abdomen, and extremities. Hemodynamically stable. No acute respiratory issues. Physical Exam Vital Signs: Vital Signs: Last Vital Signs Temp 97.1 F 02/16/24 03:50 Pulse 98 02/16/24 03:50 Resp 16 02/16/24 03:50 BP 120/79 02/16/24 03:50 Pulse Ox 98 02/16/24 03:50 O2 Del Method Room Air 02/16/24 03:50 BMI result Body Mass Index 31.2 Chest: Other: Chest breath sounds bilaterally. GI: Other: Abdomen corpulent, soft. Mild Umbilical/epigastric tenderness but no evidence of any guarding, rebound, rigidity Procedures Date of Service Date of Service: 02/16/24 Progress Note: A&P Assessment and plan (1) Pericardial effusion: Status: Acute (2) Pericarditis: Status: Acute (3) Bacteremia: Status: Acute (4) Pleuritic chest pain: Status: Acute Plan Multiple medical problems. Currently clinically stable from a hemodynamic standpoint. No immediacy for pericardial fluid drainage at this time. Time Spent With Patient Time: Total time managing care of this patient today ____ minutes. Quality Stroke Does the patient have a stroke diagnosis?: No VTE Prior VTE?: No VTE Risk Level:: Medical - moderate - high VTE Device Contraindication: Treatment Not Indicated VTE Drug Contraindication: N/A - Med Ordered
[2024-02-16] MEDS: Budesonide 180 MCG AER.POW.BA 1 PUFF INHALE ×2 (07:30→20:07)
[2024-02-16] MEDS: Colchicine 0.6 MG TABLET PO (07:36)
[2024-02-16] MEDS: Omeprazole 40 MG CAPSULE.DR PO (07:37)
[2024-02-16] MEDS: Escitalopram Oxalate 10 MG TABLET PO (07:37)
[2024-02-16] MEDS: Aspirin Enteric Coated 81 MG TABLET.DR PO (07:37)
[2024-02-16] MEDS: Acetaminophen 325 MG TABLET 975 MG PO (07:37)
[2024-02-16] MEDS: methADONE HCl 20 MG/2 ML ORAL.CONC 40 MG PO (07:39)
[2024-02-16] MEDS: 0.9 % Sodium Chloride Flush 3 ML SYRINGE IVFLUSH ×2 (07:49→20:29)
[2024-02-16] MEDS: HYDROmorphone HCl 0.5 MG/0.5 ML SYRINGE IVPUSH (07:57)
[2024-02-16 08:34] LABS: Hematocrit 27.7 % (37.0-47.0); Mean Corpuscular HGB Conc 32.5 g/dl (31.0-35.0); Mean Corpuscular Hemoglobin 26.2 pg (27.0-33.0); Mean Corpuscular Volume 80.8 fL (80.0-98.0); Mean Platelet Volume 10.7 fL (9.4-12.3); Platelet Count 238 X10*3/uL (160-400); Red Blood Count 3.43 X10*6/uL (4.20-5.50); Red Cell Distribution Width 14.4 % (11.0-16.0); White Blood Count 13.2 X10*3/uL (4.8-10.8)
[2024-02-16 08:49] LABS: Alanine Aminotransferase 15 U/L (0-31); Albumin Level 2.8 g/dL (3.5-5.0); Alkaline Phosphatase 189 U/L (39-117); Anion Gap 14 (12-20); Aspartate Amino Transferase 22 U/L (5-31); Bilirubin Direct 0.4 mg/dL (0.0-0.5); Bilirubin Total 0.6 mg/dL (0.0-1.0); Blood Urea Nitrogen 15 mg/dL (9-16); Calcium 8.4 mg/dL (8.4-10.2); Carbon Dioxide 23 mmol/L (22-29); Chloride 104 mmol/L (96-108); Creatinine Clr Calc Pharmacy 90.2; Estimated Glomerular Filt Rate > 60; Glucose Fasting 125 mg/dL (60-99); Magnesium 2.1 mg/dL (1.6-2.6); Potassium 3.4 mmol/L (3.3-5.1); Sodium 138 mmol/L (135-145); Total Protein 6.5 g/dL (6.5-8.0)
[2024-02-16 09:13] LABS: HBS Num1 > 1000.00 mIU/mL (0-7.99); HBc Num1 0.35 S/CO (0.00-0.79); HBsAGNum1 0.22 S/CO (0.00-0.99); HIV AB/AG Nonreactive (Nonreactive); HIV Num 1 0.04 S/CO (0.00-0.99); Hepatitis B Core Antibody Nonreactive (Nonreactive); Hepatitis B Surface Antigen Negative (Negative); ~HepC Num1 13.79 S/CO (0.00-0.79); ~Hepatitis B Surface Antibody REACTIVE (Nonreactive); ~Hepatitis C Antibody Reactive (Nonreactive)
--- NOTE | 2024-02-16 10:27 | MHC.CM.PN ---
Per ROUNDS discussion, Patient is Bacteremic and not yet medically cleared for dc. Patient has a dug history,is on Methadone, and will need 4-6 weeks of IV ABT(home with IV ABT will not be an option r/t Methadone). Referrals have been made to SNFs that can accommodate the Methadone. CM will follow.
--- NOTE | 2024-02-16 10:51 | P.PNIM_ITS ---
Subjective Subjective Date of Service: 02/16/24 Interval History: pain Physical Exam 2 Vital Signs: Vital Signs: Last Vital Signs Temp 98 F 02/16/24 06:59 Pulse 94 02/16/24 07:32 Resp 18 02/16/24 07:32 BP 143/79 H 02/16/24 06:59 Pulse Ox 96 02/16/24 06:59 O2 Del Method Room Air 02/16/24 06:59 BMI result Body Mass Index 31.2 Chest: Other: Chest breath sounds bilaterally. GI: Other: Abdomen corpulent, soft. Mild Umbilical/epigastric tenderness but no evidence of any guarding, rebound, rigidity Objective Data Active Medications Acetaminophen (Acetaminophen 325 Mg Tablet) 975 mg PO Q6H PRN PRN Reason: Pain, Mild (Pain Scale 1-3), fever or headache Last Admin: 02/16/24 07:37 Dose: 975 mg Documented By: WENDI Aspirin (Aspirin Enteric Coated 81 Mg Tablet.) 81 mg PO DAILY [facility] Last Admin: 02/16/24 07:37 Dose: 81 mg Documented By: WENDI Budesonide (Budesonide 180 Mcg Aer.Pow.Ba) 1 puff INHALE RBID [facility] Last Admin: 02/16/24 07:30 Dose: 1 puff Documented By: PATIENCE Colchicine (Colchicine 0.6 Mg Tablet) 0.6 mg PO DAILY [facility] Last Admin: 02/16/24 07:36 Dose: 0.6 mg Documented By: WENDI Enoxaparin Sodium (Enoxaparin Sodium 40 Mg/0.4 Ml Syringe) 40 mg SUBCUT Q24H [facility] Last Admin: 02/15/24 20:17 Dose: 40 mg Documented By: CRISTIAN Escitalopram Oxalate (Escitalopram Oxalate 10 Mg Tablet) 10 mg PO DAILY [facility] Last Admin: 02/16/24 07:37 Dose: 10 mg Documented By: WENDI Hydromorphone HCl (Hydromorphone Hcl 1 Mg/Ml Syringe) 1 mg IVPUSH Q4H PRN; Protocol PRN Reason: Pain, Moderate(Pain Scale 4-6) Last Admin: 02/16/24 06:00 Dose: 1 mg Documented By: CRISTIAN Lactated Ringer's (Lr) 1,000 mls @ 80 mls/hr IVCONT .[id number] [facility] Last Admin: 02/16/24 03:30 Dose: 80 mls/hr Documented By: CRISTIAN Vancomycin HCl 1,000 mg/ (Sodium Chloride) 270 mls @ 270 mls/hr IV Q8H [facility] Last Infusion: 02/16/24 06:21 Dose: Infused Documented By: CRISTIAN Ketorolac Tromethamine (Ketorolac Tromethamine 30 Mg/Ml Vial) 30 mg IVPUSH Q6H [facility] Stop: 02/16/24 18:01 Last Admin: 02/16/24 05:56 Dose: 30 mg Documented By: CRISTIAN Methadone HCl (Methadone Hcl 20 Mg/2 Ml Oral.Conc) 10 mg PO DAILY PRN PRN Reason: Opiate Withdrawal Methadone HCl (Methadone Hcl 20 Mg/2 Ml Oral.Conc) 40 mg PO DAILY [facility] Last Admin: 02/16/24 07:39 Dose: 40 mg Documented By: WENDI Co-signed By: OWEN Nitroglycerin (Nitroglycerin 0.4 Mg Tab.Subl) 0.4 mg SUBLINGUAL Q5MX3 PRN PRN Reason: Chest Pain Omeprazole (Omeprazole 40 Mg Capsule.Dr) 40 mg PO DAILY@0630 [facility] Last Admin: 02/16/24 07:37 Dose: 40 mg Documented By: WENDI Pharmacy Consult (Consult Rx Vancomycin Dosing) 1 each MISCELLANE DAILY PRN PRN Reason: Consult order Sodium Chloride (0.9 % Sodium Chloride Flush 3 Ml Syringe) 3 ml IVFLUSH QSHIFT [facility] Last Admin: 02/16/24 07:49 Dose: 3 ml Documented By: WENDI Labs 02/16/24 07:57 02/16/24 07:57 Labs: Laboratory Results - last 24 hr 02/15/24 02/16/24 12:01 07:57 MCV 80.8 MCH 26.2 L MCHC 32.5 RDW 14.4 Plt Count 238 D MPV 10.7 Absolute Nucleated RBC 0.000 Nucleated RBC % (auto) 0.0 Anion Gap 14 Estim Creat Clear Calc 90.2 Estimated GFR > 60 Fasting Glucose 125 H Calcium 8.4 Magnesium 2.1 Total Bilirubin 0.6 Direct Bilirubin 0.4 AST 22 ALT 15 Alkaline Phosphatase 189 H Total Protein 6.5 Albumin 2.8 L Random Vancomycin 10.1 L Hep Bs Antigen Negative Hep Bs Antibody REACTIVE Hep B Core Total Ab Nonreactive Hepatitis C Ab (EIA) Reactive H HIV 1&2 Ab/P24 Ag 4thGn Nonreactive Microbiology Microbiology Results: Microbiology 02/14/24 02:02 Blood Culture - Final Blood - Venous Methicillin Res Staph Aureus 02/14/24 02:00 Blood Culture - Final Blood - Venous Methicillin Res Staph Aureus Assessment and Plan (1) Suspected endocarditis: Status: Acute Plan 48F PMH polysubstance dependence including IV opiates and cocaine, mood disorder, presented with chest pain, fevers sepsis due to MRSA bacteremia in IVDA complicated by pneumonia, uti, and pericardial effusion with early tamponade vanc dc zosyn follow up cultures ID thoracic following no indication right now for pericardiocentesis chest pain with elevated troponins ?cocaine vs type II [place] vs perimyocarditis continue asa, colchicine polysubstance dependence with withdrawal addiction following continue methadone dvt prophylaxis - lovenox full code reason for continued hospitalization: bacteremia Quality Stroke Does the patient have a stroke diagnosis?: No VTE Prior VTE?: No VTE Risk Level:: Medical - moderate - high VTE Device Contraindication: Treatment Not Indicated VTE Drug Contraindication: N/A - Med Ordered
--- NOTE | 2024-02-16 11:22 | PM.PNCARD ---
Subjective Subjective Date of Service: 02/16/24 Principal diagnosis: Pericardial effusion, pericarditis. Interval history: Patient still having discomfort when she takes a deep breath or coughs and appears in little distress. No shortness of breath. No lightheadedness, syncope. Blood pressures remained stable. Blood cultures are pending Review of Systems Constitutional: Denies fever(s) Eyes: Reports no additional eye complaints Cardiovascular: Reports dyspnea Respiratory: Reports cough, Reports pain on inspiration, Reports pain with cough and Reports dyspnea Musculoskeletal: Reports no additional musculoskeletal complaints Reports system reviewed and no additional complaints, except as documented Physical Exam Vital Signs: Last Vital Signs Temp 98 F 02/16/24 06:59 Pulse 94 02/16/24 07:32 Resp 18 02/16/24 07:32 BP 143/79 H 02/16/24 06:59 Pulse Ox 96 02/16/24 06:59 O2 Del Method Room Air 02/16/24 06:59 BMI result Body Mass Index 31.2 Const General: cooperative, in distress mild and other (Due to pain) and anxious Nutritional Appearance: overweight Orientation/consciousness: patient oriented x3 Neck Neck: Yes trachea midline, Yes supple and Yes no JVD (No Kussmaul sign) Resp Effort & Inspection: decreased respiratory effort Auscultation: no rales, no wheezes and diminished lung sounds Cardio Jugular venous distension: no JVD and other (No evidence of pulsus paradoxus) Rate: regular rate Rhythm: regular rhythm Heart sounds: S1 normal heart sound present, S2 normal heart sound present, no click, no gallops and no murmurs GI Auscultation: normal bowel sounds Skin General skin exam: no rashes or lesions noted Neuro General: patient oriented x3 Extrem General: Yes no clubbing, cyanosis or edema Objective Labs and Meds 02/16/24 07:57 02/16/24 07:57 Lab results: Laboratory Results - last 24 hr 02/15/24 02/16/24 12:01 07:57 WBC 13.2 H RBC 3.43 L Hgb 9.0 L Hct 27.7 L MCV 80.8 MCH 26.2 L MCHC 32.5 RDW 14.4 Plt Count 238 D MPV 10.7 Absolute Nucleated RBC 0.000 Nucleated RBC % (auto) 0.0 Sodium 138 Potassium 3.4 Chloride 104 Carbon Dioxide 23 Anion Gap 14 BUN 15 Creatinine 0.78 Estim Creat Clear Calc 90.2 Estimated GFR > 60 Fasting Glucose 125 H Calcium 8.4 Magnesium 2.1 Total Bilirubin 0.6 Direct Bilirubin 0.4 AST 22 ALT 15 Alkaline Phosphatase 189 H Total Protein 6.5 Albumin 2.8 L Random Vancomycin 10.1 L Hep Bs Antigen Negative Hep Bs Antibody REACTIVE Hep B Core Total Ab Nonreactive Hepatitis C Ab (EIA) Reactive H HIV 1&2 Ab/P24 Ag 4thGn Nonreactive Progress Note: A&P Assessment and plan (1) Pericardial effusion: Status: Acute Assessment and Plan: Acute pericardial effusion with early signs of tamponade without any clinical signs of tamponade. At this point time I would suggest a repeat limited echocardiogram tomorrow. If her repeat blood cultures are negative would consider pericardiocentesis to reduce the hemodynamic stress on the heart. Pericardial effusion most likely due to pericarditis. Agree with colchicine and anti-inflammatory therapy. GI protection prophylaxis with anti-inflammatory therapy to be pursued. Elevated troponin could be related to myopericarditis/cocaine related myocardial injury/coronary vaso spasm/underlying coronary artery disease. Continue supportive care. Advised to avoid cocaine at all cause. I would advise low-dose aspirin therapy as well as high-intensity statin therapy at this point time. Avoid any vaso dilator or metoprolol therapy at this point time to maintain blood pressure. If she develops any episodes of hypotension, will require more urgent pericardiocentesis. Will follow with you Time Spent With Patient Time: Total time managing care of this patient today ____ minutes. Progress Note: Quality Stroke Does the patient have a stroke diagnosis?: No Procedures Date of Service Date of Service: 02/16/24
[2024-02-16] MEDS: HYDROmorphone HCl 1 MG/ML SYRINGE 2 MG IVPUSH ×6 (12:19→23:40)
[2024-02-16 12:23] LABS: Vancomycin Random 15.5 mcg/mL (15-20)
--- NOTE | 2024-02-16 13:30 | P.PNADD_ITS ---
Subjective Subjective Date of Service: 02/16/24 Reason For Visit: Chest pain, SIRS Interim History: Patient seen in follow up in room 452 Awake, alert, tearful Reporting pain and anxiety about her current health issues She states pain in chest and back and constant and current pain medications are providing minimal relief She reports poor sleep She denies withdrawal sx, although she was observed to be moving her legs frequently during interview She would like to remain on methadone following discharge from [facility] and would like [facility] return to [facility] Reports 2 years in recovery where she abstained from all substances from 2019- 2021 She identifies her family as her support Review of Systems Constitutional: Reports as per HPI Mental Status Exam Mental Status Exam Patient Appearance: Appropriate Level of Consciousness: Awake and Alert Patient Behavior: Appropriate, Talkative and Anxious Diagnostics Vital Signs (24Hr): Vital Signs - 24 hr 02/15/24 16:13 02/15/24 19:39 02/15/24 23:17 Temperature 97.6 F 98.7 F Pulse Rate 99 72 67 Respiratory Rate 22 H 17 18 Blood Pressure 122/84 103/74 106/68 Pulse Oximetry 94 92 94 Oxygen Delivery Method Room Air Room Air 02/16/24 03:50 02/16/24 06:59 02/16/24 07:32 Temperature 97.1 F 98 F Pulse Rate 98 104 H 94 Respiratory Rate 16 17 18 Blood Pressure 120/79 143/79 H Pulse Oximetry 98 96 Oxygen Delivery Method Room Air Room Air 02/16/24 11:46 Temperature 97.8 F Pulse Rate 81 Respiratory Rate 16 Blood Pressure 129/79 Pulse Oximetry 96 Oxygen Delivery Method Room Air BMI result Body Mass Index 31.2 Labs 02/16/24 07:57 02/16/24 07:57 Labs: Laboratory Results - last 48 hr 02/15/24 02/15/24 02/15/24 04:10 04:11 12:01 WBC 18.4 H RBC 3.67 L Hgb 9.8 L Hct 29.6 L MCV 80.7 MCH 26.7 L MCHC 33.1 RDW 14.2 Plt Count 186 D MPV 11.3 Absolute Nucleated RBC 0.000 Nucleated RBC % (auto) 0.0 Sodium 136 Potassium 3.6 Chloride 103 Carbon Dioxide 22 Anion Gap 15 BUN 16 Creatinine 0.78 Estim Creat Clear Calc 90.2 Estimated GFR > 60 Fasting Glucose 130 H Calcium 8.7 Magnesium Total Bilirubin Direct Bilirubin AST ALT Alkaline Phosphatase Total Protein Albumin Random Vancomycin 10.1 L Hep Bs Antigen Hep Bs Antibody Hep B Core Total Ab Hepatitis C Ab (EIA) HIV 1&2 Ab/P24 Ag 4thGn 02/16/24 02/16/24 07:57 11:23 WBC 13.2 H RBC 3.43 L Hgb 9.0 L Hct 27.7 L MCV 80.8 MCH 26.2 L MCHC 32.5 RDW 14.4 Plt Count 238 D MPV 10.7 Absolute Nucleated RBC 0.000 Nucleated RBC % (auto) 0.0 Sodium 138 Potassium 3.4 Chloride 104 Carbon Dioxide 23 Anion Gap 14 BUN 15 Creatinine 0.78 Estim Creat Clear Calc 90.2 Estimated GFR > 60 Fasting Glucose 125 H Calcium 8.4 Magnesium 2.1 Total Bilirubin 0.6 Direct Bilirubin 0.4 AST 22 ALT 15 Alkaline Phosphatase 189 H Total Protein 6.5 Albumin 2.8 L Random Vancomycin 15.5 Hep Bs Antigen Negative Hep Bs Antibody REACTIVE Hep B Core Total Ab Nonreactive Hepatitis C Ab (EIA) Reactive H HIV 1&2 Ab/P24 Ag 4thGn Nonreactive Imaging Radiology Impressions: ITS Impressions Chest CTA 02/13/24 23:47 IMPRESSION: 1. No pulmonary embolus identified. 2. Scattered regions of consolidation bilaterally as detailed above, greatest in the right upper lobe, suspicious for an infectious or other inflammatory etiology. Follow-up CT in 3 months is recommended to assess for resolution. 3. Trace pericardial effusion. VTE: negative Electronically signed by: Arnoldo Hsieh MD 02/14/2024 01:26 AM EDT Venous Duplex 02/14/24 02:30 IMPRESSION: No evidence of deep venous thrombosis involving the bilateral lower extremities. Electronically signed by: Arnoldo Hsieh MD 02/14/2024 03:11 AM EDT Medications Medications Current Medications Acetaminophen (Acetaminophen 325 Mg Tablet) 975 mg PO Q6H PRN PRN Reason: Pain, Mild (Pain Scale 1-3), fever or headache Last Admin: 02/16/24 07:37 Dose: 975 mg Aspirin (Aspirin Enteric Coated 81 Mg Tablet.) 81 mg PO DAILY JOHN Last Admin: 02/16/24 07:37 Dose: 81 mg Budesonide (Budesonide 180 Mcg Aer.Pow.Ba) 1 puff INHALE RBID [facility] Last Admin: 02/16/24 07:30 Dose: 1 puff Colchicine (Colchicine 0.6 Mg Tablet) 0.6 mg PO DAILY [facility] Last Admin: 02/16/24 07:36 Dose: 0.6 mg Enoxaparin Sodium (Enoxaparin Sodium 40 Mg/0.4 Ml Syringe) 40 mg SUBCUT Q24H [facility] Last Admin: 02/15/24 20:17 Dose: 40 mg Escitalopram Oxalate (Escitalopram Oxalate 10 Mg Tablet) 10 mg PO DAILY [facility] Last Admin: 02/16/24 07:37 Dose: 10 mg Hydromorphone HCl (Hydromorphone Hcl 1 Mg/Ml Syringe) 2 mg IVPUSH Q2H PRN; Protocol PRN Reason: Pain, Moderate(Pain Scale 4-6) Last Admin: 02/16/24 12:19 Dose: 2 mg Lactated Ringer's (Lr) 1,000 mls @ 80 mls/hr IVCONT .[id number] [facility] Last Admin: 02/16/24 03:30 Dose: 80 mls/hr Vancomycin HCl 1,000 mg/ (Sodium Chloride) 270 mls @ 270 mls/hr IV Q8H [facility] Last Admin: 02/16/24 12:18 Dose: 270 mls/hr Ketorolac Tromethamine (Ketorolac Tromethamine 30 Mg/Ml Vial) 30 mg IVPUSH Q6H [facility] Stop: 02/16/24 18:01 Last Admin: 02/16/24 12:19 Dose: 30 mg Methadone HCl (Methadone Hcl 20 Mg/2 Ml Oral.Conc) 10 mg PO DAILY PRN PRN Reason: Opiate Withdrawal Methadone HCl (Methadone Hcl 20 Mg/2 Ml Oral.Conc) 40 mg PO DAILY [facility] Last Admin: 02/16/24 07:39 Dose: 40 mg Nitroglycerin (Nitroglycerin 0.4 Mg Tab.Subl) 0.4 mg SUBLINGUAL Q5MX3 PRN PRN Reason: Chest Pain Omeprazole (Omeprazole 40 Mg Capsule.Dr) 40 mg PO DAILY@0630 [facility] Last Admin: 02/16/24 07:37 Dose: 40 mg Pharmacy Consult (Consult Rx Vancomycin Dosing) 1 each MISCELLANE DAILY PRN PRN Reason: Consult order Sodium Chloride (0.9 % Sodium Chloride Flush 3 Ml Syringe) 3 ml IVFLUSH QSHIFT JOHN Last Admin: 02/16/24 07:49 Dose: 3 ml Allergies Allergies Allergy/AdvReac Type Severity Reaction Status Date / Time latex [LATEX] Allergy Unknown rash Verified 02/13/24 21:02 Assessment & Plan Assessment & Plan (1) Opioid use disorder: Status: Acute Code(s): F11.90 - Opioid use, unspecified, uncomplicated Assessment and Plan: * methadone 50mg in AM * discussed case with attending --dilaudid increased to 2mg q 2hrs PRN * will continue to follow Total time managing care of this patient today ___30_ minutes.
--- NOTE | 2024-02-16 15:58 | MHC.RECOVSUP ---
? Reason for consult Recovery Support o Current location: [facility] o Identified substance use concern: Heroin - Support ? Intervention: <del>o</del> <del>Community</del> <del>resources</del> <del>provided</del> <del>o</del> <del>Harm</del> <del>reduction</del> <del>discussion</del> ? Plan: <del>o</del> <del>Referral</del> <del>to</del> <del>[facility]</del> <del>o</del> <del>Bed</del> <del>search</del> <del>in</del> <del>progress</del> <del>to</del> <del>o</del> <del>Follow</del> <del>up</del> <del>tomorrow</del> <del>o</del> <del>Patient</del> <del>awaiting</del> <del>crisis</del> <del>evaluation</del> <del>o</del> <del>Patient</del> <del>to</del> <del>follow</del> <del>up</del> <del>with</del> <del>[facility]</del> <del>after</del> <del>discharg</del>e ? Additional information: Met with Patient but patient wasn't up to talking at the moment and ask if I could come back tomorrow.
--- NOTE | 2024-02-16 16:33 | W.PM.IDCN ---
History of Present Illness Data of Consult Service Date: 02/16/24 Requesting physician: Fredrick Rosario Primary Care Provider: [facility] HPI Reason for consult: MRSA bacteremia She presents with right foot discomfort now resolving after IV drug injection. She has echo neg IE and pericardial effusion. She has occasional LS spine 6/10 pain and shortness of breath. Review of Systems Review of Systems: Yes all other systems are reviewed and are negative [facility] Past Medical History Medical History Arthritis Migraines GERD (gastroesophageal reflux disease) HTN (hypertension) HLD (hyperlipidemia) Asthma Family History Family History Mother Colon cancer Family/Other Uterine cancer Maternal Aunt Breast cancer Spinal cord cancer Maternal Grandmother Dementia Family history: reviewed and not pertinent Surgical History Surgical History Tubal ligation status Social History Social History Household Members: None Housing: Apartment Do you presently have visiting nurse or other home services: No Alcohol intake: never Comment: pt refuses bed alarm. Patient Tobacco Use Status: Current everyday Tobacco user Cigarette Packs Per Day: 1 Cigarettes Per Day: 20.0 Second Hand Smoke Exposure: No Substance Use Type: Crack/Cocaine service: No Meds Allergies Allergy/AdvReac Type Severity Reaction Status Date / Time latex [LATEX] Allergy Unknown rash Verified 02/13/24 21:02 Active Medications: Current Medications Acetaminophen (Acetaminophen 325 Mg Tablet) 975 mg PO Q6H PRN PRN Reason: Pain, Mild (Pain Scale 1-3), fever or headache Last Admin: 02/16/24 07:37 Dose: 975 mg Aspirin (Aspirin Enteric Coated 81 Mg Tablet.) 81 mg PO DAILY [facility] Last Admin: 02/16/24 07:37 Dose: 81 mg Budesonide (Budesonide 180 Mcg Aer.Pow.Ba) 1 puff INHALE RBID [facility] Last Admin: 02/16/24 07:30 Dose: 1 puff Colchicine (Colchicine 0.6 Mg Tablet) 0.6 mg PO DAILY [facility] Last Admin: 02/16/24 07:36 Dose: 0.6 mg Enoxaparin Sodium (Enoxaparin Sodium 40 Mg/0.4 Ml Syringe) 40 mg SUBCUT Q24H [facility] Last Admin: 02/15/24 20:17 Dose: 40 mg Escitalopram Oxalate (Escitalopram Oxalate 10 Mg Tablet) 10 mg PO DAILY [facility] Last Admin: 02/16/24 07:37 Dose: 10 mg Hydromorphone HCl (Hydromorphone Hcl 1 Mg/Ml Syringe) 2 mg IVPUSH Q2H PRN; Protocol PRN Reason: Pain, Moderate(Pain Scale 4-6) Last Admin: 02/16/24 16:05 Dose: 2 mg Lactated Ringer's (Lr) 1,000 mls @ 80 mls/hr IVCONT .[id number] [facility] Last Infusion: 02/16/24 15:15 Dose: 80 mls/hr Vancomycin HCl 1,000 mg/ (Sodium Chloride) 270 mls @ 270 mls/hr IV Q8H [facility] Last Infusion: 02/16/24 14:13 Dose: Infused Ketorolac Tromethamine (Ketorolac Tromethamine 30 Mg/Ml Vial) 30 mg IVPUSH Q6H [facility] Stop: 02/16/24 18:01 Last Admin: 02/16/24 12:19 Dose: 30 mg Methadone HCl (Methadone Hcl 20 Mg/2 Ml Oral.Conc) 50 mg PO DAILY [facility] Nitroglycerin (Nitroglycerin 0.4 Mg Tab.Subl) 0.4 mg SUBLINGUAL Q5MX3 PRN PRN Reason: Chest Pain Omeprazole (Omeprazole 40 Mg Capsule.Dr) 40 mg PO DAILY@0630 [facility] Last Admin: 02/16/24 07:37 Dose: 40 mg Pharmacy Consult (Consult Rx Vancomycin Dosing) 1 each MISCELLANE DAILY PRN PRN Reason: Consult order Sodium Chloride (0.9 % Sodium Chloride Flush 3 Ml Syringe) 3 ml IVFLUSH QSHIFT [facility] Last Admin: 02/16/24 07:49 Dose: 3 ml Home Medications ?Medication ?Instructions ?Recorded ?Confirmed ?Last Taken ?Type clonidine HCl 0.1 mg tablet 1 tab PO TID PRN Anxiety 12/13/20 02/14/24 Unknown History omeprazole 40 mg capsule,delayed 1 cap PO DAILY 12/13/20 02/14/24 Unknown History release albuterol sulfate 90 mcg/actuation 2 puff inhalation Q4-6H PRN 02/14/24 02/14/24 Unknown History aerosol inhaler (Ventolin HFA) Shortness Of Breath Or Wheezing budesonide 180 mcg/actuation 1 inh inhalation BID 02/14/24 02/14/24 Unknown History breath activated powder inhaler (Pulmicort Flexhaler) escitalopram oxalate 10 mg tablet 10 mg PO QAM 02/14/24 02/14/24 Unknown History lisinopril 10 mg tablet 10 mg PO QAM 02/14/24 02/14/24 Unknown History Physical Exam Vital Signs: Vital Signs: Last Vital Signs Temp 97.5 F 02/16/24 15:19 Pulse 90 02/16/24 15:19 Resp 18 02/16/24 15:19 BP 110/80 02/16/24 15:19 Pulse Ox 96 02/16/24 15:19 O2 Del Method Room Air 02/16/24 15:19 BMI result Body Mass Index 31.2 Const: General: cooperative HEENT: Head: Yes normal to inspection Face and sinus: Yes normal facial exam Mouth: Normal oral and palatal mucosa present Teeth and gingiva: dentition normal Eyes: General: appearance normal, both eyes and all related structures Pupils: Equal, round and reactive pupils present Resp: Effort & Inspection: normal respiratory effort Cardio: Rate: regular rate Rhythm: regular rhythm GI: Palpation (GI): Soft to palpation and nontender : General: Yes no CVA tenderness Back/Spine/Pelvis: Back: no CVA tenderness Skin: General skin exam: no rashes or lesions noted Neuro: General: moves all extremities Cranial nerves: Yes Equal, round and reactive pupils present Extrem: Other: some scars feet ,track sethi General: Yes normal to inspection Psych: Appearance: grossly normal Results Labs 02/16/24 07:57 02/16/24 07:57 Labs: Short CBC 02/16/24 Range/Units 07:57 WBC 13.2 H (4.8-10.8) X10*3/uL Hgb 9.0 L (12.0-16.0) g/dl Hct 27.7 L (37.0-47.0) % Plt Count 238 D (160-400) X10*3/uL BMP 02/16/24 07:57 Sodium 138 Potassium 3.4 Chloride 104 Carbon Dioxide 23 BUN 15 Creatinine 0.78 Calcium 8.4 Liver Function 02/16/24 Range/Units 07:57 Total Bilirubin 0.6 (0.0-1.0) mg/dL Direct Bilirubin 0.4 (0.0-0.5) mg/dL AST 22 (5-31) U/L ALT 15 (0-31) U/L Alkaline Phosphatase 189 H (39-117) U/L Albumin 2.8 L (3.5-5.0) g/dL Microbiology Microbiology Results: Microbiology 02/14/24 02:02 Blood - Venous Blood Culture - Final Methicillin Res Staph Aureus 02/14/24 02:00 Blood - Venous Blood Culture - Final Methicillin Res Staph Aureus Assessment and Plan (1) Pericardial effusion: Status: Acute (2) Pericarditis: Status: Acute (3) Bacteremia: Status: Acute (4) Opioid use disorder: Status: Acute (5) Heroin use: Status: Acute (6) Cocaine use: Status: Acute Plan She has MRSA bacteremia and concern pericardial effusion. She has right foot likely source but now clearing. Effusion may be from bacteria,?drug Would have Cardiology check pericardial effusion. Vancomycin cover bacteremia Hepatitis C viral load Likely need 4 weeks IV antibiotics/Vancomycin
[2024-02-16] MEDS: Enoxaparin Sodium 40 MG/0.4 ML SYRINGE SUBCUT (20:23)
[2024-02-17] VITALS (10 sets, daily range): BP systolic 111–141; BP diastolic 81–92; PULSE 97–114; RESP 16–24; TEMP 36.4–37.2; O2SAT 93–100
[2024-02-17] MEDS: HYDROmorphone HCl 1 MG/ML SYRINGE 2 MG IVPUSH ×8 (01:47→22:50)
[2024-02-17] MEDS: Lactated Ringers 1,000 ML 80 ML IVCONT (01:50)
[2024-02-17] MEDS: vancomycin HCL 1,000 MG in 0.9 % Sodium Chloride 250 ML 270 MG IV (03:33)
[2024-02-17] MEDS: Omeprazole 40 MG CAPSULE.DR PO (05:23)
--- NOTE | 2024-02-17 07:00 | CA_ITS ---
Transthoracic Echocardiogram Patient (Last, First, Middle): Nelsy Singh, Gender: Female Date of : 1975 Age: 48 Procedure Date: 02/17/2024 Procedure Type: Transthoracic Echocardiogram Location: [facility] Height: 160. cm Weight: 79.83 kg BSA: 1.83 m2 Heart Rate: 92 bpm BP: 111 / 81 mmHg Personal Lines Insurance Agent: GEOFFREY Referring MD: Fredrick Rosario MD Airplane Navigator: Adam Elaine MD Symptoms: follow up pericardial effusion Study Quality: Adequate/limited echo ordered ECG Rhythm: Sinus Conclusions: - Moderately large pericardial effusion with suggestion of early cardiac tamponade Findings Left Ventricle Normal left ventricular size, thickness, and systolic function. Pericardium/Pleural There is a moderate circumferential pericardial effusion. The inferior vena cava is dilated with reduced respiratory variability. There is excessive respiratory variation of the mitral valve and tricuspid valve Doppler velocities. Measurements 2D Linear Measurements LVOT Diam: 1.80 3.0+(-)1.3 cm LVOT LVOT Pk Nick: 1.12 LVOT Mn Nick: 0.76 LVOT VTI: 0.17 LVOT Pk Grad: 5.00 LVOT Mn Grad: 3.00 LVOT Diam: 1.80 LVOT Area: 2.54 Tricuspid Valve RA Press: 15.00 Updated in Other Vendor System with Status of Final Adam Elaine MD electronically signed on 02/18/2024 2:53:55 PM with status of Final
[2024-02-17 07:16] LABS: Hematocrit 28.9 % (37.0-47.0); Hemoglobin 9.6 g/dl (12.0-16.0); Mean Corpuscular HGB Conc 33.2 g/dl (31.0-35.0); Mean Corpuscular Hemoglobin 26.6 pg (27.0-33.0); Mean Corpuscular Volume 80.1 fL (80.0-98.0); Mean Platelet Volume 10.9 fL (9.4-12.3); Platelet Count 268 X10*3/uL (160-400); Red Blood Count 3.61 X10*6/uL (4.20-5.50); Red Cell Distribution Width 14.6 % (11.0-16.0); White Blood Count 15.5 X10*3/uL (4.8-10.8)
[2024-02-17] MEDS: Budesonide 180 MCG AER.POW.BA 1 PUFF INHALE ×2 (07:36→19:38)
[2024-02-17] MEDS: 0.9 % Sodium Chloride Flush 3 ML SYRINGE IVFLUSH (07:44)
--- NOTE | 2024-02-17 08:00 | PM.PNTS ---
Subjective Subjective Date of Service: 02/17/24 Interval history: Patient states she feels a little bit better. Still having a collection of complaints and issues. Physical Exam Vital Signs: Vital Signs: Last Vital Signs Temp 98.5 F 02/17/24 07:29 Pulse 113 H 02/17/24 07:36 Resp 18 02/17/24 07:42 BP 129/92 H 02/17/24 07:29 Pulse Ox 94 02/17/24 07:29 O2 Del Method Room Air 02/17/24 07:29 BMI result Body Mass Index 31.2 Chest: Other: Chest breath sounds bilaterally. GI: Other: Abdomen corpulent, soft, benign Procedures Date of Service Date of Service: 02/17/24 Progress Note: A&P Assessment and plan (1) Pericardial effusion: Status: Acute (2) Pericarditis: Status: Acute (3) Bacteremia: Status: Acute (4) Pleuritic chest pain: Status: Acute Plan From a surgical/thoracic perspective, patient is stable. No immediate need for pericardial drainage. We will follow up p.r.n.. Time Spent With Patient Time: Total time managing care of this patient today ____ minutes. Quality Stroke Does the patient have a stroke diagnosis?: No VTE Prior VTE?: No VTE Risk Level:: Medical - moderate - high VTE Device Contraindication: Treatment Not Indicated VTE Drug Contraindication: N/A - Med Ordered
[2024-02-17 08:48] LABS: Anion Gap 14 (12-20); Blood Urea Nitrogen 12 mg/dL (9-16); Calcium 8.3 mg/dL (8.4-10.2); Carbon Dioxide 20 mmol/L (22-29); Chloride 106 mmol/L (96-108); Creatinine Clr Calc Pharmacy 96.4; Estimated Glomerular Filt Rate > 60; Glucose Fasting 122 mg/dL (60-99); Sodium 136 mmol/L (135-145)
[2024-02-17 08:50] LABS: Vancomycin Random 20.7 mcg/mL (15-20)
[2024-02-17] MEDS: methADONE HCl 20 MG/2 ML ORAL.CONC 50 MG PO (09:15)
[2024-02-17] MEDS: Escitalopram Oxalate 10 MG TABLET PO (09:16)
[2024-02-17] MEDS: Colchicine 0.6 MG TABLET PO (09:16)
[2024-02-17] MEDS: Aspirin Enteric Coated 81 MG TABLET.DR PO (09:16)
[2024-02-17] MEDS: Acetaminophen 325 MG TABLET 975 MG PO (09:21)
--- NOTE | 2024-02-17 09:24 | HE.PHANOTE ---
RE: VANCO DOSING Random came back as 20.7. Dose is changed to 1500 mg q12h starting @1600 on 02/17/24. Next random is scheduled for 02/18/24 @1400.
--- NOTE | 2024-02-17 09:51 | HO.PM.IMPN ---
Subjective Subjective Date of Service: 02/17/24 Interval History: pain Physical Exam Vital Signs: Vital Signs: Last Vital Signs Temp 98.5 F 02/17/24 07:29 Pulse 113 H 02/17/24 07:36 Resp 18 02/17/24 07:42 BP 129/92 H 02/17/24 07:29 Pulse Ox 94 02/17/24 07:29 O2 Del Method Room Air 02/17/24 07:29 BMI result Body Mass Index 31.2 Chest: Other: Chest breath sounds bilaterally. GI: Other: Abdomen corpulent, soft, benign Objective Data Active Medications Acetaminophen (Acetaminophen 325 Mg Tablet) 975 mg PO Q6H PRN PRN Reason: Pain, Mild (Pain Scale 1-3), fever or headache Last Admin: 02/17/24 09:21 Dose: 975 mg Documented By: EVELYN Albuterol Sulfate (Albuterol Sulfate 90 Mcg 8 Gm Inhaler) 2 puff INHALE RQ4H PRN PRN Reason: Wheezing Aspirin (Aspirin Enteric Coated 81 Mg Tablet.Dr) 81 mg PO DAILY [facility] Last Admin: 02/17/24 09:16 Dose: 81 mg Documented By: EVELYN Budesonide (Budesonide 180 Mcg Aer.Pow.Ba) 1 puff INHALE RBID [facility] Last Admin: 02/17/24 07:36 Dose: 1 puff Documented By: CHARLES Colchicine (Colchicine 0.6 Mg Tablet) 0.6 mg PO DAILY [facility] Last Admin: 02/17/24 09:16 Dose: 0.6 mg Documented By: EVELYN Enoxaparin Sodium (Enoxaparin Sodium 40 Mg/0.4 Ml Syringe) 40 mg SUBCUT Q24H [facility] Last Admin: 02/16/24 20:23 Dose: 40 mg Documented By: CRISTIAN Escitalopram Oxalate (Escitalopram Oxalate 10 Mg Tablet) 10 mg PO DAILY [facility] Last Admin: 02/17/24 09:16 Dose: 10 mg Documented By: EVELYN Hydromorphone HCl (Hydromorphone Hcl 1 Mg/Ml Syringe) 2 mg IVPUSH Q2H PRN; Protocol PRN Reason: Pain, Moderate(Pain Scale 4-6) Last Admin: 02/17/24 07:42 Dose: 2 mg Documented By: EVELYN Lactated Ringer's (Lr) 1,000 mls @ 80 mls/hr IVCONT .[id number] [facility] Last Admin: 02/17/24 01:50 Dose: 80 mls/hr Documented By: CRISTIAN Vancomycin HCl 1,500 mg/ (Sodium Chloride) 500 mls @ 333.333 mls/hr IV Q12H [facility] Methadone HCl (Methadone Hcl 20 Mg/2 Ml Oral.Conc) 50 mg PO DAILY [facility] Last Admin: 02/17/24 09:15 Dose: 50 mg Documented By: EVELYN Co-signed By: NBA Nitroglycerin (Nitroglycerin 0.4 Mg Tab.Subl) 0.4 mg SUBLINGUAL Q5MX3 PRN PRN Reason: Chest Pain Omeprazole (Omeprazole 40 Mg Capsule.Dr) 40 mg PO DAILY@0630 [facility] Last Admin: 02/17/24 05:23 Dose: 40 mg Documented By: CRISTIAN Pharmacy Consult (Consult Rx Vancomycin Dosing) 1 each MISCELLANE DAILY PRN PRN Reason: Consult order Sodium Chloride (0.9 % Sodium Chloride Flush 3 Ml Syringe) 3 ml IVFLUSH QSHIFT [facility] Last Admin: 02/17/24 07:44 Dose: 3 ml Documented By: EVELYN Labs 02/17/24 06:45 02/17/24 08:13 Labs: Laboratory Results - last 24 hr 02/16/24 02/17/24 02/17/24 11:23 06:45 08:13 MCV 80.1 MCH 26.6 L MCHC 33.2 RDW 14.6 Plt Count 268 MPV 10.9 Absolute Nucleated RBC 0.000 Nucleated RBC % (auto) 0.0 Anion Gap 14 Estim Creat Clear Calc 96.4 Estimated GFR > 60 Fasting Glucose 122 H Calcium 8.3 L Random Vancomycin 15.5 20.7 H Microbiology Microbiology Results: Microbiology 02/16/24 07:57 Blood Culture - Preliminary Blood - Venous Prelim: GPC Gram Stain only 02/16/24 07:57 Blood Culture - Preliminary Blood - Venous Prelim: GPC Gram Stain only 02/14/24 02:02 Blood Culture - Final Blood - Venous Methicillin Res Staph Aureus 02/14/24 02:00 Blood Culture - Final Blood - Venous Methicillin Res Staph Aureus Assessment and Plan (1) Suspected endocarditis: Status: Acute Plan 48F PMH polysubstance dependence including IV opiates and cocaine, mood disorder, presented with chest pain, fevers sepsis due to MRSA bacteremia in IVDA complicated by pneumonia, uti, and pericardial effusion with early tamponade vanc follow up cultures - 02/16/24 still positive, repeat 02/18/24 ID - likely 4 weeks iv abx once cleared thoracic following no indication right now for pericardiocentesis hcv outpatient follow up chest pain with elevated troponins ?cocaine vs type II [place] vs perimyocarditis continue asa, colchicine polysubstance dependence with withdrawal addiction following continue methadone dvt prophylaxis - lovenox full code reason for continued hospitalization: bacteremia Quality Stroke Does the patient have a stroke diagnosis?: No VTE Prior VTE?: No VTE Risk Level:: Medical - moderate - high VTE Device Contraindication: Treatment Not Indicated VTE Drug Contraindication: N/A - Med Ordered
[2024-02-17] MEDS: ondansetron HCL 4 MG/2 ML VIAL IVPUSH (13:11)
--- NOTE | 2024-02-17 14:43 | PM.PNCARD ---
Subjective Subjective Date of Service: 02/17/24 Principal diagnosis: Pericardial effusion, pericarditis. Interval history: Patient complains of pain all over including in her chest with deep breathing. No hemodynamic compromise. Remains with sinus tachycardia. Blood cultures as till showing Gram-positive cocci. No fevers. Appears diaphoretic. No lightheadedness, syncope. Review of Systems Constitutional: Reports body ache(s), Reports weakness and Reports other (Diaphoresis) Cardiovascular: Reports rapid heart rate, Denies leg edema, Denies lightheadedness, Denies Loss of Consciousness, Denies palpitations and Denies dyspnea Respiratory: Reports pain on inspiration, Reports pain with cough and Denies dyspnea Gastrointestinal: Reports no additional gastrointestinal complaints Reports weakness Endocrine: Denies palpitations Physical Exam Vital Signs: Last Vital Signs Temp 98.9 F 02/17/24 11:00 Pulse 102 H 02/17/24 11:00 Resp 20 02/17/24 11:00 BP 111/81 02/17/24 11:00 Pulse Ox 95 02/17/24 11:00 O2 Del Method Room Air 02/17/24 11:00 BMI result Body Mass Index 31.2 Const General: cooperative, in distress mild and other (Due to pain), ill appearing and other (Diaphoretic) Nutritional Appearance: overweight Orientation/consciousness: patient oriented x3 Neck Neck: Yes trachea midline, Yes supple and Yes JVD Resp Effort & Inspection: decreased respiratory effort Auscultation: diminished lung sounds Cardio Jugular venous distension: JVD Rate: tachycardic Rhythm: regular rhythm Heart sounds: S1 normal heart sound present, S2 normal heart sound present, no click, no gallops, no murmurs and no rubs GI Auscultation: normal bowel sounds Skin General skin exam: no rashes or lesions noted Neuro General: patient oriented x3 and no focal motor deficits Extrem General: Yes no clubbing, cyanosis or edema Objective Labs and Meds 02/17/24 06:45 02/17/24 08:13 Lab results: Laboratory Results - last 24 hr 02/17/24 02/17/24 06:45 08:13 WBC 15.5 H RBC 3.61 L Hgb 9.6 L Hct 28.9 L MCV 80.1 MCH 26.6 L MCHC 33.2 RDW 14.6 Plt Count 268 MPV 10.9 Absolute Nucleated RBC 0.000 Nucleated RBC % (auto) 0.0 Sodium 136 Potassium 4.0 Chloride 106 Carbon Dioxide 20 L Anion Gap 14 BUN 12 Creatinine 0.73 Estim Creat Clear Calc 96.4 Estimated GFR > 60 Fasting Glucose 122 H Calcium 8.3 L Random Vancomycin 20.7 H Progress Note: A&P Assessment and plan (1) Pericardial effusion: Status: Acute Assessment and Plan: Pericardial effusion with early signs of cardiac tamponade with tachycardia. Clinically stable at this point time. She will need a pericardial drain. Given her overall medical situation sepsis I think best approach would be percutaneous bradycardia centesis. Discussed with Dr. Calloway who can do it tomorrow. Please keep the patient NPO. Do the pericardial fluid studies including she was and Gram stain as well as cytology as well as chemistries and cell count. Continue treatment with colchicine as well as nonsteroidals. Pain control. Continue monitor closely on full disclosure cardiac telemetry. Hydrate with IV fluids normal saline at 75 cc an hour. (2) Bacteremia: Status: Acute Assessment and Plan: Bacteremia with staph aureus. High likelihood of underlying vascular source including endocarditis. Echocardiogram did not show any obvious vegetations. Once pericardial fluid is drained and hemodynamically more stable will pursue GARCIA to evaluate for valvular vegetations. Continue aggressive antibiotic therapy. Consider ID consultation. Continue supportive care. Overall prognosis is guarded. Will follow with you Time Spent With Patient Time: Total time managing care of this patient today ____ minutes. Progress Note: Quality Stroke Does the patient have a stroke diagnosis?: No Procedures Date of Service Date of Service: 02/17/24
[2024-02-17] MEDS: vancomycin HCL 1,500 MG in 0.9 % Sodium Chloride 500 ML 333.33 MG IV (15:38)
[2024-02-18] VITALS (10 sets, daily range): BP systolic 103–130; BP diastolic 73–86; PULSE 81–105; RESP 18–21; TEMP 36.1–38.1; O2SAT 91–100
[2024-02-18] MEDS: 0.9 % Sodium Chloride Flush 3 ML SYRINGE IVFLUSH ×2 (01:16→11:36)
[2024-02-18] MEDS: HYDROmorphone HCl 1 MG/ML SYRINGE 2 MG IVPUSH ×5 (04:33→20:29)
[2024-02-18] MEDS: vancomycin HCL 1,500 MG in 0.9 % Sodium Chloride 500 ML 333.33 MG IV (04:40)
[2024-02-18] MEDS: Omeprazole 40 MG CAPSULE.DR PO (05:52)
[2024-02-18] MEDS: Acetaminophen 325 MG TABLET 975 MG PO ×2 (06:45→18:25)
[2024-02-18 06:51] LABS: Hematocrit 24.8 % (37.0-47.0); Hemoglobin 8.3 g/dl (12.0-16.0); Mean Corpuscular HGB Conc 33.5 g/dl (31.0-35.0); Mean Corpuscular Hemoglobin 26.9 pg (27.0-33.0); Mean Corpuscular Volume 80.3 fL (80.0-98.0); Mean Platelet Volume 10.8 fL (9.4-12.3); NRBC Pct Auto 0.1 /100WBC (0.0-0.2); PLT CLUMP 1; Red Blood Count 3.09 X10*6/uL (4.20-5.50); Red Cell Distribution Width 14.9 % (11.0-16.0)
[2024-02-18] MEDS: Budesonide 180 MCG AER.POW.BA 1 PUFF INHALE (07:00)
[2024-02-18 07:22] LABS: Anion Gap 15 (12-20); Blood Urea Nitrogen 11 mg/dL (9-16); Calcium 8.2 mg/dL (8.4-10.2); Carbon Dioxide 20 mmol/L (22-29); Chloride 105 mmol/L (96-108); Estimated Glomerular Filt Rate > 60; Glucose Fasting 113 mg/dL (60-99); Potassium 4.1 mmol/L (3.3-5.1); Sodium 136 mmol/L (135-145)
[2024-02-18] MEDS: methADONE HCl 20 MG/2 ML ORAL.CONC 50 MG PO (08:22)
[2024-02-18] MEDS: Escitalopram Oxalate 10 MG TABLET PO (08:22)
[2024-02-18] MEDS: Colchicine 0.6 MG TABLET PO (08:22)
[2024-02-18 08:59] LABS: Platelet Count 285 X10*3/uL (160-400); White Blood Count 17.2 X10*3/uL (4.8-10.8)
--- NOTE | 2024-02-18 10:16 | PM.PNCARD ---
Subjective Subjective Date of Service: 02/18/24 Principal diagnosis: Pericardial effusion, pericarditis. Interval history: Patient having increasing respiratory trouble this morning requiring 4 L oxygen. No hemodynamic compromise. Still having slightly elevated heart rate. Denies any chest pain. No palpitations. Overall generally she is feeling better. Review of Systems Constitutional: Reports body ache(s) and Reports weakness Cardiovascular: Denies chest pain, Denies lightheadedness, Denies Loss of Consciousness, Denies palpitations and Reports dyspnea Respiratory: Reports dyspnea and Denies wheezing Gastrointestinal: Denies no additional gastrointestinal complaints Reports weakness Endocrine: Denies palpitations Allergic/Immunologic: Denies wheezing Physical Exam Vital Signs: Last Vital Signs Temp 97.7 F 02/18/24 07:53 Pulse 96 02/18/24 07:53 Resp 18 02/18/24 07:53 BP 116/79 02/18/24 07:53 Pulse Ox 94 02/18/24 07:53 O2 Del Method Room Air 02/18/24 07:53 O2 Flow Rate 4 02/17/24 15:19 BMI result Body Mass Index 31.2 Const General: cooperative, comfortable, alert and awake Nutritional Appearance: overweight Orientation/consciousness: patient oriented x3 Neck Neck: Yes trachea midline, Yes supple and Yes JVD Resp Effort & Inspection: decreased respiratory effort Auscultation: no rales, no wheezes and diminished lung sounds Cardio Jugular venous distension: no JVD Rate: regular rate Rhythm: regular rhythm Heart sounds: S1 normal heart sound present, S2 normal heart sound present, no click, no gallops and no murmurs GI Auscultation: normal bowel sounds Neuro General: patient oriented x3 and no focal motor deficits Objective Labs and Meds 02/18/24 06:32 02/18/24 06:32 Lab results: Laboratory Results - last 24 hr 02/18/24 06:32 WBC 17.2 H RBC 3.09 L Hgb 8.3 L Hct 24.8 L MCV 80.3 MCH 26.9 L MCHC 33.5 RDW 14.9 Plt Count 285 MPV 10.8 Absolute Nucleated RBC 0.020 H Nucleated RBC % (auto) 0.1 Sodium 136 Potassium 4.1 Chloride 105 Carbon Dioxide 20 L Anion Gap 15 BUN 11 Creatinine 0.69 Estim Creat Clear Calc 102.0 Estimated GFR > 60 Fasting Glucose 113 H Calcium 8.2 L Imaging Radiologist's impression: Impressions Chest CT 02/17/24 16:11 IMPRESSION: 1. Large pericardial effusion, new since previous study. 2. New large to moderate bilateral pleural effusion and compressive atelectasis. 3. Stable lung nodules. 4. Mediastinal lymphadenopathy. 5. Prominent left adrenal gland. Fleischner guidelines were followed. Electronically signed by: Jaiden Navas MD 02/18/2024 09:53 AM EDT RP Progress Note: A&P Assessment and plan (1) Pericardial effusion: Status: Acute Assessment and Plan: Pericardial effusion with early signs of tamponade inpatient with pericarditis. Continue anti-inflammatory therapy. Patient will need pericardiocentesis through Interventional Radiology and not surgical intervention. This is scheduled for today. Patient respiratory status might be related to pericardial effusion and/or atelectasis with reduced pulmonary capacity. Follow-up echocardiogram was pericardiocentesis is completed today. Continue colchicine and nonsteroidals. (2) Suspected endocarditis: Status: Acute Assessment and Plan: Patient with staph aureus bacteremia, with IV drug abuse. No obvious vegetations were seen on transthoracic. I think she will require transesophageal echocardiogram once her pericardial effusion has been drained and there is no recurrence. Continue aggressive antibiotic therapy. Id consultation. Will follow with you Time Spent With Patient Time: Total time managing care of this patient today ____ minutes. Progress Note: Quality Stroke Does the patient have a stroke diagnosis?: No Procedures Date of Service Date of Service: 02/18/24
--- NOTE | 2024-02-18 10:27 | MHC.CM.PN ---
Per ROUNDS discussion, Patient is not yet medically cleared for dc (4L O2, elevated HR); Patient will require LT IV ABT in a SNF R/T Methadone and drug history. CM will follow.
--- NOTE | 2024-02-18 12:04 | HO.ADDICTPRO ---
Subjective Subjective Date of Service: 02/18/24 Reason For Visit: Chest pain, SIRS Interim History: Patient seen in follow up methadone at 50mg daily would like to increase dose --waking up sweaty in the morning reporting pain is much improved with frequent dialudid dosing still appearing weak and SOB when talking reporting anxiety about procedure scheduled for today Mental Status Exam Mental Status Exam Level of Consciousness: Awake and Alert (weak) Patient Behavior: Appropriate Diagnostics Vital Signs (24Hr): Vital Signs - 24 hr 02/17/24 15:19 02/17/24 18:27 02/17/24 18:39 Temperature 97.9 F 98.0 F Pulse Rate 97 Respiratory Rate 24 H 16 Blood Pressure 141/81 H Pulse Oximetry 93 Oxygen Delivery Method Nasal Cannula Oxygen Flow Rate 4 02/17/24 20:00 02/18/24 00:00 02/18/24 03:57 Temperature 98.2 F 100.5 F H 99.5 F Pulse Rate 100 105 H 99 Respiratory Rate 20 20 20 Blood Pressure 133/81 119/74 130/84 Pulse Oximetry 100 93 91 L Oxygen Delivery Method Room Air Room Air Oxygen Flow Rate 02/18/24 07:02 02/18/24 07:53 02/18/24 11:34 Temperature 97.7 F 97.0 F Pulse Rate 99 96 81 Respiratory Rate 20 18 20 Blood Pressure 116/79 103/73 Pulse Oximetry 94 100 Oxygen Delivery Method Room Air Nasal Cannula Oxygen Flow Rate 4 BMI result Body Mass Index 31.2 Labs 02/18/24 06:32 02/18/24 06:32 Labs: Laboratory Results - last 48 hr 02/16/24 02/17/24 02/17/24 11:23 06:45 08:13 WBC 15.5 H RBC 3.61 L Hgb 9.6 L Hct 28.9 L MCV 80.1 MCH 26.6 L MCHC 33.2 RDW 14.6 Plt Count 268 MPV 10.9 Absolute Nucleated RBC 0.000 Nucleated RBC % (auto) 0.0 Sodium 136 Potassium 4.0 Chloride 106 Carbon Dioxide 20 L Anion Gap 14 BUN 12 Creatinine 0.73 Estim Creat Clear Calc 96.4 Estimated GFR > 60 Fasting Glucose 122 H Calcium 8.3 L Random Vancomycin 15.5 20.7 H 02/18/24 06:32 WBC 17.2 H RBC 3.09 L Hgb 8.3 L Hct 24.8 L MCV 80.3 MCH 26.9 L MCHC 33.5 RDW 14.9 Plt Count 285 MPV 10.8 Absolute Nucleated RBC 0.020 H Nucleated RBC % (auto) 0.1 Sodium 136 Potassium 4.1 Chloride 105 Carbon Dioxide 20 L Anion Gap 15 BUN 11 Creatinine 0.69 Estim Creat Clear Calc 102.0 Estimated GFR > 60 Fasting Glucose 113 H Calcium 8.2 L Random Vancomycin Imaging Radiology Impressions: ITS Impressions Chest CTA 02/13/24 23:47 IMPRESSION: 1. No pulmonary embolus identified. 2. Scattered regions of consolidation bilaterally as detailed above, greatest in the right upper lobe, suspicious for an infectious or other inflammatory etiology. Follow-up CT in 3 months is recommended to assess for resolution. 3. Trace pericardial effusion. VTE: negative Electronically signed by: Anroldo Hsieh MD 02/14/2024 01:26 AM EDT Venous Duplex 02/14/24 02:30 IMPRESSION: No evidence of deep venous thrombosis involving the bilateral lower extremities. Electronically signed by: Arnoldo Hsieh MD 02/14/2024 03:11 AM EDT RP Chest CT 02/17/24 16:11 IMPRESSION: 1. Large pericardial effusion, new since previous study. 2. New large to moderate bilateral pleural effusion and compressive atelectasis. 3. Stable lung nodules. 4. Mediastinal lymphadenopathy. 5. Prominent left adrenal gland. Fleischner guidelines were followed. Electronically signed by: Jaiden Navas MD 02/18/2024 09:53 AM EDT RP Medications Medications Current Medications Acetaminophen (Acetaminophen 325 Mg Tablet) 975 mg PO Q6H PRN PRN Reason: Pain, Mild (Pain Scale 1-3), fever or headache Last Admin: 02/18/24 06:45 Dose: 975 mg Albuterol Sulfate (Albuterol Sulfate 90 Mcg 8 Gm Inhaler) 2 puff INHALE RQ4H PRN PRN Reason: Wheezing Aspirin (Aspirin Enteric Coated 81 Mg Tablet.) 81 mg PO DAILY [facility] Last Admin: 02/17/24 09:16 Dose: 81 mg Budesonide (Budesonide 180 Mcg Aer.Pow.Ba) 1 puff INHALE RBID [facility] Last Admin: 02/18/24 07:00 Dose: 1 puff Colchicine (Colchicine 0.6 Mg Tablet) 0.6 mg PO DAILY [facility] Last Admin: 02/18/24 08:22 Dose: 0.6 mg Enoxaparin Sodium (Enoxaparin Sodium 40 Mg/0.4 Ml Syringe) 40 mg SUBCUT Q24H [facility] Last Admin: 02/16/24 20:23 Dose: 40 mg Escitalopram Oxalate (Escitalopram Oxalate 10 Mg Tablet) 10 mg PO DAILY [facility] Last Admin: 02/18/24 08:22 Dose: 10 mg Hydromorphone HCl (Hydromorphone Hcl 1 Mg/Ml Syringe) 2 mg IVPUSH Q2H PRN; Protocol PRN Reason: Pain, Moderate(Pain Scale 4-6) Last Admin: 02/18/24 11:35 Dose: 2 mg Vancomycin HCl 1,500 mg/ (Sodium Chloride) 500 mls @ 333.333 mls/hr IV Q12H [facility] Last Infusion: 02/18/24 07:27 Dose: Infused Methadone HCl (Methadone Hcl 20 Mg/2 Ml Oral.Conc) 60 mg PO DAILY [facility] Nitroglycerin (Nitroglycerin 0.4 Mg Tab.Subl) 0.4 mg SUBLINGUAL Q5MX3 PRN PRN Reason: Chest Pain Omeprazole (Omeprazole 40 Mg Capsule.Dr) 40 mg PO DAILY@0630 [facility] Last Admin: 02/18/24 05:52 Dose: 40 mg Ondansetron HCl (Ondansetron Hcl 4 Mg/2 Ml Vial) 4 mg IVPUSH Q6H PRN PRN Reason: Nausea Last Admin: 02/17/24 13:11 Dose: 4 mg Pharmacy Consult (Consult Rx Vancomycin Dosing) 1 each MISCELLANE DAILY PRN PRN Reason: Consult order Sodium Chloride (0.9 % Sodium Chloride Flush 3 Ml Syringe) 3 ml IVFLUSH QSHIFT [facility] Last Admin: 02/18/24 11:36 Dose: 3 ml Allergies Allergies Allergy/AdvReac Type Severity Reaction Status Date / Time latex [LATEX] Allergy Unknown rash Verified 02/13/24 21:02 Assessment & Plan Assessment & Plan (1) Opioid use disorder: Status: Acute Code(s): F11.90 - Opioid use, unspecified, uncomplicated Assessment and Plan: methadone dose increase to 60mg QD in AM continue 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
--- NOTE | 2024-02-18 12:59 | HO.PM.IMPN ---
Subjective Subjective Date of Service: 02/18/24 Interval History: seen and evaluated this morning looks weak and feels sick increase O2 requiriements to 4L plan for Pericardiocentesis by IT Review of Systems Review of Systems: Yes all other systems are reviewed and are negative Physical Exam Vital Signs: Vital Signs: Last Vital Signs Temp 97.0 F 02/18/24 11:34 Pulse 81 02/18/24 11:34 Resp 20 02/18/24 11:34 BP 103/73 02/18/24 11:34 Pulse Ox 100 02/18/24 11:34 O2 Del Method Nasal Cannula 02/18/24 11:34 O2 Flow Rate 4 02/18/24 11:34 BMI result Body Mass Index 31.2 Const: Other: Constitutional : Awake, interactive, not in distress Neck : Normal inspection, Supple Cardiovascular : RRR, mildly elevated JVP, trace lower extremity edema Respiratory : fair bilateral air entry, basal fine bilateral crackles, no wheezes Gastrointestinal: soft, lax, Normal bowel sounds, Non tender Skin : Warm, Dry Neurological : Alert & oriented x3, No focal deficit , CN 2-12 within normal Objective Data Active Medications Acetaminophen (Acetaminophen 325 Mg Tablet) 975 mg PO Q6H PRN PRN Reason: Pain, Mild (Pain Scale 1-3), fever or headache Last Admin: 02/18/24 06:45 Dose: 975 mg Documented By: ENRIQUE Albuterol Sulfate (Albuterol Sulfate 90 Mcg 8 Gm Inhaler) 2 puff INHALE RQ4H PRN PRN Reason: Wheezing Aspirin (Aspirin Enteric Coated 81 Mg Tablet.) 81 mg PO DAILY [facility] Last Admin: 02/17/24 09:16 Dose: 81 mg Documented By: EVELYN Budesonide (Budesonide 180 Mcg Aer.Pow.Ba) 1 puff INHALE RBID [facility] Last Admin: 02/18/24 07:00 Dose: 1 puff Documented By: ULISSES Colchicine (Colchicine 0.6 Mg Tablet) 0.6 mg PO DAILY [facility] Last Admin: 02/18/24 08:22 Dose: 0.6 mg Documented By: JESSICA Enoxaparin Sodium (Enoxaparin Sodium 40 Mg/0.4 Ml Syringe) 40 mg SUBCUT Q24H [facility] Last Admin: 02/16/24 20:23 Dose: 40 mg Documented By: CRISTIAN Escitalopram Oxalate (Escitalopram Oxalate 10 Mg Tablet) 10 mg PO DAILY [facility] Last Admin: 02/18/24 08:22 Dose: 10 mg Documented By: JESSICA Hydromorphone HCl (Hydromorphone Hcl 1 Mg/Ml Syringe) 2 mg IVPUSH Q2H PRN; Protocol PRN Reason: Pain, Moderate(Pain Scale 4-6) Last Admin: 02/18/24 11:35 Dose: 2 mg Documented By: JESSICA Vancomycin HCl 1,500 mg/ (Sodium Chloride) 500 mls @ 333.333 mls/hr IV Q12H [facility] Last Infusion: 02/18/24 07:27 Dose: Infused Documented By: ENRIQUE Methadone HCl (Methadone Hcl 20 Mg/2 Ml Oral.Conc) 60 mg PO DAILY [facility] Nitroglycerin (Nitroglycerin 0.4 Mg Tab.Subl) 0.4 mg SUBLINGUAL Q5MX3 PRN PRN Reason: Chest Pain Omeprazole (Omeprazole 40 Mg Capsule.Dr) 40 mg PO DAILY@0630 [facility] Last Admin: 02/18/24 05:52 Dose: 40 mg Documented By: ENRIQUE Ondansetron HCl (Ondansetron Hcl 4 Mg/2 Ml Vial) 4 mg IVPUSH Q6H PRN PRN Reason: Nausea Last Admin: 02/17/24 13:11 Dose: 4 mg Documented By: EVELYN Pharmacy Consult (Consult Rx Vancomycin Dosing) 1 each MISCELLANE DAILY PRN PRN Reason: Consult order Sodium Chloride (0.9 % Sodium Chloride Flush 3 Ml Syringe) 3 ml IVFLUSH QSHIFT [facility] Last Admin: 02/18/24 11:36 Dose: 3 ml Documented By: JESSICA Labs 02/18/24 06:32 02/18/24 06:32 Labs: Laboratory Results - last 24 hr 02/18/24 06:32 MCV 80.3 MCH 26.9 L MCHC 33.5 RDW 14.9 Plt Count 285 MPV 10.8 Absolute Nucleated RBC 0.020 H Nucleated RBC % (auto) 0.1 Anion Gap 15 Estim Creat Clear Calc 102.0 Estimated GFR > 60 Fasting Glucose 113 H Calcium 8.2 L Microbiology Microbiology Results: Microbiology 02/16/24 07:57 Blood Culture - Final Blood - Venous Methicillin Res Staph Aureus 02/16/24 07:57 Blood Culture - Final Blood - Venous Methicillin Res Staph Aureus Assessment and Plan (1) Pericardial effusion: Status: Acute (2) Pericarditis: Status: Acute (3) Bacteremia: Status: Acute (4) Opioid use disorder: Status: Acute Plan 48F PMH polysubstance dependence including IV opiates and cocaine, mood disorder, presented with chest pain, fevers sepsis due to MRSA bacteremia in IVDA complicated by pneumonia, uti, and pericardial effusion with early tamponade follow up cultures - 02/16/24 still positive, repeat 02/18/24 Continue IV Vancomycin ID - likely 4 weeks iv abx once cleared IR for pericardiocentesis to do GARCIA once tamponade drained wean O2 down as tolerated follow Vanco trough hcv outpatient follow up chest pain with elevated troponins cocaine vs type II CT vs perimyocarditis Continue colchicine and nonsteroidals per Cardiology polysubstance dependence with withdrawal addiction following continue methadone Hepatitis C tested positive, for outpatient follow up dvt prophylaxis - lovenox full code reason for continued hospitalization: bacteremia pending negative cultures Quality Stroke Does the patient have a stroke diagnosis?: No VTE Prior VTE?: No VTE Risk Level:: Medical - moderate - high VTE Device Contraindication: Treatment Not Indicated VTE Drug Contraindication: N/A - Med Ordered
[2024-02-18 14:06] LABS: UPreg QC Valid YES; Urine Pregnancy NEGATIVE (NEGATIVE)
--- NOTE | 2024-02-18 14:33 | P.CONAN_ITS ---
HPI - Anesthesia Eval Consult details Narrative: For thoracentesis follwed by pericardiocentesis PMFSH Active Problems Active Problems: All Active Problems Pericardial effusion (Acute) Pericarditis (Acute) Bacteremia (Acute) Opioid use disorder (Acute) Pleuritic chest pain (Acute) Suspected endocarditis (Acute) NSTEMI (non-ST elevated myocardial infarction) (Acute) Heroin use (Acute) Cocaine use (Acute) Elevated troponin I level (Acute) Cellulitis of foot, right (Acute) Chest pain (Acute) Multilobar lung infiltrate (Acute) GERD (gastroesophageal reflux disease) (Acute) Chronic constipation (Acute) Family history of colon cancer in mother (Acute) Carpal tunnel syndrome on right (Acute) Trigger finger, right middle finger (Acute) Anemia (Acute) Bacterial vaginosis (Acute) Well woman exam (Acute) Menometrorrhagia (Acute) Iron deficiency anemia (Acute) Past Medical History Medical History Arthritis Migraines GERD (gastroesophageal reflux disease) HTN (hypertension) HLD (hyperlipidemia) Asthma Patient : No Family History Family History Mother Colon cancer Family/Other Uterine cancer Maternal Aunt Breast cancer Spinal cord cancer Maternal Grandmother Dementia Family history of problems with anesthesia: No Surgical History Surgical History Tubal ligation status History of Problems with Anesthesia: No Social History Social History Household Members: None Housing: Apartment Do you presently have visiting nurse or other home services: No Alcohol intake: never Comment: pt refuses bed alarm. Patient Tobacco Use Status: Current everyday Tobacco user Cigarette Packs Per Day: 1 Cigarettes Per Day: 20.0 Second Hand Smoke Exposure: No Substance Use Type: Crack/Cocaine service: No Meds Allergies Allergy/AdvReac Type Severity Reaction Status Date / Time latex [LATEX] Allergy Unknown rash Verified 02/13/24 21:02 Active Medications: Current Medications Acetaminophen (Acetaminophen 325 Mg Tablet) 975 mg PO Q6H PRN PRN Reason: Pain, Mild (Pain Scale 1-3), fever or headache Last Admin: 02/18/24 06:45 Dose: 975 mg Albuterol Sulfate (Albuterol Sulfate 90 Mcg 8 Gm Inhaler) 2 puff INHALE RQ4H PRN PRN Reason: Wheezing Aspirin (Aspirin Enteric Coated 81 Mg Tablet.) 81 mg PO DAILY [facility] Last Admin: 02/17/24 09:16 Dose: 81 mg Budesonide (Budesonide 180 Mcg Aer.Pow.Ba) 1 puff INHALE RBID [facility] Last Admin: 02/18/24 07:00 Dose: 1 puff Colchicine (Colchicine 0.6 Mg Tablet) 0.6 mg PO DAILY [facility] Last Admin: 02/18/24 08:22 Dose: 0.6 mg Enoxaparin Sodium (Enoxaparin Sodium 40 Mg/0.4 Ml Syringe) 40 mg SUBCUT Q24H [facility] Last Admin: 02/16/24 20:23 Dose: 40 mg Escitalopram Oxalate (Escitalopram Oxalate 10 Mg Tablet) 10 mg PO DAILY [facility] Last Admin: 02/18/24 08:22 Dose: 10 mg Hydromorphone HCl (Hydromorphone Hcl 1 Mg/Ml Syringe) 2 mg IVPUSH Q2H PRN; Protocol PRN Reason: Pain, Moderate(Pain Scale 4-6) Last Admin: 02/18/24 11:35 Dose: 2 mg Vancomycin HCl 1,500 mg/ (Sodium Chloride) 500 mls @ 333.333 mls/hr IV Q12H [facility] Last Infusion: 02/18/24 07:27 Dose: Infused Methadone HCl (Methadone Hcl 20 Mg/2 Ml Oral.Conc) 60 mg PO DAILY [facility] Nitroglycerin (Nitroglycerin 0.4 Mg Tab.Subl) 0.4 mg SUBLINGUAL Q5MX3 PRN PRN Reason: Chest Pain Omeprazole (Omeprazole 40 Mg Capsule.) 40 mg PO DAILY@0630 [facility] Last Admin: 02/18/24 05:52 Dose: 40 mg Ondansetron HCl (Ondansetron Hcl 4 Mg/2 Ml Vial) 4 mg IVPUSH Q6H PRN PRN Reason: Nausea Last Admin: 02/17/24 13:11 Dose: 4 mg Pharmacy Consult (Consult Rx Vancomycin Dosing) 1 each MISCELLANE DAILY PRN PRN Reason: Consult order Sodium Chloride (0.9 % Sodium Chloride Flush 3 Ml Syringe) 3 ml IVFLUSH QSHIFT [facility] Last Admin: 02/18/24 11:36 Dose: 3 ml Home Medications ?Medication ?Instructions ?Recorded ?Confirmed ?Last Taken ?Type clonidine HCl 0.1 mg tablet 1 tab PO TID PRN Anxiety 12/13/20 02/14/24 Unknown History omeprazole 40 mg capsule,delayed 1 cap PO DAILY 12/13/20 02/14/24 Unknown History release albuterol sulfate 90 mcg/actuation 2 puff inhalation Q4-6H PRN 02/14/24 02/14/24 Unknown History aerosol inhaler (Ventolin HFA) Shortness Of Breath Or Wheezing budesonide 180 mcg/actuation 1 inh inhalation BID 02/14/24 02/14/24 Unknown History breath activated powder inhaler (Pulmicort Flexhaler) escitalopram oxalate 10 mg tablet 10 mg PO QAM 02/14/24 02/14/24 Unknown History lisinopril 10 mg tablet 10 mg PO QAM 02/14/24 02/14/24 Unknown History Exam Height,Weight and Vital Signs: Height 5 ft 3 in Weight 80 kg Last Vital Signs Temp 97.0 F 02/18/24 11:34 Pulse 81 02/18/24 11:34 Resp 20 02/18/24 11:34 BP 103/73 02/18/24 11:34 Pulse Ox 100 02/18/24 11:34 O2 Del Method Nasal Cannula 02/18/24 11:34 O2 Flow Rate 4 02/18/24 11:34 Pertinent Lab Results Pertinent Lab Results: Laboratory Tests 02/13/24 02/13/24 02/13/24 21:33 22:37 23:18 WBC 13.0 H RBC 3.92 L Hgb 10.6 L Hct 31.2 L MCV 79.6 L MCH 27.0 MCHC 34.0 RDW 13.8 Plt Count 160 MPV 10.3 Immature Gran % (Auto) 0.5 H Neut % (Auto) 84.7 H Lymph % (Auto) 6.4 L [place] % (Auto) 7.9 Eos % (Auto) 0.2 Baso % (Auto) 0.3 Lymph # (Auto) 0.8 L [place] # (Auto) 1.0 Eos # (Auto) 0.0 Baso # (Auto) 0.0 Abs Immat Gran (auto) 0.07 H Absolute Neuts (auto) 11.0 H Absolute Nucleated RBC 0.000 Nucleated RBC % (auto) 0.0 Smear Tech's Comments PT 13.9 H INR 1.1 APTT 29.6 D-Dimer High Sensitivty 680 Sodium 136 Potassium 3.8 Chloride 104 Carbon Dioxide 23 Anion Gap 13 BUN 18 H Creatinine 0.78 Estim Creat Clear Calc 90.2 Estimated GFR > 60 Random Glucose 168 H Fasting Glucose Lactic Acid Calcium 9.2 Magnesium Total Bilirubin 0.5 Direct Bilirubin AST 26 ALT 18 Alkaline Phosphatase 126 H Total Creatine Kinase 402 H Troponin I High Sens 842.1 H* 845.3 H* Total Protein 7.2 Albumin 3.5 Urine Color Urine Appearance Urine pH Ur Specific [place] Urine Protein Urine Glucose (UA) Urine Ketones Urine Blood Urine Nitrite Ur Leukocyte Esterase Urine RBC Urine WBC Ur Squamous Epith Cells Urine Bacteria Hyaline Casts Urine Test Random Vancomycin Urine Opiates Screen Ur Buprenorphine Scrn Ur Oxycodone Screen Urine Methadone Screen Urine Fentanyl Screen Ur Barbiturates Screen Ur Phencyclidine Scrn Ur Amphetamines Screen U Benzodiazepines Scrn Urine Cocaine Screen U Marijuana (THC) Screen Hep Bs Antigen Hep Bs Antibody Hep B Core Total Ab Hepatitis C Ab (EIA) HIV 1&2 Ab/P24 Ag 4thGn Influenza Type A (PCR) Influenza Type B (PCR) RSV RNA Qual (PCR) SARS-CoV-2 RNA (RT-PCR) 02/14/24 02/14/24 02/14/24 02:00 02:05 04:36 WBC 15.4 H RBC 3.60 L Hgb 9.7 L Hct 28.9 L MCV 80.3 MCH 26.9 L MCHC 33.6 RDW 13.8 Plt Count 135 L MPV 11.0 Immature Gran % (Auto) 0.7 H Neut % (Auto) 80.3 H Lymph % (Auto) 8.3 L [place] % (Auto) 10.2 Eos % (Auto) 0.2 Baso % (Auto) 0.3 Lymph # (Auto) 1.3 [place] # (Auto) 1.6 H Eos # (Auto) 0.0 Baso # (Auto) 0.0 Abs Immat Gran (auto) 0.10 H Absolute Neuts (auto) 12.4 H Absolute Nucleated RBC 0.000 Nucleated RBC % (auto) 0.0 Smear Tech's Comments VERIFIED PT INR APTT D-Dimer High Sensitivty Sodium 134 L Potassium 4.4 Chloride 104 Carbon Dioxide 21 L Anion Gap 13 BUN 17 H Creatinine 0.78 Estim Creat Clear Calc 90.2 Estimated GFR > 60 Random Glucose 153 H Fasting Glucose Lactic Acid 1.6 Calcium 8.5 D Magnesium Total Bilirubin 0.7 Direct Bilirubin AST 33 H ALT 19 Alkaline Phosphatase 138 H Total Creatine Kinase Troponin I High Sens 463.3 H* Total Protein 6.7 Albumin 3.0 L Urine Color Yellow Urine Appearance Clear Urine pH 6.0 Ur Specific [place] >= 1.030 H Urine Protein 100 (2+) H Urine Glucose (UA) Negative Urine Ketones Negative Urine Blood Trace H Urine Nitrite Negative Ur Leukocyte Esterase Negative Urine RBC 6-10 H Urine WBC 0-5 Ur Squamous Epith Cells 11-20 Urine Bacteria 3+ Hyaline Casts 0-2 Urine Test Random Vancomycin Urine Opiates Screen POSITIVE H Ur Buprenorphine Scrn Not Detected Ur Oxycodone Screen Positive H Urine Methadone Screen Not Detected Urine Fentanyl Screen POSITIVE H Ur Barbiturates Screen Not Detected Ur Phencyclidine Scrn Not Detected Ur Amphetamines Screen Not Detected U Benzodiazepines Scrn Not Detected Urine Cocaine Screen POSITIVE H U Marijuana (THC) Screen Not Detected Hep Bs Antigen Hep Bs Antibody Hep B Core Total Ab Hepatitis C Ab (EIA) HIV 1&2 Ab/P24 Ag 4thGn Influenza Type A (PCR) NEGATIVE Influenza Type B (PCR) NEGATIVE RSV RNA Qual (PCR) NEGATIVE SARS-CoV-2 RNA (RT-PCR) NEGATIVE 02/15/24 02/15/24 02/15/24 04:10 04:11 12:01 WBC 18.4 H RBC 3.67 L Hgb 9.8 L Hct 29.6 L MCV 80.7 MCH 26.7 L MCHC 33.1 RDW 14.2 Plt Count 186 D MPV 11.3 Immature Gran % (Auto) Neut % (Auto) Lymph % (Auto) [place] % (Auto) Eos % (Auto) Baso % (Auto) Lymph # (Auto) [place] # (Auto) Eos # (Auto) Baso # (Auto) Abs Immat Gran (auto) Absolute Neuts (auto) Absolute Nucleated RBC 0.000 Nucleated RBC % (auto) 0.0 Smear Tech's Comments PT INR APTT D-Dimer High Sensitivty Sodium 136 Potassium 3.6 Chloride 103 Carbon Dioxide 22 Anion Gap 15 BUN 16 Creatinine 0.78 Estim Creat Clear Calc 90.2 Estimated GFR > 60 Random Glucose Fasting Glucose 130 H Lactic Acid Calcium 8.7 Magnesium Total Bilirubin Direct Bilirubin AST ALT Alkaline Phosphatase Total Creatine Kinase Troponin I High Sens Total Protein Albumin Urine Color Urine Appearance Urine pH Ur Specific [place] Urine Protein Urine Glucose (UA) Urine Ketones Urine Blood Urine Nitrite Ur Leukocyte Esterase Urine RBC Urine WBC Ur Squamous Epith Cells Urine Bacteria Hyaline Casts Urine Test Random Vancomycin 10.1 L Urine Opiates Screen Ur Buprenorphine Scrn Ur Oxycodone Screen Urine Methadone Screen Urine Fentanyl Screen Ur Barbiturates Screen Ur Phencyclidine Scrn Ur Amphetamines Screen U Benzodiazepines Scrn Urine Cocaine Screen U Marijuana (THC) Screen Hep Bs Antigen Hep Bs Antibody Hep B Core Total Ab Hepatitis C Ab (EIA) HIV 1&2 Ab/P24 Ag 4thGn Influenza Type A (PCR) Influenza Type B (PCR) RSV RNA Qual (PCR) SARS-CoV-2 RNA (RT-PCR) 02/16/24 02/16/24 02/17/24 07:57 11:23 06:45 WBC 13.2 H 15.5 H RBC 3.43 L 3.61 L Hgb 9.0 L 9.6 L Hct 27.7 L 28.9 L MCV 80.8 80.1 MCH 26.2 L 26.6 L MCHC 32.5 33.2 RDW 14.4 14.6 Plt Count 238 D 268 MPV 10.7 10.9 Immature Gran % (Auto) Neut % (Auto) Lymph % (Auto) [place] % (Auto) Eos % (Auto) Baso % (Auto) Lymph # (Auto) [place] # (Auto) Eos # (Auto) Baso # (Auto) Abs Immat Gran (auto) Absolute Neuts (auto) Absolute Nucleated RBC 0.000 0.000 Nucleated RBC % (auto) 0.0 0.0 Smear Tech's Comments PT INR APTT D-Dimer High Sensitivty Sodium 138 Potassium 3.4 Chloride 104 Carbon Dioxide 23 Anion Gap 14 BUN 15 Creatinine 0.78 Estim Creat Clear Calc 90.2 Estimated GFR > 60 Random Glucose Fasting Glucose 125 H Lactic Acid Calcium 8.4 Magnesium 2.1 Total Bilirubin 0.6 Direct Bilirubin 0.4 AST 22 ALT 15 Alkaline Phosphatase 189 H Total Creatine Kinase Troponin I High Sens Total Protein 6.5 Albumin 2.8 L Urine Color Urine Appearance Urine pH Ur Specific [place] Urine Protein Urine Glucose (UA) Urine Ketones Urine Blood Urine Nitrite Ur Leukocyte Esterase Urine RBC Urine WBC Ur Squamous Epith Cells Urine Bacteria Hyaline Casts Urine Test Random Vancomycin 15.5 Urine Opiates Screen Ur Buprenorphine Scrn Ur Oxycodone Screen Urine Methadone Screen Urine Fentanyl Screen Ur Barbiturates Screen Ur Phencyclidine Scrn Ur Amphetamines Screen U Benzodiazepines Scrn Urine Cocaine Screen U Marijuana (THC) Screen Hep Bs Antigen Negative Hep Bs Antibody REACTIVE Hep B Core Total Ab Nonreactive Hepatitis C Ab (EIA) Reactive H HIV 1&2 Ab/P24 Ag 4thGn Nonreactive Influenza Type A (PCR) Influenza Type B (PCR) RSV RNA Qual (PCR) SARS-CoV-2 RNA (RT-PCR) 02/17/24 02/18/24 02/18/24 08:13 06:32 13:54 WBC 17.2 H RBC 3.09 L Hgb 8.3 L Hct 24.8 L MCV 80.3 MCH 26.9 L MCHC 33.5 RDW 14.9 Plt Count 285 MPV 10.8 Immature Gran % (Auto) Neut % (Auto) Lymph % (Auto) [place] % (Auto) Eos % (Auto) Baso % (Auto) Lymph # (Auto) [place] # (Auto) Eos # (Auto) Baso # (Auto) Abs Immat Gran (auto) Absolute Neuts (auto) Absolute Nucleated RBC 0.020 H Nucleated RBC % (auto) 0.1 Smear Tech's Comments PT INR APTT D-Dimer High Sensitivty Sodium 136 136 Potassium 4.0 4.1 Chloride 106 105 Carbon Dioxide 20 L 20 L Anion Gap 14 15 BUN 12 11 Creatinine 0.73 0.69 Estim Creat Clear Calc 96.4 102.0 Estimated GFR > 60 > 60 Random Glucose Fasting Glucose 122 H 113 H Lactic Acid Calcium 8.3 L 8.2 L Magnesium Total Bilirubin Direct Bilirubin AST ALT Alkaline Phosphatase Total Creatine Kinase Troponin I High Sens Total Protein Albumin Urine Color Urine Appearance Urine pH Ur Specific [place] Urine Protein Urine Glucose (UA) Urine Ketones Urine Blood Urine Nitrite Ur Leukocyte Esterase Urine RBC Urine WBC Ur Squamous Epith Cells Urine Bacteria Hyaline Casts Urine Test NEGATIVE Random Vancomycin 20.7 H Urine Opiates Screen Ur Buprenorphine Scrn Ur Oxycodone Screen Urine Methadone Screen Urine Fentanyl Screen Ur Barbiturates Screen Ur Phencyclidine Scrn Ur Amphetamines Screen U Benzodiazepines Scrn Urine Cocaine Screen U Marijuana (THC) Screen Hep Bs Antigen Hep Bs Antibody Hep B Core Total Ab Hepatitis C Ab (EIA) HIV 1&2 Ab/P24 Ag 4thGn Influenza Type A (PCR) Influenza Type B (PCR) RSV RNA Qual (PCR) SARS-CoV-2 RNA (RT-PCR) Airway Mallampati Class: I TM Dist: <=3cm Neck ROM: Full Denture: Upper Loose/Missing/Broken Teeth: Yes and Upper Heart: pericardial tamponade Lungs: bilat pl effusions, R>L. Other: SpO2 89% on 4L NC, but tracing is poor at all sites. No signal on ear or forehead. Best on toe. Assessment and Plan Final Anesthetic Review Family History of Problems with Anesthesia: No History of Problems with Anesthesia: No NPO: Yes ASA Class: IV and Emergency Final Preanesthetic Review: No Changes in Pt Med Stat, Meds/Allgs Chart Reviewed, Consent Obtained/Reviewed and Anes Risks/Benef Reviewed Patient Risk: High Procedure Risk: High Anesthetic Plan Anesthetic Plan: MAC: and Agree w/ Assess. and Plan Disposition: Standard PACU
[2024-02-18 17:50] LABS: Vancomycin Random 12.6 mcg/mL (15-20)
--- NOTE | 2024-02-18 17:58 | HE.PHANOTE ---
RE: vanco Trough on 02/17 came back at 12.6mg/L; increased dose back to 1000mg Q8H with predicted trough of 14.5mg/L, AUC of 483. Next level to be drawn 02/18 @1600
[2024-02-18] MEDS: vancomycin HCL 1,000 MG in 0.9 % Sodium Chloride 250 ML 270 MG IV (18:23)
[2024-02-18 20:36] LABS: WBC Pericardial Fluid 1050 MM*3
[2024-02-18 20:37] LABS: BF Shift QC OK YES; Lymphs Pericardial Fl 25 %; Man Diluent Bkgrd OK YES; Monocytes Pericard Fl 16 %; Neutrophils Pericardial Fluid 59 %; RBC Pericardial Fluid 19850 MM*3
[2024-02-18 23:38] LABS: Lymphs Pericardial Fl 69 %; Neutrophils Pericardial Fluid 31 %
[2024-02-19] VITALS (13 sets, daily range): BP systolic 105–128; BP diastolic 62–92; PULSE 88–105; RESP 18–20; TEMP 36.4–37.3; O2SAT 95–96
[2024-02-19 00:11] LABS: WBC Pericardial Fluid 120 MM*3
[2024-02-19 00:12] LABS: BF Shift QC OK YES; Man Diluent Bkgrd OK YES; RBC Pericardial Fluid 29900 MM*3
[2024-02-19] MEDS: HYDROmorphone HCl 1 MG/ML SYRINGE 2 MG IVPUSH ×6 (00:21→20:45)
[2024-02-19] MEDS: vancomycin HCL 1,000 MG in 0.9 % Sodium Chloride 250 ML 270 MG IV ×3 (03:04→18:36)
[2024-02-19] MEDS: Omeprazole 40 MG CAPSULE.DR PO (06:10)
--- NOTE | 2024-02-19 07:00 | CA_ITS ---
Transthoracic Echocardiogram Patient (Last, First, Middle): Nelsy Singh, Gender: Female Date of : 1975 Age: 48 Procedure Date: 02/19/2024 Procedure Type: Transthoracic Echocardiogram Location: [facility] [place] Height: 160.02 cm Weight: 79.83 kg BSA: 1.83 m2 Heart Rate: bpm BP: 115 / 75 mmHg Natural Fabricator: TO Referring MD: Adam Elaine MD Hotshot Superintendent: Adam Elaine MD Symptoms: Status post pericardial drainage Study Quality: Technically Difficult ECG Rhythm: Sinus Conclusions: - Small pericardial effusion present with possible constrictive physiology Findings Procedure Information The study quality is limited by the patients inability to tolerate the test and the presence of bandages. Pericardium/Pleural There is a small circumferential pericardial effusion. The inferior vena cava is dilated with reduced respiratory variability. There is excessive respiratory variation of the mitral valve Doppler velocities. possible constrictive physiology Prior Study Comparison Changes noted compared to prior study dated: 02/17/2024. Pericardial effusion quantity has reduced Measurements Mitral Valve E'Lateral: 6.85 E'Medial: 10.00 Diastolic Function E'Medial: 10.00 E' Laterial: 6.85 Tricuspid Valve RA Press: 15.00 Updated in Other Vendor System with Status of Final Adam Elaine MD electronically signed on 02/20/2024 9:06:40 AM with status of Final
[2024-02-19] MEDS: Budesonide 180 MCG AER.POW.BA 1 PUFF INHALE (07:32)
[2024-02-19 08:44] LABS: Hematocrit 28.5 % (37.0-47.0); Hemoglobin 9.2 g/dl (12.0-16.0); Mean Corpuscular HGB Conc 32.3 g/dl (31.0-35.0); Mean Corpuscular Hemoglobin 26.7 pg (27.0-33.0); Mean Corpuscular Volume 82.8 fL (80.0-98.0); NRBC Pct Auto 0.1 /100WBC (0.0-0.2); PLT CLUMP 1; Red Blood Count 3.44 X10*6/uL (4.20-5.50); Red Cell Distribution Width 15.1 % (11.0-16.0)
[2024-02-19 08:57] LABS: Anion Gap 13 (12-20); Blood Urea Nitrogen 10 mg/dL (9-16); Calcium 8.1 mg/dL (8.4-10.2); Carbon Dioxide 23 mmol/L (22-29); Chloride 104 mmol/L (96-108); Creatinine Clr Calc Pharmacy 113.5; Estimated Glomerular Filt Rate > 60; Glucose Random 127 mg/dL (60-115); Potassium 4.3 mmol/L (3.3-5.1); Sodium 136 mmol/L (135-145)
[2024-02-19 09:12] LABS: Mean Platelet Volume 10.2 fL (9.4-12.3); Platelet Count 354 X10*3/uL (160-400); White Blood Count 18.6 X10*3/uL (4.8-10.8)
--- NOTE | 2024-02-19 10:03 | PM.PNTS ---
Subjective Subjective Date of Service: 02/19/24 Interval history: Underwent pericardiocentesis with drain placement yesterday. Continues to c/o shortness of breath. Awaiting thoracentesis today. Right arm swelling noted today. Physical Exam Vital Signs: Vital Signs: Last Vital Signs Temp 98.4 F 02/19/24 07:49 Pulse 105 H 02/19/24 07:49 Resp 18 02/19/24 07:49 BP 115/75 02/19/24 07:49 Pulse Ox 96 02/19/24 07:49 O2 Del Method Nasal Cannula 02/19/24 07:49 O2 Flow Rate 2 02/19/24 07:49 BMI result Body Mass Index 31.2 Const: General: alert and tired appearing Orientation/consciousness: patient oriented x3 Chest: Other: pericardial drain anterior chest, scant serosanguineous drainage Resp: Effort & Inspection: no respiratory distress and not tachypneic Skin: General skin exam: no rashes or lesions noted Neuro: General: patient oriented x3 Procedures Date of Service Date of Service: 02/19/24 Progress Note: A&P Assessment and plan (1) Pericardial effusion: Status: Acute (2) Pleural effusion: Status: Acute Plan F/u echo ordered for today by cardiology. Pericardial drain with scant output. Cultures growing gram positive cocci, f/u results. Can keep drain in place for now, trend output. Likely will be able to remove tomorrow if output continues to be scant. For thoracentesis today. Continue incentive spirometer. Time Spent With Patient Time: Total time managing care of this patient today ____ minutes. Quality Stroke Does the patient have a stroke diagnosis?: No VTE Prior VTE?: No VTE Risk Level:: Medical - moderate - high VTE Device Contraindication: Treatment Not Indicated VTE Drug Contraindication: N/A - Med Ordered
--- NOTE | 2024-02-19 10:06 | PM.PNCARD ---
Subjective Subjective Date of Service: 02/19/24 Principal diagnosis: Pericardial effusion, pericarditis. Interval history: Patient status post pericardial drainage. Continues to have sinus tachycardia. Complains of pain all over and in the right arm at the site of IV was told that she was thrombophlebitis. Currently getting local treatment for the same. Plan for thoracocentesis today. Continues to have some shortness of breath. Review of Systems Constitutional: Reports body ache(s) Cardiovascular: Denies syncope, Denies leg edema, Denies lightheadedness, Denies Loss of Consciousness, Denies palpitations and Reports dyspnea Respiratory: Reports pain on inspiration, Reports pain with cough and Reports dyspnea Denies syncope Endocrine: Denies palpitations Physical Exam Vital Signs: Last Vital Signs Temp 98.4 F 02/19/24 07:49 Pulse 105 H 02/19/24 07:49 Resp 18 02/19/24 07:49 BP 115/75 02/19/24 07:49 Pulse Ox 96 02/19/24 07:49 O2 Del Method Nasal Cannula 02/19/24 07:49 O2 Flow Rate 2 02/19/24 07:49 BMI result Body Mass Index 31.2 Const General: cooperative, comfortable, alert and awake Nutritional Appearance: overweight Orientation/consciousness: patient oriented x3 Neck Neck: Yes trachea midline, Yes supple and Yes JVD Resp Effort & Inspection: decreased respiratory effort Auscultation: no rales, no wheezes and diminished lung sounds Cardio Jugular venous distension: no JVD Rate: regular rate Rhythm: regular rhythm Heart sounds: S1 normal heart sound present, S2 normal heart sound present, no click, no gallops and no murmurs GI Auscultation: normal bowel sounds Neuro General: patient oriented x3 and no focal motor deficits Objective Labs and Meds 02/19/24 08:18 02/19/24 08:18 Lab results: Laboratory Results - last 24 hr 02/18/24 02/18/24 02/18/24 13:54 15:15 17:21 WBC RBC Hgb Hct MCV MCH MCHC RDW Plt Count MPV Absolute Nucleated RBC Nucleated RBC % (auto) Sodium Potassium Chloride Carbon Dioxide Anion Gap BUN Creatinine Estim Creat Clear Calc Estimated GFR Random Glucose Calcium Urine Test NEGATIVE [place] WBC 1050 [place] RBC 20074 [place] Neutrophils 59 [place] Lymphocytes 25 [place] Monocytes 16 [place] Total Protein Pericardial Albumin Pericardial LDH Random Vancomycin 12.6 L 02/18/24 02/19/24 21:00 08:18 WBC 18.6 H RBC 3.44 L Hgb 9.2 L Hct 28.5 L MCV 82.8 MCH 26.7 L MCHC 32.3 RDW 15.1 Plt Count 354 MPV 10.2 Absolute Nucleated RBC 0.020 H Nucleated RBC % (auto) 0.1 Sodium 136 Potassium 4.3 Chloride 104 Carbon Dioxide 23 Anion Gap 13 BUN 10 Creatinine 0.62 Estim Creat Clear Calc 113.5 Estimated GFR > 60 Random Glucose 127 H Calcium 8.1 L Urine Test [place] WBC 120 [place] RBC 29897 [place] Neutrophils 31 [place] Lymphocytes 69 [place] Monocytes [place] Total Protein Cancelled Pericardial Albumin Cancelled Pericardial LDH Cancelled Random Vancomycin Progress Note: A&P Assessment and plan (1) Pericardial effusion: Status: Acute Assessment and Plan: Pericardial effusion status post drain. Will perform limited echo today to assess for pericardial fluid. Remove drain if the pericardial fluid is minimal. Plan for thoracocentesis today. Continue anti-inflammatory therapy. (2) Bacteremia: Status: Acute Assessment and Plan: Staph aureus bacteremia. Plan for GARCIA to monitor rule out evidence of endocarditis. Discussed with her the need for the procedure including risks and benefits. Keep her NPO past midnight today. Will follow with you Time Spent With Patient Time: Total time managing care of this patient today ____ minutes. Progress Note: Quality Stroke Does the patient have a stroke diagnosis?: No Procedures Date of Service Date of Service: 02/19/24
[2024-02-19] MEDS: methADONE HCl 20 MG/2 ML ORAL.CONC 60 MG PO (10:21)
[2024-02-19] MEDS: 0.9 % Sodium Chloride Flush 3 ML SYRINGE IVFLUSH ×2 (10:25→16:33)
[2024-02-19] MEDS: Colchicine 0.6 MG TABLET PO ×2 (10:26→21:52)
[2024-02-19] MEDS: Escitalopram Oxalate 10 MG TABLET PO (10:26)
--- NOTE | 2024-02-19 10:46 | HO.PM.IMPN ---
Subjective Subjective Date of Service: 02/19/24 Interval History: seen and evaluated this morning feels no energy and complaining of pain in chest and back Hb stable at 9.2 O2 requiriements to 2L plan for Thoracentesis Review of Systems Review of Systems: Yes all other systems are reviewed and are negative Physical Exam Vital Signs: Vital Signs: Last Vital Signs Temp 98.4 F 02/19/24 07:49 Pulse 105 H 02/19/24 07:49 Resp 18 02/19/24 07:49 BP 115/75 02/19/24 07:49 Pulse Ox 96 02/19/24 07:49 O2 Del Method Nasal Cannula 02/19/24 07:49 O2 Flow Rate 2 02/19/24 07:49 BMI result Body Mass Index 31.2 Const: Other: Constitutional : Awake, interactive, not in distress Neck : Normal inspection, Supple Cardiovascular : RRR, mildly elevated JVP, trace lower extremity edema Respiratory : fair bilateral air entry decreased at right base, basal fine bilateral crackles, no wheezes Gastrointestinal: soft, lax, Normal bowel sounds, Non tender Skin : Warm, Dry Neurological : Alert & oriented x3, No focal deficit Objective Data Active Medications Acetaminophen (Acetaminophen 325 Mg Tablet) 975 mg PO Q6H PRN PRN Reason: Pain, Mild (Pain Scale 1-3), fever or headache Last Admin: 02/18/24 18:25 Dose: 975 mg Documented By: JESSICA Albuterol Sulfate (Albuterol Sulfate 90 Mcg 8 Gm Inhaler) 2 puff INHALE RQ4H PRN PRN Reason: Wheezing Aspirin (Aspirin Enteric Coated 81 Mg Tablet.) 81 mg PO DAILY [facility] Last Admin: 02/17/24 09:16 Dose: 81 mg Documented By: EVELYN Budesonide (Budesonide 180 Mcg Aer.Pow.Ba) 1 puff INHALE RBID [facility] Last Admin: 02/19/24 07:32 Dose: 1 puff Documented By: TARAH Colchicine (Colchicine 0.6 Mg Tablet) 0.6 mg PO DAILY [facility] Last Admin: 02/19/24 10:26 Dose: 0.6 mg Documented By: VASILIY Enoxaparin Sodium (Enoxaparin Sodium 40 Mg/0.4 Ml Syringe) 40 mg SUBCUT Q24H [facility] Last Admin: 02/16/24 20:23 Dose: 40 mg Documented By: CRISTIAN Escitalopram Oxalate (Escitalopram Oxalate 10 Mg Tablet) 10 mg PO DAILY [facility] Last Admin: 02/19/24 10:26 Dose: 10 mg Documented By: VASILIY Hydromorphone HCl (Hydromorphone Hcl 1 Mg/Ml Syringe) 2 mg IVPUSH Q3H PRN; Protocol PRN Reason: Pain, Moderate(Pain Scale 4-6) Vancomycin HCl 1,000 mg/ (Sodium Chloride) 270 mls @ 270 mls/hr IV Q8H [facility] Last Admin: 02/19/24 10:21 Dose: 270 mls/hr Documented By: VASILIY Methadone HCl (Methadone Hcl 20 Mg/2 Ml Oral.Conc) 60 mg PO DAILY [facility] Last Admin: 02/19/24 10:21 Dose: 60 mg Documented By: VASILIY Co-signed By: BLAKE Naloxone HCl (Naloxone Hcl 0.4 Mg/Ml Vial) 0.04 mg IVPUSH Q5M PRN PRN Reason: Excessive sedation or RR < 8 Nitroglycerin (Nitroglycerin 0.4 Mg Tab.Subl) 0.4 mg SUBLINGUAL Q5MX3 PRN PRN Reason: Chest Pain Omeprazole (Omeprazole 40 Mg Capsule.Dr) 40 mg PO DAILY@0630 [facility] Last Admin: 02/19/24 06:10 Dose: 40 mg Documented By: ELVIS Ondansetron HCl (Ondansetron Hcl 4 Mg/2 Ml Vial) 4 mg IVPUSH Q6H PRN PRN Reason: Nausea Last Admin: 02/17/24 13:11 Dose: 4 mg Documented By: EVELYN Pharmacy Consult (Consult Rx Vancomycin Dosing) 1 each MISCELLANE DAILY PRN PRN Reason: Consult order Sodium Chloride (0.9 % Sodium Chloride Flush 3 Ml Syringe) 3 ml IVFLUSH QSHIFT [facility] Last Admin: 02/19/24 10:25 Dose: 3 ml Documented By: VASILIY Labs 02/19/24 08:18 02/19/24 08:18 Labs: Laboratory Results - last 24 hr 02/18/24 02/18/24 02/18/24 13:54 15:15 17:21 MCV MCH MCHC RDW Plt Count MPV Absolute Nucleated RBC Nucleated RBC % (auto) Anion Gap Estim Creat Clear Calc Estimated GFR Random Glucose Calcium Urine Test NEGATIVE [place] WBC 1050 [place] RBC 19897 [place] Neutrophils 59 [place] Lymphocytes 25 [place] Monocytes 16 [place] Total Protein Pericardial Albumin Pericardial LDH Random Vancomycin 12.6 L 02/18/24 02/19/24 21:00 08:18 MCV 82.8 MCH 26.7 L MCHC 32.3 RDW 15.1 Plt Count 354 MPV 10.2 Absolute Nucleated RBC 0.020 H Nucleated RBC % (auto) 0.1 Anion Gap 13 Estim Creat Clear Calc 113.5 Estimated GFR > 60 Random Glucose 127 H Calcium 8.1 L Urine Test [facility] WBC 120 [place] RBC 44661 [facility] Neutrophils 31 [place] Lymphocytes 69 [place] Monocytes [facility] Total Protein Cancelled Pericardial Albumin Cancelled Pericardial LDH Cancelled Random Vancomycin Microbiology Microbiology Results: Microbiology 02/18/24 21:00 Gram Stain - Final Pericardial Fluid Anaerobic Culture - Preliminary Culture in progress. Body Fluid Culture - Preliminary Gram positive cocci 02/16/24 07:57 Blood Culture - Final Blood - Venous Methicillin Res Staph Aureus 02/16/24 07:57 Blood Culture - Final Blood - Venous Methicillin Res Staph Aureus Assessment and Plan (1) Pleural effusion: Status: Acute (2) Pericardial effusion: Status: Acute (3) Pericarditis: Status: Acute (4) Bacteremia: Status: Acute (5) Opioid use disorder: Status: Acute Plan 48F PMH polysubstance dependence including IV opiates and cocaine, mood disorder, presented with chest pain, fevers sepsis due to MRSA bacteremia in IVDA complicated by pneumonia, uti, and pericardial effusion with early tamponade follow up cultures - 02/16/24 still positive, repeat 02/18/24 Continue IV Vancomycin ID - likely 4 weeks iv abx once cleared IR for pericardiocentesis to do GARCIA tomorrow NPO post midnight wean O2 down as tolerated follow Vanco trough Right sided pleural effusion Thoracentsis fluid analysis Rt Cephalic vein thrombus keep arm elevated NSAIDs warm compressors hcv outpatient follow up chest pain with elevated troponins cocaine vs type II MS vs perimyocarditis Continue colchicine and nonsteroidals per Cardiology polysubstance dependence with withdrawal addiction following continue methadone Hepatitis C tested positive, for outpatient follow up dvt prophylaxis - lovenox full code reason for continued hospitalization: bacteremia pending negative cultures and GARCIA Quality Stroke Does the patient have a stroke diagnosis?: No VTE Prior VTE?: No VTE Risk Level:: Medical - moderate - high VTE Device Contraindication: Treatment Not Indicated VTE Drug Contraindication: N/A - Med Ordered
--- NOTE | 2024-02-19 11:18 | HO.POSTANES ---
Post Anesthesia Evaluation Post Anesthesia Evaluation Date of Service: 02/18/24 Vital Signs: Vital Signs Temp Pulse Resp BP Pulse Ox O2 Del Method O2 Flow Rate 02/19/24 07:49 98.4 F 105 H 18 115/75 96 Nasal Cannula 2 02/19/24 07:33 95 18 02/19/24 06:11 20 02/19/24 03:51 98.8 F 100 20 128/88 96 Room Air 2 02/19/24 03:07 20 02/19/24 00:00 98.9 F 95 20 124/92 H 95 Nasal Cannula 2 Anesthesia: Monitored Mental Status: Awake Pain Control: Satisfactory Nausea/Vomiting: None Hydration: Adequate Anesthesia-Related Issues: No Anes. Related Issues
[2024-02-19] MEDS: Ibuprofen 400 MG TABLET PO (12:15)
--- NOTE | 2024-02-19 14:19 | PM.PROC ---
Brief Operative Note Date of procedure: 02/19/24 Pre-op diagnosis: Right pleural effusion Post-op diagnosis: same Procedure: US right thoracentesis 1300 cc serous fluid removed and sent for analysis. No immediate complications. Anesthesia: local
[2024-02-19] MEDS: Lidocaine HCl 1 % MPF 5 ML VIAL SUBCUT (14:21)
[2024-02-19 14:41] LABS: MN% 51.7 %; PMN% 48.3 %; WBC Pleural Fluid 0.407 X10*3/uL
[2024-02-19 14:43] LABS: RBC Pleural Fluid < 0.002 X10*6/uL
[2024-02-19 16:07] LABS: BF Shift QC OK YES; Lymphocytes Pleural Fluid 28 %; Monocytes Pleural Fluid 4 %; Neutrophils Pleural Fluid 49 %; Other Cells Plerual Fl 19 %
[2024-02-19] MEDS: Acetaminophen 325 MG TABLET 975 MG PO (18:37)
[2024-02-19 18:57] LABS: Vancomycin Random 15.6 mcg/mL (15-20)
[2024-02-19] MEDS: methADONE HCl 20 MG/2 ML ORAL.CONC 5 MG PO (21:52)
[2024-02-19] MEDS: Dicyclomine HCl 10 MG CAPSULE PO (21:52)
[2024-02-20] VITALS (15 sets, daily range): BP systolic 100–125; BP diastolic 62–74; PULSE 82–98; RESP 16–20; TEMP 36–36.7; O2SAT 92–99
[2024-02-20] MEDS: vancomycin HCL 1,000 MG in 0.9 % Sodium Chloride 250 ML 270 MG IV ×3 (03:41→17:55)
[2024-02-20] MEDS: Omeprazole 40 MG CAPSULE.DR PO (05:45)
[2024-02-20] MEDS: HYDROmorphone HCl 1 MG/ML SYRINGE 2 MG IVPUSH ×4 (05:45→21:15)
[2024-02-20 07:11] LABS: Anion Gap 11 (12-20); Blood Urea Nitrogen 11 mg/dL (9-16); Calcium 7.9 mg/dL (8.4-10.2); Carbon Dioxide 25 mmol/L (22-29); Chloride 107 mmol/L (96-108); Creatinine Clr Calc Pharmacy 125.7; Estimated Glomerular Filt Rate > 60; Glucose Random 115 mg/dL (60-115); Potassium 4.3 mmol/L (3.3-5.1); Sodium 139 mmol/L (135-145)
[2024-02-20] MEDS: Budesonide 180 MCG AER.POW.BA 1 PUFF INHALE (07:13)
[2024-02-20 08:17] LABS: Glucose Pleural Fluid 128; LDH Pleural Fluid 189; Total Protein Pleural Fluid 2.8
--- NOTE | 2024-02-20 09:17 | P.CONAN_ITS ---
HPI - Anesthesia Eval Consult details Narrative: [facility] Active Problems Active Problems: All Active Problems Pleural effusion (Acute) Pericardial effusion (Acute) Pericarditis (Acute) Bacteremia (Acute) Opioid use disorder (Acute) Pleuritic chest pain (Acute) Suspected endocarditis (Acute) NSTEMI (non-ST elevated myocardial infarction) (Acute) Heroin use (Acute) Cocaine use (Acute) Elevated troponin I level (Acute) Cellulitis of foot, right (Acute) Chest pain (Acute) Multilobar lung infiltrate (Acute) GERD (gastroesophageal reflux disease) (Acute) Chronic constipation (Acute) Family history of colon cancer in mother (Acute) Carpal tunnel syndrome on right (Acute) Trigger finger, right middle finger (Acute) Anemia (Acute) Bacterial vaginosis (Acute) Well woman exam (Acute) Menometrorrhagia (Acute) Iron deficiency anemia (Acute) Past Medical History Medical History Arthritis Migraines GERD (gastroesophageal reflux disease) HTN (hypertension) HLD (hyperlipidemia) Asthma Family History Family History Mother Colon cancer Family/Other Uterine cancer Maternal Aunt Breast cancer Spinal cord cancer Maternal Grandmother Dementia Family history of problems with anesthesia: No Surgical History Surgical History Tubal ligation status History of Problems with Anesthesia: No Social History Social History Household Members: None Housing: Apartment Do you presently have visiting nurse or other home services: No Alcohol intake: never Comment: pt refuses bed alarm. Patient Tobacco Use Status: Current everyday Tobacco user Cigarette Packs Per Day: 1 Cigarettes Per Day: 20.0 Second Hand Smoke Exposure: No Substance Use Type: Crack/Cocaine service: No Meds Allergies Allergy/AdvReac Type Severity Reaction Status Date / Time latex [LATEX] Allergy Unknown rash Verified 02/13/24 21:02 Active Medications: Current Medications Acetaminophen (Acetaminophen 325 Mg Tablet) 975 mg PO Q6H PRN PRN Reason: Pain, Mild (Pain Scale 1-3), fever or headache Last Admin: 09/19/24 18:37 Dose: 975 mg Albuterol Sulfate (Albuterol Sulfate 90 Mcg 8 Gm Inhaler) 2 puff INHALE RQ4H PRN PRN Reason: Wheezing Aspirin (Aspirin Enteric Coated 81 Mg Tablet.) 81 mg PO DAILY [facility] Last Admin: 02/17/24 09:16 Dose: 81 mg Budesonide (Budesonide 180 Mcg Aer.Pow.Ba) 1 puff INHALE RBID [facility] Last Admin: 02/20/24 07:13 Dose: 1 puff Colchicine (Colchicine 0.6 Mg Tablet) 0.6 mg PO BID [facility] Last Admin: 02/19/24 21:52 Dose: 0.6 mg Dicyclomine HCl (Dicyclomine Hcl 10 Mg Capsule) 10 mg PO QIDACHS [facility] Last Admin: 02/19/24 21:52 Dose: 10 mg Enoxaparin Sodium (Enoxaparin Sodium 40 Mg/0.4 Ml Syringe) 40 mg SUBCUT Q24H [facility] Last Admin: 02/16/24 20:23 Dose: 40 mg Escitalopram Oxalate (Escitalopram Oxalate 10 Mg Tablet) 10 mg PO DAILY [facility] Last Admin: 02/19/24 10:26 Dose: 10 mg Hydromorphone HCl (Hydromorphone Hcl 1 Mg/Ml Syringe) 2 mg IVPUSH Q3H PRN; Protocol PRN Reason: Pain, Moderate(Pain Scale 4-6) Last Admin: 02/20/24 05:45 Dose: 2 mg Vancomycin HCl 1,000 mg/ (Sodium Chloride) 270 mls @ 270 mls/hr IV Q8H [facility] Last Infusion: 02/20/24 05:19 Dose: Infused Methadone HCl (Methadone Hcl 20 Mg/2 Ml Oral.Conc) 60 mg PO DAILY [facility] Last Admin: 02/19/24 10:21 Dose: 60 mg Methadone HCl (Methadone Hcl 20 Mg/2 Ml Oral.Conc) 10 mg PO DAILY PRN PRN Reason: Opiate Withdrawal Naloxone HCl (Naloxone Hcl 0.4 Mg/Ml Vial) 0.04 mg IVPUSH Q5M PRN PRN Reason: Excessive sedation or RR < 8 Nitroglycerin (Nitroglycerin 0.4 Mg Tab.Subl) 0.4 mg SUBLINGUAL Q5MX3 PRN PRN Reason: Chest Pain Omeprazole (Omeprazole 40 Mg Capsule.) 40 mg PO DAILY@0630 [facility] Last Admin: 02/20/24 05:45 Dose: 40 mg Ondansetron HCl (Ondansetron Hcl 4 Mg/2 Ml Vial) 4 mg IVPUSH Q6H PRN PRN Reason: Nausea Last Admin: 02/17/24 13:11 Dose: 4 mg Pharmacy Consult (Consult Rx Vancomycin Dosing) 1 each MISCELLANE DAILY PRN PRN Reason: Consult order Sodium Chloride (0.9 % Sodium Chloride Flush 3 Ml Syringe) 3 ml IVFLUSH QSHIFT [facility] Last Admin: 02/20/24 04:07 Dose: Not Given Home Medications ?Medication ?Instructions ?Recorded ?Confirmed ?Last Taken ?Type clonidine HCl 0.1 mg tablet 1 tab PO TID PRN Anxiety 12/13/20 02/14/24 Unknown History omeprazole 40 mg capsule,delayed 1 cap PO DAILY 12/13/20 02/14/24 Unknown History release albuterol sulfate 90 mcg/actuation 2 puff inhalation Q4-6H PRN 02/14/24 02/14/24 Unknown History aerosol inhaler (Ventolin HFA) Shortness Of Breath Or Wheezing budesonide 180 mcg/actuation 1 inh inhalation BID 02/14/24 02/14/24 Unknown History breath activated powder inhaler (Pulmicort Flexhaler) escitalopram oxalate 10 mg tablet 10 mg PO QAM 02/14/24 02/14/24 Unknown History lisinopril 10 mg tablet 10 mg PO QAM 02/14/24 02/14/24 Unknown History Exam Height,Weight and Vital Signs: Height 5 ft 3 in Weight 80 kg Last Vital Signs Temp 97 F 02/20/24 07:51 Pulse 92 02/20/24 07:51 Resp 20 02/20/24 07:51 BP 102/67 02/20/24 07:51 Pulse Ox 95 02/20/24 07:51 O2 Del Method Nasal Cannula 02/20/24 07:51 O2 Flow Rate 2 02/20/24 07:51 Oxygen Flow Rate 2 02/19/24 15:13 Pertinent Lab Results Pertinent Lab Results: Laboratory Tests 02/13/24 02/13/24 02/13/24 21:33 22:37 23:18 WBC 13.0 H RBC 3.92 L Hgb 10.6 L Hct 31.2 L MCV 79.6 L MCH 27.0 MCHC 34.0 RDW 13.8 Plt Count 160 MPV 10.3 Immature Gran % (Auto) 0.5 H Neut % (Auto) 84.7 H Lymph % (Auto) 6.4 L [place] % (Auto) 7.9 Eos % (Auto) 0.2 Baso % (Auto) 0.3 Lymph # (Auto) 0.8 L [place] # (Auto) 1.0 Eos # (Auto) 0.0 Baso # (Auto) 0.0 Abs Immat Gran (auto) 0.07 H Absolute Neuts (auto) 11.0 H Absolute Nucleated RBC 0.000 Nucleated RBC % (auto) 0.0 Smear Tech's Comments PT 13.9 H INR 1.1 APTT 29.6 D-Dimer High Sensitivty 680 Sodium 136 Potassium 3.8 Chloride 104 Carbon Dioxide 23 Anion Gap 13 BUN 18 H Creatinine 0.78 Estim Creat Clear Calc 90.2 Estimated GFR > 60 Random Glucose 168 H Fasting Glucose Lactic Acid Calcium 9.2 Magnesium Total Bilirubin 0.5 Direct Bilirubin AST 26 ALT 18 Alkaline Phosphatase 126 H Total Creatine Kinase 402 H Troponin I High Sens 842.1 H* 845.3 H* Total Protein 7.2 Albumin 3.5 Urine Color Urine Appearance Urine pH Ur Specific [place] Urine Protein Urine Glucose (UA) Urine Ketones Urine Blood Urine Nitrite Ur Leukocyte Esterase Urine RBC Urine WBC Ur Squamous Epith Cells Urine Bacteria Hyaline Casts Urine Test [place] WBC [place] RBC [place] Neutrophils [place] Lymphocytes [place]icard Monocytes [place] Total Protein Pericardial Albumin Pericardial LDH Pleural WBC Pleural RBC Pleural Neutrophils Pleural Lymphocytes Pleural Monocytes Pleural Other Cells Pleural Total Protein Pleural LDH Pleural Glucose Random Vancomycin Urine Opiates Screen Ur Buprenorphine Scrn Ur Oxycodone Screen Urine Methadone Screen Urine Fentanyl Screen Ur Barbiturates Screen Ur Phencyclidine Scrn Ur Amphetamines Screen U Benzodiazepines Scrn Urine Cocaine Screen U Marijuana (THC) Screen Hep Bs Antigen Hep Bs Antibody Hep B Core Total Ab Hepatitis C Ab (EIA) HIV 1&2 Ab/P24 Ag 4thGn Influenza Type A (PCR) Influenza Type B (PCR) RSV RNA Qual (PCR) SARS-CoV-2 RNA (RT-PCR) 02/14/24 02/14/24 02/14/24 02:00 02:05 04:36 WBC 15.4 H RBC 3.60 L Hgb 9.7 L Hct 28.9 L MCV 80.3 MCH 26.9 L MCHC 33.6 RDW 13.8 Plt Count 135 L MPV 11.0 Immature Gran % (Auto) 0.7 H Neut % (Auto) 80.3 H Lymph % (Auto) 8.3 L [place] % (Auto) 10.2 Eos % (Auto) 0.2 Baso % (Auto) 0.3 Lymph # (Auto) 1.3 [place] # (Auto) 1.6 H Eos # (Auto) 0.0 Baso # (Auto) 0.0 Abs Immat Gran (auto) 0.10 H Absolute Neuts (auto) 12.4 H Absolute Nucleated RBC 0.000 Nucleated RBC % (auto) 0.0 Smear Tech's Comments VERIFIED PT INR APTT D-Dimer High Sensitivty Sodium 134 L Potassium 4.4 Chloride 104 Carbon Dioxide 21 L Anion Gap 13 BUN 17 H Creatinine 0.78 Estim Creat Clear Calc 90.2 Estimated GFR > 60 Random Glucose 153 H Fasting Glucose Lactic Acid 1.6 Calcium 8.5 D Magnesium Total Bilirubin 0.7 Direct Bilirubin AST 33 H ALT 19 Alkaline Phosphatase 138 H Total Creatine Kinase Troponin I High Sens 463.3 H* Total Protein 6.7 Albumin 3.0 L Urine Color Yellow Urine Appearance Clear Urine pH 6.0 Ur Specific [place] >= 1.030 H Urine Protein 100 (2+) H Urine Glucose (UA) Negative Urine Ketones Negative Urine Blood Trace H Urine Nitrite Negative Ur Leukocyte Esterase Negative Urine RBC 6-10 H Urine WBC 0-5 Ur Squamous Epith Cells 11-20 Urine Bacteria 3+ Hyaline Casts 0-2 Urine Test [place] WBC [place] RBC [place] Neutrophils [place] Lymphocytes [place] Monocytes [place] Total Protein Pericardial Albumin Pericardial LDH Pleural WBC Pleural RBC Pleural Neutrophils Pleural Lymphocytes Pleural Monocytes Pleural Other Cells Pleural Total Protein Pleural LDH Pleural Glucose Random Vancomycin Urine Opiates Screen POSITIVE H Ur Buprenorphine Scrn Not Detected Ur Oxycodone Screen Positive H Urine Methadone Screen Not Detected Urine Fentanyl Screen POSITIVE H Ur Barbiturates Screen Not Detected Ur Phencyclidine Scrn Not Detected Ur Amphetamines Screen Not Detected U Benzodiazepines Scrn Not Detected Urine Cocaine Screen POSITIVE H U Marijuana (THC) Screen Not Detected Hep Bs Antigen Hep Bs Antibody Hep B Core Total Ab Hepatitis C Ab (EIA) HIV 1&2 Ab/P24 Ag 4thGn Influenza Type A (PCR) NEGATIVE Influenza Type B (PCR) NEGATIVE RSV RNA Qual (PCR) NEGATIVE SARS-CoV-2 RNA (RT-PCR) NEGATIVE 02/15/24 02/15/24 02/15/24 04:10 04:11 12:01 WBC 18.4 H RBC 3.67 L Hgb 9.8 L Hct 29.6 L MCV 80.7 MCH 26.7 L MCHC 33.1 RDW 14.2 Plt Count 186 D MPV 11.3 Immature Gran % (Auto) Neut % (Auto) Lymph % (Auto) [place] % (Auto) Eos % (Auto) Baso % (Auto) Lymph # (Auto) [place] # (Auto) Eos # (Auto) Baso # (Auto) Abs Immat Gran (auto) Absolute Neuts (auto) Absolute Nucleated RBC 0.000 Nucleated RBC % (auto) 0.0 Smear Tech's Comments PT INR APTT D-Dimer High Sensitivty Sodium 136 Potassium 3.6 Chloride 103 Carbon Dioxide 22 Anion Gap 15 BUN 16 Creatinine 0.78 Estim Creat Clear Calc 90.2 Estimated GFR > 60 Random Glucose Fasting Glucose 130 H Lactic Acid Calcium 8.7 Magnesium Total Bilirubin Direct Bilirubin AST ALT Alkaline Phosphatase Total Creatine Kinase Troponin I High Sens Total Protein Albumin Urine Color Urine Appearance Urine pH Ur Specific [place] Urine Protein Urine Glucose (UA) Urine Ketones Urine Blood Urine Nitrite Ur Leukocyte Esterase Urine RBC Urine WBC Ur Squamous Epith Cells Urine Bacteria Hyaline Casts Urine Test [place] WBC [place] RBC [place] Neutrophils [place] Lymphocytes [place] Monocytes [place] Total Protein Pericardial Albumin Pericardial LDH Pleural WBC Pleural RBC Pleural Neutrophils Pleural Lymphocytes Pleural Monocytes Pleural Other Cells Pleural Total Protein Pleural LDH Pleural Glucose Random Vancomycin 10.1 L Urine Opiates Screen Ur Buprenorphine Scrn Ur Oxycodone Screen Urine Methadone Screen Urine Fentanyl Screen Ur Barbiturates Screen Ur Phencyclidine Scrn Ur Amphetamines Screen U Benzodiazepines Scrn Urine Cocaine Screen U Marijuana (THC) Screen Hep Bs Antigen Hep Bs Antibody Hep B Core Total Ab Hepatitis C Ab (EIA) HIV 1&2 Ab/P24 Ag 4thGn Influenza Type A (PCR) Influenza Type B (PCR) RSV RNA Qual (PCR) SARS-CoV-2 RNA (RT-PCR) 02/16/24 02/16/24 02/17/24 07:57 11:23 06:45 WBC 13.2 H 15.5 H RBC 3.43 L 3.61 L Hgb 9.0 L 9.6 L Hct 27.7 L 28.9 L MCV 80.8 80.1 MCH 26.2 L 26.6 L MCHC 32.5 33.2 RDW 14.4 14.6 Plt Count 238 D 268 MPV 10.7 10.9 Immature Gran % (Auto) Neut % (Auto) Lymph % (Auto) [place] % (Auto) Eos % (Auto) Baso % (Auto) Lymph # (Auto) [place] # (Auto) Eos # (Auto) Baso # (Auto) Abs Immat Gran (auto) Absolute Neuts (auto) Absolute Nucleated RBC 0.000 0.000 Nucleated RBC % (auto) 0.0 0.0 Smear Tech's Comments PT INR APTT D-Dimer High Sensitivty Sodium 138 Potassium 3.4 Chloride 104 Carbon Dioxide 23 Anion Gap 14 BUN 15 Creatinine 0.78 Estim Creat Clear Calc 90.2 Estimated GFR > 60 Random Glucose Fasting Glucose 125 H Lactic Acid Calcium 8.4 Magnesium 2.1 Total Bilirubin 0.6 Direct Bilirubin 0.4 AST 22 ALT 15 Alkaline Phosphatase 189 H Total Creatine Kinase Troponin I High Sens Total Protein 6.5 Albumin 2.8 L Urine Color Urine Appearance Urine pH Ur Specific [place] Urine Protein Urine Glucose (UA) Urine Ketones Urine Blood Urine Nitrite Ur Leukocyte Esterase Urine RBC Urine WBC Ur Squamous Epith Cells Urine Bacteria Hyaline Casts Urine Test [place] WBC [place] RBC [place] Neutrophils [place] Lymphocytes [place] Monocytes [place] Total Protein Pericardial Albumin Pericardial LDH Pleural WBC Pleural RBC Pleural Neutrophils Pleural Lymphocytes Pleural Monocytes Pleural Other Cells Pleural Total Protein Pleural LDH Pleural Glucose Random Vancomycin 15.5 Urine Opiates Screen Ur Buprenorphine Scrn Ur Oxycodone Screen Urine Methadone Screen Urine Fentanyl Screen Ur Barbiturates Screen Ur Phencyclidine Scrn Ur Amphetamines Screen U Benzodiazepines Scrn Urine Cocaine Screen U Marijuana (THC) Screen Hep Bs Antigen Negative Hep Bs Antibody REACTIVE Hep B Core Total Ab Nonreactive Hepatitis C Ab (EIA) Reactive H HIV 1&2 Ab/P24 Ag 4thGn Nonreactive Influenza Type A (PCR) Influenza Type B (PCR) RSV RNA Qual (PCR) SARS-CoV-2 RNA (RT-PCR) 02/17/24 02/18/24 02/18/24 08:13 06:32 13:54 WBC 17.2 H RBC 3.09 L Hgb 8.3 L Hct 24.8 L MCV 80.3 MCH 26.9 L MCHC 33.5 RDW 14.9 Plt Count 285 MPV 10.8 Immature Gran % (Auto) Neut % (Auto) Lymph % (Auto) [place] % (Auto) Eos % (Auto) Baso % (Auto) Lymph # (Auto) [place] # (Auto) Eos # (Auto) Baso # (Auto) Abs Immat Gran (auto) Absolute Neuts (auto) Absolute Nucleated RBC 0.020 H Nucleated RBC % (auto) 0.1 Smear Tech's Comments PT INR APTT D-Dimer High Sensitivty Sodium 136 136 Potassium 4.0 4.1 Chloride 106 105 Carbon Dioxide 20 L 20 L Anion Gap 14 15 BUN 12 11 Creatinine 0.73 0.69 Estim Creat Clear Calc 96.4 102.0 Estimated GFR > 60 > 60 Random Glucose Fasting Glucose 122 H 113 H Lactic Acid Calcium 8.3 L 8.2 L Magnesium Total Bilirubin Direct Bilirubin AST ALT Alkaline Phosphatase Total Creatine Kinase Troponin I High Sens Total Protein Albumin Urine Color Urine Appearance Urine pH Ur Specific [place] Urine Protein Urine Glucose (UA) Urine Ketones Urine Blood Urine Nitrite Ur Leukocyte Esterase Urine RBC Urine WBC Ur Squamous Epith Cells Urine Bacteria Hyaline Casts Urine Test NEGATIVE [place] WBC [place] RBC [place] Neutrophils [place] Lymphocytes [place] Monocytes [place] Total Protein Pericardial Albumin Pericardial LDH Pleural WBC Pleural RBC Pleural Neutrophils Pleural Lymphocytes Pleural Monocytes Pleural Other Cells Pleural Total Protein Pleural LDH Pleural Glucose Random Vancomycin 20.7 H Urine Opiates Screen Ur Buprenorphine Scrn Ur Oxycodone Screen Urine Methadone Screen Urine Fentanyl Screen Ur Barbiturates Screen Ur Phencyclidine Scrn Ur Amphetamines Screen U Benzodiazepines Scrn Urine Cocaine Screen U Marijuana (THC) Screen Hep Bs Antigen Hep Bs Antibody Hep B Core Total Ab Hepatitis C Ab (EIA) HIV 1&2 Ab/P24 Ag 4thGn Influenza Type A (PCR) Influenza Type B (PCR) RSV RNA Qual (PCR) SARS-CoV-2 RNA (RT-PCR) 02/18/24 02/18/24 02/18/24 15:15 17:21 21:00 WBC RBC Hgb Hct MCV MCH MCHC RDW Plt Count MPV Immature Gran % (Auto) Neut % (Auto) Lymph % (Auto) [place] % (Auto) Eos % (Auto) Baso % (Auto) Lymph # (Auto) [place] # (Auto) Eos # (Auto) Baso # (Auto) Abs Immat Gran (auto) Absolute Neuts (auto) Absolute Nucleated RBC Nucleated RBC % (auto) Smear Tech's Comments PT INR APTT D-Dimer High Sensitivty Sodium Potassium Chloride Carbon Dioxide Anion Gap BUN Creatinine Estim Creat Clear Calc Estimated GFR Random Glucose Fasting Glucose Lactic Acid Calcium Magnesium Total Bilirubin Direct Bilirubin AST ALT Alkaline Phosphatase Total Creatine Kinase Troponin I High Sens Total Protein Albumin Urine Color Urine Appearance Urine pH Ur Specific [place] Urine Protein Urine Glucose (UA) Urine Ketones Urine Blood Urine Nitrite Ur Leukocyte Esterase Urine RBC Urine WBC Ur Squamous Epith Cells Urine Bacteria Hyaline Casts Urine Test [place] WBC 1050 120 [place] RBC [id number] [place] Neutrophils 59 31 [place] Lymphocytes 25 69 [place] Monocytes 16 [place] Total Protein Cancelled Pericardial Albumin Cancelled Pericardial LDH Cancelled Pleural WBC Pleural RBC Pleural Neutrophils Pleural Lymphocytes Pleural Monocytes Pleural Other Cells Pleural Total Protein Pleural LDH Pleural Glucose Random Vancomycin 12.6 L Urine Opiates Screen Ur Buprenorphine Scrn Ur Oxycodone Screen Urine Methadone Screen Urine Fentanyl Screen Ur Barbiturates Screen Ur Phencyclidine Scrn Ur Amphetamines Screen U Benzodiazepines Scrn Urine Cocaine Screen U Marijuana (THC) Screen Hep Bs Antigen Hep Bs Antibody Hep B Core Total Ab Hepatitis C Ab (EIA) HIV 1&2 Ab/P24 Ag 4thGn Influenza Type A (PCR) Influenza Type B (PCR) RSV RNA Qual (PCR) SARS-CoV-2 RNA (RT-PCR) 02/19/24 02/19/24 02/19/24 08:18 14:00 17:27 WBC 18.6 H RBC 3.44 L Hgb 9.2 L Hct 28.5 L MCV 82.8 MCH 26.7 L MCHC 32.3 RDW 15.1 Plt Count 354 MPV 10.2 Immature Gran % (Auto) Neut % (Auto) Lymph % (Auto) [place] % (Auto) Eos % (Auto) Baso % (Auto) Lymph # (Auto) [place] # (Auto) Eos # (Auto) Baso # (Auto) Abs Immat Gran (auto) Absolute Neuts (auto) Absolute Nucleated RBC 0.020 H Nucleated RBC % (auto) 0.1 Smear Tech's Comments PT INR APTT D-Dimer High Sensitivty Sodium 136 Potassium 4.3 Chloride 104 Carbon Dioxide 23 Anion Gap 13 BUN 10 Creatinine 0.62 Estim Creat Clear Calc 113.5 Estimated GFR > 60 Random Glucose 127 H Fasting Glucose Lactic Acid Calcium 8.1 L Magnesium Total Bilirubin Direct Bilirubin AST ALT Alkaline Phosphatase Total Creatine Kinase Troponin I High Sens Total Protein Albumin Urine Color Urine Appearance Urine pH Ur Specific [place] Urine Protein Urine Glucose (UA) Urine Ketones Urine Blood Urine Nitrite Ur Leukocyte Esterase Urine RBC Urine WBC Ur Squamous Epith Cells Urine Bacteria Hyaline Casts Urine Test [place] WBC [place] RBC [place] Neutrophils [place] Lymphocytes [place] Monocytes [place] Total Protein Pericardial Albumin Pericardial LDH Pleural WBC 0.407 Pleural RBC < 0.002 Pleural Neutrophils 49 Pleural Lymphocytes 28 Pleural Monocytes 4 Pleural Other Cells 19 Pleural Total Protein 2.8 Pleural LDH 189 Pleural Glucose 128 Random Vancomycin 15.6 Urine Opiates Screen Ur Buprenorphine Scrn Ur Oxycodone Screen Urine Methadone Screen Urine Fentanyl Screen Ur Barbiturates Screen Ur Phencyclidine Scrn Ur Amphetamines Screen U Benzodiazepines Scrn Urine Cocaine Screen U Marijuana (THC) Screen Hep Bs Antigen Hep Bs Antibody Hep B Core Total Ab Hepatitis C Ab (EIA) HIV 1&2 Ab/P24 Ag 4thGn Influenza Type A (PCR) Influenza Type B (PCR) RSV RNA Qual (PCR) SARS-CoV-2 RNA (RT-PCR) 02/20/24 02/20/24 02/20/24 06:36 06:36 06:36 WBC RBC Hgb Hct MCV MCH MCHC RDW Plt Count MPV Immature Gran % (Auto) Neut % (Auto) Lymph % (Auto) [place] % (Auto) Eos % (Auto) Baso % (Auto) Lymph # (Auto) [place] # (Auto) Eos # (Auto) Baso # (Auto) Abs Immat Gran (auto) Absolute Neuts (auto) Absolute Nucleated RBC Nucleated RBC % (auto) Smear Tech's Comments PT INR APTT D-Dimer High Sensitivty Sodium 139 Potassium 4.3 Chloride 107 Carbon Dioxide 25 Anion Gap 11 L BUN 11 Creatinine Cancelled 0.56 Estim Creat Clear Calc Cancelled 125.7 Estimated GFR Cancelled Random Glucose Fasting Glucose Lactic Acid Calcium Magnesium Total Bilirubin Direct Bilirubin AST ALT Alkaline Phosphatase Total Creatine Kinase Troponin I High Sens Total Protein Albumin Urine Color Urine Appearance Urine pH Ur Specific [place] Urine Protein Urine Glucose (UA) Urine Ketones Urine Blood Urine Nitrite Ur Leukocyte Esterase Urine RBC Urine WBC Ur Squamous Epith Cells Urine Bacteria Hyaline Casts Urine Test [place] WBC [place] RBC Pericard Neutrophils [place] Lymphocytes [place] Monocytes [place] Total Protein Pericardial Albumin Pericardial LDH Pleural WBC Pleural RBC Pleural Neutrophils Pleural Lymphocytes Pleural Monocytes Pleural Other Cells Pleural Total Protein Pleural LDH Pleural Glucose Random Vancomycin Urine Opiates Screen Ur Buprenorphine Scrn Ur Oxycodone Screen Urine Methadone Screen Urine Fentanyl Screen Ur Barbiturates Screen Ur Phencyclidine Scrn Ur Amphetamines Screen U Benzodiazepines Scrn Urine Cocaine Screen U Marijuana (THC) Screen Hep Bs Antigen Hep Bs Antibody Hep B Core Total Ab Hepatitis C Ab (EIA) HIV 1&2 Ab/P24 Ag 4thGn Influenza Type A (PCR) Influenza Type B (PCR) RSV RNA Qual (PCR) SARS-CoV-2 RNA (RT-PCR) 02/20/24 06:36 WBC RBC Hgb Hct MCV MCH MCHC RDW Plt Count MPV Immature Gran % (Auto) Neut % (Auto) Lymph % (Auto) [place] % (Auto) Eos % (Auto) Baso % (Auto) Lymph # (Auto) [place] # (Auto) Eos # (Auto) Baso # (Auto) Abs Immat Gran (auto) Absolute Neuts (auto) Absolute Nucleated RBC Nucleated RBC % (auto) Smear Tech's Comments PT INR APTT D-Dimer High Sensitivty Sodium Potassium Chloride Carbon Dioxide Anion Gap BUN Creatinine Estim Creat Clear Calc Estimated GFR > 60 Random Glucose 115 Fasting Glucose Lactic Acid Calcium 7.9 L Magnesium Total Bilirubin Direct Bilirubin AST ALT Alkaline Phosphatase Total Creatine Kinase Troponin I High Sens Total Protein Albumin Urine Color Urine Appearance Urine pH Ur Specific [place] Urine Protein Urine Glucose (UA) Urine Ketones Urine Blood Urine Nitrite Ur Leukocyte Esterase Urine RBC Urine WBC Ur Squamous Epith Cells Urine Bacteria Hyaline Casts Urine Test [place] WBC [place] RBC Per[place]ard Neutrophils [place] Lymphocytes [place] Monocytes [place] Total Protein Pericardial Albumin Pericardial LDH Pleural WBC Pleural RBC Pleural Neutrophils Pleural Lymphocytes Pleural Monocytes Pleural Other Cells Pleural Total Protein Pleural LDH Pleural Glucose Random Vancomycin Urine Opiates Screen Ur Buprenorphine Scrn Ur Oxycodone Screen Urine Methadone Screen Urine Fentanyl Screen Ur Barbiturates Screen Ur Phencyclidine Scrn Ur Amphetamines Screen U Benzodiazepines Scrn Urine Cocaine Screen U Marijuana (THC) Screen Hep Bs Antigen Hep Bs Antibody Hep B Core Total Ab Hepatitis C Ab (EIA) HIV 1&2 Ab/P24 Ag 4thGn Influenza Type A (PCR) Influenza Type B (PCR) RSV RNA Qual (PCR) SARS-CoV-2 RNA (RT-PCR) Airway Mallampati Class: II TM Dist: >3cm Neck ROM: Full Heart: rrr Lungs: cta Assessment and Plan Assessment Anesthesia Assessment: Anesthesia Plan Discussed Final Anesthetic Review Family History of Problems with Anesthesia: No History of Problems with Anesthesia: No NPO: Yes ASA Class: III Final Preanesthetic Review: No Changes in Pt Med Stat, Meds/Allgs Chart Reviewe d, Consent Obtained/Reviewed and Anes Risks/Benef Reviewed Patient Risk: Intermediate Procedure Risk: Low Anesthetic Plan Anesthetic Plan: GA and MAC:
[2024-02-20] MEDS: Colchicine 0.6 MG TABLET PO ×2 (09:23→21:15)
[2024-02-20] MEDS: methADONE HCl 20 MG/2 ML ORAL.CONC 60 MG PO (09:23)
[2024-02-20] MEDS: Dicyclomine HCl 10 MG CAPSULE PO ×4 (09:24→21:14)
[2024-02-20] MEDS: Escitalopram Oxalate 10 MG TABLET PO (09:24)
[2024-02-20] MEDS: 0.9 % Sodium Chloride Flush 3 ML SYRINGE IVFLUSH ×3 (09:24→21:15)
--- NOTE | 2024-02-20 09:28 | MHC.SHP ---
Pre-Procedural Eval Section A - 24 Hr Update-Section A only Date of Service: 02/20/24 The patient is an INPATIENT: Yes Changes since office visit: Yes Patient answered all questions; No Cold of Flu in the past 2 weeks, No New Medical Problems and No Changes in Medication The patient has been examined within 24 hours of the surgical procedure. The History & Physical has been completed within 30 days and I have reviewed it.: Yes Section B - Complete if H&P > 30 days Chief Complaint: Chest pain, SIRS Allergies: Allergies Allergy/AdvReac Type Severity Reaction Status Date / Time latex [LATEX] Allergy Unknown rash Verified 02/13/24 21:02 Plan I have reviewed the history and physical and performed a pertinent physical examination on my patient. No changes have occurred unless specified. Time Spent With Patient Time: Total time managing care of this patient today ____ minutes.
--- NOTE | 2024-02-20 10:13 | PC.NURSE ---
Patient in preop. Received report from floor charge nurse Sean Calhoun prior to arrival. Per her, patient NPO since midnight. During preop, patient voiced she ate ice cream at 4am and took morning meds with francheska [place]. Dr. Dumont aware. Case being delayed. Dr. Elaine aware. Patient aware. Patient brought back up to floor in bed, on monitor, by pre wave assembler.
--- NOTE | 2024-02-20 10:43 | PM.EVENT ---
Event Note Date of Service: 02/20/24 Event Note: Addiction note letter of acceptance to [facility] to be placed on patient's chart this will be needed when coordinating guest dosing closer to discharge Time Spent With Patient Time: Total time managing care of this patient today ____ minutes.
--- NOTE | 2024-02-20 11:26 | MHC.CM.PN ---
Addendum entered by Lauren Demarco 02/20/24 11:29: [facility]. PT WILL NEED GUEST DOSING ARRANGED FOR HER METHADONE TREATMENT ONCE IT IS CONFIRMED WHAT SNF SHE WILL DC TO Original Note: PER MD ROUNDS, PT EXPECTED TO REMAIN INPATIENT THROUGH THE WEEKEND DCP REMAINS SNF FOR IV [facility] FOLLOWING BLS TRANSPORT
--- NOTE | 2024-02-20 11:29 | PM.PNCARD ---
Subjective Subjective Date of Service: 02/20/24 Principal diagnosis: Pericardial effusion, pericarditis. 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 Subsequently she had more intake of food around 10:30. Nikko could not be performed for anesthesia concerns. Repeat blood cultures from 02/18 showed no growth after 24 hours. Pericardial fluid gram stain shows staph aureus. Repeat echocardiogram shows small effusion with possible constrictive physiology Review of Systems Constitutional: Reports body ache(s) and Reports weakness Cardiovascular: Denies lightheadedness, Denies Loss of Consciousness, Denies palpitations and Reports dyspnea Respiratory: Reports pain on inspiration and Reports dyspnea Gastrointestinal: Reports no additional gastrointestinal complaints Reports weakness Endocrine: Denies palpitations Physical Exam Vital Signs: Last Vital Signs Temp 98.1 F 02/20/24 10:44 Pulse 87 02/20/24 10:44 Resp 20 02/20/24 10:44 BP 103/69 02/20/24 10:44 Pulse Ox 99 02/20/24 10:44 O2 Del Method Nasal Cannula 02/20/24 10:44 O2 Flow Rate 3 02/20/24 10:44 Oxygen Flow Rate 2 02/19/24 15:13 BMI result Body Mass Index 31.2 Const General: cooperative, comfortable, alert and awake Nutritional Appearance: overweight Orientation/consciousness: patient oriented x3 Neck Neck: Yes trachea midline, Yes supple and Yes no JVD Resp Effort & Inspection: decreased respiratory effort Auscultation: no rales, no wheezes and diminished lung sounds Cardio Jugular venous distension: no JVD Rate: regular rate Rhythm: regular rhythm Heart sounds: S1 normal heart sound present, S2 normal heart sound present, no click, no gallops and no murmurs GI Auscultation: normal bowel sounds Neuro General: patient oriented x3 and no focal motor deficits Objective Labs and Meds 02/19/24 08:18 02/20/24 06:36 Lab results: Laboratory Results - last 24 hr 02/19/24 02/19/24 02/20/24 14:00 17:27 06:36 Sodium 139 Potassium 4.3 Chloride 107 Carbon Dioxide 25 Anion Gap 11 L BUN 11 Creatinine Cancelled Estim Creat Clear Calc Estimated GFR Random Glucose Calcium Pleural WBC 0.407 Pleural RBC < 0.002 Pleural Neutrophils 49 Pleural Lymphocytes 28 Pleural Monocytes 4 Pleural Other Cells 19 Pleural Total Protein 2.8 Pleural LDH 189 Pleural Glucose 128 Random Vancomycin 15.6 02/20/24 02/20/24 02/20/24 06:36 06:36 06:36 Sodium Potassium Chloride Carbon Dioxide Anion Gap BUN Creatinine 0.56 Estim Creat Clear Calc Cancelled 125.7 Estimated GFR Cancelled > 60 Random Glucose 115 Calcium 7.9 L Pleural WBC Pleural RBC Pleural Neutrophils Pleural Lymphocytes Pleural Monocytes Pleural Other Cells Pleural Total Protein Pleural LDH Pleural Glucose Random Vancomycin Imaging Radiologist's impression: Impressions Chest X-Ray 02/19/24 14:05 IMPRESSION: Left pleural catheter with the residual left pleural effusion and underlying atelectasis. There is right bibasilar atelectasis. Electronically signed by: Sean Morin MD 02/19/2024 09:18 PM EDT RP Progress Note: A&P Assessment and plan (1) Pericardial effusion: Status: Acute Assessment and Plan: Pericardial effusion with early signs of tamponade status post pericardial drainage with removal of 220 cc of serous looking fluid. G stain however suggest Staph aureus. Echocardiogram shows smaller effusion with respiratory variation suggestive of constrictive physiology. Continue anti-inflammatory therapy. Follow-up cultures of the pericardial fluid. (2) Bacteremia: Status: Acute Assessment and Plan: Staph aureus bacteremia although repeat blood cultures are negative. The no other signs of sepsis at this point time. Continue IV antibiotics. Nikko was canceled today due to patient not maintaining NPO status. Please keep NPO past midnight. Plan for NIKKO tomorrow Will follow with you Time Spent With Patient Time: Total time managing care of this patient today ____ minutes. Progress Note: Quality Stroke Does the patient have a stroke diagnosis?: No Procedures Date of Service Date of Service: 02/20/24
--- NOTE | 2024-02-20 15:25 | PM.PNTS ---
Subjective Subjective Date of Service: 02/20/24 Interval history: C/o some pain at drain and chest. Breathing improved. Physical Exam Vital Signs: Vital Signs: Last Vital Signs Temp 98.1 F 02/20/24 10:44 Pulse 87 02/20/24 10:44 Resp 20 02/20/24 10:44 BP 103/69 02/20/24 10:44 Pulse Ox 99 02/20/24 10:44 O2 Del Method Nasal Cannula 02/20/24 10:44 O2 Flow Rate 3 02/20/24 10:44 Oxygen Flow Rate 2 02/19/24 15:13 BMI result Body Mass Index 31.2 Const: General: comfortable, no acute distress and alert Orientation/consciousness: patient oriented x3 Chest: Other: pigtail drain in place anterior chest, scant serous fluid in bulb Resp: Effort & Inspection: normal respiratory effort, no respiratory distress, not tachypneic and no use of accessory muscles Cardio: Rate: regular rate Skin: General skin exam: no rashes or lesions noted Neuro: General: patient oriented x3 Procedures Date of Service Date of Service: 02/20/24 Progress Note: A&P Assessment and plan (1) Pleural effusion: Status: Acute (2) Pericardial effusion: Status: Acute Plan Pericardial drain with scant serous output over >24h and therefore removed at bedside today. Patient tolerated well. Underwent thoracentesis yesterday with improvement in R pleural effusion, breathing improved. Continue incentive spirometer. Time Spent With Patient Time: Total time managing care of this patient today ____ minutes. Quality Stroke Does the patient have a stroke diagnosis?: No VTE Prior VTE?: No VTE Risk Level:: Medical - moderate - high VTE Device Contraindication: Treatment Not Indicated VTE Drug Contraindication: N/A - Med Ordered
--- NOTE | 2024-02-20 15:42 | MHC.RECOVRN ---
Checked in with patient at bedside this morning. 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 Spoke with Nya Frazier APRN, who ordered an increase for patient.
[2024-02-20] MEDS: Acetaminophen 325 MG TABLET 975 MG PO (17:32)
--- NOTE | 2024-02-20 17:57 | P.CDIM_ITS ---
PROVIDER RESPONSE TEXT: To clarify, the appropriate diagnosis supported by the clinical indicators: Chronic QUERY TEXT: PHYSICIAN'S DOCUMENTATION REQUEST Date of Query: 02/20/2024 11:01 AM EDT Patient Name: Nelsy Singh Admit Date: 02/14/2024 Dear Seven Mazariegos MD, A review of the medical record indicates additional documentation may be needed. Please review below and update the documentation accordingly. Clinical Indicators: Progress note dated 02/18 - Hepatitis C tested positive, for outpatient follow up. Clarify which of the following accurately represents the acuity of the hepatitis C: Possible options might include: Acute Chronic Other (explain) Clinically unable to determine (explain) Thank you, Em Cummings, CCS, CDIS Use of terms such as suspected, likely, concern for, or probable (associated with a specific diagnosi s that is being evaluated, monitored, or treated as if it exists) are acceptable and can be coded in the inpatient se tting, when documented at the time of discharge. Please use your independent medical judgment in providing your response. THIS QUERY IS PART OF THE PERMANENT MEDICAL RECORD
[2024-02-20 19:39] LABS: Hematocrit 26.9 % (37.0-47.0); Hemoglobin 8.6 g/dl (12.0-16.0); Mean Corpuscular Hemoglobin 26.7 pg (27.0-33.0); Mean Corpuscular Volume 83.5 fL (80.0-98.0); Mean Platelet Volume 10.4 fL (9.4-12.3); Platelet Count 384 X10*3/uL (160-400); Red Blood Count 3.22 X10*6/uL (4.20-5.50); Red Cell Distribution Width 14.8 % (11.0-16.0); White Blood Count 14.3 X10*3/uL (4.8-10.8)
[2024-02-21] VITALS (18 sets, daily range): BP systolic 85–122; BP diastolic 52–84; PULSE 72–90; RESP 14–22; TEMP 36.2–37.1; O2SAT 6–97
[2024-02-21] MEDS: vancomycin HCL 1,000 MG in 0.9 % Sodium Chloride 250 ML 270 MG IV ×3 (01:46→17:01)
[2024-02-21] MEDS: HYDROmorphone HCl 1 MG/ML SYRINGE 2 MG IVPUSH ×5 (02:11→20:44)
[2024-02-21] MEDS: Albuterol Sulfate 90 MCG 8 GM INHALER 2 PUFF INHALE ×2 (02:30→20:16)
[2024-02-21] MEDS: Budesonide 180 MCG AER.POW.BA 1 PUFF INHALE ×2 (07:30→20:16)
[2024-02-21 08:22] LABS: Vancomycin Random 19.2 mcg/mL (15-20)
[2024-02-21 08:24] LABS: Creatinine Clr Calc Pharmacy 106.6; Estimated Glomerular Filt Rate > 60
[2024-02-21] MEDS: 0.9 % Sodium Chloride Flush 3 ML SYRINGE IVFLUSH ×2 (08:42→15:58)
[2024-02-21] MEDS: Dicyclomine HCl 10 MG CAPSULE PO ×4 (08:42→20:46)
[2024-02-21] MEDS: Colchicine 0.6 MG TABLET PO ×2 (08:42→20:45)
[2024-02-21] MEDS: Escitalopram Oxalate 10 MG TABLET PO (08:42)
[2024-02-21] MEDS: methADONE HCl 20 MG/2 ML ORAL.CONC 60 MG PO (08:42)
--- NOTE | 2024-02-21 09:00 | CA_ITS ---
Transesophageal Echocardiogram Patient (Last, First, Middle): Nelsy Singh, Gender: Female Date of : 1975 Age: 48 Procedure Date: 02/21/2024 Procedure Type: Transesophageal Echocardiogram [place] [facility] [place]: 154.94 cm Weight: kg Chief Environmental Commitment Officer: PRINCESS Referring MD: Adam Elaine MD Rn Manager: Adam Elaine MD Symptoms: Rule out endocarditis Conclusion: ??? 1. Moderate fibrinous pericardial effusion suggestive of exudative effusion without tamponade 2. Normal LV ejection fraction of 60 65% 3. No evidence of intracardiac vegetations, masses or thrombi her abscess 4. Mild mitral regurgitation 5. No intracardiac shunting Findings Procedure Information Consent was obtained prior to the procedure. Pre GARCIA oral cavity was checked and revealed no overcrowding. The adult 3D probe was passed with no difficulty. This was a technically good study. Left Ventricle Normal left ventricular size and systolic function. There is mildly increased left ventricular wall thickness. The visually estimated ejection fraction is between 60-65%. There is no evidence of a mass in the left ventricle. Right Ventricle Normal right ventricular cavity size and systolic function. There is no evidence of mass in the right ventricle. Atria The left atrium is likely dilated. There is no evidence of interatrial shunt. There is no evidence of a patent foramen ovale. There is no evidence of thrombus or mass in the left atrium. The left atrial appendage was identified multiple views and there was no evidence of thrombus. The left upper, right upper and right lower pulmonary injury normally into the left atrium. The right atrium is normal in size. There is no evidence of thrombus or mass in the right atrium. The IVC and SVC drain normally into the right atrium. Aortic Valve Normal aortic valve structure and function. There is no aortic valve stenosis. There is no evidence of a mass on the aortic valve. There is no aortic valve regurgitation. The inter valvular fibrosa is thin and without any radiolucency suggestive of abscess Mitral Valve Normal mitral valve structure and function. There is mild mitral valve regurgitation. There is no mitral valve stenosis. There is no mass noted on the mitral valve. Pulmonic Valve The pulmonic valve is normal. There is no mass noted on the pulmonic valve. Tricuspid Valve Normal tricuspid valve structure. There is mild tricuspid valve regurgitation. There is no evidence of a mass on the tricuspid valve. The right ventricular systolic pressure is not calculated. Great Vessels All visible segments of the aorta are normal in size. The visualized portions of the pulmonary artery and branches are normal. Venous The inferior vena cava is normal in size and collapses greater than 50% with inspiration. Pericardium/Pleural There is a moderate pericardial effusion. moderate pericardial effusion with diffuse trends suggestive of an exudative pericardial effusion more prominent on the subcostal surface of both ventricle. There is no clear evidence of tamponade Updated by Adam Elaine on 02:08 PM with Status of Final Adam Elaine MD electronically signed on 02/21/2024 2:08:54 PM with status of Final
--- NOTE | 2024-02-21 10:00 | HO.ANESPROP2 ---
HPI - Anesthesia Eval Consult details Narrative: pericardial effusion PMFSH Active Problems Active Problems: All Active Problems Pleural effusion (Acute) Pericardial effusion (Acute) Pericarditis (Acute) Bacteremia (Acute) Opioid use disorder (Acute) Pleuritic chest pain (Acute) Suspected endocarditis (Acute) NSTEMI (non-ST elevated myocardial infarction) (Acute) Heroin use (Acute) Cocaine use (Acute) Elevated troponin I level (Acute) Cellulitis of foot, right (Acute) Chest pain (Acute) Multilobar lung infiltrate (Acute) Chronic constipation (Acute) Family history of colon cancer in mother (Acute) Carpal tunnel syndrome on right (Acute) Trigger finger, right middle finger (Acute) Anemia (Acute) Bacterial vaginosis (Acute) Well woman exam (Acute) Menometrorrhagia (Acute) Iron deficiency anemia (Acute) GERD (gastroesophageal reflux disease) (Acute) Past Medical History Medical History (Updated 02/20/24 @ 09:55 by Yu Jordan RN) Elective surgery Arthritis Migraines GERD (gastroesophageal reflux disease) HTN (hypertension) HLD (hyperlipidemia) Asthma Family History Family History Mother Colon cancer Family/Other Uterine cancer Maternal Aunt Breast cancer Spinal cord cancer Maternal Grandmother Dementia Family history of problems with anesthesia: No Surgical History Surgical History (Updated 02/20/24 @ 09:55 by Yu Jordan RN) History of thoracentesis Tubal ligation status History of Problems with Anesthesia: No Social History Social History Household Members: None Housing: Apartment Are you a primary manager long term care to a significant other at home: No Do you presently have visiting nurse or other home services: No Alcohol intake: never Comment: pt refuses bed alarm. Patient Tobacco Use Status: Current everyday Tobacco user Tobacco use type: Cigarette Cigarette Packs Per Day: 1 Cigarettes Per Day: 10 Years Smoked: 35 Second Hand Smoke Exposure: No Substance Use Type: Crack/Cocaine service: No Meds Allergies Allergy/AdvReac Type Severity Reaction Status Date / Time latex [LATEX] Allergy Unknown rash Verified 02/20/24 09:55 Active Medications: Current Medications Acetaminophen (Acetaminophen 325 Mg Tablet) 975 mg PO Q6H PRN PRN Reason: Pain, Mild (Pain Scale 1-3), fever or headache Last Admin: 02/20/24 17:32 Dose: 975 mg Albuterol Sulfate (Albuterol Sulfate 90 Mcg 8 Gm Inhaler) 2 puff INHALE RQ4H PRN PRN Reason: Wheezing Last Admin: 02/21/24 02:30 Dose: 2 puff Aspirin (Aspirin Enteric Coated 81 Mg Tablet.Dr) 81 mg PO DAILY [facility] Last Admin: 02/17/24 09:16 Dose: 81 mg Budesonide (Budesonide 180 Mcg Aer.Pow.Ba) 1 puff INHALE RBID [facility] Last Admin: 02/21/24 07:30 Dose: 1 puff Colchicine (Colchicine 0.6 Mg Tablet) 0.6 mg PO BID [facility] Last Admin: 02/21/24 08:42 Dose: 0.6 mg Dicyclomine HCl (Dicyclomine Hcl 10 Mg Capsule) 10 mg PO QIDACHS [facility] Last Admin: 02/21/24 08:42 Dose: 10 mg Enoxaparin Sodium (Enoxaparin Sodium 40 Mg/0.4 Ml Syringe) 40 mg SUBCUT Q24H [facility] Last Admin: 02/16/24 20:23 Dose: 40 mg Escitalopram Oxalate (Escitalopram Oxalate 10 Mg Tablet) 10 mg PO DAILY [facility] Last Admin: 02/21/24 08:42 Dose: 10 mg Hydromorphone HCl (Hydromorphone Hcl 1 Mg/Ml Syringe) 2 mg IVPUSH Q3H PRN; Protocol PRN Reason: Pain, Moderate(Pain Scale 4-6) Last Admin: 02/21/24 08:40 Dose: 2 mg Vancomycin HCl 1,000 mg/ (Sodium Chloride) 270 mls @ 270 mls/hr IV Q8H [facility] Last Admin: 02/21/24 08:55 Dose: 270 mls/hr Methadone HCl (Methadone Hcl 20 Mg/2 Ml Oral.Conc) 60 mg PO DAILY [facility] Last Admin: 02/21/24 08:42 Dose: 60 mg Methadone HCl (Methadone Hcl 20 Mg/2 Ml Oral.Conc) 10 mg PO DAILY PRN PRN Reason: Opiate Withdrawal Naloxone HCl (Naloxone Hcl 0.4 Mg/Ml Vial) 0.04 mg IVPUSH Q5M PRN PRN Reason: Excessive sedation or RR < 8 Nitroglycerin (Nitroglycerin 0.4 Mg Tab.Subl) 0.4 mg SUBLINGUAL Q5MX3 PRN PRN Reason: Chest Pain Omeprazole (Omeprazole 40 Mg Capsule.Dr) 40 mg PO DAILY@0630 [facility] Last Admin: 02/21/24 04:30 Dose: Not Given Ondansetron HCl (Ondansetron Hcl 4 Mg/2 Ml Vial) 4 mg IVPUSH Q6H PRN PRN Reason: Nausea Last Admin: 02/17/24 13:11 Dose: 4 mg Pharmacy Consult (Consult Rx Vancomycin Dosing) 1 each MISCELLANE DAILY PRN PRN Reason: Consult order Sodium Chloride (0.9 % Sodium Chloride Flush 3 Ml Syringe) 3 ml IVFLUSH QSHIFT [facility] Last Admin: 02/21/24 08:42 Dose: 3 ml Home Medications ?Medication ?Instructions ?Recorded ?Confirmed ?Last Taken ?Type clonidine HCl 0.1 mg tablet 1 tab PO TID PRN Anxiety 12/13/20 02/14/24 Unknown History omeprazole 40 mg capsule,delayed 1 cap PO DAILY 12/13/20 02/14/24 Unknown History release albuterol sulfate 90 mcg/actuation 2 puff inhalation Q4-6H PRN 02/14/24 02/14/24 Unknown History aerosol inhaler (Ventolin HFA) Shortness Of Breath Or Wheezing budesonide 180 mcg/actuation 1 inh inhalation BID 02/14/24 02/14/24 Unknown History breath activated powder inhaler (Pulmicort Flexhaler) escitalopram oxalate 10 mg tablet 10 mg PO QAM 02/14/24 02/14/24 Unknown History lisinopril 10 mg tablet 10 mg PO QAM 02/14/24 02/14/24 Unknown History Exam Height,Weight and Vital Signs: Height 5 ft 3 in Weight 80 kg Last Vital Signs Temp 97.9 F 02/21/24 07:29 Pulse 84 02/21/24 07:30 Resp 15 02/21/24 07:30 BP 115/84 02/21/24 07:29 Pulse Ox 94 02/21/24 07:29 O2 Del Method Nasal Cannula 02/21/24 07:29 O2 Flow Rate 2 02/21/24 07:29 Oxygen Flow Rate 2 02/19/24 15:13 Pertinent Lab Results Pertinent Lab Results: Laboratory Tests 02/13/24 02/13/24 02/13/24 21:33 22:37 23:18 WBC 13.0 H RBC 3.92 L Hgb 10.6 L Hct 31.2 L MCV 79.6 L MCH 27.0 MCHC 34.0 RDW 13.8 Plt Count 160 MPV 10.3 Immature Gran % (Auto) 0.5 H Neut % (Auto) 84.7 H Lymph % (Auto) 6.4 L [place] % (Auto) 7.9 Eos % (Auto) 0.2 Baso % (Auto) 0.3 Lymph # (Auto) 0.8 L [place] # (Auto) 1.0 Eos # (Auto) 0.0 Baso # (Auto) 0.0 Abs Immat Gran (auto) 0.07 H Absolute Neuts (auto) 11.0 H Absolute Nucleated RBC 0.000 Nucleated RBC % (auto) 0.0 Smear Tech's Comments PT 13.9 H INR 1.1 APTT 29.6 D-Dimer High Sensitivty 680 Sodium 136 Potassium 3.8 Chloride 104 Carbon Dioxide 23 Anion Gap 13 BUN 18 H Creatinine 0.78 Estim Creat Clear Calc 90.2 Estimated GFR > 60 Random Glucose 168 H Fasting Glucose Lactic Acid Calcium 9.2 Magnesium Total Bilirubin 0.5 Direct Bilirubin AST 26 ALT 18 Alkaline Phosphatase 126 H Total Creatine Kinase 402 H Troponin I High Sens 842.1 H* 845.3 H* Total Protein 7.2 Albumin 3.5 Hold Yellow Top Urine Color Urine Appearance Urine pH Ur Specific [place] Urine Protein Urine Glucose (UA) Urine Ketones Urine Blood Urine Nitrite Ur Leukocyte Esterase Urine RBC Urine WBC Ur Squamous Epith Cells Urine Bacteria Hyaline Casts Urine Test [place] WBC [place] RBC [place]ard Neutrophils [place] Lymphocytes Pericard Monocytes [place] Total Protein Pericardial Albumin Pericardial LDH Pleural WBC Pleural RBC Pleural Neutrophils Pleural Lymphocytes Pleural Monocytes Pleural Other Cells Pleural Total Protein Pleural LDH Pleural Glucose Random Vancomycin Urine Opiates Screen Ur Buprenorphine Scrn Ur Oxycodone Screen Urine Methadone Screen Urine Fentanyl Screen Ur Barbiturates Screen Ur Phencyclidine Scrn Ur Amphetamines Screen U Benzodiazepines Scrn Urine Cocaine Screen U Marijuana (THC) Screen Hep Bs Antigen Hep Bs Antibody Hep B Core Total Ab Hepatitis C Ab (EIA) HIV 1&2 Ab/P24 Ag 4thGn Influenza Type A (PCR) Influenza Type B (PCR) RSV RNA Qual (PCR) SARS-CoV-2 RNA (RT-PCR) 02/14/24 02/14/24 02/14/24 02:00 02:05 04:36 WBC 15.4 H RBC 3.60 L Hgb 9.7 L Hct 28.9 L MCV 80.3 MCH 26.9 L MCHC 33.6 RDW 13.8 Plt Count 135 L MPV 11.0 Immature Gran % (Auto) 0.7 H Neut % (Auto) 80.3 H Lymph % (Auto) 8.3 L [place] % (Auto) 10.2 Eos % (Auto) 0.2 Baso % (Auto) 0.3 Lymph # (Auto) 1.3 [place] # (Auto) 1.6 H Eos # (Auto) 0.0 Baso # (Auto) 0.0 Abs Immat Gran (auto) 0.10 H Absolute Neuts (auto) 12.4 H Absolute Nucleated RBC 0.000 Nucleated RBC % (auto) 0.0 Smear Tech's Comments VERIFIED PT INR APTT D-Dimer High Sensitivty Sodium 134 L Potassium 4.4 Chloride 104 Carbon Dioxide 21 L Anion Gap 13 BUN 17 H Creatinine 0.78 Estim Creat Clear Calc 90.2 Estimated GFR > 60 Random Glucose 153 H Fasting Glucose Lactic Acid 1.6 Calcium 8.5 D Magnesium Total Bilirubin 0.7 Direct Bilirubin AST 33 H ALT 19 Alkaline Phosphatase 138 H Total Creatine Kinase Troponin I High Sens 463.3 H* Total Protein 6.7 Albumin 3.0 L Hold Yellow Top Urine Color Yellow Urine Appearance Clear Urine pH 6.0 Ur Specific [place] >= 1.030 H Urine Protein 100 (2+) H Urine Glucose (UA) Negative Urine Ketones Negative Urine Blood Trace H Urine Nitrite Negative Ur Leukocyte Esterase Negative Urine RBC 6-10 H Urine WBC 0-5 Ur Squamous Epith Cells 11-20 Urine Bacteria 3+ Hyaline Casts 0-2 Urine Test [place] WBC [place] RBC [place] Neutrophils [place] Lymphocytes [place] Monocytes [place] Total Protein Pericardial Albumin Pericardial LDH Pleural WBC Pleural RBC Pleural Neutrophils Pleural Lymphocytes Pleural Monocytes Pleural Other Cells Pleural Total Protein Pleural LDH Pleural Glucose Random Vancomycin Urine Opiates Screen POSITIVE H Ur Buprenorphine Scrn Not Detected Ur Oxycodone Screen Positive H Urine Methadone Screen Not Detected Urine Fentanyl Screen POSITIVE H Ur Barbiturates Screen Not Detected Ur Phencyclidine Scrn Not Detected Ur Amphetamines Screen Not Detected U Benzodiazepines Scrn Not Detected Urine Cocaine Screen POSITIVE H U Marijuana (THC) Screen Not Detected Hep Bs Antigen Hep Bs Antibody Hep B Core Total Ab Hepatitis C Ab (EIA) HIV 1&2 Ab/P24 Ag 4thGn Influenza Type A (PCR) NEGATIVE Influenza Type B (PCR) NEGATIVE RSV RNA Qual (PCR) NEGATIVE SARS-CoV-2 RNA (RT-PCR) NEGATIVE 02/15/24 02/15/24 02/15/24 04:10 04:11 12:01 WBC 18.4 H RBC 3.67 L Hgb 9.8 L Hct 29.6 L MCV 80.7 MCH 26.7 L MCHC 33.1 RDW 14.2 Plt Count 186 D MPV 11.3 Immature Gran % (Auto) Neut % (Auto) Lymph % (Auto) [place] % (Auto) Eos % (Auto) Baso % (Auto) Lymph # (Auto) [place] # (Auto) Eos # (Auto) Baso # (Auto) Abs Immat Gran (auto) Absolute Neuts (auto) Absolute Nucleated RBC 0.000 Nucleated RBC % (auto) 0.0 Smear Tech's Comments PT INR APTT D-Dimer High Sensitivty Sodium 136 Potassium 3.6 Chloride 103 Carbon Dioxide 22 Anion Gap 15 BUN 16 Creatinine 0.78 Estim Creat Clear Calc 90.2 Estimated GFR > 60 Random Glucose Fasting Glucose 130 H Lactic Acid Calcium 8.7 Magnesium Total Bilirubin Direct Bilirubin AST ALT Alkaline Phosphatase Total Creatine Kinase Troponin I High Sens Total Protein Albumin Hold Yellow Top Urine Color Urine Appearance Urine pH Ur Specific [place] Urine Protein Urine Glucose (UA) Urine Ketones Urine Blood Urine Nitrite Ur Leukocyte Esterase Urine RBC Urine WBC Ur Squamous Epith Cells Urine Bacteria Hyaline Casts Urine Test [place] WBC [place] RBC Pericard Neutrophils [place]icard Lymphocytes [place] Monocytes [place] Total Protein Pericardial Albumin Pericardial LDH Pleural WBC Pleural RBC Pleural Neutrophils Pleural Lymphocytes Pleural Monocytes Pleural Other Cells Pleural Total Protein Pleural LDH Pleural Glucose Random Vancomycin 10.1 L Urine Opiates Screen Ur Buprenorphine Scrn Ur Oxycodone Screen Urine Methadone Screen Urine Fentanyl Screen Ur Barbiturates Screen Ur Phencyclidine Scrn Ur Amphetamines Screen U Benzodiazepines Scrn Urine Cocaine Screen U Marijuana (THC) Screen Hep Bs Antigen Hep Bs Antibody Hep B Core Total Ab Hepatitis C Ab (EIA) HIV 1&2 Ab/P24 Ag 4thGn Influenza Type A (PCR) Influenza Type B (PCR) RSV RNA Qual (PCR) SARS-CoV-2 RNA (RT-PCR) 02/16/24 02/16/24 02/17/24 07:57 11:23 06:45 WBC 13.2 H 15.5 H RBC 3.43 L 3.61 L Hgb 9.0 L 9.6 L Hct 27.7 L 28.9 L MCV 80.8 80.1 MCH 26.2 L 26.6 L MCHC 32.5 33.2 RDW 14.4 14.6 Plt Count 238 D 268 MPV 10.7 10.9 Immature Gran % (Auto) Neut % (Auto) Lymph % (Auto) [place] % (Auto) Eos % (Auto) Baso % (Auto) Lymph # (Auto) [place] # (Auto) Eos # (Auto) Baso # (Auto) Abs Immat Gran (auto) Absolute Neuts (auto) Absolute Nucleated RBC 0.000 0.000 Nucleated RBC % (auto) 0.0 0.0 Smear Tech's Comments PT INR APTT D-Dimer High Sensitivty Sodium 138 Potassium 3.4 Chloride 104 Carbon Dioxide 23 Anion Gap 14 BUN 15 Creatinine 0.78 Estim Creat Clear Calc 90.2 Estimated GFR > 60 Random Glucose Fasting Glucose 125 H Lactic Acid Calcium 8.4 Magnesium 2.1 Total Bilirubin 0.6 Direct Bilirubin 0.4 AST 22 ALT 15 Alkaline Phosphatase 189 H Total Creatine Kinase Troponin I High Sens Total Protein 6.5 Albumin 2.8 L Hold Yellow Top Urine Color Urine Appearance Urine pH Ur Specific [place] Urine Protein Urine Glucose (UA) Urine Ketones Urine Blood Urine Nitrite Ur Leukocyte Esterase Urine RBC Urine WBC Ur Squamous Epith Cells Urine Bacteria Hyaline Casts Urine Test [place] WBC [place] RBC Pericard Neutrophils Pericard Lymphocytes Pericard Monocytes [place] Total Protein Pericardial Albumin Pericardial LDH Pleural WBC Pleural RBC Pleural Neutrophils Pleural Lymphocytes Pleural Monocytes Pleural Other Cells Pleural Total Protein Pleural LDH Pleural Glucose Random Vancomycin 15.5 Urine Opiates Screen Ur Buprenorphine Scrn Ur Oxycodone Screen Urine Methadone Screen Urine Fentanyl Screen Ur Barbiturates Screen Ur Phencyclidine Scrn Ur Amphetamines Screen U Benzodiazepines Scrn Urine Cocaine Screen U Marijuana (THC) Screen Hep Bs Antigen Negative Hep Bs Antibody REACTIVE Hep B Core Total Ab Nonreactive Hepatitis C Ab (EIA) Reactive H HIV 1&2 Ab/P24 Ag 4thGn Nonreactive Influenza Type A (PCR) Influenza Type B (PCR) RSV RNA Qual (PCR) SARS-CoV-2 RNA (RT-PCR) 02/17/24 02/18/24 02/18/24 08:13 06:32 13:54 WBC 17.2 H RBC 3.09 L Hgb 8.3 L Hct 24.8 L MCV 80.3 MCH 26.9 L MCHC 33.5 RDW 14.9 Plt Count 285 MPV 10.8 Immature Gran % (Auto) Neut % (Auto) Lymph % (Auto) [place] % (Auto) Eos % (Auto) Baso % (Auto) Lymph # (Auto) [place] # (Auto) Eos # (Auto) Baso # (Auto) Abs Immat Gran (auto) Absolute Neuts (auto) Absolute Nucleated RBC 0.020 H Nucleated RBC % (auto) 0.1 Smear Tech's Comments PT INR APTT D-Dimer High Sensitivty Sodium 136 136 Potassium 4.0 4.1 Chloride 106 105 Carbon Dioxide 20 L 20 L Anion Gap 14 15 BUN 12 11 Creatinine 0.73 0.69 Estim Creat Clear Calc 96.4 102.0 Estimated GFR > 60 > 60 Random Glucose Fasting Glucose 122 H 113 H Lactic Acid Calcium 8.3 L 8.2 L Magnesium Total Bilirubin Direct Bilirubin AST ALT Alkaline Phosphatase Total Creatine Kinase Troponin I High Sens Total Protein Albumin Hold Yellow Top Urine Color Urine Appearance Urine pH Ur Specific [place] Urine Protein Urine Glucose (UA) Urine Ketones Urine Blood Urine Nitrite Ur Leukocyte Esterase Urine RBC Urine WBC Ur Squamous Epith Cells Urine Bacteria Hyaline Casts Urine Test NEGATIVE [place]ard WBC [place] RBC [place] Neutrophils [place] Lymphocytes [place] Monocytes [place] Total Protein Pericardial Albumin Pericardial LDH Pleural WBC Pleural RBC Pleural Neutrophils Pleural Lymphocytes Pleural Monocytes Pleural Other Cells Pleural Total Protein Pleural LDH Pleural Glucose Random Vancomycin 20.7 H Urine Opiates Screen Ur Buprenorphine Scrn Ur Oxycodone Screen Urine Methadone Screen Urine Fentanyl Screen Ur Barbiturates Screen Ur Phencyclidine Scrn Ur Amphetamines Screen U Benzodiazepines Scrn Urine Cocaine Screen U Marijuana (THC) Screen Hep Bs Antigen Hep Bs Antibody Hep B Core Total Ab Hepatitis C Ab (EIA) HIV 1&2 Ab/P24 Ag 4thGn Influenza Type A (PCR) Influenza Type B (PCR) RSV RNA Qual (PCR) SARS-CoV-2 RNA (RT-PCR) 02/18/24 02/18/24 02/18/24 15:15 17:21 21:00 WBC RBC Hgb Hct MCV MCH MCHC RDW Plt Count MPV Immature Gran % (Auto) Neut % (Auto) Lymph % (Auto) [place] % (Auto) Eos % (Auto) Baso % (Auto) Lymph # (Auto) [place] # (Auto) Eos # (Auto) Baso # (Auto) Abs Immat Gran (auto) Absolute Neuts (auto) Absolute Nucleated RBC Nucleated RBC % (auto) Smear Tech's Comments PT INR APTT D-Dimer High Sensitivty Sodium Potassium Chloride Carbon Dioxide Anion Gap BUN Creatinine Estim Creat Clear Calc Estimated GFR Random Glucose Fasting Glucose Lactic Acid Calcium Magnesium Total Bilirubin Direct Bilirubin AST ALT Alkaline Phosphatase Total Creatine Kinase Troponin I High Sens Total Protein Albumin Hold Yellow Top Urine Color Urine Appearance Urine pH Ur Specific [place] Urine Protein Urine Glucose (UA) Urine Ketones Urine Blood Urine Nitrite Ur Leukocyte Esterase Urine RBC Urine WBC Ur Squamous Epith Cells Urine Bacteria Hyaline Casts Urine Test [place] WBC 1050 120 [place] RBC 48450 [id number] [place] Neutrophils 59 31 [place] Lymphocytes 25 69 [place] Monocytes 16 [place] Total Protein Cancelled Pericardial Albumin Cancelled Pericardial LDH Cancelled Pleural WBC Pleural RBC Pleural Neutrophils Pleural Lymphocytes Pleural Monocytes Pleural Other Cells Pleural Total Protein Pleural LDH Pleural Glucose Random Vancomycin 12.6 L Urine Opiates Screen Ur Buprenorphine Scrn Ur Oxycodone Screen Urine Methadone Screen Urine Fentanyl Screen Ur Barbiturates Screen Ur Phencyclidine Scrn Ur Amphetamines Screen U Benzodiazepines Scrn Urine Cocaine Screen U Marijuana (THC) Screen Hep Bs Antigen Hep Bs Antibody Hep B Core Total Ab Hepatitis C Ab (EIA) HIV 1&2 Ab/P24 Ag 4thGn Influenza Type A (PCR) Influenza Type B (PCR) RSV RNA Qual (PCR) SARS-CoV-2 RNA (RT-PCR) 02/19/24 02/19/24 02/19/24 08:18 14:00 17:27 WBC 18.6 H RBC 3.44 L Hgb 9.2 L Hct 28.5 L MCV 82.8 MCH 26.7 L MCHC 32.3 RDW 15.1 Plt Count 354 MPV 10.2 Immature Gran % (Auto) Neut % (Auto) Lymph % (Auto) [place] % (Auto) Eos % (Auto) Baso % (Auto) Lymph # (Auto) [place] # (Auto) Eos # (Auto) Baso # (Auto) Abs Immat Gran (auto) Absolute Neuts (auto) Absolute Nucleated RBC 0.020 H Nucleated RBC % (auto) 0.1 Smear Tech's Comments PT INR APTT D-Dimer High Sensitivty Sodium 136 Potassium 4.3 Chloride 104 Carbon Dioxide 23 Anion Gap 13 BUN 10 Creatinine 0.62 Estim Creat Clear Calc 113.5 Estimated GFR > 60 Random Glucose 127 H Fasting Glucose Lactic Acid Calcium 8.1 L Magnesium Total Bilirubin Direct Bilirubin AST ALT Alkaline Phosphatase Total Creatine Kinase Troponin I High Sens Total Protein Albumin Hold Yellow Top Urine Color Urine Appearance Urine pH Ur Specific [place] Urine Protein Urine Glucose (UA) Urine Ketones Urine Blood Urine Nitrite Ur Leukocyte Esterase Urine RBC Urine WBC Ur Squamous Epith Cells Urine Bacteria Hyaline Casts Urine Test [place] WBC [place] RBC [place] Neutrophils [place] Lymphocytes [place] Monocytes [place] Total Protein Pericardial Albumin Pericardial LDH Pleural WBC 0.407 Pleural RBC < 0.002 Pleural Neutrophils 49 Pleural Lymphocytes 28 Pleural Monocytes 4 Pleural Other Cells 19 Pleural Total Protein 2.8 Pleural LDH 189 Pleural Glucose 128 Random Vancomycin 15.6 Urine Opiates Screen Ur Buprenorphine Scrn Ur Oxycodone Screen Urine Methadone Screen Urine Fentanyl Screen Ur Barbiturates Screen Ur Phencyclidine Scrn Ur Amphetamines Screen U Benzodiazepines Scrn Urine Cocaine Screen U Marijuana (THC) Screen Hep Bs Antigen Hep Bs Antibody Hep B Core Total Ab Hepatitis C Ab (EIA) HIV 1&2 Ab/P24 Ag 4thGn Influenza Type A (PCR) Influenza Type B (PCR) RSV RNA Qual (PCR) SARS-CoV-2 RNA (RT-PCR) 02/20/24 02/20/24 02/20/24 06:36 06:36 06:36 WBC RBC Hgb Hct MCV MCH MCHC RDW Plt Count MPV Immature Gran % (Auto) Neut % (Auto) Lymph % (Auto) [place] % (Auto) Eos % (Auto) Baso % (Auto) Lymph # (Auto) [place] # (Auto) Eos # (Auto) Baso # (Auto) Abs Immat Gran (auto) Absolute Neuts (auto) Absolute Nucleated RBC Nucleated RBC % (auto) Smear Tech's Comments PT INR APTT D-Dimer High Sensitivty Sodium 139 Potassium 4.3 Chloride 107 Carbon Dioxide 25 Anion Gap 11 L BUN 11 Creatinine Cancelled 0.56 Estim Creat Clear Calc Cancelled 125.7 Estimated GFR Cancelled Random Glucose Fasting Glucose Lactic Acid Calcium Magnesium Total Bilirubin Direct Bilirubin AST ALT Alkaline Phosphatase Total Creatine Kinase Troponin I High Sens Total Protein Albumin Hold Yellow Top Urine Color Urine Appearance Urine pH Ur Specific [place] Urine Protein Urine Glucose (UA) Urine Ketones Urine Blood Urine Nitrite Ur Leukocyte Esterase Urine RBC Urine WBC Ur Squamous Epith Cells Urine Bacteria Hyaline Casts Urine Test [place] WBC [place] RBC Pericard Neutrophils [place] Lymphocytes Pericard Monocytes [place] Total Protein Pericardial Albumin Pericardial LDH Pleural WBC Pleural RBC Pleural Neutrophils Pleural Lymphocytes Pleural Monocytes Pleural Other Cells Pleural Total Protein Pleural LDH Pleural Glucose Random Vancomycin Urine Opiates Screen Ur Buprenorphine Scrn Ur Oxycodone Screen Urine Methadone Screen Urine Fentanyl Screen Ur Barbiturates Screen Ur Phencyclidine Scrn Ur Amphetamines Screen U Benzodiazepines Scrn Urine Cocaine Screen U Marijuana (THC) Screen Hep Bs Antigen Hep Bs Antibody Hep B Core Total Ab Hepatitis C Ab (EIA) HIV 1&2 Ab/P24 Ag 4thGn Influenza Type A (PCR) Influenza Type B (PCR) RSV RNA Qual (PCR) SARS-CoV-2 RNA (RT-PCR) 02/20/24 02/20/24 02/21/24 06:36 19:07 08:02 WBC 14.3 H RBC 3.22 L Hgb 8.6 L Hct 26.9 L MCV 83.5 MCH 26.7 L MCHC 32.0 RDW 14.8 Plt Count 384 MPV 10.4 Immature Gran % (Auto) Neut % (Auto) Lymph % (Auto) [place] % (Auto) Eos % (Auto) Baso % (Auto) Lymph # (Auto) [place] # (Auto) Eos # (Auto) Baso # (Auto) Abs Immat Gran (auto) Absolute Neuts (auto) Absolute Nucleated RBC 0.000 Nucleated RBC % (auto) 0.0 Smear Tech's Comments PT INR APTT D-Dimer High Sensitivty Sodium Potassium Chloride Carbon Dioxide Anion Gap BUN Creatinine 0.66 Estim Creat Clear Calc 106.6 Estimated GFR > 60 > 60 Random Glucose 115 Fasting Glucose Lactic Acid Calcium 7.9 L Magnesium Total Bilirubin Direct Bilirubin AST ALT Alkaline Phosphatase Total Creatine Kinase Troponin I High Sens Total Protein Albumin Hold Yellow Top See Note Urine Color Urine Appearance Urine pH Ur Specific [place] Urine Protein Urine Glucose (UA) Urine Ketones Urine Blood Urine Nitrite Ur Leukocyte Esterase Urine RBC Urine WBC Ur Squamous Epith Cells Urine Bacteria Hyaline Casts Urine Test [place] WBC [place] RBC Pericard Neutrophils [place] Lymphocytes [place] Monocytes [place] Total Protein Pericardial Albumin Pericardial LDH Pleural WBC Pleural RBC Pleural Neutrophils Pleural Lymphocytes Pleural Monocytes Pleural Other Cells Pleural Total Protein Pleural LDH Pleural Glucose Random Vancomycin 19.2 Urine Opiates Screen Ur Buprenorphine Scrn Ur Oxycodone Screen Urine Methadone Screen Urine Fentanyl Screen Ur Barbiturates Screen Ur Phencyclidine Scrn Ur Amphetamines Screen U Benzodiazepines Scrn Urine Cocaine Screen U Marijuana (THC) Screen Hep Bs Antigen Hep Bs Antibody Hep B Core Total Ab Hepatitis C Ab (EIA) HIV 1&2 Ab/P24 Ag 4thGn Influenza Type A (PCR) Influenza Type B (PCR) RSV RNA Qual (PCR) SARS-CoV-2 RNA (RT-PCR) Airway Mallampati Class: II TM Dist: >3cm Neck ROM: Full Denture: Upper Heart: RRR Lungs: CTA Assessment and Plan Assessment Anesthesia Assessment: Anesthesia Plan Discussed and Chart Reviewed Final Anesthetic Review Family History of Problems with Anesthesia: No History of Problems with Anesthesia: No NPO: Yes ASA Class: III Final Preanesthetic Review: No Changes in Pt Med Stat, Meds/Allgs Chart Reviewed, Consent Obtained/Reviewed and Anes Risks/Benef Reviewed Patient Risk: High Procedure Risk: Low Anesthetic Plan Anesthetic Plan: GA Disposition: Standard PACU
--- NOTE | 2024-02-21 10:48 | MHC.SHP ---
Pre-Procedural Eval Section A - 24 Hr Update-Section A only Date of Service: 02/21/24 The patient is an INPATIENT: Yes Changes since office visit: Yes Patient answered all questions; No Cold of Flu in the past 2 weeks, No New Medical Problems and No Changes in Medication The patient has been examined within 24 hours of the surgical procedure. The History & Physical has been completed within 30 days and I have reviewed it.: Yes Section B - Complete if H&P > 30 days Chief Complaint: Chest pain, SIRS Allergies: Allergies Allergy/AdvReac Type Severity Reaction Status Date / Time latex [LATEX] Allergy Unknown rash Verified 02/20/24 09:55 Plan I have reviewed the history and physical and performed a pertinent physical examination on my patient. No changes have occurred unless specified. Time Spent With Patient Time: Total time managing care of this patient today ____ minutes.
--- NOTE | 2024-02-21 11:03 | MHC.RECOVRN ---
Met with pt in 452 to follow up and provide support.? Pt awake, alert, easily engages in conversation,sitting up in bed. ? Pt reports feeling and that she slept better last night. Education provided on additional 10mg methadone PRN available if needed. Pt asking about resources in the area for volunteer work and recovery support. Resources provided. Pt denies other concerns at this time.? T/w available as needed.
--- NOTE | 2024-02-21 11:53 | HO.PM.IMPN ---
Subjective Subjective Date of Service: 02/21/24 Interval History: seen and evaluated this morning feels no energy and complaining of pain in chest and back GARCIA negative for vegetations Blood cultures remain negative at 24 hrs to wean down O2 requiriements to 2L Review of Systems Review of Systems: Yes all other systems are reviewed and are negative Physical Exam Vital Signs: Vital Signs: Last Vital Signs Temp 97.6 F 02/21/24 11:48 Pulse 77 02/21/24 11:48 Resp 17 02/21/24 11:48 BP 93/53 L 02/21/24 11:48 Pulse Ox 96 02/21/24 11:48 O2 Del Method Nasal Cannula 02/21/24 11:48 O2 Flow Rate 3 02/21/24 11:48 Oxygen Flow Rate 2 02/19/24 15:13 BMI result Body Mass Index 31.2 Const: Other: Constitutional : Awake, interactive, not in distress Neck : Normal inspection, Supple Cardiovascular : RRR, mildly elevated JVP, trace lower extremity edema Respiratory : fair bilateral air entry , improved areation at right base, basal fine bilateral crackles, no wheezes Gastrointestinal: soft, lax, Normal bowel sounds, Non tender Skin : Warm, Dry Neurological : Alert & oriented x3, No focal deficit Objective Data Active Medications Acetaminophen (Acetaminophen 325 Mg Tablet) 975 mg PO Q6H PRN PRN Reason: Pain, Mild (Pain Scale 1-3), fever or headache Last Admin: 02/20/24 17:32 Dose: 975 mg Documented By: VASILIY Albuterol Sulfate (Albuterol Sulfate 90 Mcg 8 Gm Inhaler) 2 puff INHALE RQ4H PRN PRN Reason: Wheezing Last Admin: 02/21/24 02:30 Dose: 2 puff Documented By: AMRIT Aspirin (Aspirin Enteric Coated 81 Mg Tablet.) 81 mg PO DAILY [facility] Last Admin: 02/17/24 09:16 Dose: 81 mg Documented By: EVELYN Budesonide (Budesonide 180 Mcg Aer.Pow.Ba) 1 puff INHALE RBID [facility] Last Admin: 02/21/24 07:30 Dose: 1 puff Documented By: PATIENCE Colchicine (Colchicine 0.6 Mg Tablet) 0.6 mg PO BID [facility] Last Admin: 02/21/24 08:42 Dose: 0.6 mg Documented By: DEANNE Dicyclomine HCl (Dicyclomine Hcl 10 Mg Capsule) 10 mg PO QIDACHS [facility] Last Admin: 02/21/24 08:42 Dose: 10 mg Documented By: DEANNE Enoxaparin Sodium (Enoxaparin Sodium 40 Mg/0.4 Ml Syringe) 40 mg SUBCUT Q24H [facility] Last Admin: 02/16/24 20:23 Dose: 40 mg Documented By: CRISTIAN Escitalopram Oxalate (Escitalopram Oxalate 10 Mg Tablet) 10 mg PO DAILY [facility] Last Admin: 02/21/24 08:42 Dose: 10 mg Documented By: DEANNE Hydromorphone HCl (Hydromorphone Hcl 1 Mg/Ml Syringe) 2 mg IVPUSH Q3H PRN; Protocol PRN Reason: Pain, Moderate(Pain Scale 4-6) Last Admin: 02/21/24 08:40 Dose: 2 mg Documented By: DEANNE Vancomycin HCl 1,000 mg/ (Sodium Chloride) 270 mls @ 270 mls/hr IV Q8H [facility] Last Infusion: 02/21/24 10:45 Dose: Infused Documented By: DEANNE Methadone HCl (Methadone Hcl 20 Mg/2 Ml Oral.Conc) 60 mg PO DAILY [facility] Last Admin: 02/21/24 08:42 Dose: 60 mg Documented By: DEANNE Co-signed By: DEMETRI Methadone HCl (Methadone Hcl 20 Mg/2 Ml Oral.Conc) 10 mg PO DAILY PRN PRN Reason: Opiate Withdrawal Naloxone HCl (Naloxone Hcl 0.4 Mg/Ml Vial) 0.04 mg IVPUSH Q5M PRN PRN Reason: Excessive sedation or RR < 8 Naloxone HCl (Naloxone Hcl 0.4 Mg/Ml Vial) 0.04 mg IVPUSH Q5M PRN PRN Reason: Excessive sedation or RR < 8 Nitroglycerin (Nitroglycerin 0.4 Mg Tab.Subl) 0.4 mg SUBLINGUAL Q5MX3 PRN PRN Reason: Chest Pain Omeprazole (Omeprazole 40 Mg Capsule.Dr) 40 mg PO DAILY@0630 [facility] Last Admin: 02/21/24 04:30 Dose: Not Given Documented By: IJEOMA Non-Admin Reason: NPO Ondansetron HCl (Ondansetron Hcl 4 Mg/2 Ml Vial) 4 mg IVPUSH Q6H PRN PRN Reason: Nausea Last Admin: 02/17/24 13:11 Dose: 4 mg Documented By: EVELYN Ondansetron HCl (Ondansetron Hcl 4 Mg/2 Ml Vial) 4 mg IVPUSH ONCE PRN PRN Reason: Nausea and Vomiting Stop: 02/21/24 16:17 Pharmacy Consult (Consult Rx Vancomycin Dosing) 1 each MISCELLANE DAILY PRN PRN Reason: Consult order Sodium Chloride (0.9 % Sodium Chloride Flush 3 Ml Syringe) 3 ml IVFLUSH QSMDFT [facility] Last Admin: 02/21/24 08:42 Dose: 3 ml Documented By: DEANNE Labs 02/20/24 19:07 02/21/24 08:02 Labs: Laboratory Results - last 24 hr 02/20/24 02/21/24 19:07 08:02 MCV 83.5 MCH 26.7 L MCHC 32.0 RDW 14.8 Plt Count 384 MPV 10.4 Absolute Nucleated RBC 0.000 Nucleated RBC % (auto) 0.0 Estim Creat Clear Calc 106.6 Estimated GFR > 60 Hold Yellow Top See Note Random Vancomycin 19.2 Microbiology Microbiology Results: Microbiology 02/19/24 08:17 Blood Culture - Preliminary Blood - Venous No growth after 48 hours. 02/18/24 21:00 Gram Stain - Final Pericardial Fluid Anaerobic Culture - Preliminary Culture in progress. Body Fluid Culture - Final Methicillin Res Staph Aureus 02/19/24 14:00 Gram Stain - Final Pleural Fluid Routine Culture - Preliminary No growth to date. Anaerobic Culture - Preliminary No growth to date. 02/19/24 17:27 Blood Culture - Preliminary Blood - Venous No growth after 24 hours. Assessment and Plan (1) Pleural effusion: Status: Acute (2) Pericardial effusion: Status: Acute (3) Pericarditis: Status: Acute (4) Bacteremia: Status: Acute (5) Opioid use disorder: Status: Acute (6) Pleuritic chest pain: Status: Acute (7) Suspected endocarditis: Status: Acute Plan 48F PMH polysubstance dependence including IV opiates and cocaine, mood disorder, presented with chest pain, fevers sepsis due to MRSA bacteremia in IVDA complicated by pneumonia, uti, and pericardial effusion with possible infective endocarditis follow up cultures - 02/16/24 still positive, repeat 02/18/24; still negative Continue IV Vancomycin ID - likely 4 weeks iv abx once cleared pericardiocentesis done, fluids growing MRSA as well GARCIA did not show any vegetations PICC line by Friday wean O2 down as tolerated follow Vanco trough Right sided pleural effusion Thoracentsis removed 1.3L, feels better fluid analysis and culture Rt Cephalic vein thrombus keep arm elevated NSAIDs warm compressors hcv outpatient follow up chest pain with elevated troponins cocaine vs type II [place] vs perimyocarditis Continue colchicine and nonsteroidals per Cardiology polysubstance dependence with withdrawal addiction following continue methadone Hepatitis C tested positive, for outpatient follow up dvt prophylaxis - lovenox full code reason for continued hospitalization: bacteremia pending negative cultures and PICC line placement for outpatient therapy. Quality Stroke Does the patient have a stroke diagnosis?: No VTE Prior VTE?: No VTE Risk Level:: Medical - moderate - high VTE Device Contraindication: Treatment Not Indicated VTE Drug Contraindication: N/A - Med Ordered
--- NOTE | 2024-02-21 13:59 | PM.PNCARD ---
Subjective Subjective Date of Service: 02/21/24 Principal diagnosis: Pericardial effusion, pericarditis. Interval history: Patient underwent GARCIA today. No evidence of vegetations or intracardiac abscess noted. Persistent [id number] pericardial effusion with fibrinous strands noted. Less short of breath after pleural centesis. Continues to have diffuse body aches and muscle aches Review of Systems Constitutional: Reports body ache(s) and Reports weakness Cardiovascular: Denies chest pain, Denies rapid heart rate, Denies lightheadedness, Denies Loss of Consciousness, Denies palpitations and Reports dyspnea on exertion Respiratory: Reports dyspnea on exertion Musculoskeletal: Reports no additional musculoskeletal complaints Reports system reviewed and no additional complaints, except as documented and Reports weakness Psychiatric: Reports no additional psychiatric complaints Endocrine: Denies palpitations Physical Exam Vital Signs: Last Vital Signs Temp 97.6 F 02/21/24 12:04 Pulse 76 02/21/24 12:04 Resp 18 02/21/24 12:04 BP 108/63 02/21/24 12:04 Pulse Ox 6 L 02/21/24 12:04 O2 Del Method Nasal Cannula 02/21/24 12:04 O2 Flow Rate 3 02/21/24 12:04 Oxygen Flow Rate 2 02/19/24 15:13 BMI result Body Mass Index 31.2 Const General: cooperative, comfortable, alert and awake Nutritional Appearance: overweight Orientation/consciousness: patient oriented x3 Neck Neck: Yes trachea midline, Yes supple and Yes no JVD Resp Effort & Inspection: decreased respiratory effort Auscultation: no rales, no wheezes and diminished lung sounds Cardio Jugular venous distension: no JVD Rate: regular rate Rhythm: regular rhythm Heart sounds: S1 normal heart sound present, S2 normal heart sound present, no click, no gallops and no murmurs GI Auscultation: normal bowel sounds Neuro General: patient oriented x3 and no focal motor deficits Objective Labs and Meds 02/20/24 19:07 02/21/24 08:02 Lab results: Laboratory Results - last 24 hr 02/20/24 02/21/24 19:07 08:02 WBC 14.3 H RBC 3.22 L Hgb 8.6 L Hct 26.9 L MCV 83.5 MCH 26.7 L MCHC 32.0 RDW 14.8 Plt Count 384 MPV 10.4 Absolute Nucleated RBC 0.000 Nucleated RBC % (auto) 0.0 Creatinine 0.66 Estim Creat Clear Calc 106.6 Estimated GFR > 60 Hold Yellow Top See Note Random Vancomycin 19.2 Progress Note: A&P Assessment and plan (1) Pericardial effusion: Status: Acute Assessment and Plan: Bacterial pericardial effusion with MRSA. This is highly unusual and rare cause for pericardial effusion. She still has persistent [id number] pericardial effusion. Would involve thoracic surgery for further guidance. May require VATS pericardial window and biopsy. Continue aggressive antibiotic therapy. Please involve ID in management as well. Continue supportive care. Overall risk of complications very high including constrictive pericarditis. Follow-up limited echocardiogram on Friday. Time Spent With Patient Time: Total time managing care of this patient today ____ minutes. Progress Note: Quality Stroke Does the patient have a stroke diagnosis?: No Procedures Date of Service Date of Service: 02/21/24
[2024-02-21] MEDS: Docusate Sodium 100 MG CAPSULE PO ×2 (15:57→20:45)
[2024-02-21] MEDS: Acetaminophen 325 MG TABLET 975 MG PO (15:57)
[2024-02-21 16:35] LABS: Vancomycin Random 16.9 mcg/mL (15-20)
--- NOTE | 2024-02-21 16:45 | HE.PHANOTE ---
RE VANCO LEVEL BEFORE DOSE 22 CAME IN 16.9 WITH SCR STEADY AT 0.66. WILL CONTINUE CURRENT DOSING REGIMEN WITH EXPECTATION THAT PT IS LIKELY AT STEADY STATE NOW. ONE MORE LEVEL TO BE DRAWN 02/22/24 @1600 TO ENSURE SAFE DOSING THEN WILL START GETTING LEVELS EVERY OTHER DAY. CONTINUE DAILY RENAL FUNCTION MONITORING.
[2024-02-21] MEDS: Lactulose 20 GM/30 ML SOLUTION PO (20:44)
[2024-02-22] VITALS (13 sets, daily range): BP systolic 119–141; BP diastolic 81–90; PULSE 64–97; RESP 12–20; TEMP 36.8–37.1; O2SAT 92–97
[2024-02-22] MEDS: vancomycin HCL 1,000 MG in 0.9 % Sodium Chloride 250 ML 270 MG IV ×2 (02:12→10:01)
[2024-02-22] MEDS: HYDROmorphone HCl 1 MG/ML SYRINGE 2 MG IVPUSH ×5 (02:12→21:54)
[2024-02-22] MEDS: Dicyclomine HCl 10 MG CAPSULE PO ×4 (06:13→21:48)
[2024-02-22] MEDS: Omeprazole 40 MG CAPSULE.DR PO (06:13)
[2024-02-22 06:25] LABS: Creatinine Clr Calc Pharmacy 103.5; Estimated Glomerular Filt Rate > 60
[2024-02-22] MEDS: Budesonide 180 MCG AER.POW.BA 1 PUFF INHALE ×2 (07:38→18:42)
[2024-02-22] MEDS: methADONE HCl 20 MG/2 ML ORAL.CONC 60 MG PO (08:20)
[2024-02-22] MEDS: Escitalopram Oxalate 10 MG TABLET PO (08:21)
[2024-02-22] MEDS: Colchicine 0.6 MG TABLET PO ×2 (08:21→21:52)
[2024-02-22] MEDS: Docusate Sodium 100 MG CAPSULE PO (08:21)
[2024-02-22] MEDS: 0.9 % Sodium Chloride Flush 3 ML SYRINGE IVFLUSH ×2 (08:31→16:33)
--- NOTE | 2024-02-22 09:33 | HO.PM.IMPN ---
Subjective Subjective Date of Service: 02/22/24 Interval History: seen and evaluated this morning feels no energy and complaining of pain in chest and back GARCIA negative for vegetations Blood cultures remain negative at 48 hrs to wean down O2 requirements to 2L Review of Systems Review of Systems: Yes all other systems are reviewed and are negative Physical Exam Vital Signs: Vital Signs: Last Vital Signs Temp 98.4 F 02/22/24 07:10 Pulse 64 02/22/24 07:40 Resp 12 02/22/24 07:40 BP 121/86 02/22/24 07:10 Pulse Ox 95 02/22/24 07:10 O2 Del Method Nasal Cannula 02/22/24 07:10 O2 Flow Rate 2 02/22/24 07:10 Oxygen Flow Rate 2 02/19/24 15:13 BMI result Body Mass Index 31.2 Const: Other: Constitutional : Awake, interactive, not in distress Neck : Normal inspection, Supple Cardiovascular : RRR, mildly elevated JVP, trace lower extremity edema Respiratory : fair bilateral air entry , improved areation at right base, basal fine bilateral crackles, no wheezes Gastrointestinal: soft, lax, Normal bowel sounds, Non tender Skin : Warm, Dry Neurological : Alert & oriented x3, No focal deficit Objective Data Active Medications Acetaminophen (Acetaminophen 325 Mg Tablet) 975 mg PO Q6H PRN PRN Reason: Pain, Mild (Pain Scale 1-3), fever or headache Last Admin: 02/21/24 15:57 Dose: 975 mg Documented By: DEANNE Albuterol Sulfate (Albuterol Sulfate 90 Mcg 8 Gm Inhaler) 2 puff INHALE RQ4H PRN PRN Reason: Wheezing Last Admin: 02/21/24 20:16 Dose: 2 puff Documented By: AMRIT Aspirin (Aspirin Enteric Coated 81 Mg Tablet.) 81 mg PO DAILY [facility] Last Admin: 02/17/24 09:16 Dose: 81 mg Documented By: EVELYN Budesonide (Budesonide 180 Mcg Aer.Pow.Ba) 1 puff INHALE RBID [facility] Last Admin: 02/22/24 07:38 Dose: 1 puff Documented By: JOSSELINE Colchicine (Colchicine 0.6 Mg Tablet) 0.6 mg PO BID [facility] Last Admin: 02/22/24 08:21 Dose: 0.6 mg Documented By: DEANNE Dicyclomine HCl (Dicyclomine Hcl 10 Mg Capsule) 10 mg PO QIDACHS [facility] Last Admin: 02/22/24 06:13 Dose: 10 mg Documented By: SUDARSHAN Docusate Sodium (Docusate Sodium 100 Mg Capsule) 100 mg PO BID [facility] Last Admin: 02/22/24 08:21 Dose: 100 mg Documented By: DEANNE Enoxaparin Sodium (Enoxaparin Sodium 40 Mg/0.4 Ml Syringe) 40 mg SUBCUT Q24H [facility] Last Admin: 02/16/24 20:23 Dose: 40 mg Documented By: CRISTIAN Escitalopram Oxalate (Escitalopram Oxalate 10 Mg Tablet) 10 mg PO DAILY [facility] Last Admin: 02/22/24 08:21 Dose: 10 mg Documented By: DEANNE Hydrocortisone (Hydrocortisone 1 % Cream 28.35 Gm Tube) 1 appl TOPICAL BID PRN; Protocol PRN Reason: ezcema Hydromorphone HCl (Hydromorphone Hcl 1 Mg/Ml Syringe) 2 mg IVPUSH Q4H PRN; Protocol PRN Reason: Pain, Moderate(Pain Scale 4-6) Last Admin: 02/22/24 08:21 Dose: 2 mg Documented By: DEANNE Vancomycin HCl 1,000 mg/ (Sodium Chloride) 270 mls @ 270 mls/hr IV Q8H [facility] Last Infusion: 02/22/24 03:20 Dose: Infused Documented By: SUDARSHAN Lactulose (Lactulose 20 Gm/30 Ml Solution) 20 gm PO BID [facility] Last Admin: 02/22/24 08:21 Dose: Not Given Documented By: DEANNE Non-Admin Reason: Pt moving bowels Methadone HCl (Methadone Hcl 20 Mg/2 Ml Oral.Conc) 60 mg PO DAILY [facility] Last Admin: 02/22/24 08:20 Dose: 60 mg Documented By: DEANNE Co-signed By: DEMETRI Methadone HCl (Methadone Hcl 20 Mg/2 Ml Oral.Conc) 10 mg PO DAILY PRN PRN Reason: Opiate Withdrawal Naloxone HCl (Naloxone Hcl 0.4 Mg/Ml Vial) 0.04 mg IVPUSH Q5M PRN PRN Reason: Excessive sedation or RR < 8 Naloxone HCl (Naloxone Hcl 0.4 Mg/Ml Vial) 0.04 mg IVPUSH Q5M PRN PRN Reason: Excessive sedation or RR < 8 Nitroglycerin (Nitroglycerin 0.4 Mg Tab.Subl) 0.4 mg SUBLINGUAL Q5MX3 PRN PRN Reason: Chest Pain Omeprazole (Omeprazole 40 Mg Capsule.Dr) 40 mg PO DAILY@0630 [facility] Last Admin: 02/22/24 06:13 Dose: 40 mg Documented By: SUDARSHAN Ondansetron HCl (Ondansetron Hcl 4 Mg/2 Ml Vial) 4 mg IVPUSH Q6H PRN PRN Reason: Nausea Last Admin: 02/17/24 13:11 Dose: 4 mg Documented By: EVELYN Pharmacy Consult (Consult Rx Vancomycin Dosing) 1 each MISCELLANE DAILY PRN PRN Reason: Consult order Sodium Chloride (0.9 % Sodium Chloride Flush 3 Ml Syringe) 3 ml IVFLUSH [facility] Last Admin: 02/22/24 08:31 Dose: 3 ml Documented By: RIOSCEL Labs 02/20/24 19:07 02/22/24 05:54 Labs: Laboratory Results - last 24 hr 02/21/24 02/22/24 16:01 05:54 Estim Creat Clear Calc 103.5 Estimated GFR > 60 Random Vancomycin 16.9 Microbiology Microbiology Results: Microbiology 02/18/24 21:00 Gram Stain - Final Pericardial Fluid Anaerobic Culture - Preliminary Culture in progress. Body Fluid Culture - Final Methicillin Res Staph Aureus 02/19/24 14:00 Gram Stain - Final Pleural Fluid Routine Culture - Final No growth after 2 days Anaerobic Culture - Preliminary No growth to date. 02/19/24 17:27 Blood Culture - Preliminary Blood - Venous No growth after 48 hours. 02/19/24 08:17 Blood Culture - Preliminary Blood - Venous No growth after 48 hours. Assessment and Plan (1) Pleural effusion: Status: Acute (2) Pericardial effusion: Status: Acute (3) Pericarditis: Status: Acute (4) Bacteremia: Status: Acute (5) Opioid use disorder: Status: Acute Plan 48F PMH polysubstance dependence including IV opiates and cocaine, mood disorder, presented with chest pain, fevers sepsis due to MRSA bacteremia in IVDA complicated by pneumonia, uti, and pericardial effusion with possible infective endocarditis follow up cultures - 02/16/24 still positive, repeat 02/18/24; still negative pericardiocentesis done, fluids growing MRSA as well GARCIA did not show any vegetations ID - likely 4 weeks iv abx once cleared Continue IV Vancomycin PICC line by Friday wean O2 down as tolerated follow Vanco [facility] to discuss with cardiothoracic surgery Right sided pleural effusion Thoracentsis removed 1.3L, feels better fluid culture, negative but still pending Rt Cephalic vein thrombus keep arm elevated NSAIDs warm compressors hcv outpatient follow up chest pain with elevated troponins cocaine vs type II [place] vs perimyocarditis Continue colchicine and nonsteroidals per Cardiology polysubstance dependence with withdrawal addiction following continue methadone Hepatitis C tested positive, for outpatient follow up dvt prophylaxis - lovenox full code reason for continued hospitalization: bacteremia pending PICC line placement for outpatient therapy and Cardiology opinoin Quality Stroke Does the patient have a stroke diagnosis?: No VTE Prior VTE?: No VTE Risk Level:: Medical - moderate - high VTE Device Contraindication: Treatment Not Indicated VTE Drug Contraindication: N/A - Med Ordered
--- NOTE | 2024-02-22 10:06 | HO.POSTANES ---
Post Anesthesia Evaluation Post Anesthesia Evaluation Date of Service: 02/22/24 Vital Signs: Vital Signs Temp Pulse Resp BP Pulse Ox O2 Del Method O2 Flow Rate 02/22/24 07:40 64 12 02/22/24 07:10 98.4 F 78 20 121/86 95 Nasal Cannula 2 02/22/24 03:59 98.6 F 73 16 120/81 94 Nasal Cannula 2 Anesthesia: TIVA Mental Status: Awake Pain Control: Satisfactory Nausea/Vomiting: None Hydration: Adequate Anesthesia-Related Issues: No Anes. Related Issues
--- NOTE | 2024-02-22 10:19 | MHC.RECOVRN ---
Met with pt in 452 to follow up and provide support.? Pt awake, alert, easily engages in conversation, just finished breakfast.? Pt reports pain in currently managed on dilaudid dosing and Methadone dosing is appropriate. No W/D reported or observed. Education provided on methadone available PRN that might be needed as Dilaudid continues to decrease. .? Pt has not yet needed the additional 10mg PRN and has been stable on scheduled dose of methadone. Pt denies other concerns at this time.? ACS available as needed.
--- NOTE | 2024-02-22 10:20 | PM.EVENT ---
Event Note Date of Service: 02/22/24 Event Note: She is comfortable Shortness of breath as per baseline Chest pain as per baseline No significant drainage from previous pericardial tube Continue care as per hospitalist service Time Spent With Patient Time: Total time managing care of this patient today ____ minutes.
[2024-02-22] MEDS: Triamcinolone Acet 0.1 % Cream 15 GM TUBE 1 APPL TOPICAL (14:13)
--- NOTE | 2024-02-22 16:53 | HE.PHANOTE ---
RE VANCO LEVEL IS 20.0 TODAY WITH SCR STABLE AT 0.68. WILL HOLD NEXT DOSE UNTIL TONIGHT AT 2200 AND CHANGE DOSING TO 1250 Q12H. ACCORDING TO INSIGHT THIS WILL YIELD AUC 449 AND TROUGH 12.1 BUT PT IS RUNNING HIGHER THAN THE MODELING PREDICTS SO SHE WILL LIKELY BE CLOSER TO A LEVEL OF 15 WHEN NEXT TROUGH IS DRAWN 02/22 @1999. CONTINUE DAILY RENAL MONITORING.
[2024-02-22] MEDS: vancomycin HCL 1,250 MG in 0.9 % Sodium Chloride 250 ML 166.67 MG IV (21:49)
[2024-02-23] VITALS (16 sets, daily range): BP systolic 121–157; BP diastolic 79–95; PULSE 78–90; RESP 16–20; TEMP 36.2–36.9; O2SAT 91–95
[2024-02-23] MEDS: HYDROmorphone HCl 1 MG/ML SYRINGE 2 MG IVPUSH ×4 (03:39→22:13)
[2024-02-23] MEDS: Dicyclomine HCl 10 MG CAPSULE PO ×4 (06:16→22:12)
[2024-02-23] MEDS: Omeprazole 40 MG CAPSULE.DR PO (06:16)
--- NOTE | 2024-02-23 07:00 | CA_ITS ---
Transthoracic Echocardiogram Patient (Last, First, Middle): Nelsy Singh, Gender: Female Date of : 1975 Age: 48 Procedure Date: 02/23/2024 Procedure Type: Transthoracic Echocardiogram [place] [facility] [place]: 160.02 cm Weight: 79.83 kg BSA: 1.83 m2 Heart Rate: bpm BP: 130 / 91 mmHg [employer] Consultant: YVETTE Referring MD: Seven Mazariegos MD Symptoms: F U pericardial effusion Study Quality: Fair ECG Rhythm: Sinus Conclusions: - Moderate pericardial effusion adjacent to the right atrium and right ventricle. - There are no definitive echocardiographic findings of tamponade physiology. Findings Left Ventricle Normal left ventricular cavity size. The left ventricular systolic function is normal. The visually estimated ejection fraction is between 60-65%. There is no evidence of regional wall motion abnormalities. Venous The inferior vena cava is mildly dilated and collapses greater than 50% with inspiration. Pericardium/Pleural There are no definitive echocardiographic findings of tamponade physiology. Moderate pericardial effusion adjacent to the right atrium and right ventricle. Prior Study Comparison No significant change compared to prior study dated: 02/19/2024. Measurements Mitral Valve E'Lateral: 10.60 E'Medial: 8.49 Diastolic Function E'Medial: 8.49 E' Laterial: 10.60 Tricuspid Valve RA Press: 8.00 Updated in Other Vendor System with Status of Final Venkata Ramirez MD electronically signed on 02/23/2024 4:43:44 PM with status of Final
[2024-02-23 07:25] LABS: Creatinine Clr Calc Pharmacy 100.6; Estimated Glomerular Filt Rate > 60
[2024-02-23] MEDS: Budesonide 180 MCG AER.POW.BA 1 PUFF INHALE ×2 (07:32→19:24)
[2024-02-23] MEDS: 0.9 % Sodium Chloride Flush 3 ML SYRINGE IVFLUSH ×3 (08:25→22:12)
[2024-02-23] MEDS: Colchicine 0.6 MG TABLET PO ×2 (08:25→22:12)
[2024-02-23] MEDS: Escitalopram Oxalate 10 MG TABLET PO (08:25)
[2024-02-23] MEDS: methADONE HCl 20 MG/2 ML ORAL.CONC 60 MG PO (08:25)
[2024-02-23] MEDS: vancomycin HCL 1,250 MG in 0.9 % Sodium Chloride 250 ML 166 MG IV ×2 (08:26→22:12)
[2024-02-23] MEDS: Docusate Sodium 100 MG CAPSULE PO ×2 (08:26→22:12)
[2024-02-23] MEDS: Triamcinolone Acet 0.1 % Cream 15 GM TUBE 1 APPL TOPICAL (08:28)
--- NOTE | 2024-02-23 10:46 | PM.PNCARD ---
Subjective Subjective Date of Service: 02/23/24 Principal diagnosis: Pericardial effusion, pericarditis. Interval history: Patient states she feels fine. No cardiac symptoms. Review of Systems Review of Systems Yes all other systems are reviewed and are negative Constitutional: Reports as per HPI and Reports no additional constitutional complaints Eyes: Reports as per HPI and Denies no additional eye complaints Denies system reviewed and no additional complaints, except as documented and Reports as per HPI Cardiovascular: Reports as per HPI, Reports no additional cardiovascular complaints, Denies acrocyanosis, Denies cool extremities, Denies chest pain, Denies leg edema, Denies lightheadedness, Denies palpitations and Denies dyspnea Respiratory: Reports as per HPI, Denies no additional respiratory complaints and Denies dyspnea Gastrointestinal: Reports as per HPI and Denies no additional gastrointestinal complaints Genitourinary: Reports as per HPI Musculoskeletal: Reports no additional musculoskeletal complaints and Reports as per HPI Skin/Breast: Reports system reviewed and no additional complaints, except as docu Reports system reviewed and no additional complaints, except as documented and Reports as per HPI Psychiatric: Reports no additional psychiatric complaints and Reports as per HPI Endocrine: Reports no additional endocrine complaints, Reports as per HPI and Denies palpitations Hematologic/Lymphatic: Reports no additional hematologic/lymphatic complaints and Reports as per HPI Allergic/Immunologic: Reports no additional allergic/immunologic complaints and Reports as per HPI Physical Exam Vital Signs: Last Vital Signs Temp 97.2 F 02/23/24 07:25 Pulse 84 02/23/24 07:34 Resp 16 02/23/24 07:34 BP 143/86 H 02/23/24 07:25 Pulse Ox 92 02/23/24 07:25 O2 Del Method Nasal Cannula 02/23/24 07:25 O2 Flow Rate 1 02/23/24 07:25 Oxygen Flow Rate 2 02/19/24 15:13 BMI result Body Mass Index 31.2 Const General: comfortable and no acute distress Orientation/consciousness: patient oriented x3 HEENT Other: Unremarkable Head: Yes normal to inspection Neck Neck: Yes normal visual inspection Chest Chest palpation & inspection: normal inspection of the chest Resp Auscultation: clear to auscultation bilaterally Cardio Palpation: normal PMI Heart sounds: S1 normal heart sound present, S2 normal heart sound present, no gallops, no murmurs and no rubs GI Palpation (GI): Soft to palpation Back/Spine/Pelvis Other: unremarkable Skin General skin exam: no rashes or lesions noted Neuro General: patient oriented x3 Extrem General: Yes normal to inspection Psych Mental Status: mental status grossly normal Objective Labs and Meds 02/20/24 19:07 02/23/24 06:16 Lab results: Laboratory Results - last 24 hr 02/22/24 02/23/24 16:16 06:16 Creatinine 0.70 Estim Creat Clear Calc 100.6 Estimated GFR > 60 Random Vancomycin 20.0 Progress Note: A&P Assessment and plan (1) Pericardial effusion: Status: Acute (2) Bacteremia: Status: Acute (3) Heroin use: Status: Acute (4) Cocaine use: Status: Acute Plan Patient with substance abuse, positive opiates, oxycodone, fentanyl, cocaine, MRSA bacteremia, positive pericardial MRSA. In the trans esophageal echocardiogram, reported to have moderate pericardial effusion. Await transthoracic study today. IV antibiotics. Will follow-up with you. Discussed with Dr. Mazariegos. Time Spent With Patient Time: Total time managing care of this patient today ____ minutes. Progress Note: Quality Stroke Does the patient have a stroke diagnosis?: No Procedures Date of Service Date of Service: 02/23/24
--- NOTE | 2024-02-23 10:48 | MHC.CM.PN ---
Per ROUNDS discussion, Patient is not yet medically cleared for dc (PICC and repeat ECHO today);SNF for LT IV ABT remains the goal and CM will continue to follow.
--- NOTE | 2024-02-23 11:10 | HO.PM.IMPN ---
Subjective Subjective Date of Service: 02/23/24 Interval History: seen and evaluated this morning feels better overall, appetite improved GARCIA negative for vegetations Blood cultures negative to wean down O2 requirements to 2L Review of Systems Review of Systems: Yes all other systems are reviewed and are negative Physical Exam Vital Signs: Vital Signs: Last Vital Signs Temp 97.2 F 02/23/24 07:25 Pulse 84 02/23/24 07:34 Resp 16 02/23/24 07:34 BP 143/86 H 02/23/24 07:25 Pulse Ox 92 02/23/24 07:25 O2 Del Method Nasal Cannula 02/23/24 07:25 O2 Flow Rate 1 02/23/24 07:25 Oxygen Flow Rate 2 02/19/24 15:13 BMI result Body Mass Index 31.2 Const: Other: Constitutional : Awake, interactive, not in distress Neck : Normal inspection, Supple Cardiovascular : RRR, mildly elevated JVP, trace lower extremity edema Respiratory : fair bilateral air entry , improved areation at right base, basal fine bilateral crackles, no wheezes Gastrointestinal: soft, lax, Normal bowel sounds, Non tender Skin : Warm, Dry, Right inguinal small draining abscess Neurological : Alert & oriented x3, No focal deficit Objective Data Active Medications Acetaminophen (Acetaminophen 325 Mg Tablet) 975 mg PO Q6H PRN PRN Reason: Pain, Mild (Pain Scale 1-3), fever or headache Last Admin: 02/21/24 15:57 Dose: 975 mg Documented By: DEANNE Albuterol Sulfate (Albuterol Sulfate 90 Mcg 8 Gm Inhaler) 2 puff INHALE RQ4H PRN PRN Reason: Wheezing Last Admin: 02/21/24 20:16 Dose: 2 puff Documented By: AMRIT Aspirin (Aspirin Enteric Coated 81 Mg Tablet.) 81 mg PO DAILY [facility] Last Admin: 02/17/24 09:16 Dose: 81 mg Documented By: EVELYN Budesonide (Budesonide 180 Mcg Aer.Pow.Ba) 1 puff INHALE RBID [facility] Last Admin: 02/23/24 07:32 Dose: 1 puff Documented By: VIRI Colchicine (Colchicine 0.6 Mg Tablet) 0.6 mg PO BID [facility] Last Admin: 02/23/24 08:25 Dose: 0.6 mg Documented By: DEANNE Dicyclomine HCl (Dicyclomine Hcl 10 Mg Capsule) 10 mg PO QIDACHS [facility] Last Admin: 02/23/24 06:16 Dose: 10 mg Documented By: BRENDON Docusate Sodium (Docusate Sodium 100 Mg Capsule) 100 mg PO BID [facility] Last Admin: 02/23/24 08:26 Dose: 100 mg Documented By: DEANNE Enoxaparin Sodium (Enoxaparin Sodium 40 Mg/0.4 Ml Syringe) 40 mg SUBCUT Q24H [facility] Last Admin: 02/16/24 20:23 Dose: 40 mg Documented By: CRISTIAN Escitalopram Oxalate (Escitalopram Oxalate 10 Mg Tablet) 10 mg PO DAILY [facility] Last Admin: 02/23/24 08:25 Dose: 10 mg Documented By: DEANNE Hydrocortisone (Hydrocortisone 1 % Cream 28.35 Gm Tube) 1 appl TOPICAL BID PRN; Protocol PRN Reason: ezcema Hydromorphone HCl (Hydromorphone Hcl 1 Mg/Ml Syringe) 2 mg IVPUSH Q4H PRN; Protocol PRN Reason: Pain, Moderate(Pain Scale 4-6) Last Admin: 02/23/24 08:25 Dose: 2 mg Documented By: DEANNE Vancomycin HCl 1,250 mg/ (Sodium Chloride) 250 mls @ 166.667 mls/hr IV Q12H [facility] Last Infusion: 02/23/24 10:43 Dose: Infused Documented By: DEANNE Lactulose (Lactulose 20 Gm/30 Ml Solution) 20 gm PO BID [facility] Last Admin: 02/23/24 08:26 Dose: Not Given Documented By: DEANNE Non-Admin Reason: Patient Refused Methadone HCl (Methadone Hcl 20 Mg/2 Ml Oral.Conc) 60 mg PO DAILY [facility] Last Admin: 02/23/24 08:25 Dose: 60 mg Documented By: DEANEN Co-signed By: NADEGE Methadone HCl (Methadone Hcl 20 Mg/2 Ml Oral.Conc) 10 mg PO DAILY PRN PRN Reason: Opiate Withdrawal Naloxone HCl (Naloxone Hcl 0.4 Mg/Ml Vial) 0.04 mg IVPUSH Q5M PRN PRN Reason: Excessive sedation or RR < 8 Naloxone HCl (Naloxone Hcl 0.4 Mg/Ml Vial) 0.04 mg IVPUSH Q5M PRN PRN Reason: Excessive sedation or RR < 8 Nitroglycerin (Nitroglycerin 0.4 Mg Tab.Subl) 0.4 mg SUBLINGUAL Q5MX3 PRN PRN Reason: Chest Pain Omeprazole (Omeprazole 40 Mg Capsule.Dr) 40 mg PO DAILY@0630 [facility] Last Admin: 02/23/24 06:16 Dose: 40 mg Documented By: BRENDON Ondansetron HCl (Ondansetron Hcl 4 Mg/2 Ml Vial) 4 mg IVPUSH Q6H PRN PRN Reason: Nausea Last Admin: 02/17/24 13:11 Dose: 4 mg Documented By: EVELYN Pharmacy Consult (Consult Rx Vancomycin Dosing) 1 each MISCELLANE DAILY PRN PRN Reason: Consult order Sodium Chloride (0.9 % Sodium Chloride Flush 3 Ml Syringe) [facility] Last Admin: 02/23/24 08:25 Dose: 3 ml Documented By: DEANNE Triamcinolone Acetonide (Triamcinolone Acet 0.1 % Cream 15 Gm Tube) 1 appl TOPICAL DAILY [facility]; Protocol Last Admin: 02/23/24 08:28 Dose: 1 appl Documented By: DEANNE Labs 02/20/24 19:07 02/23/24 06:16 Labs: Laboratory Results - last 24 hr 02/22/24 02/23/24 16:16 06:16 Estim Creat Clear Calc 100.6 Estimated GFR > 60 Random Vancomycin 20.0 Microbiology Microbiology Results: Microbiology 02/18/24 21:00 Gram Stain - Final Pericardial Fluid Anaerobic Culture - Preliminary Culture in progress. Body Fluid Culture - Final Methicillin Res Staph Aureus 02/19/24 14:00 Gram Stain - Final Pleural Fluid Routine Culture - Final No growth after 2 days Anaerobic Culture - Preliminary No growth to date. Assessment and Plan (1) Pleural effusion: Status: Acute (2) Pericardial effusion: Status: Acute (3) Pericarditis: Status: Acute (4) Bacteremia: Status: Acute (5) Suspected endocarditis: Status: Acute Plan 48F PMH polysubstance dependence including IV opiates and cocaine, mood disorder, presented with chest pain, fevers sepsis due to MRSA bacteremia in IVDA complicated by pneumonia, uti, and pericardial effusion with possible infective endocarditis follow up cultures - 02/16/24 still positive, repeat 02/18/24; still negative pericardiocentesis done, fluids growing MRSA as well GARCIA did not show any vegetations ID - likely 4 weeks iv abx once cleared Continue IV Vancomycin PICC line today recheck Limited Echo wean O2 down as tolerated follow Vanco trough Cardiology following Right sided pleural effusion Thoracentsis removed 1.3L, feels better fluid culture, negative but still pending Rt Cephalic vein thrombus keep arm elevated NSAIDs warm compressors Rt inguinal small abscess Wound care eval hcv outpatient follow up chest pain with elevated troponins cocaine vs type II [place] vs perimyocarditis Continue colchicine and nonsteroidals per Cardiology polysubstance dependence with withdrawal addiction following continue methadone Hepatitis C tested positive, for outpatient follow up dvt prophylaxis - lovenox full code reason for continued hospitalization: bacteremia pending PICC line placement for outpatient therapy and Cardiology opinoin Quality Stroke Does the patient have a stroke diagnosis?: No VTE Prior VTE?: No VTE Risk Level:: Medical - moderate - high VTE Device Contraindication: Treatment Not Indicated VTE Drug Contraindication: N/A - Med Ordered
--- NOTE | 2024-02-23 12:54 | MHC.CM.PN ---
CM met with Patient at bedside to discuss her 3-4 SNF options/bed offers for her IV ABT,on Methadone([facility], and [facility]).Patient does not want to go to any of these facilities r/t it being impossible for her Mother to get to, in order to visit. Patient is asking if she can be weaned off her Methadone to possibly have more SNF options; CM has relayed this information/question to RN & MD.CM will follow.
--- NOTE | 2024-02-23 13:55 | MHC.CM.PN ---
After speaking with her Mother, Patient is agreeable to go to one of the [facility] SNFs([facility] and [facility]); CM awaits confirmation from [facility] that they will have an available bed tomorrow. Patient is getting her PICC at this time.
[2024-02-23 14:02] LABS: pH Pericardial Fluid 7.43
[2024-02-23 14:03] LABS: Total Protein Pericardial Flui 4.7
[2024-02-23 14:04] LABS: Albumin Pericardial Fluid 2.7
[2024-02-23 14:05] LABS: LDH Pericardial Fluid 810
--- NOTE | 2024-02-23 14:44 | MHC.RECOVRN ---
Pts referral sent to [facility] in [place].
--- NOTE | 2024-02-23 14:51 | HO.PICC ---
PICC Line Insertion NPICC Diagnosis: MRSA Bacteremia, PNA,UTI,Percardial Effusion Indication: senior living ABT Pertinent Labs: reviewed Technique: Following informed consent including risks, benefits and alternatives and using sterile technique including cap and mask, sterile gown, glove and drape, the left arm was prepped and draped in the usual sterile fashion of full barrier technique with CHG. Following completion of [place] Protocol the skin and soft tissues were anesthetized with 1% Lidocaine plain. Using ultrasound guidance, left brachial vein access was obtained. Over an 0.018 wire through peel-away sheath, a 4FR single lumen PASV PICC line was positioned. Catheter length is 35cm internal length, 0cm external length, for a total trimmed length of 35cm. The procedure was performed in room 272. Tip verification was performed by Elva Post with Sherlock 3CG. Tip located in SVC. Ultrasound was used to document vein patency and for needle entry. A formal ultrasound picture and cardiac rhythm strip was recorded. Vascular Information Technology Program Manager has released the line for use and it is currently dressed with a StatLock, Tegaderm, and CHG disc. Verification has been performed for blood return and line patency. Arm Circumference: 30cm Equipment: [employer] PowerPICC SOLO catheter with Sherlock 3CG Tip Catheter Type: 4 FR single lumen PASV catheter Lot #: [id number]
--- NOTE | 2024-02-23 16:21 | P.PNADD_ITS ---
Subjective Subjective Date of Service: 02/23/24 Reason For Visit: Chest pain, SIRS Interim History: Patient seen in follow up Methadone currently at 60mg daily pain medications have been being tapered due to impending discharge earlier stating that she was considering not transferring to SNF to complete IV abx due to how far away it was from her family she was tearful stating that she knows she had to complete her treatment, but anxious to be alone there. during visit, patient's mother called and encouraged her to go where a bed was offered. Discussed current methadone dose, and she would like to increase further. Appearing comfortable during visit, no withdrawal sx reported or noted Review of Systems Constitutional: Reports as per HPI Mental Status Exam Mental Status Exam Patient Appearance: Appropriate Level of Consciousness: Awake and Appropriate Patient Behavior: Appropriate and Anxious Mood Description: Calm Affect Description: Anxious Speech Pattern: Clear Diagnostics Vital Signs (24Hr): Vital Signs - 24 hr 02/22/24 18:43 02/22/24 19:55 02/23/24 00:00 Temperature 98.2 F 97.2 F Pulse Rate 88 97 83 Respiratory Rate 18 16 16 Blood Pressure 133/90 H 124/79 Pulse Oximetry 94 95 Oxygen Delivery Method Nasal Cannula Nasal Cannula Oxygen Flow Rate 1 1 02/23/24 03:28 02/23/24 07:25 02/23/24 07:34 Temperature 97.8 F 97.2 F Pulse Rate 85 78 84 Respiratory Rate 17 20 16 Blood Pressure 132/85 143/86 H Pulse Oximetry 95 92 Oxygen Delivery Method Nasal Cannula Nasal Cannula Oxygen Flow Rate 1 1 02/23/24 11:10 02/23/24 15:55 Temperature 97.6 F 98.0 F Pulse Rate 84 83 Respiratory Rate 20 Blood Pressure 130/91 H 157/95 H Pulse Oximetry 94 92 Oxygen Delivery Method Room Air Room Air Oxygen Flow Rate BMI result Body Mass Index 31.2 Labs 02/20/24 19:07 02/23/24 06:16 Labs: Laboratory Results - last 48 hr 02/18/24 02/21/24 02/22/24 15:15 16:01 05:54 Creatinine 0.68 Estim Creat Clear Calc 103.5 Estimated GFR > 60 Pericard pH 7.43 Pericard Total Protein 4.7 Pericardial Albumin 2.7 Pericardial LDH 810 Random Vancomycin 16.9 09/22/24 09/23/24 16:16 06:16 Creatinine 0.70 Estim Creat Clear Calc 100.6 Estimated GFR > 60 Pericard pH Pericard Total Protein Pericardial Albumin Pericardial LDH Random Vancomycin 20.0 Imaging Radiology Impressions: ITS Impressions Chest CTA 02/13/24 23:47 IMPRESSION: 1. No pulmonary embolus identified. 2. Scattered regions of consolidation bilaterally as detailed above, greatest in the right upper lobe, suspicious for an infectious or other inflammatory etiology. Follow-up CT in 3 months is recommended to assess for resolution. 3. Trace pericardial effusion. VTE: negative Electronically signed by: Arnoldo Hsieh MD 02/14/2024 01:26 AM EDT RP Venous Duplex 02/14/24 02:30 IMPRESSION: No evidence of deep venous thrombosis involving the bilateral lower extremities. Electronically signed by: Arnoldo Hsieh MD 02/14/2024 03:11 AM EDT RP Chest CT 02/17/24 16:11 IMPRESSION: 1. Large pericardial effusion, new since previous study. 2. New large to moderate bilateral pleural effusion and compressive atelectasis. 3. Stable lung nodules. 4. Mediastinal lymphadenopathy. 5. Prominent left adrenal gland. Fleischner guidelines were followed. Electronically signed by: Jaiden Navas MD 02/18/2024 09:53 AM EDT RP Venous Duplex 02/19/24 08:46 IMPRESSION: 1. No evidence of deep venous thrombosis involving the right upper extremity. 2. Noncompressibility within the right cephalic vein with underlying intravenous catheter. 3. Complex fluid collection within the region of the right triceps. Electronically signed by: Rafael Camarena MD 02/19/2024 10:09 AM EDT RP Chest X-Ray 02/19/24 14:05 IMPRESSION: Left pleural catheter with the residual left pleural effusion and underlying atelectasis. There is right bibasilar atelectasis. Electronically signed by: Sean Morin MD 02/19/2024 09:18 PM EDT RP Medications Medications Current Medications Acetaminophen (Acetaminophen 325 Mg Tablet) 975 mg PO Q6H PRN PRN Reason: Pain, Mild (Pain Scale 1-3), fever or headache Last Admin: 02/21/24 15:57 Dose: 975 mg Albuterol Sulfate (Albuterol Sulfate 90 Mcg 8 Gm Inhaler) 2 puff INHALE RQ4H PRN PRN Reason: Wheezing Last Admin: 02/21/24 20:16 Dose: 2 puff Aspirin (Aspirin Enteric Coated 81 Mg Tablet.Dr) 81 mg PO DAILY [facility] Last Admin: 02/17/24 09:16 Dose: 81 mg Budesonide (Budesonide 180 Mcg Aer.Pow.Ba) 1 puff INHALE RBID [facility] Last Admin: 02/23/24 07:32 Dose: 1 puff Colchicine (Colchicine 0.6 Mg Tablet) 0.6 mg PO BID [facility] Last Admin: 02/23/24 08:25 Dose: 0.6 mg Dicyclomine HCl (Dicyclomine Hcl 10 Mg Capsule) 10 mg PO QIDACHS [facility] Last Admin: 02/23/24 15:18 Dose: 10 mg Docusate Sodium (Docusate Sodium 100 Mg Capsule) 100 mg PO BID [facility] Last Admin: 02/23/24 08:26 Dose: 100 mg Enoxaparin Sodium (Enoxaparin Sodium 40 Mg/0.4 Ml Syringe) 40 mg SUBCUT Q24H [facility] Last Admin: 02/16/24 20:23 Dose: 40 mg Escitalopram Oxalate (Escitalopram Oxalate 10 Mg Tablet) 10 mg PO DAILY [facility] Last Admin: 02/23/24 08:25 Dose: 10 mg Hydrocortisone (Hydrocortisone 1 % Cream 28.35 Gm Tube) 1 appl TOPICAL BID PRN; Protocol PRN Reason: ezcema Hydromorphone HCl (Hydromorphone Hcl 1 Mg/Ml Syringe) 2 mg IVPUSH Q4H PRN; Protocol PRN Reason: Pain, Moderate(Pain Scale 4-6) Last Admin: 02/23/24 15:18 Dose: 2 mg Vancomycin HCl 1,250 mg/ (Sodium Chloride) 250 mls @ 166.667 mls/hr IV Q12H [facility] Last Infusion: 02/23/24 10:43 Dose: Infused Lactulose (Lactulose 20 Gm/30 Ml Solution) 20 gm PO BID [facility] Last Admin: 02/23/24 08:26 Dose: Not Given Naloxone HCl (Naloxone Hcl 0.4 Mg/Ml Vial) 0.04 mg IVPUSH Q5M PRN PRN Reason: Excessive sedation or RR < 8 Naloxone HCl (Naloxone Hcl 0.4 Mg/Ml Vial) 0.04 mg IVPUSH Q5M PRN PRN Reason: Excessive sedation or RR < 8 Nitroglycerin (Nitroglycerin 0.4 Mg Tab.Subl) 0.4 mg SUBLINGUAL Q5MX3 PRN PRN Reason: Chest Pain Omeprazole (Omeprazole 40 Mg Capsule.Dr) 40 mg PO DAILY@0630 [facility] Last Admin: 02/23/24 06:16 Dose: 40 mg Ondansetron HCl (Ondansetron Hcl 4 Mg/2 Ml Vial) 4 mg IVPUSH Q6H PRN PRN Reason: Nausea Last Admin: 02/17/24 13:11 Dose: 4 mg Pharmacy Consult (Consult Rx Vancomycin Dosing) 1 each MISCELLANE DAILY PRN PRN Reason: Consult order Sodium Chloride (0.9 % Sodium Chloride Flush 3 Ml Syringe) 3 ml IVFLUSH QSHIFT [facility] Last Admin: 02/23/24 15:22 Dose: 3 ml Triamcinolone Acetonide (Triamcinolone Acet 0.1 % Cream 15 Gm Tube) 1 appl TOPICAL DAILY [facility]; Protocol Last Admin: 02/23/24 08:28 Dose: 1 appl Allergies Allergies Allergy/AdvReac Type Severity Reaction Status Date / Time latex [LATEX] Allergy Unknown rash Verified 02/20/24 09:55 Assessment & Plan Assessment & Plan (1) Opioid use disorder: Status: Acute Code(s): F11.90 - Opioid use, unspecified, uncomplicated Assessment and Plan: * methadone dose increased to 70mg QD * speech language specialist sent referral to [facility] for guest dosing * tissue recovery technician to check in this evening Total time managing care of this patient today __30__ minutes.
--- NOTE | 2024-02-23 17:07 | HO.WOUND ---
Wound Consult: Initial 48yr old?female admitted to [facility] on 02/14/24 - See progress notes and H&P for detailed history.? Wound consult placed for Right Groin.? Patient agreeable to assessment and photo documentation.? Patient reports she has had several ingrown hairs that had to have I&D for resolution. She is requesting I&D. Provider aware. The patient has a complex medical history and hospital stay at this time - the right groin does not appear infected at this time but does pose the risk of infection to the site given there is likely a area for fluid collection. Right Groin Right Groin Etiology: ??Suspected Folliculitis - (ingrown hair) Wound Bed: two pin point openings with dark beds suspect coiled hair draining serous fluid - no purulence noted Isabella wound: ?Induration noted but no fluctuance or Warmth Pain: patient reports pain and tenderness Goals of Treatment: ? warm compress and dressing for drainage absorption Recommendations: 1. Provide adequate and supplemental nutrition.? 2. When applicable maintain blood glucose levels per Providers order. 3. Right Groin - Routine cleansing - Apply dry gauze dressing secure in place change daily. Apply warm moist compresses (washcloth) to site 4 times a day. Re-consult wound care Nurse for wound deterioration or wound changes.
--- NOTE | 2024-02-23 18:47 | MHC.RECOVSUP ---
? Reason for consult Recovery Support o Current location: [facility] o Identified substance use concern: Heroin/Cocaine - Support ? Intervention: o Community resources provided o Harm reduction discussion ? Plan: o Patient to follow up with [facility] after discharge ? Additional information: Met with patient and we talked about recovery and harm reduction. We talked about different pathways ,and Mental health..
[2024-02-23 21:24] LABS: Vancomycin Random 14.2 mcg/mL (15-20)
--- NOTE | 2024-02-23 21:31 | HE.PHANOTE ---
vanco dose adjustment based on scr and trough of 14.2 dose continued at 1250 q 12h. next level 02/24 @ 0800
[2024-02-24] VITALS (15 sets, daily range): BP systolic 119–153; BP diastolic 78–91; PULSE 64–84; RESP 16–20; TEMP 36.1–36.7; O2SAT 90–95
[2024-02-24] MEDS: Omeprazole 40 MG CAPSULE.DR PO (05:48)
[2024-02-24 06:57] LABS: Creatinine Clr Calc Pharmacy 103.5; Estimated Glomerular Filt Rate > 60
[2024-02-24] MEDS: Budesonide 180 MCG AER.POW.BA 1 PUFF INHALE ×2 (07:42→19:50)
[2024-02-24] MEDS: Colchicine 0.6 MG TABLET PO ×2 (08:31→20:02)
[2024-02-24] MEDS: Escitalopram Oxalate 10 MG TABLET PO (08:31)
[2024-02-24] MEDS: Docusate Sodium 100 MG CAPSULE PO (08:31)
[2024-02-24] MEDS: HYDROmorphone HCl 1 MG/ML SYRINGE 2 MG IVPUSH ×4 (08:31→21:58)
[2024-02-24] MEDS: Dicyclomine HCl 10 MG CAPSULE PO ×4 (08:31→20:02)
[2024-02-24] MEDS: methADONE HCl 20 MG/2 ML ORAL.CONC 70 MG PO (08:31)
[2024-02-24] MEDS: vancomycin HCL 1,250 MG in 0.9 % Sodium Chloride 250 ML 166 MG IV ×2 (08:32→20:02)
[2024-02-24] MEDS: 0.9 % Sodium Chloride Flush 3 ML SYRINGE IVFLUSH ×2 (08:38→16:11)
[2024-02-24] MEDS: Triamcinolone Acet 0.1 % Cream 15 GM TUBE 1 APPL TOPICAL (08:39)
--- NOTE | 2024-02-24 10:23 | PM.DS ---
DS: Providers Provider Date of Service: 02/25/24 Date of admission: 02/14/24 04:00 Date of discharge: 02/25/24 Primary care physician: [facility] Consults: 02/14/24 04:06 Addiction Medicine Routine Consulting Provider: Addiction Covering Reason for consultation: IV drug use: Cocaine, heroin Has provider been notified: No 02/14/24 04:13 Consult to Cardiology Routine Consulting Provider: [facility] Reason for consultation: Cocaine abuse, chest pain, markedly elevated troponin Has provider been notified: Yes 02/15/24 05:22 Consult to Thoracic Surgery Routine Consulting Provider: Trino Moreno Reason for consultation: pericardial effusion Has provider been notified: Yes 02/16/24 10:40 Consult to Infectious Diseases Routine Consulting Provider: [facility] Reason for consultation: mrsa bacteremia, ivda 02/23/24 09:19 Consult to Wound Care Routine Reason for consultation: right inguinal ingrown hair with small abscess draining pus. DS: Diagnosis Discharge Diagnosis (1) Opioid use disorder: Status: Acute DS: Summary Hospital Course Hospital Course: from initial hpi: 48 years old woman with past medical history significant for IVDU (cocaine and heroin) presents to the emergency department complaining of severe (10/10) retrosternal chest pain that started yesterday associated with shortness on breath and fever. Denied cough, palpitations, headaches or sore throat. She also reports nausea but denied vomiting, abdominal pain or diarrhea. She was complaining of feeling very anxious. She also has been taking methadone. Denies marijuana use or alcohol abuse. Denies history of coronary artery disease. Takes lisinopril for hypertension and omeprazole for GERD. She was brought to the emergency department by EMS which gives her aspirin 325 mg p.o.. In the ED, she was found to have fever of 101.1 and tachycardia. Blood pressure has been in the low side, lowest 91/54. Last BP is 93/60. Blood workup was remarkable for leukocytosis of 13.0. Hemoglobin is 10.6 and platelets are normal. There is no lactic acidosis. There are no significant electrolyte imbalances. Initial troponin was 842.1 --> 145.3. Total CK is 402 and alk phos is 126. Bilirubin and transaminases are normal. Chest CTA showed no acute pulmonary embolism, however, showed scattered region of consolidation bilaterally (> right upper lobe) and trace pericardial effusion. Bilateral venous ultrasound showed no DVT. ECG shows sinus tachycardia, heart rate 107 beats per minutes without ischemic changes. ED tx: Ringer lactate 1 L bolus, Toradol 50 mg IV, Dilaudid 2 mg IV hospital course: Patient was admitted for sepsis due to MRSA bacteremia due to IVDA complicated by pneumonia, urinary tract infection, bacterial pericardial effusion. Patient was treated with IV vancomycin, cultures cleared on 02/19/24, and plan is for 6 weeks of IV vancomycin to be completed 04/01/20[facility] at [facility]. Patient had echo which showed moderate pericardial effusion with early tamponade. Underwent pericardiocentesis with MRSA in the fluid, drain was later removed and repeat echo showed persistent [id number] pericardial effusion for which patient will follow up with Cardiology. She was continued on aspirin and colchicine. Patient also noted to have right-sided pleural effusion and had 1.3 L removed with improvement. Pleural fluid did not grow bacteria. Course complicated by right cephalic vein thrombosis, treated with warm compresses and NSAIDs. For HCV will follow up outpatient. On admission patient noted to have chest pain with elevated troponins, differential includes cocaine induced versus type 2 PR from sepsis versus pericarditis. Patient will follow up with Cardiology as outpatient. For polysubstance dependence with withdrawal was continued on methadone. Patient is feeling much better will be discharged to senior care facility. likely to require less than 30 days. Time Attestation Discharge Coordination Time (in mins): 33 Quality: Safe Use of Opioids Does Pt have an Active Cancer Diagnosis on the Problem List?: No Quality: Stroke Does the patient have a stroke diagnosis?: No Physical Exam Vital Signs: Vital Signs: Last Vital Signs Temp 97.5 F 02/24/24 08:00 Pulse 72 02/24/24 08:00 Resp 20 02/24/24 08:00 BP 153/82 H 02/24/24 08:00 Pulse Ox 94 02/24/24 08:00 O2 Del Method Nasal Cannula 02/24/24 08:00 O2 Flow Rate 1 02/24/24 08:00 Oxygen Flow Rate 2 02/19/24 15:13 BMI result Body Mass Index 31.2 General: AO X 3, no acute distress Resp: CTA bilateral, no accessory muscles used CVS: S1,S2,RRR GI: soft, non tender, non distended Neuro: motor grossly intact, alert Psych: appropriate affect, appropriate insight DS: Data Data Completed and Pending Labs on day of discharge: Laboratory Results - last 24 hr 02/18/24 02/23/24 02/24/24 15:15 21:02 06:01 Creatinine 0.68 Estim Creat Clear Calc 103.5 Estimated GFR > 60 Pericard pH 7.43 Pericard Total Protein 4.7 Pericardial Albumin 2.7 Pericardial LDH 810 Random Vancomycin 14.2 L Preliminary micro results at discharge 02/19/24 17:27 Blood Culture - Preliminary Blood - Venous No growth after 48 hours. 02/19/24 08:17 Blood Culture - Preliminary Blood - Venous No growth after 48 hours. Discharge Plan Discharge Anticipated Discharge Date/Time: 02/24/24 10:17 Patient Disposition: [facility] Discharge Diagnosis: mrsa bacteremia and pericardial effusion Referrals: [facility] [Primary Care Provider] - 1 Week Discharge Medications: New vancomycin 1.25 gram recon soln 1 g IV Q12H aspirin 81 mg Tablet,Delayed Release (Dr/Ec) 81 mg PO DAILY Qty: 0 0RF methadone [Methadose] 10 mg/mL Concentrate 70 mg PO DAILY@0800 Qty: 0 0RF Rx Instructions: Partial Fill upon patient request. colchicine [Colcrys] 0.6 mg Tablet 0.6 mg PO BID Qty: 0 0RF Continued Pulmicort Flexhaler 180 mcg/actuation aerosol powdr breath activated 1 inh INHALATION BID clonidine HCl 0.1 mg tablet 1 tab PO TID PRN (Reason: Anxiety) omeprazole 40 mg capsule,delayed release(DR/EC) 1 cap PO DAILY albuterol sulfate [Ventolin HFA] 90 mcg/actuation HFA aerosol inhaler 2 puff inhalation Q4-6H PRN (Reason: Shortness Of Breath Or Wheezing) escitalopram oxalate 10 mg tablet 10 mg PO QAM Discontinued lisinopril 10 mg tablet 10 mg PO QAM Discharge Orders: Discharge Order (Routine); Ordered 02/25/24 Ordered By: Fredrick Rosario Diet: Advance to usual diet Activity on Discharge: As tolerated Stand Alone Forms: Patient Portal Discharge page Print Language: Emir[place] Care Plan Goals: recovery Health Concerns: mrsa bacteremia and pericarditis Plan of Treatment: 6 weeks iv vancomycin - end mar 11, 2024 weekly labs - cbc, cmp, vanc trough follow up with cardiology for pericardial effusion Assessment: see above
--- NOTE | 2024-02-24 10:26 | PM.PNCARD ---
Subjective Subjective Date of Service: 02/24/24 Principal diagnosis: Pericardial effusion, pericarditis. Interval history: She states she feels fine. No new complaints. Review of Systems Review of Systems Yes all other systems are reviewed and are negative Constitutional: Reports as per HPI and Reports no additional constitutional complaints Eyes: Reports as per HPI and Denies no additional eye complaints Denies system reviewed and no additional complaints, except as documented and Reports as per HPI Cardiovascular: Reports as per HPI, Reports no additional cardiovascular complaints, Denies acrocyanosis, Denies cool extremities, Denies chest pain, Denies leg edema, Denies lightheadedness, Denies palpitations and Denies dyspnea Respiratory: Reports as per HPI, Denies no additional respiratory complaints and Denies dyspnea Gastrointestinal: Reports as per HPI and Denies no additional gastrointestinal complaints Genitourinary: Reports as per HPI Musculoskeletal: Reports no additional musculoskeletal complaints and Reports as per HPI Skin/Breast: Reports system reviewed and no additional complaints, except as docu Reports system reviewed and no additional complaints, except as documented and Reports as per HPI Psychiatric: Reports no additional psychiatric complaints and Reports as per HPI Endocrine: Reports no additional endocrine complaints, Reports as per HPI and Denies palpitations Hematologic/Lymphatic: Reports no additional hematologic/lymphatic complaints and Reports as per HPI Allergic/Immunologic: Reports no additional allergic/immunologic complaints and Reports as per HPI Physical Exam Vital Signs: Last Vital Signs Temp 97.5 F 02/24/24 08:00 Pulse 72 02/24/24 08:00 Resp 20 02/24/24 08:00 BP 153/82 H 02/24/24 08:00 Pulse Ox 94 02/24/24 08:00 O2 Del Method Nasal Cannula 02/24/24 08:00 O2 Flow Rate 1 02/24/24 08:00 Oxygen Flow Rate 2 02/19/24 15:13 BMI result Body Mass Index 31.2 Const General: comfortable and no acute distress Orientation/consciousness: patient oriented x3 HEENT Other: Unremarkable Head: Yes normal to inspection Neck Neck: Yes normal visual inspection Chest Chest palpation & inspection: normal inspection of the chest Resp Auscultation: clear to auscultation bilaterally Cardio Palpation: normal PMI Heart sounds: S1 normal heart sound present, S2 normal heart sound present, no gallops, no murmurs and no rubs GI Palpation (GI): Soft to palpation Back/Spine/Pelvis Other: unremarkable Skin General skin exam: no rashes or lesions noted Neuro General: patient oriented x3 Extrem General: Yes normal to inspection Psych Mental Status: mental status grossly normal Objective Labs and Meds 02/20/24 19:07 02/24/24 06:01 Lab results: Laboratory Results - last 24 hr 02/18/24 02/23/24 02/24/24 15:15 21:02 06:01 Creatinine 0.68 Estim Creat Clear Calc 103.5 Estimated GFR > 60 Pericard pH 7.43 Pericard Total Protein 4.7 Pericardial Albumin 2.7 Pericardial LDH 810 Random Vancomycin 14.2 L Progress Note: A&P Assessment and plan (1) Pericardial effusion: Status: Acute (2) Bacteremia: Status: Acute (3) Heroin use: Status: Acute (4) Cocaine use: Status: Acute Plan Patient with substance abuse, positive opiates, oxycodone, fentanyl, cocaine, MRSA bacteremia, positive pericardial MRSA. In the repeat echocardiogram from yesterday, overall improved from prior. In the subcostal view only, there is evidence of pericardial effusion over the right atrium/right ventricular. On discussion with IR, it seems 200 cc was drained during pericardiocentesis. On the echocardiogram, truly difficult to quantify but suspect that it is not too much, although it measures in the moderate side on linear measurements. Also it is not seen clearly in any other view apart from subcostal. Clinically, she seems well compensated. She is not tachycardic. She is ambulating without difficulty. Vital signs are normal range. She is conversing without difficulty and essentially asymptomatic. It seems reasonable to manage the situation conservatively with IV antibiotics for the next few weeks. Plan should be to recheck an echocardiogram in the next 2-3 weeks and see how she is. If there is any significant recollection, then we can address the need for repeat drainage. Discussed with patient about this. If any specific symptoms including chest pain, shortness of breath, dizzy spells or in fact anything of cardiac concern, advised to contact us immediately or seek emergency help. Abstain from drugs. Discussed with hospitalist. Time Spent With Patient Time: Total time managing care of this patient today ____ minutes. Progress Note: Quality Stroke Does the patient have a stroke diagnosis?: No Procedures Date of Service Date of Service: 02/24/24
--- NOTE | 2024-02-24 12:41 | MHC.RECOVRN ---
Spoke with intake at [facility], pt still being reviewed.
--- NOTE | 2024-02-24 12:59 | MHC.CM.PN ---
Per Our visual merchandising associate, who spoke to Intake at [facility], regarding Methadone Guest Dosing, Patient is still being reviewed; CM has informed MD
--- NOTE | 2024-02-24 15:41 | MHC.RECOVRN ---
Attempted to call [facility] at [phone] to follow up, voice message says it is after hours.
--- NOTE | 2024-02-24 16:02 | HO.PM.IMPN ---
Subjective Subjective Date of Service: 02/24/24 Interval History: no complaints Physical Exam Vital Signs: Vital Signs: Last Vital Signs Temp 96.9 F 02/24/24 15:16 Pulse 80 02/24/24 15:16 Resp 18 02/24/24 15:16 BP 120/78 02/24/24 15:16 Pulse Ox 93 02/24/24 15:16 O2 Del Method Room Air 02/24/24 15:16 O2 Flow Rate 1 02/24/24 08:00 Oxygen Flow Rate 2 02/19/24 15:13 BMI result Body Mass Index 31.2 Const: General: comfortable and no acute distress Orientation/consciousness: patient oriented x3 HEENT: Other: Unremarkable Head: Yes normal to inspection Neck: Neck: Yes normal visual inspection Chest: Chest palpation & inspection: normal inspection of the chest Resp: Auscultation: clear to auscultation bilaterally Cardio: Palpation: normal PMI Heart sounds: S1 normal heart sound present, S2 normal heart sound present, no gallops, no murmurs and no rubs GI: Palpation (GI): Soft to palpation Back/Spine/Pelvis: Other: unremarkable Skin: General skin exam: no rashes or lesions noted Neuro: General: patient oriented x3 Extrem: General: Yes normal to inspection Psych: Mental Status: mental status grossly normal Objective Data Active Medications Acetaminophen (Acetaminophen 325 Mg Tablet) 975 mg PO Q6H PRN PRN Reason: Pain, Mild (Pain Scale 1-3), fever or headache Last Admin: 02/21/24 15:57 Dose: 975 mg Documented By: DEANNE Albuterol Sulfate (Albuterol Sulfate 90 Mcg 8 Gm Inhaler) 2 puff INHALE RQ4H PRN PRN Reason: Wheezing Last Admin: 02/21/24 20:16 Dose: 2 puff Documented By: AMRIT Aspirin (Aspirin Enteric Coated 81 Mg Tablet.) 81 mg PO DAILY [facility] Last Admin: 02/17/24 09:16 Dose: 81 mg Documented By: EVELYN Budesonide (Budesonide 180 Mcg Aer.Pow.Ba) 1 puff INHALE RBID [facility] Last Admin: 02/24/24 07:42 Dose: 1 puff Documented By: JOSSELINE Colchicine (Colchicine 0.6 Mg Tablet) 0.6 mg PO BID [facility] Last Admin: 02/24/24 08:31 Dose: 0.6 mg Documented By: DEANNE Dicyclomine HCl (Dicyclomine Hcl 10 Mg Capsule) 10 mg PO QIDACHS [facility] Last Admin: 02/24/24 12:54 Dose: 10 mg Documented By: DEANNE Docusate Sodium (Docusate Sodium 100 Mg Capsule) 100 mg PO BID [facility] Last Admin: 02/24/24 08:31 Dose: 100 mg Documented By: DEANNE Enoxaparin Sodium (Enoxaparin Sodium 40 Mg/0.4 Ml Syringe) 40 mg SUBCUT Q24H [facility] Last Admin: 02/16/24 20:23 Dose: 40 mg Documented By: CRISTIAN Escitalopram Oxalate (Escitalopram Oxalate 10 Mg Tablet) 10 mg PO DAILY [facility] Last Admin: 02/24/24 08:31 Dose: 10 mg Documented By: DEANNE Hydrocortisone (Hydrocortisone 1 % Cream 28.35 Gm Tube) 1 appl TOPICAL BID PRN; Protocol PRN Reason: ezcema Hydromorphone HCl (Hydromorphone Hcl 1 Mg/Ml Syringe) 2 mg IVPUSH Q4H PRN; Protocol PRN Reason: Pain, Moderate(Pain Scale 4-6) Last Admin: 02/24/24 12:57 Dose: 2 mg Documented By: DEANNE Vancomycin HCl 1,250 mg/ (Sodium Chloride) 250 mls @ 166.667 mls/hr IV Q12H [facility] Last Infusion: 02/24/24 10:27 Dose: Infused Documented By: DEANNE Lactulose (Lactulose 20 Gm/30 Ml Solution) 20 gm PO BID [facility] Last Admin: 02/24/24 08:41 Dose: Not Given Documented By: DEANNE Non-Admin Reason: PT REFUSED: MOVING BOWELS Methadone HCl (Methadone Hcl 20 Mg/2 Ml Oral.Conc) 70 mg PO DAILY@0800 [facility] Last Admin: 02/24/24 08:31 Dose: 70 mg Documented By: DEANNE Co-signed By: BLAKE Naloxone HCl (Naloxone Hcl 0.4 Mg/Ml Vial) 0.04 mg IVPUSH Q5M PRN PRN Reason: Excessive sedation or RR < 8 Naloxone HCl (Naloxone Hcl 0.4 Mg/Ml Vial) 0.04 mg IVPUSH Q5M PRN PRN Reason: Excessive sedation or RR < 8 Nitroglycerin (Nitroglycerin 0.4 Mg Tab.Subl) 0.4 mg SUBLINGUAL Q5MX3 PRN PRN Reason: Chest Pain Omeprazole (Omeprazole 40 Mg Capsule.Dr) 40 mg PO DAILY@0630 [facility] Last Admin: 02/24/24 05:48 Dose: 40 mg Documented By: ELVIS Ondansetron HCl (Ondansetron Hcl 4 Mg/2 Ml Vial) 4 mg IVPUSH Q6H PRN PRN Reason: Nausea Last Admin: 02/17/24 13:11 Dose: 4 mg Documented By: EVELYN Sodium Chloride (0.9 % Sodium Chloride Flush 3 Ml Syringe) 3 ml IVFLUSH QSHIFT [facility] Last Admin: 02/24/24 08:38 Dose: 3 ml Documented By: DEANNE Triamcinolone Acetonide (Triamcinolone Acet 0.1 % Cream 15 Gm Tube) 1 appl TOPICAL DAILY [facility]; Protocol Last Admin: 02/24/24 08:39 Dose: 1 appl Documented By: DEANNE Labs 02/20/24 19:07 02/24/24 06:01 Labs: Laboratory Results - last 24 hr 02/23/24 02/24/24 21:02 06:01 Estim Creat Clear Calc 103.5 Estimated GFR > 60 Random Vancomycin 14.2 L Microbiology Microbiology Results: Microbiology 02/19/24 08:17 Blood Culture - Final Blood - Venous No growth after 5 days. 02/19/24 14:00 Gram Stain - Final Pleural Fluid Routine Culture - Final No growth after 2 days Anaerobic Culture - Final NO GROWTH AFTER 5 DAYS Assessment and Plan (1) Pleural effusion: Status: Acute (2) Pericardial effusion: Status: Acute (3) Pericarditis: Status: Acute (4) Bacteremia: Status: Acute (5) Suspected endocarditis: Status: Acute Plan 48F PMH polysubstance dependence including IV opiates and cocaine, mood disorder, presented with chest pain, fevers sepsis due to MRSA bacteremia in IVDA complicated by pneumonia, uti, and bacterial pericardial effusion negative from 02/19/24 pericardiocentesis done, fluids growing MRSA as well GARCIA did not show any vegetations ID - 6 weeks iv abx - end date 03/31/24 Continue IV Vancomycin PICC line 02/23/24 recheck Limited Echo in a couple weeks wean O2 down as tolerated follow Vanco trough Right sided pleural effusion Thoracentsis removed 1.3L, feels better fluid culture, negative Rt Cephalic vein thrombus keep arm elevated NSAIDs warm compressors Rt inguinal small abscess Wound care hcv outpatient follow up chest pain with elevated troponins cocaine vs type II MT vs perimyocarditis Continue colchicine and nonsteroidals per Cardiology polysubstance dependence with withdrawal addiction following continue methadone dvt prophylaxis - lovenox full code reason for continued hospitalization: awaiting placement Quality Stroke Does the patient have a stroke diagnosis?: No VTE Prior VTE?: No VTE Risk Level:: Medical - moderate - high VTE Device Contraindication: Treatment Not Indicated VTE Drug Contraindication: N/A - Med Ordered
[2024-02-25] VITALS (7 sets, daily range): BP systolic 130–134; BP diastolic 84–91; PULSE 68–81; RESP 16–20; TEMP 36.1–36.4; O2SAT 94–96
[2024-02-25] MEDS: HYDROmorphone HCl 1 MG/ML SYRINGE 2 MG IVPUSH ×3 (03:18→12:39)
--- NOTE | 2024-02-25 03:46 | PC.NURSE ---
Patient asked that I leave a note for MD regarding new pain around left flank and running down left thigh in which she feels is muscular. No redness or swelling or skin issues.
[2024-02-25] MEDS: Omeprazole 40 MG CAPSULE.DR PO (06:43)
[2024-02-25] MEDS: Dicyclomine HCl 10 MG CAPSULE PO ×2 (06:43→12:39)
[2024-02-25] MEDS: Budesonide 180 MCG AER.POW.BA 1 PUFF INHALE (07:27)
[2024-02-25] MEDS: methADONE HCl 20 MG/2 ML ORAL.CONC 70 MG PO (09:05)
[2024-02-25] MEDS: Colchicine 0.6 MG TABLET PO (09:05)
[2024-02-25] MEDS: Escitalopram Oxalate 10 MG TABLET PO (09:05)
[2024-02-25] MEDS: 0.9 % Sodium Chloride Flush 3 ML SYRINGE IVFLUSH (09:08)
[2024-02-25] MEDS: Triamcinolone Acet 0.1 % Cream 15 GM TUBE 1 APPL TOPICAL (09:09)
--- NOTE | 2024-02-25 09:17 | P.PNIM_ITS ---
Subjective Subjective Date of Service: 02/25/24 Interval History: no complaints Physical Exam 2 Vital Signs: Vital Signs: Last Vital Signs Temp 97.2 F 02/25/24 07:25 Pulse 68 02/25/24 07:30 Resp 16 02/25/24 07:30 BP 131/86 02/25/24 07:25 Pulse Ox 94 02/25/24 07:25 O2 Del Method Room Air 02/25/24 07:25 O2 Flow Rate 1 02/24/24 08:00 Oxygen Flow Rate 2 02/19/24 15:13 BMI result Body Mass Index 31.2 Const: General: comfortable and no acute distress O rientation/consciousness: patient oriented x3 HEENT: Other: Unremarkable Head: Yes normal to inspection Neck: Neck: Yes normal visual inspection Chest: Chest palpation & inspection: normal inspection of the chest Resp: Auscultation: clear to auscultation bilaterally Cardio: Palpation: normal PMI Heart sounds: S1 normal heart sound present, S2 normal heart sound present, no gallops, no murmurs and no rubs GI: Palpation (GI): Soft to palpation Back/Spine/Pelvis: Other: unremarkable Skin: General skin exam: no rashes or lesions noted Neuro: General: patient oriented x3 Extrem: General: Yes normal to inspection Psych: Mental Status: mental status grossly normal Objective Data Active Medications Acetaminophen (Acetaminophen 325 Mg Tablet) 975 mg PO Q6H PRN PRN Reason: Pain, Mild (Pain Scale 1-3), fever or headache Last Admin: 02/21/24 15:57 Dose: 975 mg Documented By: DEANNE Albuterol Sulfate (Albuterol Sulfate 90 Mcg 8 Gm Inhaler) 2 puff INHALE RQ4H PRN PRN Reason: Wheezing Last Admin: 02/21/24 20:16 Dose: 2 puff Documented By: AMRIT Aspirin (Aspirin Enteric Coated 81 Mg Tablet.Dr) 81 mg PO DAILY [facility] Last Admin: 02/17/24 09:16 Dose: 81 mg Documented By: EVELYN Budesonide (Budesonide 180 Mcg Aer.Pow.Ba) 1 puff INHALE RBID [facility] Last Admin: 02/25/24 07:27 Dose: 1 puff Documented By: SABRINA Colchicine (Colchicine 0.6 Mg Tablet) 0.6 mg PO BID [facility] Last Admin: 02/24/24 20:02 Dose: 0.6 mg Documented By: DEANNE Dicyclomine HCl (Dicyclomine Hcl 10 Mg Capsule) 10 mg PO QIDACHS [facility] Last Admin: 02/25/24 06:43 Dose: 10 mg Documented By: SAW Docusate Sodium (Docusate Sodium 100 Mg Capsule) 100 mg PO BID [facility] Last Admin: 02/24/24 20:02 Dose: Not Given Documented By: DEANNE Non-Admin Reason: Patient Refused Enoxaparin Sodium (Enoxaparin Sodium 40 Mg/0.4 Ml Syringe) 40 mg SUBCUT Q24H [facility] Last Admin: 02/16/24 20:23 Dose: 40 mg Documented By: CRISTIAN Escitalopram Oxalate (Escitalopram Oxalate 10 Mg Tablet) 10 mg PO DAILY [facility] Last Admin: 02/24/24 08:31 Dose: 10 mg Documented By: DEANNE Hydrocortisone (Hydrocortisone 1 % Cream 28.35 Gm Tube) 1 appl TOPICAL BID PRN; Protocol PRN Reason: ezcema Hydromorphone HCl (Hydromorphone Hcl 1 Mg/Ml Syringe) 2 mg IVPUSH Q4H PRN; Protocol PRN Reason: Pain, Moderate(Pain Scale 4-6) Last Admin: 02/25/24 03:18 Dose: 2 mg Documented By: SAW Vancomycin HCl 1,250 mg/ (Sodium Chloride) 250 mls @ 166.667 mls/hr IV Q12H [facility] Last Infusion: 02/24/24 22:02 Dose: Infused Documented By: DEANNE Lactulose (Lactulose 20 Gm/30 Ml Solution) 20 gm PO BID [facility] Last Admin: 02/24/24 20:02 Dose: Not Given Documented By: DEANNE Non-Admin Reason: Patient Refused Methadone HCl (Methadone Hcl 20 Mg/2 Ml Oral.Conc) 70 mg PO DAILY@0800 [facility] Last Admin: 02/24/24 08:31 Dose: 70 mg Documented By: DEANNE Co-signed By: BLAKE Naloxone HCl (Naloxone Hcl 0.4 Mg/Ml Vial) 0.04 mg IVPUSH Q5M PRN PRN Reason: Excessive sedation or RR < 8 Naloxone HCl (Naloxone Hcl 0.4 Mg/Ml Vial) 0.04 mg IVPUSH Q5M PRN PRN Reason: Excessive sedation or RR < 8 Nitroglycerin (Nitroglycerin 0.4 Mg Tab.Subl) 0.4 mg SUBLINGUAL Q5MX3 PRN PRN Reason: Chest Pain Omeprazole (Omeprazole 40 Mg Capsule.Dr) 40 mg PO DAILY@0630 [facility] Last Admin: 02/25/24 06:43 Dose: 40 mg Documented By: SAW Ondansetron HCl (Ondansetron Hcl 4 Mg/2 Ml Vial) 4 mg IVPUSH Q6H PRN PRN Reason: Nausea Last Admin: 02/17/24 13:11 Dose: 4 mg Documented By: EVELYN Sodium Chloride (0.9 % Sodium Chloride Flush 3 Ml Syringe) 3 ml IVFLUSH QSHIFT [facility] Last Admin: 02/24/24 23:44 Dose: Not Given Documented By: SAW Non-Admin Reason: pt has PICC Triamcinolone Acetonide (Triamcinolone Acet 0.1 % Cream 15 Gm Tube) 1 appl TOPICAL DAILY [facility]; Protocol Last Admin: 02/24/24 08:39 Dose: 1 appl Documented By: RIOSCEL Labs 02/20/24 19:07 02/24/24 06:01 Microbiology Microbiology Results: Microbiology 02/19/24 17:27 Blood Culture - Final Blood - Venous No growth after 5 days. 02/19/24 08:17 Blood Culture - Final Blood - Venous No growth after 5 days. 02/19/24 14:00 Gram Stain - Final Pleural Fluid Routine Culture - Final No growth after 2 days Anaerobic Culture - Final NO GROWTH AFTER 5 DAYS Assessment and Plan (1) Pleural effusion: Status: Acute (2) Pericardial effusion: Status: Acute (3) Pericarditis: Status: Acute (4) Bacteremia: Status: Acute (5) Suspected endocarditis: Status: Acute Plan 48F PMH polysubstance dependence including IV opiates and cocaine, mood disorder, presented with chest pain, fevers sepsis due to MRSA bacteremia in IVDA complicated by pneumonia, uti, and bacterial pericardial effusion negative from 02/19/24 pericardiocentesis done, fluids growing MRSA as well GARCIA did not show any vegetations ID - 6 weeks iv abx - end date 03/31/24 Continue IV Vancomycin PICC line 9/23/24 recheck Limited Echo in a couple weeks wean O2 down as tolerated follow Vanco trough Right sided pleural effusion Thoracentsis removed 1.3L, feels better fluid culture, negative Rt Cephalic vein thrombus keep arm elevated NSAIDs warm compressors Rt inguinal small abscess Wound care hcv outpatient follow up chest pain with elevated troponins cocaine vs type II MN vs perimyocarditis Continue colchicine and nonsteroidals per Cardiology polysubstance dependence with withdrawal addiction following continue methadone dvt prophylaxis - lovenox full code reason for continued hospitalization: awaiting placement Quality Stroke Does the patient have a stroke diagnosis?: No VTE Prior VTE?: No VTE Risk Level:: Medical - moderate - high VTE Device Contraindication: Treatment Not Indicated VTE Drug Contraindication: N/A - Med Ordered
--- NOTE | 2024-02-25 09:25 | MHC.RECOVRN ---
Placed call to [facility] in [place] to follow up on pt's Guest dosing for methadone at their facility. Spoke with Amy who reports that pt is all set to start with them today and all she needs to bring is a last dose letter. Passed information on to Yokasta from the care team.
[2024-02-25 09:39] LABS: Vancomycin Random 16.4 mcg/mL (15-20)
[2024-02-25 09:41] LABS: Creatinine Clr Calc Pharmacy 93.8; Estimated Glomerular Filt Rate > 60
[2024-02-25] MEDS: vancomycin HCL 1,250 MG in 0.9 % Sodium Chloride 250 ML 166 MG IV (10:23)
--- NOTE | 2024-02-25 11:12 | MHC.CM.PN ---
Patient is discharged today. She will transfer to [facility] @ 12:30pm. All discharge info and last dose letter have been sent to the facility.
--- NOTE | 2024-02-25 11:27 | HO.WOUND ---
Wound Consult: Follow up 48yr old?female admitted to [facility] on 02/14/24 - See progress notes and H&P for detailed history.? Wound consult followup for Right Groin.? Patient agreeable to assessment and photo documentation.? Patient reports she has not be compliant with warm compresses - when asked why she reported she forgot. She reports she would still prefer I&D, but understanding there are no s/s of infection and providers do not feel it is warranted at this time. The patient has a complex medical history and hospital stay at this time - she is set for d/c to rehab facility for continued care. The site is unchanged no s/s of infection and remains with small pinpoint opening drainage scant serosang fluid - no odor noted. No new topical recommendations needed at this time. Right Groin Right Groin Etiology: ??Suspected Folliculitis - (ingrown hair) Wound Bed: two pin point openings with dark beds suspect coiled hair draining serous fluid - no purulence noted Isabella wound: ?Induration noted but no fluctuance or Warmth or erythema Pain: patient reports pain and tenderness Goals of Treatment: ? warm compress and dressing for drainage absorption Recommendations: 1. Provide adequate and supplemental nutrition.? 2. When applicable maintain blood glucose levels per Providers order. 3. Right Groin - Routine cleansing - Apply dry gauze dressing secure in place change daily. Apply warm moist compresses (washcloth) to site 4 times a day. Re-consult wound care Nurse for wound deterioration or wound changes.
== END 2024-02-25 13:30 | disposition skilled nursing facility (03) | DRG 871 ==
LOC: HO.ED 02-14 02:44 → HO.EDOVER 02-14 04:11 → HO.IMC 02-15 16:25
PROVIDERS: Internal Medicine Cardiovascular Disease; Physician Assistant Surgical; Radiology Vascular & Interventional Radiology; Student in an Organized Health Care Education/Training Program; Admitting Provider Internal Medicine; Emergency Provider Emergency Medicine Emergency Medical Services; PCP General Practice; Visit Provider Internal Medicine
PROC: 0W9D30Z Drainage of Pericardial Cavity with Drainage Device, Percutaneous Approach (ICD-10-PCS; principal; 2024-02-18 14:30)
DX: A41.02 Sepsis due to Methicillin resistant Staphylococcus aureus (principal); J18.9 Pneumonia, unspecified organism; L03.115 Cellulitis of right lower limb; F11.20 Opioid dependence, uncomplicated; F19.239 Other psychoactive substance dependence with withdrawal, unspecified; I31.4 Cardiac tamponade; J91.8 Pleural effusion in other conditions classified elsewhere; I82.611 Acute embolism and thrombosis of superficial veins of right upper extremity; I30.1 Infective pericarditis; N39.0 Urinary tract infection, site not specified; B18.2 Chronic viral hepatitis C; F17.210 Nicotine dependence, cigarettes, uncomplicated; I25.10 Atherosclerotic heart disease of native coronary artery without angina pectoris; F14.10 Cocaine abuse, uncomplicated; Z71.6 Tobacco abuse counseling; Z20.822 Contact with and (suspected) exposure to COVID-19; Z79.82 Long term (current) use of aspirin; Z79.899 Other long term (current) drug therapy
CPT/HCPCS: 0241U; 32555; 36415; 36573; 71045; 71250; 71275; 75989; 80048; 80053; 80076; 80202; 80307; 81001; 81025; 82042; 82550; 82565; 82945; 83605; 83615; 83735; 83986; 84157; 84484; 85025; 85027; 85379; 85610; 85730; 86704; 86706; 86803; 87040; 87070; 87073; 87077; 87147; 87186; 87205; 87340; 87389; 89051; 93005; 93306; 93308; 93970; 93971; 99285; C1729; C1751; C1769; J1170; J1200; J1650; J1885; J2060; J2250; J2371; J2405; J2543; J2704; J3010; J3370; J3371; J7120; Q9957; Q9967

== ENCOUNTER 2024-02-14 04:00 | Outpatient (BNV) | payer MEDICARE, MEDICAID, SELFPAY | END 2024-02-23 07:00 | PROVIDERS: Admitting Provider Internal Medicine; Emergency Provider Emergency Medicine Emergency Medical Services; Visit Provider Internal Medicine | DX: I31.39 Other pericardial effusion (noninflammatory) (principal) | CPT/HCPCS: 93308 ==

== ENCOUNTER 2024-02-14 04:00 | Outpatient (BNV) | payer MEDICARE, MEDICAID, SELFPAY | END 2024-02-18 14:44 | PROVIDERS: Admitting Provider Internal Medicine; Emergency Provider Emergency Medicine Emergency Medical Services; PCP General Practice; Visit Provider Radiology Vascular & Interventional Radiology | DX: I31.39 Other pericardial effusion (noninflammatory) (principal) | CPT/HCPCS: 33019 ==

== ENCOUNTER 2024-02-14 04:00 | Outpatient (BNV) | payer MEDICARE, MEDICAID, SELFPAY | END 2024-02-19 07:00 | PROVIDERS: Admitting Provider Internal Medicine; Emergency Provider Emergency Medicine Emergency Medical Services; Visit Provider Internal Medicine Cardiovascular Disease | DX: I31.39 Other pericardial effusion (noninflammatory) (principal) | CPT/HCPCS: 93308; 93321; 93325 ==

== ENCOUNTER 2024-02-14 04:00 | Outpatient (BNV) | payer MEDICARE, MEDICAID, SELFPAY | END 2024-02-21 09:00 | PROVIDERS: Admitting Provider Internal Medicine; Emergency Provider Emergency Medicine Emergency Medical Services; Visit Provider Internal Medicine Cardiovascular Disease | DX: I34.0 Nonrheumatic mitral (valve) insufficiency (principal); I36.1 Nonrheumatic tricuspid (valve) insufficiency; I51.89 Other ill-defined heart diseases; I31.39 Other pericardial effusion (noninflammatory) | CPT/HCPCS: 76376; 93312 ==

== ENCOUNTER 2024-02-14 04:00 | Outpatient (BNV) | payer MEDICARE, MEDICAID, SELFPAY | END 2024-02-19 13:50 | PROVIDERS: Admitting Provider Internal Medicine; Emergency Provider Emergency Medicine Emergency Medical Services; PCP General Practice; Visit Provider Student in an Organized Health Care Education/Training Program | DX: J90 Pleural effusion, not elsewhere classified (principal) | CPT/HCPCS: 32555 ==

== ENCOUNTER 2024-02-14 04:00 | Outpatient (BNV) | payer MEDICARE, MEDICAID, SELFPAY | END 2024-02-17 07:00 | PROVIDERS: Admitting Provider Internal Medicine; Emergency Provider Emergency Medicine Emergency Medical Services; Visit Provider Internal Medicine Cardiovascular Disease | DX: I31.39 Other pericardial effusion (noninflammatory) (principal); R93.1 Abnormal findings on diagnostic imaging of heart and coronary circulation | CPT/HCPCS: 93308; 93321; 93325 ==

== ENCOUNTER → 2024-02-14 04:00 | Outpatient (BNV) | payer MEDICARE, MEDICAID, SELFPAY | PROVIDERS: Admitting Provider Internal Medicine; Emergency Provider Emergency Medicine Emergency Medical Services; Visit Provider Nurse Practitioner Psychiatric/Mental Health | DX: F11.90 Opioid use, unspecified, uncomplicated (principal) | CPT/HCPCS: 99231; 99232; 99499 ==

== ENCOUNTER → 2024-02-14 04:00 | Outpatient (BNV) | payer MEDICARE, MEDICAID, SELFPAY | PROVIDERS: Admitting Provider Internal Medicine; Emergency Provider Emergency Medicine Emergency Medical Services; Visit Provider Surgery | DX: J90 Pleural effusion, not elsewhere classified (principal); I31.39 Other pericardial effusion (noninflammatory) | CPT/HCPCS: 99223; 99231; 99232; 99499 ==

== ENCOUNTER → 2024-02-14 04:00 | Outpatient (BNV) | payer MEDICARE, MEDICAID, SELFPAY | PROVIDERS: Admitting Provider Internal Medicine; Emergency Provider Emergency Medicine Emergency Medical Services; Visit Provider Internal Medicine | DX: J90 Pleural effusion, not elsewhere classified (principal); I31.39 Other pericardial effusion (noninflammatory); I31.9 Disease of pericardium, unspecified; R78.81 Bacteremia; R09.89 Other specified symptoms and signs involving the circulatory and respiratory systems; F11.90 Opioid use, unspecified, uncomplicated | CPT/HCPCS: 99223; 99232; 99233; 99239; 99499 ==

== ENCOUNTER → 2024-02-14 04:00 | Outpatient (BNV) | payer MEDICARE, MEDICAID, SELFPAY | PROVIDERS: Admitting Provider Internal Medicine; Emergency Provider Emergency Medicine Emergency Medical Services; Visit Provider Internal Medicine Cardiovascular Disease | DX: I31.39 Other pericardial effusion (noninflammatory) (principal); R78.81 Bacteremia; F11.90 Opioid use, unspecified, uncomplicated; F14.90 Cocaine use, unspecified, uncomplicated | CPT/HCPCS: 93306; 99223; 99233 ==

== ENCOUNTER → 2024-02-14 04:00 | Outpatient (BNV) | payer MEDICARE, MEDICAID, SELFPAY | PROVIDERS: Admitting Provider Internal Medicine; Emergency Provider Emergency Medicine Emergency Medical Services; Visit Provider Internal Medicine | DX: I31.39 Other pericardial effusion (noninflammatory) (principal); I31.9 Disease of pericardium, unspecified; R78.81 Bacteremia; F11.90 Opioid use, unspecified, uncomplicated; F14.90 Cocaine use, unspecified, uncomplicated | CPT/HCPCS: 99222 ==

== ENCOUNTER 2024-03-22 14:35 | Outpatient (AMB) | payer MEDICARE, MEDICAID, SELFPAY ==
[2024-03-22 14:55] VITALS: BP 120/70; PULSE 72; TEMP 36.1
--- NOTE | 2024-03-22 14:55 | A.OFFVIS_ITS ---
Vital Signs 03/22/24 14:55 Weight 160 lb BP 120/70 Pulse 72 Temp 97 F Intake Visit Reasons: REF. Norma Whelan, MRSA Bacteremia Allergies latex [LATEX] Allergy (Unknown, Verified 03/22/24 14:58) rash HPI HPI REF. Norma Whelan, MRSA Bacteremia: Details: She is here from [facility] in [place]. She has had MRSA bacteremia and pericardial effusion. She sees Cardiology. [facility] Medical History Elective surgery Arthritis Migraines GERD (gastroesophageal reflux disease) HTN (hypertension) HLD (hyperlipidemia) Asthma Surgical History History of thoracentesis Tubal ligation status Family History Mother Colon cancer Family/Other Uterine cancer Maternal Aunt Breast cancer Spinal cord cancer Maternal Grandmother Dementia Social History Household Members: None Housing: Apartment Are you a primary direct care counselor to a significant other at home: No Do you presently have visiting nurse or other home services: No Alcohol intake: never Comment: pt refuses bed alarm. Patient Tobacco Use Status: Current everyday Tobacco user Tobacco use type: Cigarette Cigarette Packs Per Day: 1 Cigarettes Per Day: 10 Years Smoked: 35 Second Hand Smoke Exposure: No Substance Use Type: Crack/Cocaine service: No Female Reproductive History Menstrual Age of Menarche: 14 Review of Systems Const All systems reviewed & are unremarkable except as noted in HPI and below Physical Exam Vital Signs: Last Vital Signs Temp 97 F 03/22/24 14:55 Pulse 72 03/22/24 14:55 BP 120/70 03/22/24 14:55 Const General: cooperative Orientation/consciousness: patient oriented x3 HEENT Head: Yes normal to inspection Mouth: Normal oral and palatal mucosa present Eyes General: appearance normal, both eyes and all related structures Pupils: Equal, round and reactive pupils present Resp Effort & Inspection: normal respiratory effort Cardio Rate: regular rate Rhythm: regular rhythm GI Palpation (GI): Soft to palpation and nontender General: Yes no CVA tenderness Back/Spine/Pelvis Back: no CVA tenderness Skin General skin exam: no rashes or lesions noted Neuro General: patient oriented x3 Cranial nerves: Yes CN's II-XII intact bilaterally and Yes Equal, round and reactive pupils present Extrem General: Yes normal to inspection Psych Appearance: grossly normal Assessment & Plan Assessment & Plan (1) Pericardial effusion: Comment: Follow with Cardiology No further treatment at this time. Code(s): I31.39 - Other pericardial effusion (noninflammatory) Category: Medical Plan: na Plan na Orders: Orders IR cvc remove any age 1003/22/24 I31.39 - Other pericardial effusion (noninflammatory) Coding Level of Care Code Est Pt Level 3 (32938) Diagnoses Pericardial effusion I31.39
== END 2024-03-22 15:22 | disposition home or self-care (01) ==
LOC: HO.HID 14:35
PROVIDERS: PCP General Practice; Visit Provider Internal Medicine
DX: I31.39 Other pericardial effusion (noninflammatory) (principal)
CPT/HCPCS: 99213

== ENCOUNTER → 2024-03-22 14:35 | Outpatient (BNVA) | payer MEDICARE, MEDICAID, SELFPAY | PROVIDERS: PCP General Practice; Visit Provider Internal Medicine | DX: I31.39 Other pericardial effusion (noninflammatory) (principal); R78.81 Bacteremia; A49.02 Methicillin resistant Staphylococcus aureus infection, unspecified site | CPT/HCPCS: 99212 ==

== ENCOUNTER → 2024-04-02 12:55 | Outpatient (REF) | payer MEDICARE, MEDICAID, SELFPAY ==
--- NOTE | 2024-04-02 12:58 | CA_ITS ---
Transthoracic Echocardiogram Patient (Last, First, Middle): Nelsy Singh, Gender: Female Date of : 1975 Age: 48 Procedure Date: 04/02/2024 Procedure Type: Transthoracic Echocardiogram Location: OP Height: 160.02 cm Weight: 69.4 kg BSA: 1.73 m2 Heart Rate: 60 bpm BP: 105 / 70 mmHg Art Appraiser: GEOFFREY Referring MD: Venkata Ramirez MD Symptoms: I31.39 - Other pericardial effusion (noninflammatory) Study Quality: Adequate. Limited by order ECG Rhythm: Sinus Conclusions: - No significant pericardial effusion noted. Findings Left Ventricle Normal left ventricular cavity size. The left ventricular systolic function is normal. The visually estimated ejection fraction is between 60-65%. There is no evidence of regional wall motion abnormalities. Venous The inferior vena cava is normal in size and collapses greater than 50% with inspiration. Pericardium/Pleural No significant pericardial effusion noted. Prior Study Comparison Changes noted compared to prior study dated: 02/23/2024. Improvement in pericardial effusion. Measurements 2D Linear Measurements IVSd: 0.65 0.6-0.9/0.6-1.0 cm LVIDd: 4.70 3.9-5.3/4.2-5.9 cm LVIDd Index: 2.72 2.4-3.2/2.2-3.1 cm/m2 LVIDs: 3.01 2.0-3.6 cm LVPWd: 0.97 0.7-1.1 cm LV Mass: 155.18 67-162/88-224 g LV Mass Index: 89.70 43-95/49-115 g/m2 LVOT Diam: 1.90 3.0+(-)1.3 cm LVOT LVOT Pk Nick: 0.96 LVOT Mn Nick: 0.69 LVOT VTI: 0.20 LVOT Pk Grad: 4.00 LVOT Mn Grad: 2.00 LVOT Diam: 1.90 LVOT Area: 2.84 Updated in Other Vendor System with Status of Final Venkata Ramirez MD electronically signed on 04/03/2024 12:57:15 PM with status of Final
== END ==
LOC: HO.CARD 12:55
PROVIDERS: Visit Provider Internal Medicine
DX: I31.39 Other pericardial effusion (noninflammatory) (principal)
CPT/HCPCS: 93308

== ENCOUNTER → 2024-04-02 12:58 | Outpatient (BNV) | payer MEDICARE, MEDICAID, SELFPAY | PROVIDERS: Visit Provider Internal Medicine | DX: I31.39 Other pericardial effusion (noninflammatory) (principal) | CPT/HCPCS: 93308 ==

== ENCOUNTER 2024-06-30 11:29 | Outpatient (AMB) | payer MEDICARE, MEDICAID, SELFPAY ==
--- NOTE | 2024-06-30 11:39 | A.OFFVIS_ITS ---
Vital Signs 06/30/24 11:42 Height 5 ft 3 in Weight 164 lb 14.492 oz BMI 29.2 BP 90/64 Blood Pressure Location Lt brachial Position Sitting Pulse 69 Pulse Source Monitor Intake Visit Reasons: f/up-echo Intake Note: f/up echo Systems Integration Analyst Required: No Accompanied by: Self / Same As Patient Allergies latex [LATEX] Allergy (Unknown, Verified 03/22/24 14:58) rash Medication List - Last Reconciled 06/30/24 by Chino Hitchcock MD albuterol sulfate 90 mcg/actuation (Ventolin HFA) 2 puffs inhalation Q4-6H PRN aspirin 81 mg PO DAILY budesonide 180 mcg/actuation (Pulmicort Flexhaler) 1 inh inhalation BID clonidine HCl 1 tab PO TID PRN escitalopram oxalate 10 mg PO QAM hydromorphone 2 mg PO Q6H PRN methadone (Methadose) 70 mg (7 mL) PO DAILY@0800 omeprazole 1 cap PO DAILY HPI Comments Details: 48-year-old female who is here for follow-up. She was seen in the hospital in 02/20/2024 when she presented with IV drug use and MRSA bacteremia. She had a moderate pericardial effusion. There were some early changes consistent with tamponade and eventually she had pericardial drainage done. The drain was eventually removed but her cultures grew MRSA. She was on vancomycin. She was started on colchicine which she has been taking since then. She is returning and has stopped using IV drugs but has been using crack cocaine and marijuana. She is short of breath and is coughing. She recently had a viral illness but is saying that she wheezes whenever she does any activity. EKGs showing diffuse T-wave inversions which are new compared to previous EKGs. She had repeat echocardiography in 04/21/2024 which showed resolution of the per icardial effusion. [facility] Medical History Elective surgery Arthritis Migraines GERD (gastroesophageal reflux disease) HTN (hypertension) HLD (hyperlipidemia) Asthma Surgical History History of thoracentesis Tubal ligation status Family History Mother Colon cancer Family/Other Uterine cancer Maternal Aunt Breast cancer Spinal cord cancer Maternal Grandmother Dementia Social History (Reviewed 06/30/24 @ 11:42 by Milli Steve [facility]) Household Members: None Housing: Apartment Are you a primary career development coordinator to a significant other at home: No Do you presently have visiting nurse or other home services: No Alcohol intake: never Comment: pt refuses bed alarm. Patient Tobacco Use Status: Current everyday Tobacco user Tobacco use type: Cigarette Cigarette Packs Per Day: 1 Cigarettes Per Day: 10 Years Smoked: 35 Second Hand Smoke Exposure: No Substance Use Type: Crack/Cocaine service: No Female Reproductive History Menstrual Age of Menarche: 14 Review of Systems Const Denies chills, Denies fatigue, Denies fever(s), Denies frequent falls, Denies weakness, Denies weight gain and Denies weight loss ENT Denies dizziness Card Denies chest pain, Denies leg edema, Denies lightheadedness, Denies palpitations, Denies dyspnea and Denies dyspnea on exertion Resp Denies cough, Denies dyspnea and Denies dyspnea on exertion GI Denies hematochezia Musc Denies abnormal gait, Denies muscle weakness, Denies numbness, Denies radiating pain into limb and Denies tingling Neuro Denies abnormal gait, Denies dizziness, Denies frequent falls, Denies numbness, Denies tingling and Denies weakness Endo Denies fatigue and Denies palpitations Physical Exam Vital Signs: Last Vital Signs Pulse 69 06/30/24 11:42 BP 90/64 06/30/24 11:42 BMI result Body Mass Index 29.2 GENERAL APPEARANCE: in no acute distress, pleasant. NECK: no carotid bruit, no jugular venous distention. SKIN: no suspicious lesions, warm and dry. HEART: no murmurs, regular rate and rhythm. LUNGS: clear to auscultation bilaterally. ABDOMEN: soft, nontender. EXTREMITIES: no edema. PERIPHERAL PULSES: equal. NEUROLOGIC: No gross deficits, AAO X 3 Office Procedures EKG Details: Sinus rhythm 69 beats per minute, diffuse T-wave inversions. QTC 471 milliseconds. [id number], Complete Assessment & Plan Assessment & Plan (1) Abnormal EKG: Code(s): R94.31 - Abnormal electrocardiogram [ECG] [EKG] Category: Medical (2) Cocaine use: Code(s): F14.90 - Cocaine use, unspecified, uncomplicated Category: Social Hx Plan [age] year female with background of polysubstance abuse here for follow-up. She was using IV heroin previously and developed MRSA bacteremia, diskitis and bacterial pericarditis. She grew MRSA from her pericardial fluid. She has made a good recovery with vancomycin. She has stopped using IV drugs but continues to use crack cocaine. I discussed with her that cocaine has bad effects on the heart and she needs to stop using cocaine. She has a sponsor and she will work with him to stop using cocaine. She has diffuse T-wave inversions which are usually a nonspecific finding but given her significant drug use I think this needs some further assessment. I have discussed with her and we will arrange a stress Mibi for her. She is on inhalers for wheezing. She needs to stop smoking cocaine and marijuana. We will see her back in few months. Thank you for allowing me to participate in the care of your patient. Please feel free to contact me if you have any questions. Orders: Orders CA stress test Today R94.31 - Abnormal electrocardiogram [ECG] [EKG] NM cardiolite stress test Today R94.31 - Abnormal electrocardiogram [ECG] [EKG] Coding Level of Care Code Est Pt Level 4 (43802) Diagnoses Abnormal EKG R94.31 Cocaine use F14.90 CPT Codes EKG - CPT: 12561-[id number], Complete ([id number])
[2024-06-30 11:42] VITALS: BP 90/64; PULSE 69; BMI 29.2
--- OUTSIDE RECORDS SUMMARY | 2024-06-30 13:56 | XMS_ITS | Encounter Summary ---
Author Organization [employer] Address [address] [place] [address] Care Team Providers Care Acid Purifier Name Role Phone Trinidad Nicholson Primary Care Provider [phone] Buffy Lund MD Primary Care Provider [phone] Reason for Visit * Reason Onset Date Comments Med Refill 09/04/2023 Encounter Details Date Type Department Care Team (Late st Contact Info) Description 09/04/2023 Refill [facility] [address] [place] [address] Trinidad Nicholson FNP [address] [place] [address] Social History Tobacco Use Types Packs/Day Years Used Date Smoking Tobacco: Former Cigarettes 0.5 30 Passive Smoke Exposure: Never Smokeless Tobacco: Never Comments:Smoked 1 ppd x 30 y ears, trying to taper, now smoking 0.5 ppd Alcohol Use Standard Drinks/Week Comments Never 0 (1 standard drink = 0.6 oz pur e alcohol) Depression Answer Date Recorded Patient Health Questionnaire-9 Score 20 01/20/2023 Housing Stability Answer Date Recorded What is your housing situation today? I have hermelindo cordova 03/17/[address] you li ve. Do you have problems with any of the following? None of the above 03/17/2023 Food Insecurity Answer Date Recorded Within the past 12 months, y ou worried that your food would run out before you got money to buy more: Sometimes True 2022 Within the past 12 months,th e food you bought just didn't last and you didn't have enough money to get more: Sometimes True 03/17/2023 Transportation Answer Date Recorded In the past 12 months, has l ack of transportation kept you from medical appts, meetings, work or from getting things needed for daily living? Yes, it has kept me from medical appointments or getting medications. 03/11/2023 Utilities Answer Date Recorded In the past 12 months, has t he electric, gas, oil or water company threatened to shut off services in your home? Yes 03/11/2023 Depression Answer Date Recorded Patient Health Questionnaire-2 Score 4 01/20/2023 Comments Unknown Sex and Gender Information Value Date Recorded Sex Assigned at Female 04/01/2022 10:14 AM EDT Legal Sex Female 10:14 AM EDT Gender Identity Female 04/01/2022 10:14 AM EDT Sexual Orientation Straight 04/01/2022 10 :14 AM EDT documented as of this encounter Plan of Treatment Not on file documented as of this encounter Visit Diagnoses Not on filedocumented in this encounter Additional Health Concerns Assessment Noted Time PHQ-9 Depression Total Score: 20 023 1:41 PM EDT documented as of this encounter Care Teams Acid Purifier Relationship Specialty Start Date End Date Trinidad Nicholson FNP [address] [place] [address] PCP - General Family Medicine 02/20/23 01/08/24 Buffy Lund MD [address] [place] [address] PCP - General Family Medicine 01/09/24 documented as of this encounter
--- OUTSIDE RECORDS SUMMARY | 2024-06-30 13:56 | XMS_ITS | Encounter Summary ---
Author Organization [employer] Address [address] [place] [address] Care Team Providers Care Online Marketing Analyst Name Role Phone Trinidad Nicholson Primary Care Provider [phone] Buffy Lund MD Primary Care Provider [phone] Encounter Details Date Type Department Care Team (Late st Contact Info) Description 03/18/2023 Orders Only [facility] [address] [place], [place] [phone] Trinidad Nicholson FNP [address] [place], [place] [phone] Social History Tobacco Use Types Packs/Day Years [...] documented as of this encounter Care Teams Online Marketing Analyst Relationship Specialty Start Date End Date Trinidad Nicholson FNP [address] [place] [address] PCP - General Family Medicine 02/20/23 01/08/24 Buffy Lund MD [address] [place] [address] PCP - General Family Medicine 01/09/24 documented as of this encounter
--- OUTSIDE RECORDS SUMMARY | 2024-06-30 13:56 | XMS_ITS | Encounter Summary ---
Author Organization [employer] Address [address] [place] [address] Care Team Providers Care Bone Char Puller Name Role Phone Trinidad Nicholson Primary Care Provider [phone] Buffy Lund MD Primary Care Provider [phone] Reason for Visit * Reason Comments Med Refill Encounter Details Date Type Department Care Team (Late st Contact Info) Description 09/19/2023 Refill [facility] [address] [place] [address] Ryley Machado MD [address] [place] [address] Social History Tobacco Use Types Packs/Day Years [...] documented as of this encounter Care Teams Bone Char Puller Relationship Specialty Start Date End Date Trinidad Nicholson FNP [address] [place] [address] PCP - General Family Medicine 02/20/23 01/08/24 Buffy Lund MD [address] [place] [address] PCP - General Family Medicine 01/09/24 documented as of this encounter
--- OUTSIDE RECORDS SUMMARY | 2024-06-30 13:56 | XMS_ITS | Encounter Summary ---
Author Organization [employer] Address [address] [facility] [address] [facility] [address] [place] [address] Care Team Providers Care Director Of Content Marketing Name Role Phone Buffy Lund MD Primary Care Provider [phone] Encounter Details Date Type Department Care Team (Late st Contact Info) Description 04/06/2024 Telephone [facility] [address] [place] [address] Gali Caban, PharmD [address] [place] [address] Social History Tobacco Use Types Packs/Day Years [...] housing situation today? I have hermelindo cordova 01/20/[address] you li ve. Do you have problems with any of the following? None of the above 01/20/2024 Food Insecurity Answer Date Recorded Within the past 12 months, y ou worried that your food would run out before you got money to buy more: Sometimes True 2023 Within the past 12 months,th e food you bought just didn't last and you didn't have enough money to get more: Sometimes True 01/20/2024 Transportation Answer Date Recorded In the past 12 months, has l ack of transportation kept you from medical appts, meetings, work or from getting things needed for daily living? No 01/20/2024 Utilities Answer Date Recorded In the past 12 months, has t he electric, gas, oil or water company threatened to shut off services in your home? Yes 01/20/2024 Depression Answer Date Recorded Patient Health Questionnaire-2 Score 4 01/20/2023 Internet Access Answer Date Recorded Internet Access Q1 Yes 02/02/2024 Internet Access Q2 Not on file 02/02/2024 Comments Unknown Sex and Gender Information Value Date Recorded Sex Assigned at Female 04/01/2022 10:14 AM EDT Legal Sex Female 10:14 AM EDT Gender Identity Female 04/01/2022 10:14 AM EDT Sexual Orientation Straight 04/01/2022 10 :14 AM EDT documented as of this encounter Miscellaneous Notes * Telephone Encounter - Gali Caban PharmD - 04/06/2024 1:40 PM EST Please assist in obtaining discharge paperwork from [facility] Patient was discharged on 04/02/2024. Thank you documented in this encounter Plan of Treatment Not on file documented as of this encounter Visit Diagnoses Not on filedocumented in this encounter Additional Health Concerns Assessment Noted Time PHQ-9 Depression Total Score: 20 023 1:41 PM EDT documented as of this encounter Care Teams Director Of Content Marketing Relationship Specialty Start Date End Date Buffy Lund MD [address] [place] [id number] PCP - General Family Medicine 01/09/24 documented as of this encounter
--- OUTSIDE RECORDS SUMMARY | 2024-06-30 13:56 | XMS_ITS | Encounter Summary ---
Author Organization [employer] Address [address] [facility] [address]t [place] [address] Care Team Providers Care Solutions Executive Cloud Sales Name Role Phone Oracio Isabel Primary Care Provider Unavail Trinidad Roth Primary Care Provider [phone] Buffy Lund MD Primary Care Provider [phone] Reason for Visit * Reason Comments Med Refill Encounter Details Date Type Department Care Team (Late st Contact Info) Description 01/15/2023 Refill [facility] [address] [place] [address] Oracio Isabel AGNP Essential hypertension Social History Tobacco Use Types Packs/Day Years Used Date Smoking Tobacco: Former Cigarettes 0.5 30 Passive Smoke Exposure: Never Smokeless Tobacco: Never Comments:Smoked 1 ppd x 30 y ears, trying to taper, now smoking 0.5 ppd Alcohol Use Standard Drinks/Week Comments Never 0 (1 standard drink = 0.6 oz pur e alcohol) Comments Unknown Sex and Gender Information Value Date Recorded Sex Assigned at Female 04/01/2022 10:14 AM EDT Legal Sex Female 10:14 AM EDT Gender Identity Female 04/01/2022 10:14 AM EDT Sexual Orientation Straight 04/01/2022 10 :14 AM EDT documented as of this encounter Plan of Treatment Not on file documented as of this encounter Visit Diagnoses Diagnosis Essential hypertension Unspecified essential hypertension documented in this encounter Additional Health Concerns Assessment Noted Time PHQ-9 Depression Total Score: 5 01/02/20 23 3:22 PM EDT documented as of this encounter Care Teams Solutions Executive Cloud Sales Relationship Specialty Start Date End Date Oracio Isabel AGNP PCP - General Family Medicine 03/08/22 02/19/23 Trinidad Nicholson FNP [address] [place] [address] PCP - General Family Medicine 02/20/23 01/08/24 Buffy Lund MD [address] [place] [address] PCP - General Family Medicine 01/09/24 documented as of this encounter
--- OUTSIDE RECORDS SUMMARY | 2024-06-30 13:56 | XMS_ITS | Encounter Summary ---
Author Organization [employer] Address [address] [facility] [address] [place] [address] Care Team Providers Care Hand Carver Name Role Phone Oracio Isabel Primary Care Provider Unavail Trinidad Roth Primary Care Provider [phone] Buffy Lund MD Primary Care Provider [phone] Encounter Details Date Type Department Care Team (Latest Contact Info) Description 04/17/[address] [facility] Dental, Provider, DDS Social History Tobacco Use Types Packs/Day Years Used Date Smoking Tobacco: Never Assessed Comments Unknown Sex and Gender Information Value Date Recorded Sex Assigned at Female 04/01/2022 10:14 AM EDT Legal Sex Female 10:14 AM EDT Gender Identity Female 04/01/2022 10:14 AM EDT Sexual Orientation Straight 04/01/2022 10 :14 AM EDT documented as of this encounter Plan of Treatment Not on file documented as of this encounter Visit Diagnoses Not on filedocumented in this encounter Care Teams Hand Carver Relationship Specialty Start Date End Date Oracio Isabel AGNP PCP - General Family Medicine 03/08/22 02/19/23 Trinidad Nicholson FNP [address] [place], [place] [id number] PCP - General Family Medicine 02/20/23 01/08/24 Buffy Lund MD [address] [place], [place] [phone] PCP - General Family Medicine 01/09/24 documented as of this encounter
--- OUTSIDE RECORDS SUMMARY | 2024-06-30 13:56 | XMS_ITS | Encounter Summary ---
Author Organization [employer] Address [address] [facility] [address] [place] [address] Care Team Providers Care Digital Developer Name Role Phone Oracio Isabel Primary Care Provider Unavail Trinidad Roth Primary Care Provider [phone] Buffy Lund MD Primary Care Provider [phone] Reason for Visit * Reason Comments Med Refill Encounter Details Date Type Department Care Team (Late st Contact Info) Description 02/07/2023 Refill [facility] [address] [place] [address] Oracio Isabel AGNP Essential hypertension Social History [...] Recorded Patient Health Questionnaire-9 Score 20 01/20/2023 Depression Answer Date Recorded Patient Health Questionnaire-2 [...] documented as of this encounter Care Teams Digital Developer Relationship Specialty Start Date End Date Oracio Isabel AGNP PCP - General Family Medicine 03/08/22 02/19/23 Trinidad Nicholson FNP [address] [place] [address] PCP - General Family Medicine 02/20/23 01/08/24 Buffy Lund MD [address] [place] [address] PCP - General Family Medicine 01/09/24 documented as of this encounter
--- OUTSIDE RECORDS SUMMARY | 2024-06-30 13:56 | XMS_ITS | Encounter Summary ---
Author Organization [employer] Address [address] [facility] [address] [place] [address] Care Team Providers Care Size Tester Name Role Phone Trinidad Nicholson Primary Care Provider [phone] Buffy Lund MD Primary Care Provider [phone] Reason for Visit * Reason Onset Date Comments Med Refill 09/04/2023 Encounter Details Date Type Department Care Team (Late st Contact Info) Description 09/04/2023 Refill [facility] [address] [place] [address] Fely Carrero FNP Social History Tobacco Use Types Packs/Day Years [...] documented as of this encounter Care Teams Size Tester Relationship Specialty Start Date End Date Trinidda Nicholson FNP [address] [place] [address] PCP - General Family Medicine 02/20/23 01/08/24 Buffy Lund MD [address] [place] [address] PCP - General Family Medicine 01/09/24 documented as of this encounter
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
--- OUTSIDE RECORDS SUMMARY | 2024-06-30 13:56 | XMS_ITS | Encounter Summary ---
Author Organization [employer] Address 75 [facility] 7t [place] [address] Care Team Providers Care Nuclear Logging Engineer Name Role Phone Trinidad Nicholson Primary Care Provider [phone] Buffy Lund MD Primary Care Provider [phone] Reason for Visit * Reason Comments Med Refill Encounter Details Date Type Department Care Team (Late st Contact Info) Description 09/19/2023 Refill [facility] [address] [place] [address] Trinidad Nicholson FNP [address] [place] [address] Social History Tobacco Use Types Packs/Day Years [...] documented as of this encounter Care Teams Nuclear Logging Engineer Relationship Specialty Start Date End Date Trinidad Nicholson FNP [address] [place] [address] PCP - General Family Medicine 02/20/23 01/08/24 Buffy Lund MD [address] [place] [address] PCP - General Family Medicine 01/09/24 documented as of this encounter
== END 2024-06-30 12:14 | disposition home or self-care (01) ==
PROVIDERS: Visit Provider Internal Medicine Cardiovascular Disease
DX: R94.31 Abnormal electrocardiogram [ECG] [EKG] (principal); F14.90 Cocaine use, unspecified, uncomplicated
CPT/HCPCS: 93010; 99214

== ENCOUNTER → 2024-06-30 11:29 | Outpatient (BNVA) | payer MEDICARE, MEDICAID, SELFPAY | PROVIDERS: Visit Provider Internal Medicine Cardiovascular Disease | DX: R94.31 Abnormal electrocardiogram [ECG] [EKG] (principal); F14.90 Cocaine use, unspecified, uncomplicated; Z86.14 Personal history of Methicillin resistant Staphylococcus aureus infection; N76.1 Subacute and chronic vaginitis; R30.0 Dysuria | CPT/HCPCS: 81515; 87086; 87088; 87186; 87491; 87591; 93005; 99212 ==

== ENCOUNTER 2024-06-30 18:00 | Outpatient (REF) | payer MEDICARE, MEDICAID, SELFPAY ==
--- OUTSIDE RECORDS SUMMARY | 2024-06-30 18:03 | XMS_ITS | Encounter Summary ---
Author Organization [employer] Address [address] [facility] 7[address] [place] [address] Care Team Providers Care Special Education Itinerant Teacher Name Role Phone Buffy Lund MD Primary Care Provider [phone] Encounter Details Date Type Department Care Team (Latest Contact Info) Description 06/30/2024 Travel Social History Tobacco Use Types Packs/Day Years [...] documented as of this encounter Care Teams Special Education Itinerant Teacher Relationship Specialty Start Date End Date Buffy Lund MD [address] [place] [address] PCP - General Family Medicine 01/09/24 documented as of this encounter
--- OUTSIDE RECORDS SUMMARY | 2024-06-30 18:03 | XMS_ITS | Encounter Summary ---
Author Organization [employer] Address 75 [facility] 7t [place] [address] Care Team Providers Care Kiosk Sales Representative Name Role Phone Oracio Isabel Primary Care Provider Unavail Trinidad Roth Primary Care Provider [phone] Buffy Lund MD Primary Care Provider [phone] Reason for Visit * Reason Comments Med Refill Encounter Details Date Type Department Care Team (Late st Contact Info) Description 01/15/2023 Refill [facility] [address] [place] [address] Oracio Isabel AGNP Essential hypertension Social History [...] documented as of this encounter Care Teams Kiosk Sales Representative Relationship Specialty Start Date End Date Oracio Isabel AGNP PCP - General Family Medicine 03/08/22 02/19/23 Trinidad Nicholson FNP [address] [place] [address] PCP - General Family Medicine 02/20/23 01/08/24 Buffy Lund MD [address] [place] [address] PCP - General Family Medicine 01/09/24 documented as of this encounter
--- OUTSIDE RECORDS SUMMARY | 2024-06-30 18:03 | XMS_ITS | Encounter Summary ---
Author Organization [employer] Address 75 [facility] 7t [place] [address] Care Team Providers Care Textile Designs Sales Representative Name Role Phone Trinidad Nicholson Primary Care Provider [phone] Buffy Lund MD Primary Care Provider [phone] Reason for Visit * Reason Comments Med Refill Encounter Details Date Type Department Care Team (Late st Contact Info) Description 09/19/2023 Refill [facility] [address] [place] [address] Trinidad Nicholson FNP [address] [place] [address] Social History Tobacco Use Types Packs/Day Years [...] documented as of this encounter Care Teams Textile Designs Sales Representative Relationship Specialty Start Date End Date Trinidad Nicholson FNP [address] [place] [address] PCP - General Family Medicine 02/20/23 01/08/24 Buffy Lund MD [address] [place] [address] PCP - General Family Medicine 01/09/24 documented as of this encounter
--- OUTSIDE RECORDS SUMMARY | 2024-06-30 18:03 | XMS_ITS | Encounter Summary ---
Author Organization [employer] Address 75 [facility] [place] [facility] 7t [place] [address] Care Team Providers Care Pulp Mill Team Leader Name Role Phone Oracio Isabel Primary Care Provider Unavail Trinidad Roth Primary Care Provider [phone] Buffy Lund MD Primary Care Provider [phone] Encounter Details Date Type Department Care Team (Latest Contact Info) Description 04/17/2021 Abstract [facility] CONVERSION[facility] Dental, Provider, DDS Social History [...] on filedocumented in this encounter Care Teams Pulp Mill Team Leader Relationship Specialty Start Date End Date Oracio Isabel AGNP PCP - General Family Medicine 03/08/22 02/19/23 Trinidad Nicholson FNP [address] [place], [place] [phone] PCP - General Family Medicine 02/20/23 01/08/24 Buffy Lund MD 230 [place], [place] [phone] PCP - General Family Medicine 01/09/24 documented as of this encounter
--- OUTSIDE RECORDS SUMMARY | 2024-06-30 18:03 | XMS_ITS | Encounter Summary ---
Author Organization [employer] Address [address] [facility] [address] 7[address] [place] [address] Care Team Providers Care Grocery Caddy Name Role Phone Trinidad Nicholson Primary Care Provider [phone] Buffy Lund MD Primary Care Provider Reason for Visit * Reason Onset Date Comments Med Refill 09/04/2023 Encounter Details Date Type Department Care Team (Late st Contact Info) Description 09/04/2023 Refill [facility] [address] [place] [address] Fely Carrero FNP Social History Tobacco Use [...] documented as of this encounter Care Teams Grocery Caddy Relationship Specialty Start Date End Date Trinidad Nicholson FNP [address] [place] [address] PCP - General Family Medicine 02/20/23 01/08/24 Buffy Lund MD [address] [place] [address] PCP - General Family Medicine 01/09/24 documented as of this encounter
--- OUTSIDE RECORDS SUMMARY | 2024-06-30 18:03 | XMS_ITS | Clinical Summary ---
Author Organization [employer] Address 75 [facility] 7t [place] [address] Care Team Providers Care Doughnut Machine Operator Name Role Phone Buffy Lund MD Primary Care Provider [phone] Allergies Active Allergy Reactions Criticality Noted Date [...] 100 MG capsuleIndicatio ns:Opioid dependence in remission (CMS/[facility]) Take 1 capsule (100 mg) by mouth Once per day. 90 capsule 3 04/14/20 24 Active sulfamethoxazole -trimethoprim (Bactrim DS) 800-160 MG tablet Take 1 tablet by mouth 2 times daily for 5 days. 10 tablet 06/30/19 25 025 Active clotrimazole-bet amethasone (Lotrisone) cream Apply topically 2 times daily for 28 days. 30 g 06/30/19 25 025 Active ibuprofen 800 MG tabletIndication s:Carpal tunnel syndrome of right wrist Take 1 tablet (800 mg) by mouth every 8 (eight) hours if needed for mild pain. 90 tablet 1 04/14/20 24 025 Active Problems Problem Noted Date Diagnosed Date Dysuria 06/30/2024 Assessment & Plan (06/30/2024 2:33 PM EST): Most likely related to UTI or vaginitis. I will treat with Bactrim DS as it also helps with folliculitis, follow-up urine culture. Advised to avoid shaving pubic area and avoid vaginal cultures Subacute vaginitis 06/30/2024 Assessment & Plan (06/30/2024 2:35 PM EST): Rule out STI. Follow-up lab results Advised regarding use of condom at all times, STI testing order. Advised to have partner checked to make sure that HIS syphilis was cured. Dyspnea on exertion 06/30/2024 Assessment & Plan (06/30/2024 2:33 PM EST): Unclear if related to asthma or some other current pulmonary condition due to toxicity from drug use. Follow-up with cardiology to rule out CHF. I will order PFTs and patient is advised to cut down on use of smoking especially use of crack cocaine. She will follow-up with conditioning coach and psychotherapist. History of pericarditis 04/14/2024 Assessment & Plan (04/14/2024 12:08 PM EST): Colchicine 0.6mg x 3 months, ASA 81mg x 3 months to reduce likelihood of reoccurance Generalized hyperhidrosis 04/14/2024 Assessment & Plan (04/14/2024 12:07 PM EST): Could be related to medications/anxiety, less likely malignancy or infection Folliculitis depilans 01/07/2024 Assessment & Plan (06/30/2024 2:39 PM EST): Advised to keep the area clean and dry just with water, avoid shaving the area. Use Lotrisone cream twice daily on affected area. Follow-up after Bactrim treatment for UTI, I do not think that otherwise that will need antibiotics, just local care. Assessment & Plan (04/14/2024 12:05 PM EST): Trimacinolone cream furnace combustion tester & Plan (01/07/2024 5:58 PM EDT): I [...] our walk in STI screen clinic at [facility] (lab is closed now) and she agreed. Advised to use condom at all times. Assessment & Plan (01/01/2023 1:30 PM EDT): Screening mammogram ordered for Mar 28. Chronic dental caries extending to pulp 11/05/19 23 Essential hypertension 07/16/2022 Assessment & Plan (06/30/2024 2:34 PM EST): Unclear if it is uncontrolled due to cocaine use and smoking. Patient will check BP at home daily, will try to cut down on smoking and crack cocaine use. Follow-up with PCP in 4 to 5 weeks Assessment & Plan (04/14/2024 12:03 PM EST): [...] of change PLAN: 1. Follow up with [facility]: Recommended for follow-up: as needed 2. Patient [...] Trazodone 50mg nightly for sleep. Follow-up with me for in person visit at next available [...] of change PLAN: 1. Follow up with [facility]: Recommended for follow-up: as needed 2. Patient 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, suboxone at [facility] Started [facility] OBOT program: 02/2020 Comorbidities: BH: PTSD, depression, anxiety Pain: yes Other substances: cocaine (also sober_ Hep C: No results found for: HEPCABQL Smoking/EtOH: yes Contraception: Current Counseling plan: Current Frequency of OBOT RN visits: Last Pill Count: Last OCC THERAPIST: Last MD visit: Last Assessment & Plan: [...] Description 06/30/2024 1:30 PM EST Office Visit [address] [address] Trista Rees MD Dysuria (Primary Dx); Subacute vaginitis; Dyspnea on exertion; Essential hypertension; Folliculitis depilans 06/30/2024 Travel 04/16/2024 Telephone [facility] [address] [place] [address] Janice Parra, HUONG Nebulizer physician order 04/12/[address] [address] Buffy Lund MD telephone call 04/09/2024 1:00 PM EST Office Visit [address] [address] Buffy Lund MD History of pericarditis (Primary Dx); Encounter for immunization; Moderate persistent asthma without complication; Essential hypertension; Opioid dependence in remission (CMS/HCC); Posttraumatic stress disorder; Generalized anxiety disorder; Folliculitis depilans; Carpal tunnel syndrome of right wrist; Generalized hyperhidrosis; Chronic bilateral low back pain with right-sided sciatica 04/09/2024 Travel 04/06/2024 Telephone [facility] [address] [place], [place] [phone] Gali Caban, PharmD 04/05/2024 Refill [facility] [address] [place], [place] [phone] Buffy Lund MD from Last 3 Months [...] the past 12 months, has t he [employer], gas, oil or water company threatened to [...] Sign Reading Time Taken Comments Blood Pressure 145/90 06/30/2024 2:37 PM EST Pulse 83 06/30/2024 1:44 PM [...] Depression Screening 01/21/2024 01/20/2023, 01/20/2023 COVID-19 Vaccine (2023-2 5 season) 2024 06/22/2021, 10/19/2020, 09/21/2020 SDOH Screening 01/19/2025 01/20/2024 Family Planning (PISQ) 02/05/2025 02/06/2024 Tobacco Screening 06/30/2025 06/30/2024 Mammogram 09/28/2025 09/29/2023, 09/10/2023, 03/28/2021 Cervical Cancer [...] Procedure Name Priority Date/Time Associated Diagnosis Comments POCT URINALYSIS DIPSTICK Routine 06/30/2024 2:09 PM EST Dysuria BI US BREAST LIMITED RIGHT Routine 09/29/2023 9:43 AM EDT LIPID PANEL, STANDARD Routine 01/03/2023 11:37 AM EDT Routine adult health maintenance ZZZ HISTORICAL HPV E6/E7 RFLX LILLIAN 16 45 Routine 12/18/2020 4:44 PM EDT from Last 3 Months or Most Recently Relevant to Health Maintenance Results * (ABNORMAL) POCT Urinalysis (06/30/2024 2:09 PM EST) Color, UA Yellow Clarity, UA Clear Glucose, UA Negative Bilirubin, UA Negative Ketones, UA Negative Spec Grav, UA 1.025 Blood, UA Positive(A) Negative, None Detected Comment:moderate pH, UA 7.0 Protein, UA Moderate Comment:30 mg Urobilinogen, UA 0.2 Leukocytes, UA Trace Negative, Rare, Trace Comment:small Nitrite, UA Negative Negative, None Detected Appearance, UA clear QC Media Lot # [id number] Lot# Expiration Date [id number] Urine 06/30/2024 2:09 PM EST Trista Rees MD POINT OF CARE TEST ENTER /EDIT ORDERABLES Final Result * BI US Breast Limited Right (09/29/2023 9:43 AM EDT) Anatomical Region Laterality Modality Breast Right Ultrasound 09/29/2023 9:43 AM EDT Narrative 09/29/2023 10:18 AM EDT ? [facility] ? [address] ?[place] [address] ? Ultrasound Report ? Signed ? Patient: Francisco,Nelsy ?MR#: [id number] ?? 09 ? : 1975 ?Acct:[id number] ? Age/Sex: 48 / F ?ADM Date: 09/29/23 ? Loc: HO.MAMMO ? Attending Dr: Trinidad Nicholson STAMPING MILL TENDER ? Ordering Physician: Trinidad Nicholson STAMPING MILL TENDER ?? Date of Service: 09/29/23 ?? Procedure(s): US breast RT limited mamm only ?? Accession Number(s): [id number] ? cc: Trinidad Nicholson NP ? EXAMINATION: ?? MM DIAGNOSTIC DIGITAL BREAST [...] by Anastasia Cotton MD in OV> ? //24 1015 ? DD/ 0943 ? TD/TT: ? Rn Transplant: ? Procedure Note Donotivaninterpreter, Image - [facility]/29/20[facility] [address] [place] [address] Ultrasound Report Signed Patient: Manoj Singh#: [id number] 09 : 1975Acct:[id number] Age/Sex: 48 / FADM Date: 09/29/23 Loc: HO.MAMMO Attending Dr: Trinidad Nicholson NP Ordering Physician: Trinidad Nicholson NP Date of Service: 09/29/23 Procedure(s): US breast RT limited mamm only Accession Number(s): [id number] cc: Trinidad Nicholson NP EXAMINATION: MM DIAGNOSTIC [...] in OV> 09/29/23 1015 DD/ 0943 TD/TT: Rn Transplant: us Trinidad HUMPHRIESP IMG US PROCEDURES Edited Result - Final * Lipid Panel, Standard (01/03/2023 11:37 AM EDT) Triglycerides 168 mg/dL [facility] Comment:Desirable Triglyceri de: less than 150 mg/dLBorderline High Triglyceride 150-199 mg/dLHigh Triglyceride: 200-499 mg/dLVery High Triglyceride: greater than or equal to 5OO mg/dL Cholesterol 209 mg/dL [facility] Comment:Desirable Cholestero l: less than 200 mg/dLBorderline High Cholesterol: 200-239 mg/dLHigh Cholesterol: greater than 239 mg/dL LDL Cholesterol Calculated 132 mg/dl [facility] Comment:Desirable LDL: less than 100 mg/dLNear Optimal/Above Optimal LDL: 110- 129 mg/dLBorderline High LDL: 130-159 mg/dLHigh LDL: 160-189 mg/dLVery High LDL: greater than or equal to 190 mg/dL HDL Cholesterol 44 mg/dL [facility] Comment:Desirable HDL: great er than 40 mg/dL Note: This HDL assay may give artificially low results in patients with liver disease. Blood Venous blood specimen / Unknown 01/03/2023 11:37 AM EDT 01/03/2023 1:08 PM EDT us Trinidad Nicholson MANAGER CT LAB BLOOD ORDERABLES Final Resu lt [facility] [address] [place] [address] [phone] * HPV E6/E7 RFLX LILLIAN 16 18/45 (12/18/2020 4:44 PM EDT) HPV mRNA E6/E7 rflx Not Detected Not Detected [facility] Comment: Methodology: History Faculty Member-Mediated Amplification This assay detects E6/E7 viral messenger RNA (mRNA) from 14 high-risk HPV types (16,18,31,33,35,39,45,51,52,56,58,59,66,68). The analytical performance characteristics of this assay have been determined by [employer]. The modifications have not been cleared or approved by the FDA. This assay has been validated pursuant to the CLIA regulations and is used for clinical purposes. For additional information, please refer to http://education.Consignd/faq/KAP243k5 (This link if provided for information/ educational purposes only.) THIS TEST WAS PERFORMED AT: [employer] [address] [place] [address] [address]LO[address] [place], [place] ??[id number] NIKA CHUNG MD 12/18/2020 4:44 PM EDT us Adalid Grimes MD HISTORICAL/NON ORDERABLE LABS Fi nal Result [facility] [address] from Last 3 Months or Most Recently Relevant to Health Maintenance Insurance * Guarantor: Nelsy Singh Account Type Relation to Patient Date of Phone Billing Address Personal/Family Self 1975 [address] [facility] [address] [place] [address] [facility]ICARE [facility] STANDARD [facility] MEDICAID STAND ADULT Care Teams Doughnut Machine Operator Relationship Specialty Start Date End Date Buffy Lund MD [address] [place] [address] PCP - General Family Medicine 01/09/24
--- OUTSIDE RECORDS SUMMARY | 2024-06-30 18:03 | XMS_ITS | Encounter Summary ---
Author Organization [employer] Address [address] [facility] [address] 7[address] [place] [address] Care Team Providers Care Clutch Inspector Name Role Phone Trinidad Nicholson Primary Care Provider [phone] Buffy Lund MD Primary Care Provider [phone] Reason for Visit * Reason Onset Date Comments Med Refill 09/04/2023 Encounter Details Date Type Department Care Team (Late st Contact Info) Description 09/04/2023 Refill [facility] [address] [place] [address] Trinidad Nicholson FNP [address] [place] [address] Social History Tobacco Use Types Packs/Day Years [...] documented as of this encounter Care Teams Clutch Inspector Relationship Specialty Start Date End Date Trinidad Nicholson FNP [address] [place] [address] PCP - General Family Medicine 02/20/23 01/08/24 Buffy Lund MD [address] [place] [address] PCP - General Family Medicine 01/09/24 documented as of this encounter
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
--- OUTSIDE RECORDS SUMMARY | 2024-06-30 18:03 | XMS_ITS | Encounter Summary ---
Author Organization [employer] Address [address] [facility] [address] [facility] [address] 7[address] [place] [address] Care Team Providers Care Investment Banker Name Role Phone Trinidad Nicholson Primary Care Provider [phone] Buffy Lund MD Primary Care Provider [phone] Reason for Visit * Reason Comments Med Refill Encounter Details Date Type Department Care Team (Late st Contact Info) Description 09/19/2023 Refill [facility] [address] [place] [address] Ryley Machado MD [address] [place] [address] Social History Tobacco Use Types Packs/Day Years [...] documented as of this encounter Care Teams Investment Banker Relationship Specialty Start Date End Date Trinidad Nicholson FNP [address] [place] [address] PCP - General Family Medicine 02/20/23 01/08/24 Buffy Lund MD [address] [place] [address] PCP - General Family Medicine 01/09/24 documented as of this encounter
--- OUTSIDE RECORDS SUMMARY | 2024-06-30 18:03 | XMS_ITS | Encounter Summary ---
Author Organization [employer] Address [address] [facility] 7t [place] [address] Care Team Providers Care Land Degradation Analyst Name Role Phone Buffy Lund MD Primary Care Provider [phone] Encounter Details Date Type Department Care Team (Late st Contact Info) Description 04/06/2024 Telephone [facility] MEDICINE [address] [place] [address] Gali Caban, PharmD [address] [place] [address] Social History Tobacco Use Types Packs/Day Years [...] Please assist in obtaining discharge paperwork from [facility] Patient was discharged on 04/02/2024. Thank you documented in this encounter Plan of Treatment Not on file documented as of this encounter Visit Diagnoses Not on filedocumented in this encounter Additional Health Concerns Assessment Noted Time PHQ-9 Depression Total Score: 20 023 1:41 PM EDT documented as of this encounter Care Teams Land Degradation Analyst Relationship Specialty Start Date End Date Buffy Lund MD [address] [place] [id number] PCP - General Family Medicine 01/09/24 documented as of this encounter
--- OUTSIDE RECORDS SUMMARY | 2024-06-30 18:03 | XMS_ITS | Encounter Summary ---
Author Organization [employer] Address [address] [facility] [address] 7[address] [place] [address] Care Team Providers Care Monitoring Manager Name Role Phone Trinidad Nicholson Primary Care Provider [phone] Buffy Lund MD Primary Care Provider [phone] Encounter Details Date Type Department Care Team (Late st Contact Info) Description 03/18/2023 Orders Only [facility] [address] [place], [place] [phone] Trinidad Nicholson FNP [address] [place], [place] [phone] Social History Tobacco Use Types Packs/Day Years [...] documented as of this encounter Care Teams Monitoring Manager Relationship Specialty Start Date End Date Trinidad Nicholson FNP [address] [place] [address] PCP - General Family Medicine 02/20/23 01/08/24 Buffy Lund MD [address] [place] [address] PCP - General Family Medicine 01/09/24 documented as of this encounter
--- OUTSIDE RECORDS SUMMARY | 2024-06-30 18:03 | XMS_ITS | Encounter Summary ---
Author Organization [employer] Address [address] [facility] 7t [place] [address] Care Team Providers Care Wiener Packer Name Role Phone Oracio Isabel Primary Care Provider Unavail Trinidad Roth Primary Care Provider [phone] Buffy Lund MD Primary Care Provider [phone] Reason for Visit * Reason Comments Med Refill Encounter Details Date Type Department Care Team (Late st Contact Info) Description 02/07/2023 Refill [facility] MEDICINE [address] [place] [address] Oracio Isabel AGNP Essential hypertension Social History [...] documented as of this encounter Care Teams Wiener Packer Relationship Specialty Start Date End Date Oracio Isabel AGNP PCP - General Family Medicine 03/08/22 02/19/23 Trinidad Nicholson FNP [address] [place] [address] PCP - General Family Medicine 02/20/23 01/08/24 Buffy Lund MD [address] [place] [address] PCP - General Family Medicine 01/09/24 documented as of this encounter
[2024-07-01 11:52] LABS: Bacterial Vaginosis PCR POSITIVE (Negative); Candida Group PCR NOT DETECTED (Not Detect); Candida glab krusei PCR NOT DETECTED (Not Detect); Trichomonas vaginalis PCR NOT DETECTED (Not Detect)
[2024-07-01 17:19] LABS: CT PCR NOT DETECTED (Not Detect.); NG PCR NOT DETECTED (Not Detect.)
== END 2024-06-30 18:01 | disposition home or self-care (01) ==
LOC: HO.HHCLNP 18:00
PROVIDERS: Visit Provider Internal Medicine
DX: Z13.89 Encounter for screening for other disorder (principal)
CPT/HCPCS: 81515; 87086; 87491; 87591

== ENCOUNTER 2024-08-24 13:34 | Outpatient (REF) | payer MEDICARE, MEDICAID, SELFPAY ==
--- NOTE | 2024-08-24 14:25 | PFT_ITS ---
Indication: Dyspnea Spirometry [FEV1 to FVC 79%; FEV1 2.71 L; FVC 3.45 L. No significant response to bronchodilators noted.] Lung Volumes [Total lung capacity 105% predicted; residual volume 135% predicted] Diffusion Capacity [DLCO 86% predicted] Comparisons [none] Interpretation [No obstructive nor restrictive ventilatory defects identified. No significant response to bronchodilators noted. Mild degree of small airways disease which could be seen with asthma. In addition to that, the patient does have evidence of significant air trapping on her lung volumes which could be seen with small airways disease. Diffusing capacity is within normal limits. If asthma is in your differential, a methacholine challenge may be helpful in assessing for hyperreactive airways.] MTDD
[2024-08-24 14:56] VITALS: PULSE 74; O2SAT 98
== END 2024-08-24 13:35 | disposition home or self-care (01) ==
LOC: HO.RESP 13:34
PROVIDERS: Visit Provider Internal Medicine
DX: R06.09 Other forms of dyspnea (principal)
CPT/HCPCS: 94010; 94640; 94727; 94729

== ENCOUNTER → 2024-08-24 14:25 | Outpatient (BNV) | payer MEDICARE, MEDICAID, SELFPAY | PROVIDERS: Visit Provider Hospitalist | DX: R06.09 Other forms of dyspnea (principal) | CPT/HCPCS: 94060; 94727; 94729 ==

== ENCOUNTER 2024-09-09 12:44 | Outpatient (REF) | payer MEDICARE, MEDICAID, SELFPAY ==
--- OUTSIDE RECORDS SUMMARY | 2024-09-09 15:13 | XMS_ITS | Encounter Summary ---
Author Organization [employer] Address [address] [facility] [address]t [place] [address] Care Team Providers Care Print Washer Name Role Phone Oracio Isabel Primary Care Provider Unavail Trindiad Roth Primary Care Provider [phone] Buffy Lund MD Primary Care Provider [phone] Reason for Visit * Reason Comments Med Refill Encounter Details Date Type Department Care Team (Late st Contact Info) Description 01/15/2023 Refill [facility] MED[facility] [address] [place] [address] Oracio Isabel AGNP Essential hypertension Social History [...] documented as of this encounter Care Teams Print Washer Relationship Specialty Start Date End Date Oracio Isabel AGNP PCP - General Family Medicine 03/08/22 02/19/23 Trinidad Nicholson FNP [address] [place] [address] PCP - General Family Medicine 02/20/23 01/08/24 Buffy Lund MD [address] [place] [address] PCP - General Family Medicine 01/09/24 documented as of this encounter
--- OUTSIDE RECORDS SUMMARY | 2024-09-09 15:13 | XMS_ITS | Encounter Summary ---
Author Organization [email or web address] Address [address] [facility] 7t [place] [address] Care Team Providers Care Literacy Coach Name Role Phone Oracio Isabel Primary Care Provider Unavail Trinidad Roth Primary Care Provider [phone] Buffy Lund MD Primary Care Provider [phone] Encounter Details Date Type Department Care Team (Latest Contact Info) Description 04/17/2021 Abstract [facility] CONVERSIONS Dental, Provider, DDS Social History [...] on filedocumented in this encounter Care Teams Literacy Coach Relationship Specialty Start Date End Date Oracio Isabel AGNP PCP - General Family Medicine 03/08/22 02/19/23 Trinidad Nicholson FNP [address] [place], [place] [phone] PCP - General Family Medicine 02/20/23 01/08/24 Buffy Lund MD [address] [place], [place] [phone] PCP - General Family Medicine 01/09/24 documented as of this encounter
--- OUTSIDE RECORDS SUMMARY | 2024-09-09 15:13 | XMS_ITS | Encounter Summary ---
Author Organization [employer] Address [address] [facility] [address] 7[address] [place] [address] Care Team Providers Care Aircraft Systems Technician Name Role Phone Trinidad Nicholson Primary Care Provider [phone] Buffy Lund MD Primary Care Provider [phone] Reason for Visit * Reason Onset Date Comments Med Refill 09/04/2023 Encounter Details Date Type Department Care Team (Late st Contact Info) Description 09/04/2023 Refill [facility] [address] [place] [address] Fely Carrero FNP Social History Tobacco Use [...] documented as of this encounter Care Teams Aircraft Systems Technician Relationship Specialty Start Date End Date Trinidad Nicholson FNP [address] [place] [address] PCP - General Family Medicine 02/20/23 01/08/24 Buffy Lund MD [address] [place] [address] PCP - General Family Medicine 01/09/24 documented as of this encounter
--- OUTSIDE RECORDS SUMMARY | 2024-09-09 15:13 | XMS_ITS | Encounter Summary ---
Author Organization [employer] Address [address] [facility] 7t [place] [address] Care Team Providers Care Electro Mechanic Name Role Phone Buffy Lund MD Primary Care Provider [phone] Encounter Details Date Type Department Care Team (Late st Contact Info) Description 04/06/2024 Telephone [facility] MEDICINE [address] [place] [address] Gali Caban, PharmD 230 [place] [address] Social History Tobacco Use Types Packs/Day Years [...] Please assist in obtaining discharge paperwork from [facility] Patient was discharged on 04/02/2024. Thank you documented in this encounter Plan of Treatment Not on file documented as of this encounter Visit Diagnoses Not on filedocumented in this encounter Additional Health Concerns Assessment Noted Time PHQ-9 Depression Total Score: 20 023 1:41 PM EDT documented as of this encounter Care Teams Electro Mechanic Relationship Specialty Start Date End Date Buffy Lund MD [address] [place] [id number] PCP - General Family Medicine 01/09/24 documented as of this encounter
--- OUTSIDE RECORDS SUMMARY | 2024-09-09 15:13 | XMS_ITS | Encounter Summary ---
Author Organization [employer] Address [address] [facility] 7[address] [place] [address] Care Team Providers Care Program Engineer Name Role Phone Trinidad Nicholson Primary Care Provider [phone] Buffy Lund MD Primary Care Provider [phone] Reason for Visit * Reason Onset Date Comments Med Refill 09/04/2023 Encounter Details Date Type Department Care Team (Late st Contact Info) Description 09/04/2023 Refill [facility] [address] [place] [address] Trinidad Nicholson FNP [address] [place] [address] Social History Tobacco Use Types Packs/Day Years [...] documented as of this encounter Care Teams Program Engineer Relationship Specialty Start Date End Date Trinidad Nicholson FNP [address] [place] [address] PCP - General Family Medicine 02/20/23 01/08/24 Buffy Lund MD [address] [place] [address] PCP - General Family Medicine 01/09/24 documented as of this encounter
--- OUTSIDE RECORDS SUMMARY | 2024-09-09 15:13 | XMS_ITS | Encounter Summary ---
Author Organization [employer] Address [address] [facility] [facility] [address] 7[address] [place] [address] Care Team Providers Care Sales Agent Business Services Name Role Phone Trinidad Nicholson Primary Care Provider [phone] Buffy Lund MD Primary Care Provider [phone] Encounter Details Date Type Department Care Team (Late st Contact Info) Description 03/18/2023 Orders Only [facility] [address] [place], [place] [phone] Trinidad Nicholson FNP [address] [place], [place] [phone] Social History Tobacco Use Types Packs/Day Years [...] documented as of this encounter Care Teams Sales Agent Business Services Relationship Specialty Start Date End Date Trinidad Nicholson FNP [address] [place] [address] PCP - General Family Medicine 02/20/23 01/08/24 Buffy Lund MD [address] [place] [address] PCP - General Family Medicine 01/09/24 documented as of this encounter
--- OUTSIDE RECORDS SUMMARY | 2024-09-09 15:13 | XMS_ITS | Clinical Summary ---
Author Organization [employer] Address [address] [facility] 7t [place] [address] Care Team Providers Care Foam Charger Name Role Phone Buffy Lund MD Primary Care Provider [phone] Allergies Active Allergy Reactions Criticality Noted Date [...] spray Administer 0.1 mL into affected nostril(s). 1 Active cloNIDine (Catapres) 0.1 MG tablet Take 0.1 mg by mouth if needed in the morning, at noon, and at bedtime. 4 Active traZODone (Desyrel) 50 MG tablet Take 1 tablet (50 mg) by mouth at bedtime. 90 tablet 4 Active omeprazole (PriLOSEC) [address] capsule TAKE 1 CAPSULE BY MOUTH EVERY DAY BEFORE A MEAL 90 capsule 3 4 Active acetaminophen (Tylenol) 500 MG tabletIndication s:Carpal tunnel syndrome of right wrist TAKE 2 TABLETS BY MOUTH EVERY 6 HOURS IF NEEDED FOR MODERATE PAIN OR FEVER 90 tablet 4 Active aspirin 81 MG chewable tabletIndication s:History of pericarditis Chew 1 tablet (81 mg) Once per day. 90 tablet 1 4 025 Active albuterol (2.5 MG/3ML) 0.083% nebulizer solutionIndicati ons:Moderate persistent asthma without complication Take 3 mL by nebulization every 8 (eight) hours if needed for wheezing or shortness of breath. 75 mL 11 4 Active triamcinolone (Kenalog) 0.1 % creamIndications :Seborrheic Dermatitis Apply topically 2 times daily. To affected areas 80 g 2 4 Active hydrOXYzine pamoate (Vistaril) 25 MG capsuleIndicatio ns:Generalized anxiety disorder Take 1 capsule (25 mg) by mouth every 6 (six) hours if needed for anxiety for up to 23 days. 90 capsule 4 Active cyclobenzaprine (Flexeril) 5 MG tabletIndication s:Chronic bilateral low back pain with right-sided sciatica Take 2 tablets (10 mg) by mouth if needed in the morning, at noon, and at bedtime for muscle spasms. 40 tablet 2 4 Active colchicine 0.6 MG tabletIndication s:History of pericarditis Take 1 tablet (0.6 mg) by mouth Once per day. To lower symptoms and prevent reoccurrence of pericarditis 90 tablet 3 4 025 Active escitalopram (Lexapro) 20 MG tabletIndication s:Generalized anxiety disorder Take 1 tablet (20 mg) by mouth Once per day. 90 tablet 3 4 025 Active albuterol 108 (90 Base) MCG/ACT inhalerIndicatio ns:Moderate persistent asthma without complication INHALE 2 PUFFS BY MOUTH EVERY 4 HOURS 18 g 6 4 Active docusate sodium (Colace) 100 MG capsuleIndicatio ns:Opioid dependence in remission (CMS/[facility]) Take 1 capsule (100 mg) by mouth Once per day. 90 capsule 3 4 Active ibuprofen 800 MG tabletIndication s:Carpal tunnel syndrome of right wrist TAKE 1 TABLET BY MOUTH EVERY 8 HOURS NEEDED FOR MILD PAIN 90 tablet 1 5 Active Active Problems Problem Noted Date Diagnosed Date [...] of crack cocaine. She will follow-up with job coaching and psychotherapist. History of pericarditis 04/14/2024 Assessment [...] Plan (04/14/2024 12:05 PM EST): Trimacinolone cream metal turner & Plan (01/07/2024 5:58 PM EDT): I [...] our walk in STI screen clinic at [facility] (lab is closed now) and she [...] of change PLAN: 1. Follow up with [facility]: Recommended for follow-up: as needed 2. Patient [...] of change PLAN: 1. Follow up with [facility]: Recommended for follow-up: as needed 2. Patient 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, suboxone at [place] Started OBOT program: 02/2020 Comorbidities: BH: PTSD, depression, anxiety Pain: yes Other substances: cocaine (also sober_ Hep C: No results found for: HEPCABQL Smoking/EtOH: yes Contraception: Current Counseling plan: Current Frequency of OBOT RN visits: Last Pill Count: Last NATURAL SCIENCE CURATOR: Last MD visit: Last Assessment & Plan: [...] Encounters Date Type Department Care Team Description 09/02/2024 Telephone [facility] MED[facility] [address] [place] [phone] Buffy Lund MD Results (PFTs) 08/13/2024 Population Health Risk Score [facility] (C3) Department [address] [phone] Provider, Population Health Generic 08/04/2024 Refill [facility] [address] [place] [phone] Buffy Lund MD Carpal tunnel syndrome of right wrist 07/15/2024 Telephone [facility] [address] [place] [address] Trista Rees MD 07/02/2024 Orders Only [facility] [address] [place] [address] Trista Rees MD 06/30/2024 1:30 PM EST Office Visit [facility] [address] [place] [address] [phone] Trista Rees MD Dysuria (Primary Dx); Subacute vaginitis; Dyspnea on exertion; Essential hypertension; Folliculitis depilans 06/30/2024 Orders Only [facility] [address] [place] [address] Trista Rees MD 06/30/2024 Travel from Last 3 Months Immunizations Name Administration [...] d or Tdap) 02/03/2023 02/03/2013 Depression Monitoring 07/23/2023 01/20/2023 , 01/20/2023 Depression Screening 01/21/2024 01/20/2023, 01/20/2023 COVID-19 [...] Procedure Name Priority Date/Time Associated Diagnosis Comments CULTURE, URINE, ROUTINE Routine 06/30/2024 2:34 PM EST CHLAMYDIA/N. GONORRHOEAE RNA, TMA, UROGENITAL Routine 06/30/2024 2:34 PM EST Dysuria Subacute vaginitis BACTERIAL VAGINOSIS PANEL Routine 06/30/2024 2:34 PM EST Subacute vaginitis POCT URINALYSIS DIPSTICK Routine 06/30/2024 2:09 PM EST Dysuria BI US BREAST LIMITED RIGHT Routine 09/29/2023 9:43 AM EDT LIPID PANEL, STANDARD Routine 01/03/2023 11:37 AM EDT Routine adult health maintenance ZZZ HISTORICAL HPV E6/E7 RFLX LILLIAN 16 18/45 Routine 12/18/2020 4:44 PM EDT from Last 3 Months or Most Recently Relevant to Health Maintenance Results * (ABNORMAL) Bacterial Vaginosis Panel (06/30/2024 2:34 PM EST) TRICHOMONAS VAGINALIS DETECTION BY PCR NOT DETECTED Not Detect [facility] BACTERIAL VAGINOSIS DETECTION BY PCR POSITIVE(A) Negative [facility] Comment:The BV organism targ ets of the Xpert Xpress MVP test can becommensal in women; Xpert Xpress MVP positive results forbacterial vaginosis should be considered in conjunction withother clinical and patient information to determine thedisease status. Organisms that are not detected by the XpertXpress MVP test have also been reported to be associatedwith BV and aerobic vaginitis.The Xpert Xpress MVP test performance has not been evaluatedin patients under the age of 14. MARY GROUP DETECTION BY PCR NOT DETECTED Not Detect [facility] Mary glab krusei PCR NOT DETECTED Not Detect [facility] Swab Vaginal structure / Unknown 06/30/2024 2:34 PM EST 06/30/2024 6:03 PM EST us Trista Rees MD LAB MICROBIOLOGY - GENER AL ORDERABLES Final Result [facility] [address] [place] [phone] * Chlamydia/N. Gonorrhoeae RNA, TMA, Urogenitial (06/30/2024 2:34 PM EST) CT PCR NOT DETECTED Not Detect. [facility] Comment:A not detected test result does not exclude the possibilityof infection because test results can be affected byimproper specimen collection, concurrent antibiotic therapy,or the number of organisms in the specimen which may bebelow the sensitivity of the test. As with many diagnostictests, results from the Xpert CT/NG assay should beinterpreted in conjunction with other laboratory andclinical data available to the clinician.Xpert CT/NG performance has not been evaluated in patientsless than 14 years of age. The assay should not be used forthe evaluationof suspected sexual abuse or for other medico-legalindications. Additional testing is recommended in anycircumstance when false positive or false negative resultscould lead to adverse medical, social or psychologicalconsequences. NG PCR NOT DETECTED Not Detect. [facility] Comment:A not detected test result does not exclude the possibilityof infection because test results can be affected byimproper specimen collection, concurrent antibiotic therapy,or the number of organisms in the specimen which may bebelow the sensitivity of the test. As with many diagnostictests, results from the Xpert CT/NG assay should beinterpreted in conjunction with other laboratory andclinical data available to the clinician.Xpert CT/NG performance has not been evaluated in patientsless than 14 years of age. The assay should not be used forthe evaluationof suspected sexual abuse or for other medico-legalindications. Additional testing is recommended in anycircumstance when false positive or false negative resultscould lead to adverse medical, social or psychologicalconsequences. Swab Vaginal structure / Unknown 06/30/2024 2:34 PM EST 06/30/2024 6:03 PM EST Narrative [facility] - 07/01/2024 5:20 PM EST Vaginal us Trista Rees MD LAB MICROBIOLOGY - GENER AL ORDERABLES Final Result [facility] [address] [place] [phone] * Culture, Urine, Routine (06/30/2024 2:34 PM EST) Urine Urine specimen obtained by clean catch procedure / Unknown 06/30/2024 2:34 PM EST 06/30/2024 6:02 PM EST Comment:UACC Narrative [facility] - 07/03/2024 7:32 AM EST Proteus mirabilis Quant > 100,000 cfu/mL Proteus mirabilis: Ampicillin <=2(S) Proteus mirabilis: Cefazolin (Urine) 4(S) Proteus mirabilis: Cefepime <=0.12(S) Proteus mirabilis: Ceftriaxone <=0.25(S) Proteus mirabilis: Ciprofloxacin <=0.06(S) Proteus mirabilis: Gentamicin <=1(S) Proteus mirabilis: Nitrofurantoin 128(R) Proteus mirabilis: Trimethoprim/Sulfamethoxazole <=20(S) Specimen Source: Urine clean catch Trista Rees MD LAB MICROBIOLOGY - GENER AL ORDERABLES Final Result [facility] [address] [place] [phone] * (ABNORMAL) POCT Urinalysis (06/30/2024 2:09 PM [...] EDT Narrative 09/29/2023 10:18 AM EDT ? [facility] [address] [facility] ?[place] [address] ? Ultrasound Report ? Signed ? Patient: Francisco,Nelsy ?MR#: [id number] ?? 09 ? : 1975 ?Acct:[id number] ? Age/Sex: 48 / F ?ADM Date: 09/29/23 ? Loc: HO.MAMMO ? Attending Dr: Trinidad Nicholson [place] ? Ordering Physician: Trinidad Nicholson [place] ?? Date of Service: 09/29/23 ?? Procedure(s): US breast RT limited mamm only ?? Accession Number(s): [id number] ? cc: Trinidad Nicholson NP ? EXAMINATION: [...] 1015 ? DD/ 0943 ? TD/TT: ? Integrated Logistics Programs Director: ? Procedure Note Mariel, Image - 09/29/2023 [facility] [address] [place] [address] Ultrasound Report Signed Patient: Manoj Singh#: [id number] 09 : 1975Acct:[id number] Age/Sex: 48 / FADM Date: 09/29/23 Loc: HO.MAMMO Attending Dr: Trinidad Nicholson NP Ordering Physician: Trinidad Nicholson NP Date of Service: 09/29/23 Procedure(s): US breast RT limited mamm only Accession Number(s): [id number] cc: Trinidad Nicholson NP EXAMINATION: MM DIAGNOSTIC [...] in OV> 09/29/23 1015 DD/ 0943 TD/TT: Integrated Logistics Programs Director: Trinidad Nicholson [facility] IM US PROCEDURES Edited Result - Final * Lipid Panel, Standard (01/03/2023 11:37 AM EDT) Triglycerides 168 mg/dL [facility] Comment:Desirable Triglyceri de: less than 150 mg/dLBorderline High Triglyceride 150-199 mg/dLHigh Triglyceride: 200-499 mg/dLVery High Triglyceride: greater than or equal to 5OO mg/dL Cholesterol 209 mg/dL [facility] Comment:Desirable Cholestero l: less than 200 mg/dLBorderline High Cholesterol: 200-239 mg/dLHigh Cholesterol: greater than 239 mg/dL LDL Cholesterol Calculated 132 mg/dl [facility] Comment:Desirable LDL: less than 100 mg/dLNear Optimal/Above Optimal LDL: 110- 129 mg/dLBorderline High LDL: 130-159 mg/dLHigh LDL: 160-189 mg/dLVery High LDL: greater than or equal to 190 mg/dL HDL Cholesterol 44 mg/dL [facility] Comment:Desirable HDL: great er than 40 mg/dL Note: This HDL assay may give artificially low results in patients with liver disease. Blood Venous blood specimen / Unknown 01/03/2023 11:37 AM EDT 01/03/2023 1:08 PM EDT us Trinidad Nicholson MAIL SORTING SUPERVISOR LAB BLOOD ORDERABLES Final Resu lt Performing Organization Address City/[facility]/ZIP Co de Phone Number [facility] [address] [place] [phone] * HPV E6/E7 RFLX LILLIAN 16 18/45 (12/18/2020 4:44 PM EDT) [facility] HPV mRNA E6/E7 rflx Not Detected Not Detected [facility] Comment: Methodology: Manager Cardiac Cath-Mediated Amplification This assay detects E6/E7 viral messenger RNA (mRNA) from 14 high-risk HPV types (16,18,31,33,35,39,45,51,52,56,58,59,66,68). The analytical performance characteristics of this assay have been determined by [employer]. The modifications have not been cleared or approved by the FDA. This assay has been validated pursuant to the CLIA regulations and is used for clinical purposes. For additional information, please refer to http://education.[employer]/faq/KCB049a5 (This link if provided for information/ educational purposes only.) THIS TEST WAS PERFORMED AT: [facility] [address] [place] [address] [address] [place], [place] ??[phone] NIKA CHUNG MD 12/18/2020 4:44 PM EDT us Adalid Grimes MD HISTORICAL/NON ORDERABLE LABS Fi nal Result Performing Organization Address City/[facility]/ZIP Co de Phone Number [facility] [address] from Last 3 Months or Most Recently Relevant to Health Maintenance Insurance MEDICARE [facility] STANDARD DENTAL-[facility] MEDICAID STAND ADULT Care Teams Foam Charger Relationship Specialty Start Date End Date Buffy Lund MD [address] [place] [phone] PCP - General Family Medicine 01/09/24
--- OUTSIDE RECORDS SUMMARY | 2024-09-09 15:13 | XMS_ITS | Encounter Summary ---
Author Organization [employer] Address [address] [facility] 7t [place] [address] Care Team Providers Care Excellence Coach Name Role Phone Trinidad Nicholson Primary Care Provider [phone] Buffy Lund MD Primary Care Provider [phone] Reason for Visit * Reason Comments Med Refill Encounter Details Date Type Department Care Team (Late st Contact Info) Description 09/19/2023 Refill [facility] [address] [place] [address] Trinidad Nicholson FNP [address] [place] [address] Social History Tobacco Use Types Packs/Day Years [...] documented as of this encounter Care Teams Excellence Coach Relationship Specialty Start Date End Date Trinidad Nicholson FNP [address] [place] [address] PCP - General Family Medicine 02/20/23 01/08/24 Buffy Lund MD [address] [place] [address] PCP - General Family Medicine 01/09/24 documented as of this encounter
--- OUTSIDE RECORDS SUMMARY | 2024-09-09 15:13 | XMS_ITS | Encounter Summary ---
Author Organization [employer] Address [address] [facility] [place] [address] Care Team Providers Care Unified Communications Engineer Name Role Phone Trinidad Nicholson Primary Care Provider [phone] Buffy Lund MD Primary Care Provider [phone] Reason for Visit * Reason Comments Med Refill Encounter Details Date Type Department Care Team (Late st Contact Info) Description 09/19/[address] [facility] [address] [place] [address] Ryley Machado MD [address] [place] [address] Social History Tobacco Use Types Packs/Day Years [...] documented as of this encounter Care Teams Unified Communications Engineer Relationship Specialty Start Date End Date Trinidad Nicholson FNP [address] [place] [address] PCP - General Family Medicine 02/20/23 01/08/24 Buffy Lund MD [address] [place] [address] PCP - General Family Medicine 01/09/24 documented as of this encounter
--- OUTSIDE RECORDS SUMMARY | 2024-09-09 15:13 | XMS_ITS | Encounter Summary ---
Demographics Address [address] [place] [address] Mobile Phone Home Phone Email Address Preferred Language en Marital Status Single Christianity Affiliation Unknown Race Other Race Additional Race(s) White Ethnic Group Colombian Author Organization [employer] Address [address] [place] [address] Care Team Providers Care Heavy Antiarmor Weapons Infantryman Name Role Phone Buffy Lund MD Primary Care Provider [phone] Encounter Details Date Type Department Care Team (Late st Contact Info) Description 07/02/[address] [facility] MEDIC[facility] [address] [place], [place] [phone] Trista Rees MD [address] [place] [address] Social History Tobacco Use Types Packs/Day Years [...] documented as of this encounter Care Teams Heavy Antiarmor Weapons Infantryman Relationship Specialty Start Date End Date Buffy Lund MD [address] [place] [address] PCP - General Family Medicine 01/09/24 documented as of this encounter
--- OUTSIDE RECORDS SUMMARY | 2024-09-09 15:13 | XMS_ITS | Encounter Summary ---
Author Organization [employer] Address [address] [facility] [facility] [address] [place] [address] Care Team Providers Care Church Warden Name Role Phone Oracio Isabel Primary Care Provider Unavail Trinidad Roth Primary Care Provider [phone] Buffy Lund MD Primary Care Provider [phone] Reason for Visit * Reason Comments Med Refill Encounter Details Date Type Department Care Team (Late st Contact Info) Description 02/07/2023 Refill [facility] [address] [place] [address] Oracio Isabel AGNP Essential hypertension Social History [...] documented as of this encounter Care Teams Church Warden Relationship Specialty Start Date End Date Oracio Isabel AGNP PCP - General Family Medicine 03/08/22 02/19/23 Trinidad Nicholson FNP [address] [place] [address] PCP - General Family Medicine 02/20/23 01/08/24 Buffy Lund MD [address] [place] [address] PCP - General Family Medicine 01/09/24 documented as of this encounter
== END 2024-09-09 12:45 | disposition home or self-care (01) ==
LOC: HO.MAMMO 12:44
PROVIDERS: PCP Internal Medicine; Visit Provider Nurse Practitioner Family
DX: Z13.89 Encounter for screening for other disorder (principal)

== ENCOUNTER → 2024-10-19 10:21 | Outpatient (REF) | payer MEDICARE, MEDICAID, SELFPAY ==
--- OUTSIDE RECORDS SUMMARY | 2024-10-19 11:35 | XMS_ITS | Encounter Summary ---
Author Organization [employer] Address [address] [place] [address] Care Team Providers Care Computer Aide Name Role Phone Trinidad Nicholson Primary Care Provider [phone] Buffy Lund MD Primary Care Provider [phone] Encounter Details Date Type Department Care Team ([facility] st Contact Info) Description 03/18/2023 Orders Only [facility] [address] [place], [place] [phone] Trinidad Nicholson FNP [address] [place] [address] Social History Tobacco Use Types Packs/Day Years [...] documented as of this encounter Care Teams Computer Aide Relationship Specialty Start Date End Date Trinidad Nicholson FNP [address] [place] [address] PCP - General Family Medicine 02/20/23 01/08/24 Buffy Lund MD [address] [place] [address] PCP - General Family Medicine 01/09/24 documented as of this encounter
--- OUTSIDE RECORDS SUMMARY | 2024-10-19 11:35 | XMS_ITS | Encounter Summary ---
Author Organization [employer] Address [address] [facility] [address]t [place] [address] Care Team Providers Care Space Physicist Name Role Phone Oracio Isabel Primary Care Provider Unavail Trinidad Roth Primary Care Provider [phone] Buffy Lund MD Primary Care Provider [phone] Reason for Visit * Reason Comments Med Refill Encounter Details Date Type Department Care Team (Late st Contact Info) Description 02/07/2023 Refill [facility] MED[facility] [address] [place] [address] Oracio Isabel AGNP Essential hypertension Social History [...] documented as of this encounter Care Teams Space Physicist Relationship Specialty Start Date End Date Oracio Isabel AGNP PCP - General Family Medicine 03/08/22 02/19/23 Trinidad Nicholson FNP [address] [place] [address] PCP - General Family Medicine 02/20/23 01/08/24 Buffy Lund MD [address] [place] [address] PCP - General Family Medicine 01/09/24 documented as of this encounter
--- OUTSIDE RECORDS SUMMARY | 2024-10-19 11:35 | XMS_ITS | Encounter Summary ---
Author Organization [employer] Address [address] [place] [address] Care Team Providers Care Steam Press Operator Name Role Phone Oracio Isabel Primary Care Provider Unavail Trinidad Roth Primary Care Provider [phone] Buffy Lund MD Primary Care Provider [phone] Reason for Visit * Reason Comments Med Refill Encounter Details Date Type Department Care Team (Late st Contact Info) Description 01/15/2023 Refill [facility] MED[facility] [address] [place] [address] Oracio Isabel AGNP Essential hypertension Social History [...] documented as of this encounter Care Teams Steam Press Operator Relationship Specialty Start Date End Date Oracio Isabel AGNP PCP - General Family Medicine 03/08/22 02/19/23 Trinidad Nicholson FNP [address] [place] [address] PCP - General Family Medicine 02/20/23 01/08/24 Buffy Lund MD [address] [place] [address] PCP - General Family Medicine 01/09/24 documented as of this encounter
--- OUTSIDE RECORDS SUMMARY | 2024-10-19 11:35 | XMS_ITS | Clinical Summary ---
Author Organization [employer] Address [address] [facility] [address] 7t [place] [address] Care Team Providers Care Sprue Knocker Name Role Phone Buffy Lund MD Primary Care Provider [phone] Allergies Active Allergy Reactions Criticality Noted Date [...] 04/05/20 24 Active acetaminophen (Tylenol) 500 MG tabletIndicatio ns:Carpal tunnel syndrome of right wrist TAKE 2 TABLETS BY MOUTH EVERY 6 HOURS IF NEEDED FOR MODERATE PAIN OR FEVER 90 tablet 04/14/20 24 Active albuterol (2.5 MG/3ML) 0.083% nebulizer solutionIndicat ions:Moderate persistent asthma without complication Take 3 mL by nebulization every 8 (eight) hours if needed for wheezing or shortness of breath. 75 mL 11 04/14/20 24 Active triamcinolone (Kenalog) 0.1 % creamIndication s:Seborrheic Dermatitis Apply topically 2 times daily. To affected areas 80 g 2 04/14/20 24 Active hydrOXYzine pamoate (Vistaril) 25 MG capsuleIndicati ons:Generalized anxiety disorder Take 1 capsule (25 mg) by mouth every 6 (six) hours if needed for anxiety for up to 23 days. 90 capsule 04/14/20 24 Active cyclobenzaprine (Flexeril) 5 MG tabletIndicatio ns:Chronic bilateral low back pain with right-sided sciatica Take 2 tablets (10 mg) by mouth if needed in the morning, at noon, and at bedtime for muscle spasms. 40 tablet 2 04/14/20 24 Active colchicine 0.6 MG tabletIndicatio ns:History of pericarditis Take 1 tablet (0.6 mg) by mouth Once per day. To lower symptoms and prevent reoccurrence of pericarditis 90 tablet 3 04/14/20 24 2024 Active escitalopram (Lexapro) 20 MG tabletIndicatio ns:Generalized anxiety disorder Take 1 tablet (20 mg) by mouth Once per day. 90 tablet 3 04/14/20 24 2024 Active albuterol 108 (90 Base) MCG/ACT inhalerIndicati ons:Moderate persistent asthma without complication INHALE 2 PUFFS BY MOUTH EVERY 4 HOURS 18 g 6 04/14/20 24 Active docusate sodium (Colace) 100 MG capsuleIndicati ons:Opioid dependence in remission (CMS/HCC) Take 1 capsule (100 mg) by mouth Once per day. 90 capsule 3 04/14/20 24 Active ibuprofen 800 MG tabletIndicatio ns:Carpal tunnel syndrome of right wrist TAKE 1 TABLET BY MOUTH EVERY 8 HOURS NEEDED FOR MILD PAIN 90 tablet 1 08/05/19 25 Active aspirin (Aspirin Low Dose) 81 MG chewable tabletIndicatio ns:History of pericarditis CHEW 1 TABLET BY MOUTH EVERY DAY 90 tablet 3 10/05/19 25 Active aspirin 81 MG chewable tabletIndicatio ns:History of pericarditis Chew 1 tablet (81 mg) Once per day. 90 tablet 1 04/14/20 24 2024 Discontinued Active Problems Problem Noted Date Diagnosed Date [...] of crack cocaine. She will follow-up with graduation coach and psychotherapist. History of pericarditis 04/14/2024 [...] Plan (04/14/2024 12:05 PM EST): Trimacinolone cream rn procedure & Plan (01/07/2024 5:58 PM EDT): I [...] our walk in STI screen clinic at [facility] (lab is closed now) and she agreed. 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, suboxone at [place] Started OBOT program: 02/2020 Comorbidities: BH: PTSD, depression, anxiety Pain: yes Other substances: cocaine (also sober_ Hep C: No results found for: HEPCABQL Smoking/EtOH: yes Contraception: Current Counseling plan: Current Frequency of OBOT RN visits: Last Pill Count: Last SUPERVISOR INSPECTING: Last MD visit: Last Assessment & Plan: [...] Encounters Date Type Department Care Team Description 10/03/2024 Refill [facility] [address] [place] [address] Buffy Lund MD History of pericarditis 09/02/2024 Telephone [facility] [address] [place] [address] Buffy Lund MD Results (PFTs) 08/13/2024 Population Health Risk Score [facility] Department [address] [id number] Provider, Population Health Generic 08/04/2024 Refill [facility] [address] [place] [address] Buffy Lund MD Carpal tunnel syndrome of right wrist from Last 3 Months Immunizations Immunization Administration Dates Next Due Hep A, Adult [...] FOBT 1975 HIV Screening 1975 Sigmoidoscopy 1977 Disability Screening 1977 Alcohol/Substance Use Screening 1989 Pap Smear 1998 Hepatitis B Vaccines (3 of 3 - 19+ 3-dose series) 11/26/2013 10/01/2013, 02/23/2013 DTaP/Tdap/Td Vaccines (2 - T d or Tdap) 02/03/2023 02/03/2013 Depression Screening 01/21/2024 01/20/2023, 01/20/2023 COVID-19 Vaccine ( - 2023-2 5 season) 2024 06/22/2021, 10/19/2020, [...] patient's age to complete this topic Meningococcal B Vaccine Aged Out No l onger eligible based on patient's age to complete [...] EDT Narrative 09/29/2023 10:18 AM EDT ? [facility] ? [address] ?[place] [address] ? Ultrasound Report ? Signed ? Patient: Francisco,Nelsy ?MR#: [id number] ?? 09 ? : 1975 ?Acct:[id number] ? Age/Sex: 48 / F ?ADM Date: 09/29/23 ? Loc: HO.MAMMO ? Attending Dr: Trinidad Nicholson HAND LAUNDERER ? Ordering Physician: Trinidad Nicholson HAND LAUNDERER ?? Date of Service: 09/29/23 ?? Procedure(s): US breast RT limited mamm only ?? Accession Number(s): [id number] ? cc: Trinidad Nicholson NP ? EXAMINATION: [...] by Anastasia Cotton MD in OV> ? /29/24 1015 ? DD/ 0943 ? TD/TT: ? Precast Worker: ? Procedure Note Donotuseinterpreter, Image - 09/29/2023 [facility] [address] [place] [address] Ultrasound Report Signed Patient: Manoj Singh#: [id number] 09 : 1975Acct:[id number] Age/Sex: 48 / FADM Date: 09/29/23 Loc: HO.MAMMO Attending Dr: Trinidad Nicholson NP Ordering Physician: Trinidad Nicholson NP Date of Service: 09/29/23 Procedure(s): US breast RT limited mamm only Accession Number(s): [id number] cc: Trinidad Nicholson NP EXAMINATION: MM DIAGNOSTIC [...] in OV> 09/29/23 1015 DD/ 0943 TD/TT: Precast Worker: us Trinidad TOMLINSON IMG US PROCEDURES Edited Result - Final * Lipid Panel, Standard (01/03/2023 11:37 AM EDT) Triglycerides 168 mg/dL [facility] Comment:Desirable Triglyceri de: less than 150 mg/dLBorderline High Triglyceride 150-199 mg/dLHigh Triglyceride: 200-499 mg/dLVery High Triglyceride: greater than or equal to 5OO mg/dL Cholesterol 209 mg/dL [facility] Comment:Desirable Cholestero l: less than 200 mg/dLBorderline High Cholesterol: 200-239 mg/dLHigh Cholesterol: greater than 239 mg/dL LDL Cholesterol Calculated 132 mg/dl [facility] Comment:Desirable LDL: less than 100 mg/dLNear Optimal/Above Optimal LDL: 110- 129 mg/dLBorderline High LDL: 130-159 mg/dLHigh LDL: 160-189 mg/dLVery High LDL: greater than or equal to 190 mg/dL HDL Cholesterol 44 mg/dL [facility] Comment:Desirable HDL: great er than 40 mg/dL Note: This HDL assay may give artificially low results in patients with liver disease. Blood Venous blood specimen / Unknown 01/03/2023 11:37 AM EDT 01/03/2023 1:08 PM EDT us Trinidad Lyn CIRCUIT MANAGER LAB BLOOD ORDERABLES Final Resu lt [facility] [address] [place] [address] [phone] * HPV E6/E7 RFLX LILLIAN 16 18/45 (12/18/2020 4:44 PM EDT) [facility] HPV mRNA E6/E7 rflx Not Detected Not Detected [facility] [facility] Comment: Methodology: Product Technology Scientist-Mediated Amplification This assay detects E6/E7 viral messenger RNA (mRNA) from 14 high-risk HPV types (16,18,31,33,35,39,45,51,52,56,58,59,66,68). The analytical performance characteristics of this assay have been determined by [employer]. The modifications have not been cleared or approved by the FDA. This assay has been validated pursuant to the CLIA regulations and is used for clinical purposes. For additional information, please refer to http://education.[employer]/faq/HHF542j0 (This link if provided for information/ educational purposes only.) THIS TEST WAS PERFORMED AT: [facility] [address] [place] [address] [address] [facility] [place], [place] ??[address] NIKA CHUNG MD 12/18/2020 4:44 PM EDT us Adalid Grimes MD HISTORICAL/NON ORDERABLE LABS Fi nal Result Performing Organization Address City/[facility]/ZIP Co de Phone Number [facility] [address] from Last 3 Months or Most Recently Relevant to Health Maintenance Insurance MEDICARE [facility] STANDARD DENTAL-[facility] MEDICAID STAND ADULT Care Teams Sprue Knocker Relationship Specialty Start Date End Date Buffy Lund MD [address] [place] [address] PCP - General Family Medicine 01/09/24
--- OUTSIDE RECORDS SUMMARY | 2024-10-19 11:35 | XMS_ITS | Encounter Summary ---
Author Organization [employer] Address [address] [place] [address] Care Team Providers Care Maintenance Job Titles Name Role Phone Buffy Lund MD Primary Care Provider [phone] Encounter Details Date Type Department Care Team (Late st Contact Info) Description 04/06/2024 Telephone [facility] [address] [place] [address] Gali Caban, PharmD [address] [place] [address] Social History Tobacco Use Types Packs/Day Years [...] Please assist in obtaining discharge paperwork from [facility] Patient was discharged on 04/02/2024. Thank you documented in this encounter Plan of Treatment Not on file documented as of this encounter Visit Diagnoses Not on filedocumented in this encounter Additional Health Concerns Assessment Noted Time PHQ-9 Depression Total Score: 20 023 1:41 PM EDT documented as of this encounter Care Teams Maintenance Job Titles Relationship Specialty Start Date End Date Buffy Lund MD [address] [place] [address] PCP - General Family Medicine 01/09/24 documented as of this encounter
--- OUTSIDE RECORDS SUMMARY | 2024-10-19 11:35 | XMS_ITS | Encounter Summary ---
Author Organization [employer] Address [address] [place] [address] Care Team Providers Care Employee Communications Intern Name Role Phone Trinidad Nicholson Primary Care Provider [phone] Buffy Lund MD Primary Care Provider [phone] Reason for Visit * Reason Onset Date Comments Med Refill 09/04/2023 Encounter Details Date Type Department Care Team (Late st Contact Info) Description 09/04/2023 Refill [facility] [address] [place] [address] Fely Carrero FNP Social History Tobacco Use [...] documented as of this encounter Care Teams Employee Communications Intern Relationship Specialty Start Date End Date Trinidad Nicholson FNP [address] [place] [address] PCP - General Family Medicine 02/20/23 01/08/24 Buffy Lund MD [address] [place] [address] PCP - General Family Medicine 01/09/24 documented as of this encounter
--- OUTSIDE RECORDS SUMMARY | 2024-10-19 11:35 | XMS_ITS | Encounter Summary ---
Author Organization [employer] Address [address] [place] [address] Care Team Providers Care Office Secretary Name Role Phone Trinidad Nicholson Primary Care Provider [phone] Buffy Lund MD Primary Care Provider [phone] Reason for Visit * Reason Onset Date Comments Med Refill 09/04/2023 Encounter Details Date Type Department Care Team (Late st Contact Info) Description 09/04/2023 Refill [facility] [address] [place] [address] Trinidad Nicholson FNP [address] [place] [address] Social History Tobacco Use Types Packs/Day Years [...] documented as of this encounter Care Teams Office Secretary Relationship Specialty Start Date End Date Trinidad Nicholson FNP [address] [place] [address] PCP - General Family Medicine 02/20/23 01/08/24 Buffy Lund MD [address] [place] [address] PCP - General Family Medicine 01/09/24 documented as of this encounter
--- OUTSIDE RECORDS SUMMARY | 2024-10-19 11:35 | XMS_ITS | Encounter Summary ---
Author Organization [employer] Address [address] [place] [address] Care Team Providers Care Donor Relations Officer Name Role Phone Trinidad Nicholson Primary Care Provider [phone] Buffy Lund MD Primary Care Provider [phone] Reason for Visit * Reason Comments Med Refill Encounter Details Date Type Department Care Team ([facility] st Contact Info) Description 09/19/2023 Refill [facility] [address] [place] [address] Ryley Machado MD [address] [place] [address] Social History Tobacco Use Types Packs/Day Years [...] is your housing situation today? I have hermelindoigor cordova 03/17/[address] you [...] documented as of this encounter Care Teams Donor Relations Officer Relationship Specialty Start Date End Date Trinidad Nicholson FNP [address] [place] [address] PCP - General Family Medicine 02/20/23 01/08/24 Bufyf Lund MD [address] [place] [address] PCP - General Family Medicine 01/09/24 documented as of this encounter
--- OUTSIDE RECORDS SUMMARY | 2024-10-19 11:35 | XMS_ITS | Encounter Summary ---
Author Organization [employer] Address [address] [facility] [address] [place] [address] Care Team Providers Care Outside Sales Representative Insurance Name Role Phone Trinidad Nicholson Primary Care Provider [phone] Buffy Lund MD Primary Care Provider [phone] Reason for Visit * Reason Comments Med Refill Encounter Details Date Type Department Care Team ([facility] st Contact Info) Description 09/19/2023 Refill [facility] [address] [place] [address] Trinidad Nicholson FNP [address] [place] [address] Social History Tobacco Use Types Packs/Day Years [...] documented as of this encounter Care Teams Outside Sales Representative Insurance Relationship Specialty Start Date End Date Trinidad Nicholson FNP [address] [place] [address] PCP - General Family Medicine 02/20/23 01/08/24 Buffy Lund MD [address] [place] [address] PCP - General Family Medicine 01/09/24 documented as of this encounter
--- OUTSIDE RECORDS SUMMARY | 2024-10-19 11:35 | XMS_ITS | Encounter Summary ---
Author Organization [employer] Address [address] [facility] [address] [facility] [address] [place] [address] Care Team Providers Care Field Care Manager Name Role Phone Buffy Lund MD Primary Care Provider [phone] Encounter Details Date Type Department Care Team (Late st Contact Info) Description 07/02/2024 Orders Only [facility] [address] [place], [place] [phone] Trista Rees MD [address] [place], [place] [phone] Social History Tobacco Use Types Packs/Day Years [...] documented as of this encounter Care Teams Field Care Manager Relationship Specialty Start Date End Date Buffy Lund MD [address] [place] [address] PCP - General Family Medicine 01/09/24 documented as of this encounter
--- OUTSIDE RECORDS SUMMARY | 2024-10-19 11:35 | XMS_ITS | Encounter Summary ---
Author Organization [employer] Address [address] [facility] [address] [facility] [address] [place] [address] Care Team Providers Care Joint Setter Name Role Phone Oracio Isabel Primary Care Provider Unavail rTinidad Roth Primary Care Provider [phone] Buffy Lund MD Primary Care Provider [phone] Encounter Details Date Type Department Care Team (Latest Contact Info) Description 04/17/2021 Abstract [facility] CONVERSIONS Dental, Provider, DDS Social History Tobacco [...] on filedocumented in this encounter Care Teams Joint Setter Relationship Specialty Start Date End Date Oracio Isabel AGNP PCP - General Family Medicine 03/08/22 02/19/23 Trinidad Nicholson FNP [address] [place], [place] [phone] PCP - General Family Medicine 02/20/23 01/08/24 Buffy Lund MD [address] [place], [place] [phone] PCP - General Family Medicine 01/09/24 documented as of this encounter
== END ==
LOC: HO.CARD 10:21
PROVIDERS: Visit Provider Internal Medicine Cardiovascular Disease
DX: Z13.89 Encounter for screening for other disorder (principal)

== ENCOUNTER 2024-11-02 13:03 | Outpatient (REF) | payer MEDICARE, MEDICAID, SELFPAY ==
--- OUTSIDE RECORDS SUMMARY | 2024-11-02 14:32 | XMS_ITS | Encounter Summary ---
Author Organization [employer] Address [address] [place] [address] Care Team Providers Care Design And Sales Consultant Name Role Phone Buffy Lund MD Primary Care Provider [phone] Encounter Details Date Type Department Care Team (Late st Contact Info) Description 04/06/2024 Telephone [facility] [address] [place] [address] Gali Caban, PharmD [address] [place] [address] Social History Tobacco Use Types Packs/Day Years [...] Please assist in obtaining discharge paperwork from [facility] Patient was discharged on 04/02/2024. Thank you documented in this encounter Plan of Treatment Not on file documented as of this encounter Visit Diagnoses Not on filedocumented in this encounter Additional Health Concerns Assessment Noted Time PHQ-9 Depression Total Score: 20 023 1:41 PM EDT documented as of this encounter Care Teams Design And Sales Consultant Relationship Specialty Start Date End Date Buffy Lund MD [address] [place] [address] PCP - General Family Medicine 01/09/24 documented as of this encounter
== END 2024-11-02 13:04 | disposition home or self-care (01) ==
LOC: HO.MAMMO 13:03
PROVIDERS: PCP Nurse Practitioner Family; Visit Provider Nurse Practitioner Family
DX: Z12.31 Encounter for screening mammogram for malignant neoplasm of breast (principal)
CPT/HCPCS: 77063; 77067

== ENCOUNTER → 2024-11-02 13:15 | Outpatient (BNV) | payer MEDICARE, MEDICAID, SELFPAY | PROVIDERS: PCP Nurse Practitioner Family; Visit Provider Internal Medicine | DX: Z12.31 Encounter for screening mammogram for malignant neoplasm of breast (principal) | CPT/HCPCS: 77063; 77067 ==

== ENCOUNTER 2024-11-15 11:45 | Outpatient (REF) | payer MEDICARE, MEDICAID, SELFPAY ==
[2024-11-16 13:22] LABS: CT PCR NOT DETECTED (Not Detect.); NG PCR NOT DETECTED (Not Detect.)
--- OUTSIDE RECORDS SUMMARY | 2024-11-16 13:29 | XMS_ITS | Encounter Summary ---
Author Organization [employer] Address [address] [facility] [address] [address] [place] [address] Care Team Providers Care Harness Mender Name Role Phone Buffy Lund MD Primary Care Provider [phone] Encounter Details Date Type Department Care Team (Late st Contact Info) Description 04/06/2024 Telephone [facility] [address] [place] [address] Gali Caban, PharmD [address] [place] [address] Social History Tobacco Use Types Packs/Day Years [...] Please assist in obtaining discharge paperwork from [facility] Patient was discharged on 04/02/2024. Thank you documented in this encounter Plan of Treatment Not on file documented as of this encounter Visit Diagnoses Not on filedocumented in this encounter Additional Health Concerns Assessment Noted Time PHQ-9 Depression Total Score: 20 023 1:41 PM EDT documented as of this encounter Care Teams Harness Mender Relationship Specialty Start Date End Date Buffy Lund MD [address] [place] [address] PCP - General Family Medicine 01/09/24 documented as of this encounter
== END 2024-11-15 11:46 | disposition home or self-care (01) ==
LOC: HO.HHCLNP 11:45
PROVIDERS: Visit Provider Internal Medicine
DX: N76.1 Subacute and chronic vaginitis (principal); Z72.51 High risk heterosexual behavior
CPT/HCPCS: 87491; 87591

== ENCOUNTER 2024-12-16 13:04 | Outpatient (REF) | payer MEDICARE, MEDICAID, SELFPAY ==
--- NOTE | ~2024-12-16 | MM_ITS ---
EXAMINATION: MM DIAGNOSTIC DIGITAL BREAST TOMOSYNTHESIS, LEFT Limited right breast ultrasound. CLINICAL INFORMATION: Right breast pain. Call back from screening for left asymmetries on MLO view. COMPARISON: Mammography: [facility] on PACS. TECHNIQUE: Digital breast tomosynthesis is performed in both the craniocaudal and mediolateral oblique views along with computer-aided detection (CAD). Synthesized 2D images are generated from the tomosynthesis. FINDINGS: There are scattered areas of fibroglandular density (ACR BI-RADS breast composition Category b). Left: The previously seen asymmetries in the superior breast posterior depth on MLO view did not persist on additional imaging projections and likely represented overlapping breast tissue. No suspicious calcifications or other abnormal findings. Right: Targeted color Doppler ultrasound scanning in the area of the patient's right breast pain retroareolar region demonstrates normal fibronodular breast tissue. There is no sonographic abnormal finding to account for the patient's right breast pain. Recent mammography November 02, 2024 was normal. MM/MM tomosynthesis added views L IMPRESSION: Right: No sonographic abnormal finding to account for the patient's right breast pain. Recent right breast mammogram was normal November 02, 2024. Recommend clinical evaluation and follow-up. Left: No mammographic abnormal findings. Negative. ASSESSMENT: BI-RADS BI-RADS 1 - Negative RECOMMENDATION: 1 year F/U Results were provided to the patient at time of visit by the technologist. This patient's information was entered into a reminder system with a target due date for their next mammogram. Electronically signed by: Dee Mart DO 12/16/2024 02:25 PM EDT
--- OUTSIDE RECORDS SUMMARY | 2024-12-16 13:37 | XMS_ITS | Encounter Summary ---
Author Organization [employer] Address [address] [facility] [address]t [place] [address] Care Team Providers Care Costume Cutter Name Role Phone Buffy Lund MD Primary Care Provider [phone] Encounter Details Date Type Department Care Team (Late st Contact Info) Description 04/06/2024 Telephone [facility] [address] [place] [address] Gali Caban, PharmD [address] [place] [address] Social History Tobacco Use Types Packs/Day Years [...] Please assist in obtaining discharge paperwork from [facility] Patient was discharged on 04/02/2024. Thank you documented in this encounter Plan of Treatment Not on file documented as of this encounter Visit Diagnoses Not on filedocumented in this encounter Additional Health Concerns Assessment Noted Time PHQ-9 Depression Total Score: 20 023 1:41 PM EDT documented as of this encounter Care Teams Costume Cutter Relationship Specialty Start Date End Date Buffy Lund MD [address] [place] [address] PCP - General Family Medicine 01/09/24 documented as of this encounter
== END 2024-12-16 13:05 | disposition home or self-care (01) ==
LOC: HO.MAMMO 13:04
PROVIDERS: PCP Nurse Practitioner Family; Visit Provider Nurse Practitioner Family
DX: N64.89 Other specified disorders of breast (principal)
CPT/HCPCS: 76642; 77061; 77065

== ENCOUNTER → 2024-12-16 13:30 | Outpatient (BNV) | payer MEDICARE, MEDICAID, SELFPAY | PROVIDERS: PCP Nurse Practitioner Family; Visit Provider Internal Medicine | DX: N64.4 Mastodynia (principal); R92.8 Other abnormal and inconclusive findings on diagnostic imaging of breast | CPT/HCPCS: 76642; 77065; G0279 ==